=== PATIENT | female | born 1940 | race Caucasian/White ===

== ENCOUNTER 2017-02-25 10:02 | Inpatient (IN) | payer MEDICARE, OTHER ==
--- NOTE | 2017-02-25 10:08 | PDOC ---
History of Present Illness - General History Source: Patient Exam Limitations: No Limitations - History of Present Illness Initial Comments: 02/25/17 11:06 The patient is a 76 year old female, with a significant past medical history of CAD, AFib(new onset), hypertension(uncontrolled), hypothyroidism, dyspepsia, depression, arthritis, who presents to the emergency department s/p mechanical fall at approximately 05:00. The patient reports she went to get up from bed to go to the bathroom, when she slipped and fell. Patient denies any head trauma, changes in vision, LOC, headache, dizziness, lightheadedness, neck pain, back pain, leg pain, or hip pain. As per home health aide, who arrived at the patient home around 08:00, she reports ringing the patients doorbell but no one answered. When the home health aide arrived in the patients home, she reports speaking to the patient through the door, who stated she was unable to get up on her own. Home health aide reports calling super to open the door, and patient was found on the floor. Patient reports she was unable to walk secondary to weakness . Patient reports when EMS arrived on scene she was nervous and was found to be hypertensive. She denies any other trauma or pain. She reports while she was on the floor she urinated 10 times, but denies any dysuria or hematuria. She denies any abdominal pain, nausea, vomiting, diarrhea , or constipation. She reports a dry cough, but denies any recent fever or chills. She denies any chest pain, shortness of breath, diaphoresis, or palpitations. Patient reports she ambulates with a cane at baseline. Patient reports she usually goes to [facility]. [facility] reports patient s last echo was in 2013, which had normal EF and mild L atrium dilation. Allergies: NKDA Past Surgical History: Bilateral knee replacements, Left hip replacement Social History: Non smoker. No ETOH or recreational drug use. PCP: Dr Quezada ([phone]) <Cristian Naik - Last Filed: 02/25/17 11:09> <Asia Logan - Last Filed: 02/25/17 12:09> - General Chief Complaint: Injury Stated Complaint: FALL Time Seen by Provider: 02/25/17 10:08 Past History <Cristian Naik - Last Filed: 02/25/17 11:09> <Asia Logan - Last Filed: 02/25/17 12:09> - Past Medical History Allergies/Adverse Reactions: Allergies Allergy/AdvReac Type Severity Reaction Status Date / Time No Known Allergies Allergy Unverified 02/25/17 10:35 Home Medications: Ambulatory Orders Acetaminophen [Tylenol] 650 mg PO PRN PRN 02/25/17 Aspirin [ASA -] 81 mg PO DAILY 02/25/17 Cholecalciferol (Vitamin D3) [Vitamin D3] 2,000 unit PO DAILY 02/25/17 Cyclobenzaprine HCl [Flexeril 10 mg] 10 mg PO BID PRN 02/25/17 Esomeprazole Magnesium [Nexium 24Hr] 40 mg PO DAILY 02/25/17 Levothyroxine [Synthroid -] 175 mcg PO DAILY 02/25/17 Metoprolol Tartrate [Lopressor -] 25 mg PO BID 02/25/17 Mirtazapine 15 mg PO DAILY 02/25/17 Omeprazole 40 mg PO DAILY 02/25/17 Oxycodone HCl/Acetaminophen [Percocet 5-325 mg Tablet] 1 tab PO BID 02/25/17 Sertraline HCl 50 mg PO DAILY 02/25/17 Review of Systems - Review of Systems Able to Perform ROS?: Yes Comments:: 02/25/17 11:06 GENERAL/CONSTITUTIONAL: Yes weakness. No fever or chills. HEAD, EYES, EARS, NOSE AND THROAT: No change in vision. No ear pain or discharge. No sore throat. GASTROINTESTINAL: No nausea, vomiting, diarrhea or constipation. GENITOURINARY: Yes frequency. No dysuria, hematuria, or change in urination. CARDIOVASCULAR: No chest pain, shortness of breath, diaphoresis, or palpitations. RESPIRATORY: Yes cough. No wheezing, or hemoptysis. MUSCULOSKELETAL: Yes leg weakness. No joint or muscle swelling or pain. No neck or back pain. SKIN: No rash NEUROLOGIC: No headache, vertigo, loss of consciousness, or change in strength/ sensation. ENDOCRINE: No increased thirst. No abnormal weight change. HEMATOLOGIC/LYMPHATIC: No anemia, easy bleeding, or history of blood clots. ALLERGIC/IMMUNOLOGIC: No hives or skin allergy. <Cristian Naik - Last Filed: 02/25/17 11:09> *Physical Exam - Vital Signs Last Vital Signs Temp Pulse Resp BP Pulse Ox 98.2 F 131 H 22 159/117 95 02/25/17 10:35 02/25/17 11:00 02/25/17 10:50 02/25/17 11:00 02/25/17 10:50 - Physical Exam Comments: 02/25/17 11:06 Constitutional: Awake, alert, oriented. No acute distress. Head: Normocephalic. Atraumatic Eyes: PERRL. EOMI. Conjunctivae are not pale. ENT: Mucous membranes are moist and intact. Posterior pharynx without exudates or erythema. Uvula midline. Neck: Supple. Full ROM. No lymphadenopathy. Cardiovascular: Irregularly irregular. Slightly tachycaardic. S1, S2 regular. Distal pulses are 2+ and symmetric. Pulmonary/Chest: No evidence of respiratory distress. Clear to auscultation bilaterally No wheezing, rales or rhonchi. Abdominal: Soft and non-distended. There is no tenderness. No rebound, guarding or rigidity. No organomegaly. No palpable masses. Good bowel sounds. Back: No CVA tenderness. Musculoskeletal: No edema. No cyanosis. No clubbing. Full range of motion in all extremities. No calf tenderness. Radial/pedal pulses are intact and 2+ bilaterally Skin: Skin is warm and dry. No petechiae. No purpura. Neurological: Alert and oriented to person, place, and time. Cranial nerves II- XII are grossly intact. Normal speech. Strength is grossly symmetric. No sensory deficits. Gait deferred. Psychiatric: Good eye contact. Normal interaction, affect and behavior. <Cristian Naik - Last Filed: 02/25/17 11:09> Heart Score/ECG Review - ECG Intrepretation Comment:: 02/25/17 11:07 Vent Rate: 121 bpm IMPRESSION: Atrial fibrillation with rapid ventricular response with premature ventricular or aberrantly conducted complexes. ST & T wave abnormality, consider lateral ischemia. <Cristian Naik - Last Filed: 02/25/17 11:09> - ECG Intrepretation Comment:: 02/25/17 10:37 afib w RVR at 121, t wave inversions laterally, q waves anteriorly that are age indeterminate, abnl ekg <Asia Logan - Last Filed: 02/25/17 12:09> ED Treatment Course - LABORATORY CBC & Chemistry Diagram: 02/25/17 10:39 02/25/17 10:39 - ADDITIONAL ORDERS Additional order review: 02/25/17 10:39 RBC 4.75 MCV 83.8 MCHC 32.7 RDW 15.9 H MPV 7.8 Neutrophils % 71.3 Lymphocytes % 19.3 Monocytes % 6.8 Eosinophils % 2.1 Basophils % 0.5 - Medications Given in the ED: ED Medications Discontinued Medications Generic Name Dose Route Start Last Admin Trade Name Freq PRN Reason Stop Dose Admin Metoprolol Tartrate 5 mg 02/25/17 10:35 02/25/17 11:00 Lopressor Injection - IVPUSH 02/25/17 10:36 5 mg ONCE ONE Administration Metoprolol Tartrate 25 mg 02/25/17 10:35 02/25/17 11:00 Lopressor - PO 02/25/17 10:36 25 mg ONCE ONE Administration <Cristian Naik - Last Filed: 02/25/17 11:09> - LABORATORY CBC & Chemistry Diagram: 02/25/17 10:39 02/25/17 10:39 <Asia Logan - Last Filed: 02/25/17 12:09> Medical Decision Making - Critical Care Time Total Critical Care Time (minutes): 30 Critical Care Statement: The care of this patient involved high complexity decision making to prevent further life threatening deterioration of the patient 's condition and/or to evaluate & treat vital organ system(s) failure or risk of failure. - Medical Decision Making 02/25/17 10:38 a/p: 76yo female with a fall at home -now with afib rvr -call placed to Dr. Cristhian Quezada to obtain further hx -concern for polypharmacy given flexeril, percocet, tylenol Rx bottles -urinary freq, poss UTI -cough - will obtain xray -rate control, labs, trops, ekg, cxr, reassess -no head injury -will monitor and reassess 02/25/17 11:03 discussed with [facility] - pt with new onset AFIB. hx of CAD, HTN, hypothyroid, depression, dyspepsia. will consult cardiology and pt will need to be admitted to the hospital. 02/25/17 11:39 microblog sent to hospitalist. consult placed to cardiology 02/25/17 12:03 case discussed with IM resident who accepts pt to service under Dr. Ma 02/25/17 12:09 pt updated on labs and new onset afib and willing to stay for further eval. <Asia Logan - Last Filed: 02/25/17 12:09> *DC/Admit/Observation/Transfer - Attestations Scribe Attestion: 02/25/17 11:06 Documentation prepared by Cristian Naik, acting as medical record administrator for Asia Logan DO. <Cristian Naik - Last Filed: 02/25/17 11:09> - Discharge Dispostion Admit: Yes - Attestations Physician Attestion: 02/25/17 11:04 I, Dr. Asia Logan, DO, attest that this document has been prepared under my direction and personally reviewed by me in its entirety. I further attest, that it accurately reflects all work, treatment, procedures and medical decision -making performed by me. <Asia Logan - Last Filed: 02/25/17 12:09> Diagnosis at time of Disposition: Atrial fibrillation with RVR, Fall - Discharge Dispostion Condition at time of disposition: Guarded
[2017-02-25] MEDS ORDERED: METOPROLOL TARTRATE 5 MG/5 ML VIAL IVPUSH ONE (10:35)
[2017-02-25] MEDS ORDERED: METOPROLOL TARTRATE 25 MG TABLET (FP) PO ONE ×2 (10:35→11:02)
[2017-02-25 10:39] VITALS: BMI 34.0
[2017-02-25] MEDS ORDERED: METOPROLOL TARTRATE 5 MG/5 ML VIAL ONE (10:51)
[2017-02-25] MEDS ORDERED: METOPROLOL TARTRATE 25 MG TABLET (FP) ONE ×2 (10:52→11:06)
[2017-02-25 10:54] LABS: BASOPHIL 0.5 % (0-2.0); EOSINOPHIL 2.1 % (0-4.5); MCH 27.4 pg (25.7-33.7); MCHC 32.7 g/dl (32.0-36.0); MEAN CELL VOLUME 83.8 fl (80-96); MEAN PLT VOLUME 7.8 fl (7.5-11.1); NEUTROPHILS 71.3 % (42.8-82.8); PLATELET COUNT 290 K/MM3 (134-434); RDW 15.9 % (11.6-15.6); WHITE BLOOD COUNT 11.2 K/mm3 (4.0-10.0)
[2017-02-25 11:20] LABS: ALBUMIN 3.6 g/dl (3.4-5.0); ANION GAP 6 (8-16); BILIRUBIN,TOTAL 0.6 mg/dL (0.2-1.0); CALCIUM 8.4 mg/dL (8.5-10.1); CO2 30 mmol/L (21-32); CREATININE 0.6 mg/dL (0.55-1.02); GLUCOSE,RANDOM 113 mg/dL (74-106); MAGNESIUM 2.1 mg/dL (1.8-2.4); SGOT/AST 14 U/L (15-37); SGPT/ALT 16 U/L (12-78); TOT PROT 7.3 g/dl (6.4-8.2)
[2017-02-25 11:23] LABS: ALK PHOS 153 U/L (45-117); CPK 83 IU/L (26-192); INR 1.01 (0.82-1.09); PROTHROMBIN TIME (PATIENT) 11.4 SEC (9.98-11.88); TROPONIN I < 0.02 ng/ml (0.00-0.05)
[2017-02-25 11:26] LABS: ACTIVATED PTT 37.6 SECONDS (26.9-34.4)
[2017-02-25] MEDS ORDERED: ENOXAPARIN NA (PORCINE) 80 MG/0.8 ML DISP.SYRIN SQ SCH (11:45)
[2017-02-25 11:47] LABS: THYROID STIMULATING HORMONE 0.15 uIU/ml (0.358-3.74)
[2017-02-25] MEDS ORDERED: ACETAMINOPHEN 325 MG TABLET (FP) PO PRN ×2 (12:05→12:35)
--- NOTE | 2017-02-25 12:14 | HP ---
CHIEF COMPLAINT:mechanical fall PCP:Dr Quezada ([phone]) HISTORY OF PRESENT ILLNESS: 76 year old female, with a significant past medical history of CAD, hypertension(uncontrolled), hypothyroidism, dyspepsia, depression, arthritis, who presents to the emergency department s/p mechanical fall . The patient reports she went to get up from bed to go to the bathroom, when she slipped and fell. Patient denies changes in vision, LOC, headache, dizziness, lightheadedness, neck pain, back pain, leg pain, or hip pain. She was found by home health aide 4hrs later. Patient was unable to ambulate secondary to weakness. She reports a dry cough, but denies any recent fever or chills. She denies any chest pain, shortness of breath, diaphoresis, or palpitations. Ambulates with a cane at baseline. Patient see usually at [facility]. As per [facility] reports patients last echo was in 2013, which had normal EF and mild L atrium dilation. She denies any KAUR, SOB, abdominal pain, nausea, vomiting, diarrhea, or constipation. ER course was notable for: (1)EKG showed afib with RVR (2)Started on Lovenox SQ for AC (3)Cardiology consulted. Recent Travel: no PAST MEDICAL HISTORY: CAD, AFib(new onset), hypertension(uncontrolled), hypothyroidism, dyspepsia, depression, arthritis PAST SURGICAL HISTORY:Bilateral knee replacements, Left hip replacement Social History: Smoking:never Alcohol: denies Drugs: denies Family History: Allergies No Known Allergies Allergy (Unverified 02/25/17 10:35) HOME MEDICATIONS: Home Medications Medication Instructions Recorded Acetaminophen [Tylenol] 650 mg PO PRN PRN 02/25/17 Aspirin [ASA -] 81 mg PO DAILY 02/25/17 Cholecalciferol (Vitamin D3) 2,000 unit PO DAILY 02/25/17 [Vitamin D3] Cyclobenzaprine HCl [Flexeril 10 10 mg PO BID PRN 02/25/17 mg] Esomeprazole Magnesium [Nexium 40 mg PO DAILY 02/25/17 24Hr] Levothyroxine [Synthroid -] 175 mcg PO DAILY 02/25/17 Metoprolol Tartrate [Lopressor -] 25 mg PO BID 02/25/17 Mirtazapine 15 mg PO DAILY 02/25/17 Omeprazole 40 mg PO DAILY 02/25/17 Oxycodone HCl/Acetaminophen 1 tab PO BID 02/25/17 [Percocet 5-325 mg Tablet] Sertraline HCl 50 mg PO DAILY 02/25/17 REVIEW OF SYSTEMS CONSTITUTIONAL: Absent: fever, chills, diaphoresis, generalized weakness, malaise, loss of appetite, weight change HEENT: Absent: rhinorrhea, nasal congestion, throat pain, throat swelling, difficulty swallowing, mouth swelling, ear pain, eye pain, visual changes CARDIOVASCULAR: Absent: chest pain, syncope, palpitations, irregular heart rate, lightheadedness , peripheral edema RESPIRATORY: Absent: cough, shortness of breath, dyspnea with exertion, orthopnea, wheezing, stridor, hemoptysis GASTROINTESTINAL: Absent: abdominal pain, abdominal distension, nausea, vomiting, diarrhea, constipation, melena, hematochezia GENITOURINARY: Absent: dysuria, frequency, urgency, hesitancy, hematuria, flank pain, genital pain MUSCULOSKELETAL: Absent: myalgia, arthralgia, joint swelling, back pain, neck pain SKIN: Absent: rash, itching, pallor HEMATOLOGIC/IMMUNOLOGIC: Absent: easy bleeding, easy bruising, lymphadenopathy, frequent infections ENDOCRINE: Absent: unexplained weight gain, unexplained weight loss, heat intolerance, cold intolerance NEUROLOGIC: Absent: headache, focal weakness or paresthesias, dizziness, unsteady gait, seizure, mental status changes, bladder or bowel incontinence PSYCHIATRIC: Absent: anxiety, depression, suicidal or homicidal ideation, hallucinations. PHYSICAL EXAMINATION Vital Signs - 24 hr 02/25/17 02/25/17 02/25/17 10:35 10:50 11:00 Temperature 98.2 F Pulse Rate 132 H 131 H Pulse Rate [ 131 H Apical] Respiratory 22 22 Rate Blood Pressure 162/112 159/117 Blood Pressure 159/117 [Right Arm] O2 Sat by Pulse 95 95 Oximetry (%) 02/25/17 11:08 Temperature Pulse Rate Pulse Rate [ 105 H Apical] Respiratory Rate Blood Pressure Blood Pressure [Right Arm] O2 Sat by Pulse Oximetry (%) GENERAL: AAOx3 , NAD HEAD: NC/AT EYES:PERRLA, EOMI, sclera anicteric, conjunctiva clear. No lid lag. EARS, NOSE, THROAT:dry mucous membranes. NECK: Normal range of motion, supple without lymphadenopathy, JVD, or masses. LUNGS: CTAB, No wheezes, and no crackles. No accessory muscle use. HEART: Irregularly irregular, normal S1 and S2 without murmur, rub or gallop. ABDOMEN: Soft, nontender, not distended, normoactive bowel sounds, no guarding, no rebound, no masses. MUSCULOSKELETAL: Normal range of motion at all joints. No bony deformities or tenderness. No CVA tenderness. UPPER EXTREMITIES: 2+ pulses, warm, well-perfused. No cyanosis. No clubbing. No peripheral edema. LOWER EXTREMITIES: 2+ pulses, warm, well-perfused. No calf tenderness. No peripheral edema. NEUROLOGICAL: Cranial nerves II-XII intact. Normal speech. PSYCHIATRIC: Cooperative. Good eye contact. Appropriate mood and affect. Laboratory Results - last 24 hr 02/25/17 02/25/17 02/25/17 10:39 10:39 10:39 WBC RBC Hgb Hct MCV MCH MCHC RDW Plt Count MPV Neutrophils % Lymphocytes % Monocytes % Eosinophils % Basophils % PT with INR 11.40 INR 1.01 PTT (Actin FS) 37.6 H Sodium 141 Potassium 4.0 Chloride 105 Carbon Dioxide 30 Anion Gap 6 L BUN 15 Creatinine 0.6 Creat Clearance w eGFR > 60 Random Glucose 113 H Calcium 8.4 L Magnesium 2.1 Total Bilirubin 0.6 AST 14 L ALT 16 Alkaline Phosphatase 153 H Creatine Kinase 83 Troponin I < 0.02 B-Natriuretic Peptide Total Protein 7.3 Albumin 3.6 TSH 0.15 L Blood Type O POSITIVE Antibody Screen Negative 02/25/17 02/25/17 10:39 10:39 WBC 11.2 H RBC 4.75 Hgb 13.0 Hct 39.8 MCV 83.8 MCH 27.4 MCHC 32.7 RDW 15.9 H Plt Count 290 MPV 7.8 Neutrophils % 71.3 Lymphocytes % 19.3 Monocytes % 6.8 Eosinophils % 2.1 Basophils % 0.5 PT with INR INR PTT (Actin FS) Sodium Potassium Chloride Carbon Dioxide Anion Gap BUN Creatinine Creat Clearance w eGFR Random Glucose Calcium Magnesium Total Bilirubin AST ALT Alkaline Phosphatase Creatine Kinase Troponin I B-Natriuretic Peptide 1504.76 H Total Protein Albumin TSH Blood Type Antibody Screen ASSESSMENT/PLAN: 76 year old female, with a significant past medical history of CAD, AFib(new onset), hypertension(uncontrolled), hypothyroidism, dyspepsia, depression, arthritis, who presents to the emergency department s/p mechanical fall will be admitted for further management of New onset Afib with RVR. Problem List - Problem (1) Atrial fibrillation with RVR Assessment/Plan: * May be a result of infection, over medication or other metabolic causes. * Will admitt to telemetry for continuous monitoring. * Rate controlled with Metoprolol 50mg PO and will continue * Cardiology consult pending. * Echo ordered. * Trops (-) x1 will continue to trend. * (2) HTN (hypertension) (3) CAD (coronary artery disease) (4) Osteoarthritis Visit type - Emergency Visit Emergency Visit: Yes ED Registration Date: 02/26/17 Care time: The patient presented to the Emergency Department on the above date and was hospitalized for further evaluation of their emergent condition. - New Patient This patient is new to me today: Yes Date on this admission: 02/26/17 - Critical Care Critical Care patient: No
[2017-02-25] MEDS ORDERED: oxyCODONE HCL 5 MG TABLET PO PRN (12:35)
[2017-02-25] MEDS ORDERED: ENOXAPARIN NA (PORCINE) 80 MG/0.8 ML DISP.SYRIN SQ ONE (12:37)
--- NOTE | 2017-02-25 15:11 | PN ---
Teaching Attending Note Name of Resident: Renzo Caro ATTENDING PHYSICIAN STATEMENT I saw and evaluated the patient. I reviewed the resident's note and discussed the case with the resident. I agree with the resident's findings and plan as documented. SUBJECTIVE: OBJECTIVE: Vital Signs Period Temp Pulse Resp BP Sys/Curiel Pulse Ox Last 24 Hr 98.2 F 96-132 20-22 149-162/91-117 94-95 Home Medications Medication Instructions Recorded Acetaminophen [Tylenol] 650 mg PO PRN PRN 02/25/17 Aspirin [ASA -] 81 mg PO DAILY 02/25/17 Cholecalciferol (Vitamin D3) 2,000 unit PO DAILY 02/25/17 [Vitamin D3] Cyclobenzaprine HCl [Flexeril 10 10 mg PO BID PRN 02/25/17 mg] Esomeprazole Magnesium [Nexium 40 mg PO DAILY 02/25/17 24Hr] Levothyroxine [Synthroid -] 175 mcg PO DAILY 02/25/17 Metoprolol Tartrate [Lopressor -] 25 mg PO BID 02/25/17 Mirtazapine 15 mg PO DAILY 02/25/17 Omeprazole 40 mg PO DAILY 02/25/17 Oxycodone HCl/Acetaminophen 1 tab PO BID 02/25/17 [Percocet 5-325 mg Tablet] Sertraline HCl 50 mg PO DAILY 02/25/17 Laboratory Tests 02/25/17 02/25/17 02/25/17 10:39 10:39 10:39 WBC RBC Hgb Hct MCV MCH MCHC RDW Plt Count MPV Neutrophils % Lymphocytes % Monocytes % Eosinophils % Basophils % PT with INR 11.40 INR 1.01 PTT (Actin FS) 37.6 H Sodium 141 Potassium 4.0 Chloride 105 Carbon Dioxide 30 Anion Gap 6 L BUN 15 Creatinine 0.6 Creat Clearance w eGFR > 60 Random Glucose 113 H Calcium 8.4 L Magnesium 2.1 Total Bilirubin 0.6 AST 14 L ALT 16 Alkaline Phosphatase 153 H Creatine Kinase 83 Troponin I < 0.02 B-Natriuretic Peptide Total Protein 7.3 Albumin 3.6 TSH 0.15 L Blood Type O POSITIVE Antibody Screen Negative 02/25/17 02/25/17 10:39 10:39 WBC 11.2 H RBC 4.75 Hgb 13.0 Hct 39.8 MCV 83.8 MCH 27.4 MCHC 32.7 RDW 15.9 H Plt Count 290 MPV 7.8 Neutrophils % 71.3 Lymphocytes % 19.3 Monocytes % 6.8 Eosinophils % 2.1 Basophils % 0.5 PT with INR INR PTT (Actin FS) Sodium Potassium Chloride Carbon Dioxide Anion Gap BUN Creatinine Creat Clearance w eGFR Random Glucose Calcium Magnesium Total Bilirubin AST ALT Alkaline Phosphatase Creatine Kinase Troponin I B-Natriuretic Peptide 1504.76 H Total Protein Albumin TSH Blood Type Antibody Screen ASSESSMENT AND PLAN:
[2017-02-25] MEDS: MIRTAZAPINE 15 MG TABLET (FP) PO SCH (21:08)
[2017-02-25] MEDS: METOPROLOL TARTRATE 25 MG TABLET (FP) PO SCH (21:08)
[2017-02-26] MEDS ORDERED: LEVOTHYROXINE NA 75 MCG TABLET (FP) ONE (05:48)
[2017-02-26] MEDS ORDERED: LEVOTHYROXINE NA 100 MCG TABLET (FP) ONE (05:48)
[2017-02-26] MEDS ORDERED: LEVOTHYROXINE 100 MCG, LEVOTHYROXINE 75 MCG PO SCH (07:00)
[2017-02-26] MEDS ORDERED: LEVOTHYROXINE NA 175 MCG TABLET PO SCH (07:00)
[2017-02-26 07:33] LABS: BASOPHIL 0.5 % (0-2.0); EOSINOPHIL 3.5 % (0-4.5); MCH 27.6 pg (25.7-33.7); MEAN CELL VOLUME 83.7 fl (80-96); MEAN PLT VOLUME 8.4 fl (7.5-11.1); NEUTROPHILS 58.7 % (42.8-82.8); PLATELET COUNT 275 K/MM3 (134-434); RDW 16.4 % (11.6-15.6); WHITE BLOOD COUNT 8.9 K/mm3 (4.0-10.0)
[2017-02-26 08:16] LABS: ALBUMIN 3.1 g/dl (3.4-5.0); ALK PHOS 135 U/L (45-117); ANION GAP 7 (8-16); BILIRUBIN,TOTAL 0.9 mg/dL (0.2-1.0); CALCIUM 7.8 mg/dL (8.5-10.1); CHOLESTEROL 188 mg/dL (50-200); CO2 28 mmol/L (21-32); CPK 72 IU/L (26-192); CREATININE 0.5 mg/dL (0.55-1.02); GLUCOSE,RANDOM 102 mg/dL (74-106); MAGNESIUM 2.1 mg/dL (1.8-2.4); PHOSPHOROUS 3.6 mg/dL (2.5-4.9); SGOT/AST 11 U/L (15-37); SGPT/ALT 14 U/L (12-78); TOT PROT 6.3 g/dl (6.4-8.2); TROPONIN I < 0.02 ng/ml (0.00-0.05)
[2017-02-26] MEDS ORDERED: CYCLOBENZAPRINE HCL 10 MG TABLET (FP) PO PRN ×2 (09:05→11:00)
[2017-02-26] MEDS: ASPIRIN 81 MG CHEWABLE TABLETS PO SCH (09:13)
[2017-02-26] MEDS: METOPROLOL TARTRATE 25 MG TABLET (FP) PO SCH (09:13)
[2017-02-26] MEDS: PANTOPRAZOLE 40 MG TABLET (FP) PO SCH (09:13)
[2017-02-26] MEDS: SERTRALINE HCL 50 MG TABLET (FP) PO SCH (09:13)
[2017-02-26] MEDS: CHOLECALCIFEROL (VITAMIN D3) 1,000 UNIT TABLET (FP) PO SCH (09:13)
[2017-02-26] MEDS ORDERED: METOPROLOL TARTRATE 5 MG/5 ML VIAL IVPUSH ONE (09:37)
--- NOTE | 2017-02-26 09:39 | EKG ---
Test Reason : Blood Pressure : / mmHG Vent. Rate : 121 BPM Atrial Rate : 258 BPM P-R Int : 000 ms QRS Dur : 084 ms QT Int : 324 ms P-R-T Axes : 000 038 209 degrees QTc Int : 460 ms ATRIAL FIBRILLATION WITH RAPID VENTRICULAR RESPONSE WITH PREMATURE VENTRICULAR OR ABERRANTLY CONDUCTED COMPLEXES ABNORMAL ECG NO PREVIOUS ECGS AVAILABLE Confirmed by KAPIL GOMEZ, ELENA ([id number]) on 02/26/2017 9:39:12 AM Referred By: Confirmed By:ELENA DICK MD
[2017-02-26] MEDS ORDERED: PATIENT'S OWN MEDICATION (NON-FORMULARY) (Esomeprazole Magnesium [Nexium 24hr] 40 MG) PO SCH (10:00)
[2017-02-26] MEDS: LISINOPRIL 5 MG TABLET (FP) PO SCH (12:26)
[2017-02-26] MEDS: ENOXAPARIN NA (PORCINE) 80 MG/0.8 ML DISP.SYRIN SQ SCH ×2 (12:26→21:45)
--- NOTE | 2017-02-26 13:16 | PN ---
Physical Exam: SUBJECTIVE: Patient seen and examined OBJECTIVE: Vital Signs Temperature 98 F 02/26/17 10:00 Pulse Rate 128 H 02/26/17 10:00 Respiratory Rate 20 02/26/17 10:00 Blood Pressure 162/92 02/26/17 10:00 O2 Sat by Pulse Oximetry (%) 95 02/26/17 07:00 GENERAL: The patient is awake, alert, and fully oriented, in no acute distress. HEAD: Normal with no signs of trauma. EYES: PERRL, extraocular movements intact, sclera anicteric, conjunctiva clear. No ptosis. ENT: Ears normal, nares patent, oropharynx clear without exudates, moist mucous membranes. NECK: Trachea midline, full range of motion, supple. LUNGS: Breath sounds equal, clear to auscultation bilaterally, no wheezes, no crackles, no accessory muscle use. HEART: Regular rate and rhythm, S1, S2 without murmur, rub or gallop. ABDOMEN: Soft, nontender, nondistended, normoactive bowel sounds, no guarding, no rebound, no hepatosplenomegaly, no masses. EXTREMITIES: 2+ pulses, warm, well-perfused, no edema. NEUROLOGICAL: Cranial nerves II through XII grossly intact. Normal speech, gait not observed. PSYCH: Normal mood, normal affect. SKIN: Warm, dry, normal turgor, no rashes or lesions noted Active Medications CBCD WBC 8.9 K/mm3 (4.0-10.0) 02/26/17 05:20 RBC 4.46 M/mm3 (3.60-5.2) 02/26/17 05:20 Hgb 12.3 GM/dL (10.7-15.3) 02/26/17 05:20 Hct 37.4 % (32.4-45.2) 02/26/17 05:20 MCV 83.7 fl (80-96) 02/26/17 05:20 MCHC 33.0 g/dl (32.0-36.0) 02/26/17 05:20 RDW 16.4 % (11.6-15.6) H 02/26/17 05:20 Plt Count 275 K/MM3 (134-434) 02/26/17 05:20 MPV 8.4 fl (7.5-11.1) 02/26/17 05:20 CMP Sodium 142 mmol/L (136-145) 02/26/17 05:20 Potassium 4.0 mmol/L (3.5-5.1) 02/26/17 05:20 Chloride 107 mmol/L (98-107) 02/26/17 05:20 Carbon Dioxide 28 mmol/L (21-32) 02/26/17 05:20 Anion Gap 7 (8-16) L 02/26/17 05:20 BUN 11 mg/dL (7-18) D 02/26/17 05:20 Creatinine 0.5 mg/dL (0.55-1.02) L 02/26/17 05:20 Creat Clearance w eGFR > 60 (>60) 02/26/17 05:20 Random Glucose 102 mg/dL (74-106) 02/26/17 05:20 Calcium 7.8 mg/dL (8.5-10.1) L 02/26/17 05:20 Total Bilirubin 0.9 mg/dL (0.2-1.0) D 02/26/17 05:20 AST 11 U/L (15-37) L D 02/26/17 05:20 ALT 14 U/L (12-78) 02/26/17 05:20 Alkaline Phosphatase 135 U/L (45-117) H 02/26/17 05:20 Total Protein 6.3 g/dl (6.4-8.2) L 02/26/17 05:20 Albumin 3.1 g/dl (3.4-5.0) L 02/26/17 05:20 CARDIAC ENZYMES Creatine Kinase 72 IU/L (26-192) 02/26/17 05:20 Troponin I < 0.02 ng/ml (0.00-0.05) 02/26/17 05:20 Generic Name Dose Route Start Last Admin Trade Name Freq PRN Reason Stop Dose Admin Acetaminophen 650 mg 02/25/17 12:05 Tylenol - PO PRN PRN PAIN Acetaminophen 325 mg 02/25/17 12:35 Tylenol - PO Q12H PRN FEVER OR PAIN Aspirin 81 mg 02/26/17 10:00 02/26/17 09:13 Asa - PO 81 mg DAILY DIANELYS Administration Cholecalciferol 2,000 unit 02/26/17 10:00 02/26/17 09:13 Vitamin D3 - PO 2,000 unit DAILY DIANELYS Administration Cyclobenzaprine HCl 10 mg 02/26/17 11:00 Flexeril - PO DAILY PRN PAIN Enoxaparin Sodium 80 mg 02/26/17 12:00 02/26/17 12:26 Lovenox - SQ 80 mg BID DIANELYS Administration Levothyroxine Sodium 125 mcg 02/27/17 07:00 Synthroid - PO DAILY@0700 DIANELYS Lisinopril 5 mg 02/26/17 12:00 02/26/17 12:26 Prinivil PO 5 mg DAILY DIANELYS Administration Metoprolol Succinate 50 mg 02/26/17 20:00 Toprol Xl - PO BID DIANELYS Mirtazapine 15 mg 02/25/17 22:00 02/25/17 21:08 Remeron - PO 15 mg HS DIANELYS Administration Oxycodone HCl 5 mg 02/25/17 12:35 Roxicodone - PO Q12H PRN Pantoprazole Sodium 40 mg 02/26/17 10:00 02/26/17 09:13 Protonix - PO 40 mg DAILY DIANELYS Administration Sertraline HCl 50 mg 02/26/17 10:00 02/26/17 09:13 Zoloft - PO 50 mg DAILY DIANELYS Administration Home Medications Medication Instructions Recorded Acetaminophen [Tylenol] 650 mg PO PRN PRN 02/25/17 Aspirin [ASA -] 81 mg PO DAILY 02/25/17 Cholecalciferol (Vitamin D3) 2,000 unit PO DAILY 02/25/17 [Vitamin D3] Cyclobenzaprine HCl [Flexeril 10 10 mg PO BID PRN 02/25/17 mg] Esomeprazole Magnesium [Nexium 40 mg PO DAILY 02/25/17 24Hr] Levothyroxine [Synthroid -] 175 mcg PO DAILY 02/25/17 Metoprolol Tartrate [Lopressor -] 25 mg PO BID 02/25/17 Mirtazapine 15 mg PO DAILY 02/25/17 Omeprazole 40 mg PO DAILY 02/25/17 Oxycodone HCl/Acetaminophen 1 tab PO BID 02/25/17 [Percocet 5-325 mg Tablet] Sertraline HCl 50 mg PO DAILY 02/25/17 ASSESSMENT/PLAN: 76 year old female, with a significant past medical history of CAD, AFib(new onset), hypertension(uncontrolled), hypothyroidism, dyspepsia, depression, arthritis, who presents to the emergency department s/p mechanical fall will be admitted for further management of New onset Afib with RVR. # Atrial fibrillation with RVR : May be a result of infection, over medication or other metabolic causes. Will admit to telemetry for continuous monitoring. Rate controlled with Metoprolol 50mg PO and will continue, Cardiology consult pending, Echo ordered, Trops (-) x1 will continue to trend. # HTN (hypertension) # CAD (coronary artery disease) # Osteoarthritis DVT:
--- NOTE | 2017-02-26 14:51 | CON.CARD ---
Consult Consult Specialty:: Cardiology Referred by:: Dr. Ma Reason for Consultation:: Atrial fibrillation with rapid ventricular response. - History of Present Illness Chief Complaint: Palpitation with evidence of atrial fibrillation. History of Present Illness: 76 year old woman with a PMHx of CAD, new atrial fibrillation, hypertension, hypothyroidism, dyspepsia, depression, arthritis admitted 02/25/2017 after a mechanical fall with evidence of atrial fibrillation with rapid VR. The patient slipped and fell and unable to get up. There were no head trauma, headache, changes in vision, LOC, dizziness, lightheadedness, or pain. Patient reports she was unable to walk secondary to weakness. She was found to have atrial fibrillation with rapid VR with ECG evidence of lateral ischemia. Echocardiogram 02/25/2017 showed low-normal LV systolic function with LVEF 50%. Normal RV and moderate LA dilatation. She received metoprolol with improved VR control. - History Source History Provided By: Patient, Family Member, Medical Record Limitations to Obtaining History: No Limitations - Past Medical History Cardio/Vascular: Yes: AFIB, CAD, HTN - Alcohol/Substance Use Hx Alcohol Use: No History of Substance Use: reports: None - Smoking History Smoking history: Never smoked Have you smoked in the past 12 months: No Home Medications - Allergies Allergies/Adverse Reactions: Allergies Allergy/AdvReac Type Severity Reaction Status Date / Time No Known Allergies Allergy Unverified 02/25/17 10:35 - Home Medications Home Medications: Ambulatory Orders Acetaminophen [Tylenol] 650 mg PO PRN PRN 02/25/17 Aspirin [ASA -] 81 mg PO DAILY 02/25/17 Cholecalciferol (Vitamin D3) [Vitamin D3] 2,000 unit PO DAILY 02/25/17 Cyclobenzaprine HCl [Flexeril 10 mg] 10 mg PO BID PRN 02/25/17 Esomeprazole Magnesium [Nexium 24Hr] 40 mg PO DAILY 02/25/17 Levothyroxine [Synthroid -] 175 mcg PO DAILY 02/25/17 Metoprolol Tartrate [Lopressor -] 25 mg PO BID 02/25/17 Mirtazapine 15 mg PO DAILY 02/25/17 Omeprazole 40 mg PO DAILY 02/25/17 Oxycodone HCl/Acetaminophen [Percocet 5-325 mg Tablet] 1 tab PO BID 02/25/17 Sertraline HCl 50 mg PO DAILY 02/25/17 Review of Systems - Review of Systems Constitutional: reports: No Symptoms Eyes: reports: No Symptoms HENT: reports: No Symptoms Neck: reports: No Symptoms Cardiovascular: reports: Palpitations Respiratory: reports: No Symptoms Gastrointestinal: reports: No Symptoms Genitourinary: reports: No Symptoms Musculoskeletal: reports: Extremity Pain, Joint Pain Integumentary: reports: No Symptoms Endocrine: reports: No Symptoms Hematology/Lymphatic: reports: No Symptoms Psychiatric: reports: No Symptoms Vital Signs: Vital Signs Temperature 98 F 02/26/17 10:00 Pulse Rate 128 H 02/26/17 10:00 Respiratory Rate 20 02/26/17 10:00 Blood Pressure 162/92 02/26/17 10:00 O2 Sat by Pulse Oximetry (%) 95 02/26/17 07:00 Constitutional: Yes: Well Nourished, No Distress, Calm Eyes: Yes: Conjunctiva Clear, EOM Intact HENT: Yes: Atraumatic, Normocephalic Neck: Yes: Supple, Trachea Midline Respiratory: Yes: Regular, CTA Bilaterally Gastrointestinal: Yes: Normal Bowel Sounds, Soft Cardiovascular: Yes: Tachycardia, Pulse Irregular, Other (S1, S2 Irregularly irregular, mild tachycardic.) Heart Sounds: Yes: S1, S2 Musculoskeletal: Yes: WNL Extremities: Yes: WNL Edema: No Peripheral Pulses WNL: Yes - Other Data Labs, Other Data: INR, PTT INR 1.01 (0.82-1.09) 02/25/17 10:39 Imaging - Results EKG: Image Reviewed (Atrial fibrillation with rapid VR. Lateral ST-T abnormalities, suggestive of myocardia ischemia.) Problem List - Problems (1) Atrial fibrillation with RVR Code(s): I48.91 - UNSPECIFIED ATRIAL FIBRILLATION Assessment/Plan 76 year old woman with a PMHx of CAD, new atrial fibrillation, hypertension, hypothyroidism, dyspepsia, depression, arthritis admitted 02/25/2017 after a mechanical fall with evidence of atrial fibrillation with rapid VR. The patient has no symptoms of palpitation, angina or physical signs of ischemia. Echocardiogram 02/25/2017 showed low-normal LV systolic function with LVEF 50%. Normal RV and moderate LA dilatation. She received metoprolol with improved VR control. 1) Atrial fibrillation with rapid ventricular response: Ventricular rate control: Increase and change metoprolol to short acting, Metoprolol tartrate 100 mg BID. AC: Continue Lovenox. May change it to Xarelto 20 mg daily with meal for long- term AC. 2) CAD with evidence of lateral ischemia. Patient has no symptoms of angina. Continue Aspirin and Metoprolol. Start statin: Crestor 20 mg daily. 3) Hypertension. Increase and change metoprolol to short acting, Metoprolol tartrate 100 mg BID. May titrate Lisinopril up.
--- NOTE | 2017-02-26 16:19 | PN ---
Physical Exam: SUBJECTIVE: Patient seen and examined at bedside. Feels "a little" palpitations. OBJECTIVE: Vital Signs Period Temp Pulse Resp BP Sys/Curiel Pulse Ox Last 24 Hr 97.5 F 101 20 120/73 GENERAL: The patient is awake, alert, and fully oriented, in no acute distress. LUNGS: Breath sounds equal, clear to auscultation bilaterally, no wheezes, no crackles, no accessory muscle use. HEART: Irregular, S1, S2 without murmur, rub or gallop. ABDOMEN: Soft, nontender, nondistended, normoactive bowel sounds, no guarding, no rebound, no hepatosplenomegaly, no masses. EXTREMITIES: bilateral trace edema, 2+ pulses, warm, well-perfused NEUROLOGICAL: Cranial nerves II through XII grossly intact. Normal speech, gait not observed. Current Medications Generic Name Dose Route Start Last Admin Trade Name Freq PRN Reason Stop Dose Admin Acetaminophen 325 mg 02/25/17 12:35 Tylenol - PO Q12H PRN FEVER OR PAIN Aspirin 81 mg 02/26/17 10:00 02/26/17 09:13 Asa - PO 81 mg DAILY [facility] Administration Cholecalciferol 2,000 unit 02/26/17 10:00 02/26/17 09:13 Vitamin D3 - PO 2,000 unit DAILY [facility] Administration Cyclobenzaprine HCl 10 mg 02/26/17 11:00 Flexeril - PO DAILY PRN PAIN Enoxaparin Sodium 80 mg 02/26/17 12:00 02/26/17 12:26 Lovenox - SQ 80 mg BID [facility] Administration Levothyroxine Sodium 125 mcg 02/27/17 07:00 Synthroid - PO DAILY@0700 [facility] Lisinopril 5 mg 02/26/17 12:00 02/26/17 12:26 Prinivil PO 5 mg DAILY [facility] Administration Metoprolol Succinate 50 mg 02/26/17 20:00 Toprol Xl - PO BID [facility] Mirtazapine 15 mg 02/25/17 22:00 02/25/17 21:08 Remeron - PO 15 mg HS [facility] Administration Oxycodone HCl 5 mg 02/25/17 12:35 Roxicodone - PO Q12H PRN Pantoprazole Sodium 40 mg 02/26/17 10:00 02/26/17 09:13 Protonix - PO 40 mg DAILY [facility] Administration Sertraline HCl 50 mg 02/26/17 10:00 02/26/17 09:13 Zoloft - PO 50 mg DAILY [facility] Administration ASSESSMENT/PLAN 76 year-old female with PMH of HTN, CAD, hypothyroidism, arthritis, and depression. Admitted following a fall and found on the floor at home. Newly diagnosed afib with RVR. Atrial fibrillation with RVR --rate to 150s --switch to short-acting metoprolol 100mg BID --full dose lovenox BID; per cardiology, may change to Xarelto 20mg daily --cardiology following Systolic heart failure --02/25 Echo: LV function borderline reduced, borderline global hypokinesis; RV normal; LAE; mild MR; moderate TR; RVSP 40-50mmHg --congestive changes on CXR --trace bilateral edema --start Lasix 40mg IV daily, monitor renal function Hypertension --continue metoprolol, lisinopril CAD --continue ASA, metoprolol Hypothyroidism --TSH low --patient filled last script for levothyroxine 137mcg on 01/24; will lower dose to 125mcg --free T3, free T4 pending Arthritis --continue home flexeril PRN Depression --continue mirtazapine, zoloft F/E/N Fluids: PO intake adequate Electrolytes: replete as indicated Nutrition: low sodium DVT prophylaxis: on full-dose lovenox Physical therapy evaluation Dispo: continues to require inpatient care Visit type - Emergency Visit Emergency Visit: Yes ED Registration Date: 02/26/17 Care time: The patient presented to the Emergency Department on the above date and was hospitalized for further evaluation of their emergent condition. - New Patient This patient is new to me today: Yes Date on this admission: 02/26/17 - Critical Care Critical Care patient: No
[2017-02-26] MEDS ORDERED: METOPROLOL SUCCINATE 50 MG TAB.SR.24H (FP) PO SCH (20:00)
[2017-02-26] MEDS: METOPROLOL TARTRATE 50 MG TABLET (FP) PO SCH (21:45)
[2017-02-26] MEDS: MIRTAZAPINE 15 MG TABLET (FP) PO SCH (21:45)
[2017-02-27] MEDS: LEVOTHYROXINE NA 125 MCG TABLET (FP) PO SCH (06:11)
[2017-02-27] MEDS ORDERED: LEVOTHYROXINE NA 150 MCG TABLET PO SCH (07:00)
[2017-02-27 07:28] LABS: BASOPHIL 0.3 % (0-2.0); EOSINOPHIL 3.2 % (0-4.5); MCH 27.8 pg (25.7-33.7); MCHC 32.8 g/dl (32.0-36.0); MEAN CELL VOLUME 84.9 fl (80-96); MEAN PLT VOLUME 8.6 fl (7.5-11.1); NEUTROPHILS 59.8 % (42.8-82.8); PLATELET COUNT 271 K/MM3 (134-434); RDW 16.4 % (11.6-15.6); WHITE BLOOD COUNT 9.6 K/mm3 (4.0-10.0)
[2017-02-27 08:17] LABS: ALBUMIN 2.9 g/dl (3.4-5.0); ANION GAP 5 (8-16); CALCIUM 7.8 mg/dL (8.5-10.1); CO2 29 mmol/L (21-32); GLUCOSE,RANDOM 110 mg/dL (74-106); MAGNESIUM 2.2 mg/dL (1.8-2.4)
[2017-02-27 08:21] LABS: ALK PHOS 118 U/L (45-117); BILIRUBIN,TOTAL 0.6 mg/dL (0.2-1.0); CREATININE 0.7 mg/dL (0.55-1.02); PHOSPHOROUS 3.7 mg/dL (2.5-4.9); SGOT/AST 10 U/L (15-37); SGPT/ALT 13 U/L (12-78); TOT PROT 6.1 g/dl (6.4-8.2)
[2017-02-27] MEDS: ASPIRIN 81 MG CHEWABLE TABLETS PO SCH (09:11)
[2017-02-27] MEDS: FUROSEMIDE 40 MG/4 ML INJECTABLE VIAL IVPUSH SCH (09:11)
[2017-02-27] MEDS: METOPROLOL TARTRATE 50 MG TABLET (FP) PO SCH ×2 (09:11→21:14)
[2017-02-27] MEDS: SERTRALINE HCL 50 MG TABLET (FP) PO SCH (09:12)
[2017-02-27] MEDS: ENOXAPARIN NA (PORCINE) 80 MG/0.8 ML DISP.SYRIN SQ SCH ×2 (09:12→21:14)
[2017-02-27] MEDS: PANTOPRAZOLE 40 MG TABLET (FP) PO SCH (09:13)
[2017-02-27] MEDS: LISINOPRIL 5 MG TABLET (FP) PO SCH (09:13)
[2017-02-27] MEDS: CHOLECALCIFEROL (VITAMIN D3) 1,000 UNIT TABLET (FP) PO SCH (09:13)
--- NOTE | 2017-02-27 14:04 | PN ---
Teaching Attending Note Name of Resident: Chinmay Pinon ATTENDING PHYSICIAN STATEMENT SUBJECTIVE: Patient seen and examined. denies any chest pain, palplitations, dyspnea, or dizziness, no other complaints. Overall feels better. Expresses gratitude for the care. OBJECTIVE: Vital Signs Period Temp Pulse Resp BP Sys/Curiel Pulse Ox Last 24 Hr 98 F-98.5 F 94-110 18-20 127-160/61-94 95-98 Intake & Output 02/24/17 02/25/17 02/26/17 02/27/17 23:59 23:59 23:59 23:59 Intake Total 10 540 0 Balance 10 540 0 Weight 180 lb General: sitting in bed in no acute distress CVS S1S2 irregular, borderline rapid Chest CTAB, no rales or wheezing abdomen soft, NT, obese, positive bowel sounds extremities no edema Current Medications Acetaminophen (Tylenol -) 325 mg PO Q12H PRN PRN Reason: FEVER OR PAIN Aspirin (Asa -) 81 mg PO DAILY [facility] Last Admin: 02/27/17 09:11 Dose: 81 mg Cholecalciferol (Vitamin D3 -) 2,000 unit PO DAILY [facility] Last Admin: 02/27/17 09:13 Dose: 2,000 unit Cyclobenzaprine HCl (Flexeril -) 10 mg PO DAILY PRN PRN Reason: PAIN Last Admin: 02/27/17 09:12 Dose: 10 mg Enoxaparin Sodium (Lovenox -) 80 mg SQ BID [facility] Last Admin: 02/27/17 09:12 Dose: 80 mg Furosemide (Lasix Injection -) 40 mg IVPUSH DAILY [facility] Last Admin: 02/27/17 09:11 Dose: 40 mg Levothyroxine Sodium (Synthroid -) 125 mcg PO DAILY@0700 [facility] Last Admin: 02/27/17 06:11 Dose: 125 mcg Lisinopril (Prinivil) 5 mg PO DAILY [facility] Last Admin: 02/27/17 09:13 Dose: 5 mg Metoprolol Tartrate (Lopressor -) 100 mg PO BID [facility] Last Admin: 02/27/17 09:11 Dose: 100 mg Mirtazapine (Remeron -) 15 mg PO HS [facility] Last Admin: 02/26/17 21:45 Dose: 15 mg Pantoprazole Sodium (Protonix -) 40 mg PO DAILY [facility] Last Admin: 02/27/17 09:13 Dose: 40 mg Sertraline HCl (Zoloft -) 50 mg PO DAILY [facility] Last Admin: 02/27/17 09:12 Dose: 50 mg Laboratory Results - last 24 hr 02/27/17 02/27/17 05:20 05:20 WBC 9.6 RBC 4.29 Hgb 11.9 Hct 36.4 MCV 84.9 MCH 27.8 MCHC 32.8 RDW 16.4 H Plt Count 271 MPV 8.6 Neutrophils % 59.8 Lymphocytes % 30.5 Monocytes % 6.2 Eosinophils % 3.2 Basophils % 0.3 Sodium 141 Potassium 4.6 Chloride 107 Carbon Dioxide 29 Anion Gap 5 L BUN 18 D Creatinine 0.7 D Creat Clearance w eGFR > 60 Random Glucose 110 H Calcium 7.8 L Phosphorus 3.7 Magnesium 2.2 Total Bilirubin 0.6 D AST 10 L ALT 13 Alkaline Phosphatase 118 H Total Protein 6.1 L Albumin 2.9 L Free T4 1.30 Telemetry 80s-100s ASSESSMENT AND PLAN: 76 yof admitted with fall and new onset Afib with RVR/Acute systolic heart failure exacerbation. -New onset Afib with RVR -Acute systolic HR exacerbation, suspect from rapid Afib -CAD with lateral ischemia -Hypothyroidism -Mechanical fall -CAD -HLD Plan: rate improved. Continue metoprolol 100 mg BID. Lovenox full dose, transition to xarelto per cardiology. Levothyroxine dose decreased, repeat Thyroid panel in 4-6 weeks. Respiratory status improved, lasix 40 mg IV today, transition to PO in AM if continues to improve. Continue ASA/metoprolol. Lisinopril added. Add crestor 20 mg daily . PT eval and d/c planning as heart rate has improved. Anticipate d/c in 1-2 days if HR stable and safe disposition arranged.
--- NOTE | 2017-02-27 19:07 | PN ---
Progress Note, Physician Chief Complaint: Patient appears comfortable. She reports no palpitation, chest pain or SOB. Tele shows atrial fibrillation with controlled VR. History of Present Illness: 76 year old woman with a PMHx of CAD, new atrial fibrillation, hypertension, hypothyroidism, dyspepsia, depression, arthritis admitted 02/25/2017 after a mechanical fall with evidence of atrial fibrillation with rapid VR. She was found to have atrial fibrillation with rapid VR with ECG evidence of lateral ischemia. Echocardiogram 02/25/2017 showed low-normal LV systolic function with LVEF 50%. Normal RV and moderate LA dilatation. She received metoprolol with improved VR control. - Current Medication List Current Medications: Active Medications Acetaminophen (Tylenol -) 325 mg PO Q12H PRN PRN Reason: FEVER OR PAIN Aspirin (Asa -) 81 mg PO DAILY [facility] Last Admin: 02/27/17 09:11 Dose: 81 mg Cholecalciferol (Vitamin D3 -) 2,000 unit PO DAILY [facility] Last Admin: 02/27/17 09:13 Dose: 2,000 unit Cyclobenzaprine HCl (Flexeril -) 10 mg PO DAILY PRN PRN Reason: PAIN Last Admin: 02/27/17 09:12 Dose: 10 mg Enoxaparin Sodium (Lovenox -) 80 mg SQ BID [facility] Last Admin: 02/27/17 09:12 Dose: 80 mg Furosemide (Lasix Injection -) 40 mg IVPUSH DAILY [facility] Last Admin: 02/27/17 09:11 Dose: 40 mg Levothyroxine Sodium (Synthroid -) 125 mcg PO DAILY@0700 [facility] Last Admin: 02/27/17 06:11 Dose: 125 mcg Lisinopril (Prinivil) 5 mg PO DAILY [facility] Last Admin: 02/27/17 09:13 Dose: 5 mg Metoprolol Tartrate (Lopressor -) 100 mg PO BID [facility] Last Admin: 02/27/17 09:11 Dose: 100 mg Mirtazapine (Remeron -) 15 mg PO HS [facility] Last Admin: 02/26/17 21:45 Dose: 15 mg Pantoprazole Sodium (Protonix -) 40 mg PO DAILY [facility] Last Admin: 02/27/17 09:13 Dose: 40 mg Rosuvastatin Calcium (Crestor -) 20 mg PO HS [facility] Sertraline HCl (Zoloft -) 50 mg PO DAILY [facility] Last Admin: 02/27/17 09:12 Dose: 50 mg - Objective Vital Signs: Vital Signs Temperature 98.2 F 02/27/17 14:37 Pulse Rate 92 H 02/27/17 14:37 Respiratory Rate 18 02/27/17 14:37 Blood Pressure 137/86 02/27/17 14:37 O2 Sat by Pulse Oximetry (%) 98 02/27/17 10:00 Constitutional: Yes: Well Nourished, No Distress, Calm Eyes: Yes: Conjunctiva Clear, EOM Intact HENT: Yes: Atraumatic, Normocephalic Neck: Yes: Supple, Trachea Midline Cardiovascular: Yes: Pulse Irregular, S1, S2 Respiratory: Yes: Regular, CTA Bilaterally Gastrointestinal: Yes: Normal Bowel Sounds, Soft ...Rectal Exam: Yes: Deferred Edema: No Peripheral Pulses WNL: Yes Integumentary: Yes: WNL Labs: CBC, BMP 02/27/17 05:20 02/27/17 05:20 INR, PTT INR 1.01 (0.82-1.09) 02/25/17 10:39 Problem List - Problems (1) Atrial fibrillation with RVR Code(s): I48.91 - UNSPECIFIED ATRIAL FIBRILLATION Assessment/Plan 76 year old woman with a PMHx of CAD, new atrial fibrillation, hypertension, hypothyroidism, dyspepsia, depression, arthritis admitted 02/25/2017 after a mechanical fall with evidence of atrial fibrillation with rapid VR. The patient has no symptoms of palpitation, angina or physical signs of ischemia. Echocardiogram 02/25/2017 showed low-normal LV systolic function with LVEF 50%. Normal RV and moderate LA dilatation. She received metoprolol with improved VR control. 1) Atrial fibrillation with controlled ventricular response: Continue metoprolol tartrate 100 mg BID. AC: Continue Lovenox. May change it to Xarelto 20 mg daily with meal for long- term AC. 2) CAD with evidence of lateral ischemia. Patient has no symptoms of angina. Continue Aspirin and Metoprolol. Continue Crestor 20 mg daily. 3) Hypertension. Continue metoprolol tartrate 100 mg BID. Please call us for reconsult as neede.
[2017-02-27] MEDS: MIRTAZAPINE 15 MG TABLET (FP) PO SCH (21:14)
[2017-02-27] MEDS ORDERED: ROSUVASTATIN CA 20 MG TABLET (FP) PO SCH (22:00)
[2017-02-27] MEDS ORDERED: ATORVASTATIN CA 10 MG TABLET (FP) PO SCH (22:00)
[2017-02-28] MEDS: LEVOTHYROXINE NA 125 MCG TABLET (FP) PO SCH (06:10)
[2017-02-28 07:05] LABS: ALBUMIN 3.2 g/dl (3.4-5.0); ALK PHOS 117 U/L (45-117); ANION GAP 10 (8-16); BILIRUBIN,TOTAL 0.7 mg/dL (0.2-1.0); CALCIUM 8.1 mg/dL (8.5-10.1); CO2 26 mmol/L (21-32); CREATININE 0.6 mg/dL (0.55-1.02); GLUCOSE,RANDOM 103 mg/dL (74-106); SGOT/AST 8 U/L (15-37); SGPT/ALT 13 U/L (12-78); TOT PROT 6.3 g/dl (6.4-8.2)
--- NOTE | 2017-02-28 07:56 | PN ---
Physical Exam: SUBJECTIVE: Patient seen and examined OBJECTIVE: Vital Signs Period Temp Pulse Resp BP Sys/Curiel Pulse Ox Last 24 Hr 97.9 F-98.5 F 85-110 18-18 103-160/56-90 98-98 GENERAL: The patient is awake, alert, and fully oriented, in no acute distress. HEAD: Normal with no signs of trauma. EYES: PERRL, extraocular movements intact, sclera anicteric, conjunctiva clear. No ptosis. ENT: Ears normal, nares patent, oropharynx clear without exudates, moist mucous membranes. NECK: Trachea midline, full range of motion, supple. LUNGS: Breath sounds equal, clear to auscultation bilaterally, no wheezes, no crackles, no accessory muscle use. HEART: Regular rate and rhythm, S1, S2 without murmur, rub or gallop. ABDOMEN: Soft, nontender, nondistended, normoactive bowel sounds, no guarding, no rebound, no hepatosplenomegaly, no masses. EXTREMITIES: 2+ pulses, warm, well-perfused, no edema. NEUROLOGICAL: Cranial nerves II through XII grossly intact. Normal speech, gait not observed. PSYCH: Normal mood, normal affect. SKIN: Warm, dry, normal turgor, no rashes or lesions noted Laboratory Results - last 24 hr 02/27/17 02/28/17 05:20 06:10 Sodium 141 142 Potassium 4.6 3.9 Chloride 107 106 Carbon Dioxide 29 26 Anion Gap 5 L 10 BUN 18 D 19 H Creatinine 0.7 D 0.6 Creat Clearance w eGFR > 60 > 60 Random Glucose 110 H 103 Calcium 7.8 L 8.1 L Phosphorus 3.7 Magnesium 2.2 Total Bilirubin 0.6 D 0.7 AST 10 L 8 L ALT 13 13 Alkaline Phosphatase 118 H 117 Total Protein 6.1 L 6.3 L Albumin 2.9 L 3.2 L Free T4 1.30 Active Medications Acetaminophen (Tylenol -) 325 mg PO Q12H PRN PRN Reason: FEVER OR PAIN Aspirin (Asa -) 81 mg PO DAILY [facility] Last Admin: 02/27/17 09:11 Dose: 81 mg Cholecalciferol (Vitamin D3 -) 2,000 unit PO DAILY [facility] Last Admin: 02/27/17 09:13 Dose: 2,000 unit Cyclobenzaprine HCl (Flexeril -) 10 mg PO DAILY PRN PRN Reason: PAIN Last Admin: 02/27/17 09:12 Dose: 10 mg Furosemide (Lasix Injection -) 40 mg IVPUSH DAILY [facility] Last Admin: 02/27/17 09:11 Dose: 40 mg Levothyroxine Sodium (Synthroid -) 125 mcg PO DAILY@0700 [facility] Last Admin: 02/28/17 06:10 Dose: 125 mcg Lisinopril (Prinivil) 5 mg PO DAILY [facility] Last Admin: 02/27/17 09:13 Dose: 5 mg Metoprolol Tartrate (Lopressor -) 100 mg PO BID [facility] Last Admin: 02/27/17 21:14 Dose: 100 mg Mirtazapine (Remeron -) 15 mg PO HS [facility] Last Admin: 02/27/17 21:14 Dose: 15 mg Pantoprazole Sodium (Protonix -) 40 mg PO DAILY [facility] Last Admin: 02/27/17 09:13 Dose: 40 mg Rivaroxaban (Xarelto -) 20 mg PO DAILY [facility] Rosuvastatin Calcium (Crestor -) 20 mg PO HS [facility] Last Admin: 02/27/17 21:14 Dose: 20 mg Sertraline HCl (Zoloft -) 50 mg PO DAILY [facility] Last Admin: 02/27/17 09:12 Dose: 50 mg ASSESSMENT/PLAN:
[2017-02-28] MEDS: FUROSEMIDE 40 MG/4 ML INJECTABLE VIAL IVPUSH SCH (09:16)
[2017-02-28] MEDS: METOPROLOL TARTRATE 50 MG TABLET (FP) PO SCH (09:16)
[2017-02-28] MEDS: PANTOPRAZOLE 40 MG TABLET (FP) PO SCH (09:17)
[2017-02-28] MEDS: ASPIRIN 81 MG CHEWABLE TABLETS PO SCH (09:17)
[2017-02-28] MEDS: LISINOPRIL 5 MG TABLET (FP) PO SCH (09:17)
[2017-02-28] MEDS: CHOLECALCIFEROL (VITAMIN D3) 1,000 UNIT TABLET (FP) PO SCH (09:17)
[2017-02-28] MEDS: SERTRALINE HCL 50 MG TABLET (FP) PO SCH (09:18)
--- NOTE | 2017-02-28 13:03 | PN ---
Teaching Attending Note Name of Resident: Rhea Quevedo ATTENDING PHYSICIAN STATEMENT Time of evaluation: 11:00 AM I saw and evaluated the patient. I reviewed the resident's note and discussed the case with the resident. I agree with the resident's findings and plan as documented. SUBJECTIVE: patient seen and examined. No chest pain, palpitations, dyspnea or dizziness. No complaints currently. OBJECTIVE: Vital Signs Period Temp Pulse Resp BP Sys/Curiel Pulse Ox Last 24 Hr 97.9 F-98.5 F 66-100 18-20 103-162/56-100 98-98 Intake & Output 02/25/17 02/26/17 02/27/17 02/28/17 23:59 23:59 23:59 23:59 Intake Total 10 540 10 0 Balance 10 540 10 0 Weight 180 lb General: sitting in bed in no acute distress CVS: S1S2 regular Chest CTAB, no rales or wheezing abdomen Soft, obese, NT, positive bowel sounds extremities no edema Current Medications Acetaminophen (Tylenol -) 325 mg PO Q12H PRN PRN Reason: FEVER OR PAIN Aspirin (Asa -) 81 mg PO DAILY [facility]S [facility] Last Admin: 02/28/17 09:17 Dose: 81 mg Cholecalciferol (Vitamin D3 -) 2,000 unit PO DAILY [facility] 234 [facility]S AT [facility] Last Admin: 02/28/17 09:17 Dose: 2,000 unit Cyclobenzaprine HCl (Flexeril -) 10 mg PO DAILY PRN PRN Reason: PAIN Last Admin: 02/27/17 09:12 Dose: 10 mg Furosemide (Lasix Injection -) 40 mg IVPUSH DAILY [facility] 234 [facility]S [facility] Last Admin: 02/28/17 09:16 Dose: 40 mg Levothyroxine Sodium (Synthroid -) 125 mcg PO DAILY@0700 [facility] 234 [facility]S [facility] Last Admin: 02/28/17 06:10 Dose: 125 mcg Lisinopril (Prinivil) 5 mg PO DAILY [facility] 234 [facility]S AT [facility] Last Admin: 02/28/17 09:17 Dose: 5 mg Metoprolol Tartrate (Lopressor -) 100 mg PO BID [facility] 234 [facility]S [facility] Last Admin: 02/28/17 09:16 Dose: 100 mg Mirtazapine (Remeron -) 15 mg PO HS [facility] 234 [facility]S [facility] Last Admin: 02/27/17 21:14 Dose: 15 mg Pantoprazole Sodium (Protonix -) 40 mg PO DAILY [facility] 234 [facility]S [facility] Last Admin: 02/28/17 09:17 Dose: 40 mg Rivaroxaban (Xarelto -) 20 mg PO DAILY@1900 [facility] Rosuvastatin Calcium (Crestor -) 20 mg PO HS [facility] 234 B[facility]S [facility] Last Admin: 02/27/17 21:14 Dose: 20 mg Sertraline HCl (Zoloft -) 50 mg PO DAILY [facility] 234 [facility]S [facility] Last Admin: 02/28/17 09:18 Dose: 50 mg Laboratory Results - last 24 hr 02/28/17 06:10 Sodium 142 Potassium 3.9 Chloride 106 Carbon Dioxide 26 Anion Gap 10 BUN 19 H Creatinine 0.6 Creat Clearance w eGFR > 60 Random Glucose 103 Calcium 8.1 L Total Bilirubin 0.7 AST 8 L ALT 13 Alkaline Phosphatase 117 Total Protein 6.3 L Albumin 3.2 L ASSESSMENT AND PLAN: 76 yof admitted with fall and new onset Afib with RVR/Acute systolic heart failure exacerbation. -New onset Afib with RVR -Acute systolic HR exacerbation, suspect from rapid Afib -CAD with lateral ischemia -Hypothyroidism -Mechanical fall -CAD -HLD Plan: rate improved. Continue metoprolol 100 mg BID. Transition to xarelto per cardiology. Levothyroxine dose decreased, repeat Thyroid panel in 4-6 weeks. Respiratory status improved, d/c additional lasix, euvolumic, do not anticipate need for PO, will discuss with cardiology. Continue ASA/metoprolol. Lisinopril and crestor 20 mg daily added . PT eval noted. Plan for home discharge on xarelto after discussion with cardiology with outpatient follow up.
--- NOTE | 2017-02-28 13:51 | DS ---
Physical Exam: SUBJECTIVE: Patient seen and examined. No complaints this morning. Denies CP, palpitations, or dizziness. No SOB or abdominal pain. OBJECTIVE: Vital Signs Period Temp Pulse Resp BP Sys/Curiel Pulse Ox Last 24 Hr 97.9 F-98.5 F 66-100 18-20 103-162/56-100 98-98 PHYSICAL EXAM GENERAL: The patient is awake, alert, and fully oriented, in no acute distress. EYES: sclera anicteric, conjunctiva clear LUNGS: CTAB, no wheezes, rhonchi or rales appreciated. HEART: irreg, normal S1/S2, no murmur, rub or gallop. ABDOMEN: obese, soft, ntnd LOWER EXTREMITIES: 2+ pulses, wwp, no edema LABS Laboratory Results - last 24 hr 02/28/17 06:10 Sodium 142 Potassium 3.9 Chloride 106 Carbon Dioxide 26 Anion Gap 10 BUN 19 H Creatinine 0.6 Creat Clearance w eGFR > 60 Random Glucose 103 Calcium 8.1 L Total Bilirubin 0.7 AST 8 L ALT 13 Alkaline Phosphatase 117 Total Protein 6.3 L Albumin 3.2 L IMAGING: ECHO (02/25/17): Noted below CXR (01/2717): AP portable chest: Shortness of breath Imaging reveals a large heart, unfolded aorta and some congestive changes. There are no prior studies for comparison. The bones and soft tissues are intact. The angles are sharp. Impression: Large heart. Congestive changes. Reported By: Willian Rapp MD 02/25/[address] (02/25/17): Cranial CT (without contrast) Clinical information - headache multiplanar imaging was performed. Intravenous contrast was not administered. There is no CT evidence of intracranial hemorrhage. No extra-axial fluid collection is seen. There is no gross mass lesion. No discrete infarct is identified. Mild periventricular chronic microvascular ischemic changes are noted. Involutional changes are seen with minimal to mild ventricular dilatation. No calvarial defect is noted. The partially imaged paranasal sinuses demonstrate no opacification. Apparent scleral banding of the left ocular globe is seen. IMPRESSION: No CT evidence of acute intracranial pathology. Chronic findings as noted above. Active Medications Acetaminophen (Tylenol -) 325 mg PO Q12H PRN PRN Reason: FEVER OR PAIN Aspirin (Asa -) 81 mg PO DAILY [facility] Last Admin: 02/28/17 09:17 Dose: 81 mg Cholecalciferol (Vitamin D3 -) 2,000 unit PO DAILY [facility] Last Admin: 02/28/17 09:17 Dose: 2,000 unit Cyclobenzaprine HCl (Flexeril -) 10 mg PO DAILY PRN PRN Reason: PAIN Last Admin: 02/27/17 09:12 Dose: 10 mg Furosemide (Lasix Injection -) 40 mg IVPUSH DAILY [facility] Last Admin: 02/28/17 09:16 Dose: 40 mg Levothyroxine Sodium (Synthroid -) 125 mcg PO DAILY@0700 [facility] Last Admin: 02/28/17 06:10 Dose: 125 mcg Lisinopril (Prinivil) 5 mg PO DAILY [facility] Last Admin: 02/28/17 09:17 Dose: 5 mg Metoprolol Tartrate (Lopressor -) 100 mg PO BID [facility] Last Admin: 02/28/17 09:16 Dose: 100 mg Mirtazapine (Remeron -) 15 mg PO HS [facility] Last Admin: 02/27/17 21:14 Dose: 15 mg Pantoprazole Sodium (Protonix -) 40 mg PO DAILY [facility] Last Admin: 02/28/17 09:17 Dose: 40 mg Rivaroxaban (Xarelto -) 20 mg PO DAILY@1900 [facility] Rosuvastatin Calcium (Crestor -) 20 mg PO HS [facility] Last Admin: 02/27/17 21:14 Dose: 20 mg Sertraline HCl (Zoloft -) 50 mg PO DAILY [facility] Last Admin: 02/28/17 09:18 Dose: 50 mg HPI: Date of Admission:02/26/17 76 year old female, with a significant past medical history of CAD, hypertension(uncontrolled), hypothyroidism, dyspepsia, depression, arthritis, who presents to the emergency department s/p mechanical fall . The patient reports she went to get up from bed to go to the bathroom, when she slipped and fell. Patient denies changes in vision, LOC, headache, dizziness, lightheadedness, neck pain, back pain, leg pain, or hip pain. She was found by home health aide 4hrs later. Patient was unable to ambulate secondary to weakness. She reports a dry cough, but denies any recent fever or chills. She denies any chest pain, shortness of breath, diaphoresis, or palpitations. Ambulates with a cane at baseline. Patient see usually at [facility]. As per [facility] reports patients last echo was in 2013, which had normal EF and mild L atrium dilation. She denies any KAUR, SOB, abdominal pain, nausea, vomiting, diarrhea, or constipation. ER course was notable for: (1)Afib with RVR (2)Started on full dose Lovenox SQ for AC (3)Cardiology consulted. HOSPITAL COURSE: Patient's EKG showed e/o lateral ischemia. Patient denied chest pain, palpitations or chest pressure throughout her admission. 3x TroponinI were negative, and no further changes on continuous telemetry monitoring were noted. Echocardiogram 02/25/2017 showed low-normal LV function with LVEF 50%, borderline global hypokinesis; RV normal; LAE; mild MR; mod TR; RVSP 40-50mmHg. She was started on Crestor and lisinopril. Metoprolol tartrate was increased to 100mg BID with improved VR control (rate in the 90's). She was initially anticoagulated with full dose Lovenox and switched to Xarelto 20mg PO per cardiology on discharge. Her respiratory status improved after lasix IV with pSaO2 of 98% on RA and PE notable for lungs CTAB and no LE edema on discharge. Thyroid studies found her TSH level to be low (TSH 0.15, free T4 1.30, free T3 2.8) and her home synthroid dose was decreased to 125mcg. Physical therapy evaluation recommends continued home PT and VNS. Date of Discharge: 02/28/17 Minutes to complete discharge: 50 <Rhea Quevedo - Last Filed: 02/28/17 16:21> Physical Exam: SUBJECTIVE: Patient seen and examined OBJECTIVE: Vital Signs Period Temp Pulse Resp BP Sys/Curiel Pulse Ox Last 24 Hr 97.9 F-98.5 F 66-100 18-20 103-162/56-100 98-98 PHYSICAL EXAM GENERAL: The patient is awake, alert, and fully oriented, in no acute distress. HEAD: Normal with no signs of trauma. EYES: PERRL, extraocular movements intact, sclera anicteric, conjunctiva clear. ENT: Ears normal, nares patent, oropharynx clear without exudates, moist mucous membranes. NECK: Trachea midline, full range of motion, supple. LUNGS: Breath sounds equal, clear to auscultation bilaterally, no wheezes, no crackles, no accessory muscle use. HEART: Regular rate and rhythm, S1, S2 without murmur, rub or gallop. ABDOMEN: Soft, nontender, nondistended, normoactive bowel sounds, no guarding, no rebound, no hepatosplenomegaly, no masses. EXTREMITIES: 2+ pulses, warm, well-perfused, no edema. NEUROLOGICAL: Cranial nerves II through XII grossly intact. Normal speech, gait not observed. PSYCH: Normal mood, normal affect. SKIN: Warm, dry, normal turgor, no rashes or lesions noted. LABS Laboratory Results - last 24 hr 02/27/17 02/28/17 05:20 06:10 Sodium 142 Potassium 3.9 Chloride 106 Carbon Dioxide 26 Anion Gap 10 BUN 19 H Creatinine 0.6 Creat Clearance w eGFR > 60 Random Glucose 103 Calcium 8.1 L Total Bilirubin 0.7 AST 8 L ALT 13 Alkaline Phosphatase 117 Total Protein 6.3 L Albumin 3.2 L Free T3 2.8 HOSPITAL COURSE: Date of Admission:02/26/17 Date of Discharge: 02/28/17 <Chinmay Pinon - Last Filed: 02/28/17 17:30> Discharge Summary Reason For Visit: ATRIAL FIB,W RAPID VENTRICULAR Current Active Problems Atrial fibrillation with RVR (Acute) CAD (coronary artery disease) (Acute) Fall (Acute) HTN (hypertension) (Acute) Osteoarthritis (Acute) - Home Medications Comprehensive Discharge Medication List: Ambulatory Orders Acetaminophen [Tylenol] 650 mg PO PRN PRN 02/25/17 Aspirin [ASA -] 81 mg PO DAILY 02/25/17 Cholecalciferol (Vitamin D3) [Vitamin D3] 2,000 unit PO DAILY 02/25/17 Cyclobenzaprine HCl [Flexeril 10 mg] 10 mg PO BID PRN 02/25/17 Esomeprazole Magnesium [Nexium 24Hr] 40 mg PO DAILY 02/25/17 Levothyroxine [Synthroid -] 175 mcg PO DAILY 02/25/17 Metoprolol Tartrate [Lopressor -] 25 mg PO BID 02/25/17 Mirtazapine 15 mg PO DAILY 02/25/17 Omeprazole 40 mg PO DAILY 02/25/17 Oxycodone HCl/Acetaminophen [Percocet 5-325 mg Tablet] 1 tab PO BID 02/25/17 Sertraline HCl 50 mg PO DAILY 02/25/17 <Rhea Quevedo - Last Filed: 02/28/17 16:21> Current Active Problems Atrial fibrillation with RVR (Acute) CAD (coronary artery disease) (Acute) Fall (Acute) HTN (hypertension) (Acute) Osteoarthritis (Acute) - Home Medications Comprehensive Discharge Medication List: Ambulatory Orders Acetaminophen [Tylenol] 650 mg PO PRN PRN 02/25/17 Aspirin [ASA -] 81 mg PO DAILY 02/25/17 Cholecalciferol (Vitamin D3) [Vitamin D3] 2,000 unit PO DAILY 02/25/17 Cyclobenzaprine HCl [Flexeril 10 mg] 10 mg PO BID PRN 02/25/17 Esomeprazole Magnesium [Nexium 24Hr] 40 mg PO DAILY 02/25/17 Mirtazapine 15 mg PO DAILY 02/25/17 Omeprazole 40 mg PO DAILY 02/25/17 Sertraline HCl 50 mg PO DAILY 02/25/17 Levothyroxine [Synthroid -] 125 mcg PO DAILY@0700 30 Days 02/28/17 Lisinopril [Prinivil] 5 mg PO DAILY 30 Days 02/28/17 Metoprolol Tartrate [Lopressor -] 100 mg PO BID #120 tablet 02/28/17 Rivaroxaban [Xarelto -] 20 mg PO DAILY@1900 #30 tablet 02/28/17 Rosuvastatin [Crestor -] 20 mg PO HS #30 tablet 02/28/17 <Chinmay Pinon - Last Filed: 02/28/17 17:30> Condition: Stable - Instructions Diet, Activity, Other Instructions: Recommendations: -You were admitted to the hospital after falling and found to rapid heart rate and atrial fibrillation and changes in your EKG showing coronary artery disease. -You are advised rest and light activity till your next doctor visit. No driving , operating heavy machinery while on narcotics or sedating medications. -You will be going home services. -Home daily weights until your doctor's visit. If you gain greater than 3 lbs in 2 days, call your Dr. Quezada. -You are started on new medication xarelto which can increase your risk of bleeding. Notify your doctor or come to ED if you notice any bleeding that doesn 't stop. Always notify your future doctors that you are on xarelto. If you need a spinal tap or spinal procedure, your xarelto will need to be held. -Also You are currently on new medication lisinopril. Notify your doctor if any new cough, rash or decreased urination is noted. -Advise home BP monitoring daily till next doctor visit. Notify your doctor if SBP (upper BP) < 100 or persistently > 140 or any dizziness noted. -Your thyroid medication was changed to 125 mcg daily New Medications: -You were started on a blood thinner called Xarelto. Please take one 20mg tablet by mouth with dinner each day. -You were started on Crestor for high cholesterol. -You were started on lisinopril. -Your metoprolol was increased to 100mg twice per day. -Your synthroid was decreased from 25 mcg per day. Follow-ups: Please follow up with Cardiology within 1 week. Please follow up with your primary care physician (Dr. Quezada) within 1-2 weeks. He will also need to check your thyroid function in 4-6 weeks. Please return to the ED if you experience severe chest pain, chest pressure, heart palpitations, dizziness, difficulty breathing or weakness in extremities. Referrals: Matt Corado MD [Staff Physician] - Cristhian Quezada MD [Non Staff, Medical] - Disposition: VNS/HOME HEALTH CARE This patient is new to me today: Yes Date on this admission: 02/28/17 Emergency Visit: No Critical Care patient: No - Discharge Referral Referred to [facility] No <Rhea Quevedo - Last Filed: 02/28/17 16:21>
[2017-02-28 14:37] VITALS: BP 145/86; PULSE 82; TEMP 98.2
[2017-02-28] MEDS ORDERED: RIVAROXABAN 20 MG TABLET PO SCH (19:00)
== END 2017-02-28 18:09 | disposition home health service (06) | DRG 308 ==
LOC: JER 10:02 → UNDOADMOB 12:03 → JERBED 12:03 → INTOOBSV 12:03 → JERBED 14:45 → J4W 14:45 → OBSVTOIN 02-26 11:32
PROVIDERS: ADMIT Internal Medicine; ATTEND Hospitalist
DX: I48.91 Unspecified atrial fibrillation (principal); I50.21 Acute systolic (congestive) heart failure; I11.0 Hypertensive heart disease with heart failure; I25.10 Atherosclerotic heart disease of native coronary artery without angina pectoris; E03.9 Hypothyroidism, unspecified; F32.9 Major depressive disorder, single episode, unspecified; M19.90 Unspecified osteoarthritis, unspecified site; I34.0 Nonrheumatic mitral (valve) insufficiency; I36.1 Nonrheumatic tricuspid (valve) insufficiency
CPT/HCPCS: 36415; 70450-TC; 71010-TC; 80053; 80061; 82550; 83721; 83735; 83880; 84100; 84439; 84443; 84481; 84484; 85025; 85610; 85730; 86850; 86900; 86901; 93005; 93010; 93306-TC; 97116-GP; 97161-GP; 99285-25; G0378

== ENCOUNTER 2017-05-10 10:19 | Observation (INO) | payer MEDICARE, OTHER ==
--- NOTE | 2017-05-10 10:34 | PDOC ---
History of Present Illness - General Chief Complaint: Injury Stated Complaint: FALL Time Seen by Provider: 05/10/17 10:31 History Source: Patient Exam Limitations: Language Barrier - History of Present Illness Initial Comments: 05/10/17 10:33 76 year old female, with a significant past medical history of CAD, afib, hypertension(uncontrolled), hypothyroidism, dyspepsia, depression, arthritis, who presents to the emergency department s/p fall from bed yesterday at midnight until she was found by her aide at 9:30am. She fell on her left hip, head uninjured, no LOC, unwitnessed. 05/10/17 13:44 Past History - Past Medical History Allergies/Adverse Reactions: Allergies Allergy/AdvReac Type Severity Reaction Status Date / Time No Known Allergies Allergy Unverified 02/25/17 10:35 Home Medications: Ambulatory Orders Aspirin [ASA -] 81 mg PO DAILY 02/25/17 Cholecalciferol (Vitamin D3) [Vitamin D3] 2,000 unit PO DAILY 02/25/17 Cyclobenzaprine HCl [Flexeril 10 mg] 10 mg PO BID PRN 02/25/17 Mirtazapine 15 mg PO DAILY 02/25/17 Omeprazole 40 mg PO DAILY 02/25/17 Sertraline HCl 100 mg PO DAILY 02/25/17 Levothyroxine [Synthroid -] 125 mcg PO DAILY@0700 #30 tablet 02/28/17 Metoprolol Tartrate [Lopressor -] 100 mg PO BID #120 tablet 02/28/17 Rivaroxaban [Xarelto -] 20 mg PO DAILY@1900 #30 tablet 02/28/17 Atorvastatin Ca [Lipitor] 40 mg PO HS 05/10/17 Diclofenac Sodium [Voltaren] 100 gm TP BID 05/10/17 Gabapentin [Neurontin] 300 mg PO DAILY 05/10/17 Cardiac Disorders: Yes (CAD) HTN: Yes Psychiatric Problems: Yes (DEPRESSION) Thyroid Disease: Yes - Suicide/Smoking/Psychosocial Hx Smoking History: Never smoked Have you smoked in the past 12 months: No Hx Alcohol Use: No Review of Systems - Review of Systems Able to Perform ROS?: Yes Constitutional: No: Symptoms Reported HEENTM: No: Symptoms Reported Respiratory: No: Symptoms reported Cardiac (ROS): No: Symptoms Reported *Physical Exam - Physical Exam General Appearance: Yes: Nourished, Obese HEENT: positive: EOMI, RANDALL Respiratory/Chest: positive: Lungs Clear, Normal Breath Sounds. negative: Chest Tender Cardiovascular: positive: Regular Rhythm, Regular Rate, S1, S2 Musculoskeletal: positive: Other (pain at left hip joint, left lower back and lower abdomen) ED Treatment Course - LABORATORY CBC & Chemistry Diagram: 05/10/17 12:44 05/10/17 12:47 Medical Decision Making - Medical Decision Making 05/10/17 11:33 HIP and pelvis xray: Imaging of the pelvis and hips reveal no sign of acute fracture or subluxation. The right hip is intact and the left hip replacement appears intact. There is heterotopic bone by the greater trochanter and acetabulum. There are pelvic calcifications. There is no sign of blastic or lytic changes. The SI joints are patent. No acute fracture is visualized. The SI joints are patent. There is a nonspecific bowel pattern. If symptoms persist or there is decreased range of motion on either side then further imaging and orthopedic consultation may be of help. Basic labs pending for evaluation of rhabdomyelysis 05/10/17 17:03 All labs negative. UA 2+ for Leukocyte esterase. Started on Keflex 05/10/17 18:49 *DC/Admit/Observation/Transfer Diagnosis at time of Disposition: Fall - Discharge Dispostion Admit: Yes - Referrals - Patient Instructions - Post Discharge Activity
[2017-05-10] MEDS ORDERED: SODIUM CHLORIDE 1,000 ML IV STA (11:05)
--- NOTE | 2017-05-10 11:31 | PDOC ---
Attending Attestation - Resident Resident Name: Jose De Jesus Quesada - ED Attending Attestation I have performed the following: I have examined & evaluated the patient, The case was reviewed & discussed with the resident, I agree w/resident's findings & plan, Exceptions are as noted - HPI HPI: 05/10/17 11:30 Patient is a 76 year old female with a significant past medical history of CAD, AFib on pradaxa, hypertension, hypothyroidism, dyspepsia, depression, and arthritis, who presents to the ED with complaints of left sided hip pain, s/p fall that occured this morning at 12 am. Patient reports reaching for an object far from her bed this morning when she lost her balance causing her to slip and fall. She was unable to get up from the floor by herself and was found 9hrs later by the aid. Patient denies hitting her head, but states she did land on her left hip causing immediate pain in her L back. She reports using a cane to walk at baseline but states she has been unable to weight bear since the fall. Pt was in her USOH prior to the fall. Denies loss of consciousness, change in vision, focal weakness or numbness. Denies chest pain, SOB. Denies nausea, vomiting. Denies fevers, chills. Denies any other symptoms. Per the aide, the pt at times gets confused but has no formal diagnosis of dementia. Allergies: None Social history: No smoking. No alcohol. No illicit drugs. Surgical history: Bilateral knee replacements, Left hip replacement PMD: Dr Quezada ([phone]) - Physicial Exam PE: 05/10/17 13:49 GENERAL: Awake, alert, and fully oriented, in no acute distress HEAD: No signs of trauma EYES: PERRLA, EOMI, sclera anicteric, conjunctiva clear ENT: Auricles normal inspection, hearing grossly normal, nares patent, oropharynx clear without exudates. Moist mucosa NECK: Normal ROM, supple, no lymphadenopathy, JVD, or masses LUNGS: Breath sounds equal, clear to auscultation bilaterally. No wheezes, and no crackles HEART: Regular rate and rhythm, normal S1 and S2, no murmurs, rubs or gallops ABDOMEN: Soft, nontender, normoactive bowel sounds. No guarding, no rebound. No masses EXTREMITIES: Normal range of motion, no edema. No clubbing or cyanosis. No cords, erythema, or tenderness BACK: No midline cervical or thoracic ttp. +lumbar and L iliac crest ttp. No bruising NEUROLOGICAL: Normal speech, cranial nerves intact, negative pronator drift, 5/ 5 strength in all 4 extremities, normal sensation to light touch in all 4 extremities, normal cerebellar exam, normal reflexes and tone. Steady but antalgic gait, able to bear weight. SKIN: Warm, Dry, normal turgor, no rashes or lesions noted. - Medical Decision Making 05/10/17 13:51 76-year-old female with multiple medical problems including A. fib on per presents with an unwitnessed fall last night off of her bed. Patient was unable to get up for 9 hours. Vitals are unremarkable. Exam with midline lower lumbar tenderness palpation and left iliac crest tenderness to palpation. Patient is able to bear weight on her lower extremities in the ED. Will do a full trauma workup and obtain labs and reassess.
[2017-05-10 13:11] LABS: BASO % 0.7 % (0-2.0); EOS % 2.8 % (0-4.5); HEMATOCRIT 38.7 % (32.4-45.2); HEMOGLOBIN 12.1 GM/dL (10.7-15.3); LYMPH % 25.6 % (8-40); MCHC 31.4 g/dl (32.0-36.0); MEAN CELL VOLUME 85.9 fl (80-96); MEAN PLT VOLUME 8.7 fl (7.5-11.1); MONO % 6.1 % (3.8-10.2); NEUT % 64.8 % (42.8-82.8); PLATELET COUNT 268 K/MM3 (134-434); RDW 16.5 % (11.6-15.6); WHITE BLOOD COUNT 10.9 K/mm3 (4.0-10.0)
[2017-05-10 13:26] LABS: ALBUMIN 3.2 g/dl (3.4-5.0); ANION GAP 6 (8-16); BILIRUBIN,TOTAL 0.4 mg/dL (0.2-1.0); BLOOD UREA NITROGEN 14 mg/dL (7-18); CALCIUM 8.4 mg/dL (8.5-10.1); CHLORIDE 106 mmol/L (98-107); CO2 31 mmol/L (21-32); CREATININE 0.6 mg/dL (0.55-1.02); GLUCOSE,RANDOM 94 mg/dL (74-106); POTASSIUM 4.4 mmol/L (3.5-5.1); SGOT/AST 13 U/L (15-37); SGPT/ALT 15 U/L (12-78); SODIUM 143 mmol/L (136-145); TOT PROT 6.8 g/dl (6.4-8.2)
[2017-05-10 13:28] LABS: ALK PHOS 141 U/L (45-117)
--- NOTE | 2017-05-10 14:39 | EKG ---
Test Reason : Blood Pressure : / mmHG Vent. Rate : 087 BPM Atrial Rate : 107 BPM P-R Int : 000 ms QRS Dur : 086 ms QT Int : 388 ms P-R-T Axes : 000 038 229 degrees QTc Int : 466 ms ATRIAL FIBRILLATION ABNORMAL ECG WHEN COMPARED WITH ECG OF 25-FEB-2017 10:30, INVERTED T WAVES HAVE REPLACED NONSPECIFIC T WAVE ABNORMALITY IN INFERIOR LEADS Confirmed by Matt Corado MD ([id number]) on 05/10/2017 2:38:56 PM Referred By: Confirmed By:Matt Corado MD
[2017-05-10 16:54] LABS: URINE APPEARANCE CLEAR; URINE BILIRUBIN NEGATIVE (NEGATIVE); URINE BLOOD NEGATIVE (NEGATIVE); URINE COLOR STRAW; URINE GLUCOSE (UA) NEGATIVE (NEGATIVE); URINE KETONE NEGATIVE (NEGATIVE); URINE NITRITE NEGATIVE (NEGATIVE); URINE PROTEIN NEGATIVE (NEGATIVE); URINE UROBILINOGEN NEGATIVE mg/dL (0.2-1.0)
[2017-05-10 17:14] LABS: URINE LEUK ESTERASE 2+ (NEGATIVE)
[2017-05-10] MEDS ORDERED: CEPHALEXIN MONOHYDRATE 500 MG CAPSULE (UD) PO ONE (18:20)
--- NOTE | 2017-05-10 19:01 | HP ---
CHIEF COMPLAINT: Fall PCP: Dr. Biswas HISTORY OF PRESENT ILLNESS: Patient is a 76 year old female with a PMHx HTN, A.fib on AC, hypothyroidism, CAD, depression, arthritis who presented to the ED s/p fall last night at 00: 00. Patient states she was home alone in bed and rolled over to the other side of the bed when all of a sudden she fell off the bed landing on her left hip. She denies hitting her head. Patient states she was on the floor until 09:30 when her nurse aid came in and found her on the floor. Patient now complains of back/hip pain and refuses to ambulate due to the pain. However, upon my arrival patient agreed to ambulate and was able to walk with complains of lower back pain. Otherwise, patient denies any fever, chills, nausea, vomiting, dysuria, hematuria, frequency, abdominal pain, chest pain, palpitations, shortness of breath, loss of consciousness before, during, or after the fall. 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 Social History: Smoking:Denies Alcohol: Denies Drugs: Denies Family History: Allergies No Known Allergies Allergy (Unverified 02/25/17 10:35) HOME MEDICATIONS: Home Medications Medication Instructions Recorded Aspirin [ASA -] 81 mg PO DAILY 02/25/17 Cholecalciferol (Vitamin D3) 2,000 unit PO DAILY 02/25/17 [Vitamin D3] Cyclobenzaprine HCl [Flexeril 10 10 mg PO BID PRN 02/25/17 mg] Mirtazapine 15 mg PO DAILY 02/25/17 Omeprazole 40 mg PO DAILY 02/25/17 Sertraline HCl 100 mg PO DAILY 02/25/17 Levothyroxine [Synthroid -] 125 mcg PO DAILY@0700 #30 tablet 02/28/17 Metoprolol Tartrate [Lopressor -] 100 mg PO BID #120 tablet 02/28/17 Rivaroxaban [Xarelto -] 20 mg PO DAILY@1900 #30 tablet 02/28/17 Atorvastatin Ca [Lipitor] 40 mg PO HS 05/10/17 Diclofenac Sodium [Voltaren] 100 gm TP BID 05/10/17 Gabapentin [Neurontin] 300 mg PO DAILY 05/10/17 REVIEW OF SYSTEMS CONSTITUTIONAL: Absent: fever, chills, diaphoresis, generalized weakness, malaise, loss of appetite, weight change HEENT: Absent: rhinorrhea, nasal congestion, throat pain, throat swelling, difficulty swallowing, mouth swelling, ear pain, eye pain, visual changes CARDIOVASCULAR: Absent: chest pain, syncope, palpitations, irregular heart rate, lightheadedness , peripheral edema RESPIRATORY: Absent: cough, shortness of breath, dyspnea with exertion, orthopnea, wheezing, stridor, hemoptysis GASTROINTESTINAL: Absent: abdominal pain, abdominal distension, nausea, vomiting, diarrhea, constipation, melena, hematochezia GENITOURINARY: Absent: dysuria, frequency, urgency, hesitancy, hematuria, flank pain, genital pain MUSCULOSKELETAL: back pain Absent: myalgia, arthralgia, joint swelling, neck pain SKIN: Absent: rash, itching, pallor HEMATOLOGIC/IMMUNOLOGIC: Absent: easy bleeding, easy bruising, lymphadenopathy, frequent infections ENDOCRINE: Absent: unexplained weight gain, unexplained weight loss, heat intolerance, cold intolerance NEUROLOGIC: Absent: headache, focal weakness or paresthesias, dizziness, unsteady gait, seizure, mental status changes, bladder or bowel incontinence PSYCHIATRIC: Absent: anxiety, depression, suicidal or homicidal ideation, hallucinations. PHYSICAL EXAMINATION Vital Signs - 24 hr 05/10/17 05/10/17 05/10/17 10:20 16:29 18:40 Temperature 97.8 F 97.7 F Pulse Rate 95 H Pulse Rate [ 95 H Right] Respiratory 18 16 Rate Blood Pressure 124/67 Blood Pressure 144/105 133/62 [Right Arm] O2 Sat by Pulse 100 100 Oximetry (%) GENERAL: Awake, Alert, oriented x3m and in no acute distress. HEAD: NC/AT EYES:PERRLA, EOMI, sclera anicteric, conjunctiva clear. No lid lag. (-) [place] eyes EARS, NOSE, THROAT: Moist mucous membranes. (-) love's sign NECK: Normal range of motion, supple without lymphadenopathy, JVD, or masses. LUNGS: CTAB, No wheezes, and no crackles. No accessory muscle use. HEART: Irregularly irregular rhythm with normal rate, normal S1 and S2 without murmur, rub or gallop. ABDOMEN: Soft, Obese, nontender, not distended, normoactive bowel sounds, no guarding, no rebound, no masses. MUSCULOSKELETAL: No CVA tenderness. UPPER EXTREMITIES: 2+ pulses, warm, well-perfused. No cyanosis. No clubbing. No peripheral edema. LOWER EXTREMITIES: 2+ pulses, warm, well-perfused. No calf tenderness. No peripheral edema. NEUROLOGICAL: Cranial nerves II-XII intact. Normal speech. Motor strength 5/5 bilaterally with sensory intact. knee and Bicep Reflex 2+ bilaterally. DP pulses intact bilaterally. PSYCHIATRIC: Cooperative. Good eye contact. Appropriate mood and affect. Laboratory Results - last 24 hr 05/10/17 05/10/17 05/10/17 12:44 12:47 16:41 WBC 10.9 H RBC 4.50 Hgb 12.1 Hct 38.7 MCV 85.9 MCH 27.0 MCHC 31.4 L RDW 16.5 H Plt Count 268 MPV 8.7 Neutrophils % 64.8 Lymphocytes % 25.6 Monocytes % 6.1 Eosinophils % 2.8 Basophils % 0.7 Sodium 143 Potassium 4.4 Chloride 106 Carbon Dioxide 31 Anion Gap 6 L BUN 14 D Creatinine 0.6 Creat Clearance w eGFR > 60 Random Glucose 94 Calcium 8.4 L Total Bilirubin 0.4 D AST 13 L D ALT 15 Alkaline Phosphatase 141 H D Creatine Kinase 63 Troponin I < 0.02 Total Protein 6.8 Albumin 3.2 L Urine Color Straw Urine Appearance Clear Urine pH 7.0 Ur Specific [place] 1.008 Urine Protein Negative Urine Glucose (UA) Negative Urine Ketones Negative Urine Blood Negative Urine Nitrite Negative Urine Bilirubin Negative Urine Urobilinogen Negative Ur Leukocyte Esterase 2+ H IMAGES: Right and Left HIP/Pelvic X-Ray (05/10/17): Imaging of the pelvis and hips reveal no sign of acute fracture or subluxation. The right hip is intact and the left hip replacement appears intact. There is heterotopic bone by the greater trochanter and acetabulum. There are pelvic calcifications. There is no sign of blastic or lytic changes. The SI joints are patent. No acute fracture is visualized. The SI joints are patent Chest X-Ray (05/10/17): Limited study due to underpenetration. Cardiomegaly. Hilar congestive changes. No focal airspace disease or pleural effusion seen. Cervical Spine CT (05/10/17): The alignment is satisfactory. No gross fracture or subluxation is seen. Multilevel degenerative disc disease with mild posterior spur formation and uncovertebral hypertrophy, as described above impinging right C5 nerve root at C4-C5 level and slightly narrowing the right foramen at C5-C6 level. There is questionable mild asymmetric prominence of the right tonsil relative to the left Head CT (05/10/17): Since 02/25/2017, there remains mild volume loss, mild to moderate ventricular dilatation and moderate periventricular chronic microvascular ischemic changes. No mass lesion, gross acute infarct or intracranial hemorrhage are identified. There is no shift of the midline structures. Postop changes of the left orbit again noted. Visualized paranasal sinuses and mastoid air cells are well aerated. The calvarium is intact Lumbar Spine CT (05/10/17): IMPRESSION: 1. No evidence of acute fracture or traumatic subluxation in the lumbar spine. 2. Lumbar spondylosis as detailed above. 3. Nonobstructing left nephrolithiasis measuring up to [address] (05/10/17): No CT evidence of fracture involving the pelvis or hips. ASSESSMENT/PLAN: Patient is a 76 year old female who was BIBEMS s/p mechanical fall. Patient continues to complain of back pain with difficulty ambulating. Patient admitted for further monitoring and management. S/P Mechanical Fall on Anticoagulation -Head CT negative -Lumbar/Pelvis/cervical/pelvis CT's negative for acute fractures -Hip/Pelvis X-rays negative -Patient at baseline walks with a cane. However, patient continues to complain of back pain when ambulating, but was not given any pain medication. -Lumbar MRI ordered to rule out any fractures that might have been missed on CT -Tylenol 650mg mg PO Q6H PRN for pain -Physical Therapy ordered for the morning Positive Leukocyte Esterase -2+ with no blood or nitrite -Keflex 500mg PO given in ED. Will continue Keflex 500mg BID daily Nephrolithiasis -Incidental finding of Nonobstructing left nephrolithiasis measuring up to 4 mm. Might contribute to back pain and left hip pain -Flomax 0.4mg daily Atrial Fibrillation -Rate controlled -Continue home medication Xarelto 20mg daily HTN-Controlled -Continue Metoprolol 100mg BID daily -Continue to monitor BP HLD -Continue Lipitor 40mg daily Hypothyroidism -Continue Levothyroxine 0.125mg in the AM Anxiety/Depression -Continue Mirtazapine 15mg daily CAD -Continu ASA 81mg daily F/E/N -On no fluids. Tolerates PO -Electrolytes wnl -Sodium controlled diet Prophylaxis -Moderate risk. SCD's for DVT -No GI required Disposition -Full code -Lumbar MRI pending. Will need PT before discharge Visit type - Emergency Visit Emergency Visit: Yes ED Registration Date: 05/10/17 Care time: The patient presented to the Emergency Department on the above date and was hospitalized for further evaluation of their emergent condition. - New Patient This patient is new to me today: Yes Date on this admission: 05/10/17 - Critical Care Critical Care patient: No
[2017-05-10] MEDS ORDERED: CEPHALEXIN MONOHYDRATE 250 MG CAPSULE (FP) ONE (19:31)
--- NOTE | 2017-05-10 19:48 | PN ---
Teaching Attending Note Name of Resident: Serenity Bailey ATTENDING PHYSICIAN STATEMENT I saw and evaluated the patient. I reviewed the resident's note and discussed the case with the resident. I agree with the resident's findings and plan as documented. SUBJECTIVE: 76 M with pmhx. of CAD, A-Fib on Pradexa, htn, hypothyriodism, dyspepsia, depression and arthritis who presents with left sided hip pain. Pt. fell at Midnight last night. States she was on the floow from 12 am-9am. Denies hitting her head. Had pain with ambulation. No chest pain, pressure or shortness of breaht, OBJECTIVE: Physical: VS: Vital Signs Period Temp Pulse Resp BP Sys/Curiel Pulse Ox Last 24 Hr 97.7 F-97.8 F 95-95 16-18 124-144/62-105 100-100 GEN: NAD, resting in bed, AA0X3 HEENT: NCAT, PERRL, throat without erythema or exudates CARD: RRR S1, S2 RESP:CTAB ABD: BSx4, NTD to palpation EXT: - C/C/E CT L- Spine: No evidence of acute fracture subluxation in lumbar spine Lumbar spondylosis CBCD WBC 10.9 K/mm3 (4.0-10.0) H 05/10/17 12:44 RBC 4.50 M/mm3 (3.60-5.2) 05/10/17 12:44 Hgb 12.1 GM/dL (10.7-15.3) 05/10/17 12:44 Hct 38.7 % (32.4-45.2) 05/10/17 12:44 MCV 85.9 fl (80-96) 05/10/17 12:44 MCHC 31.4 g/dl (32.0-36.0) L 05/10/17 12:44 RDW 16.5 % (11.6-15.6) H 05/10/17 12:44 Plt Count 268 K/MM3 (134-434) 05/10/17 12:44 MPV 8.7 fl (7.5-11.1) 05/10/17 12:44 CMP Sodium 143 mmol/L (136-145) 05/10/17 12:47 Potassium 4.4 mmol/L (3.5-5.1) 05/10/17 12:47 Chloride 106 mmol/L (98-107) 05/10/17 12:47 Carbon Dioxide 31 mmol/L (21-32) 05/10/17 12:47 Anion Gap 6 (8-16) L 05/10/17 12:47 BUN 14 mg/dL (7-18) D 05/10/17 12:47 Creatinine 0.6 mg/dL (0.55-1.02) 05/10/17 12:47 Creat Clearance w eGFR > 60 (>60) 05/10/17 12:47 Random Glucose 94 mg/dL (74-106) 05/10/17 12:47 Calcium 8.4 mg/dL (8.5-10.1) L 05/10/17 12:47 Total Bilirubin 0.4 mg/dL (0.2-1.0) D 05/10/17 12:47 AST 13 U/L (15-37) L D 05/10/17 12:47 ALT 15 U/L (12-78) 05/10/17 12:47 Alkaline Phosphatase 141 U/L (45-117) H D 05/10/17 12:47 Total Protein 6.8 g/dl (6.4-8.2) 05/10/17 12:47 Albumin 3.2 g/dl (3.4-5.0) L 05/10/17 12:47 CARDIAC ENZYMES Creatine Kinase 63 IU/L (26-192) 05/10/17 12:47 Troponin I < 0.02 ng/ml (0.00-0.05) 05/10/17 12:47 CT HEAD- Negative CT L-Spine: No acute fracture or traumatic subluxation in L-Spine - Non-Obstructive L. 4mm Calcalculus LUMBAR MRI- No evidence of acute pathology ASSESSMENT AND PLAN: 76 M with pmhx. of CAD, A-Fib on Xarelto, htn, hypothyriodism, dyspepsia, depression and arthritis with mechical fall with low back pain in Lumbar area 1.) Low Back Pain - MRI Lumbar as above - Pain control - PT consult 2.) Afib - On Xarelto - Trend CBC - C/W home meds 3.) Hypothyriodism - C/W Levothyroxine 4.) Nephrolithiasis - Hydrate - Urine strain - Flomax 4.) Dvt Ppx - Scds Place in Obs
[2017-05-10] MEDS ORDERED: ACETAMINOPHEN 325 MG TABLET (FP) PO PRN (20:32)
[2017-05-10] MEDS ORDERED: CYCLOBENZAPRINE HCL 10 MG TABLET (FP) PO PRN (20:52)
[2017-05-10] MEDS ORDERED: MIRTAZAPINE 15 MG TABLET (FP) PO SCH (22:00)
[2017-05-10] MEDS ORDERED: GABAPENTIN 300 MG CAPSULE (FP) PO SCH (22:00)
[2017-05-10] MEDS ORDERED: ATORVASTATIN CA 40 MG TABLET (FP) PO SCH (22:00)
[2017-05-10] MEDS: METOPROLOL TARTRATE 50 MG TABLET (FP) PO SCH (22:20)
[2017-05-11] MEDS ORDERED: LEVOTHYROXINE NA 125 MCG TABLET (FP) PO SCH (07:00)
[2017-05-11 07:52] VITALS: BMI 39.6
[2017-05-11] MEDS ORDERED: TAMSULOSIN HCL 0.4 MG CAP.ER.24H (FP) PO SCH (08:30)
[2017-05-11 08:57] LABS: HEMATOCRIT 40.7 % (32.4-45.2); HEMOGLOBIN 12.4 GM/dL (10.7-15.3); MCH 26.4 pg (25.7-33.7); MCHC 30.5 g/dl (32.0-36.0); MEAN CELL VOLUME 86.7 fl (80-96); MEAN PLT VOLUME 8.6 fl (7.5-11.1); PLATELET COUNT 272 K/MM3 (134-434); RBC 4.69 M/mm3 (3.60-5.2); RDW 16.8 % (11.6-15.6); WHITE BLOOD COUNT 9.3 K/mm3 (4.0-10.0)
[2017-05-11] MEDS: METOPROLOL TARTRATE 50 MG TABLET (FP) PO SCH (09:53)
[2017-05-11] MEDS ORDERED: ASPIRIN 81 MG CHEWABLE TABLETS PO SCH (10:00)
[2017-05-11] MEDS ORDERED: CEPHALEXIN MONOHYDRATE 500 MG CAPSULE (UD) PO SCH (10:00)
[2017-05-11 14:45] VITALS: BP 132/64; PULSE 87; TEMP 98.3
--- NOTE | 2017-05-11 17:34 | DS ---
Physical Exam: SUBJECTIVE: Patient seen and examined OBJECTIVE: Vital Signs Period Temp Pulse Resp BP Sys/Curiel Pulse Ox Last 24 Hr 97.8 F-98.5 F 79-100 19-20 124-154/61-89 99-99 PHYSICAL EXAM GENERAL: The patient is awake, alert, and fully oriented, in no acute distress. HEAD: Normal with no signs of trauma. EYES: PERRL, extraocular movements intact, sclera anicteric, conjunctiva clear. ENT: Ears normal, nares patent, oropharynx clear without exudates, moist mucous membranes. NECK: Trachea midline, full range of motion, supple. LUNGS: Breath sounds equal, clear to auscultation bilaterally, no wheezes, no crackles, no accessory muscle use. HEART: Regular rate and rhythm, S1, S2 without murmur, rub or gallop. ABDOMEN: Soft, nontender, nondistended, normoactive bowel sounds, no guarding, no rebound, no hepatosplenomegaly, no masses. EXTREMITIES: 2+ pulses, warm, well-perfused, no edema. NEUROLOGICAL: Cranial nerves II through XII grossly intact. Normal speech, gait not observed. PSYCH: Normal mood, normal affect. SKIN: Warm, dry, normal turgor, no rashes or lesions noted. LABS Laboratory Results - last 24 hr 05/11/17 07:00 WBC 9.3 RBC 4.69 Hgb 12.4 Hct 40.7 MCV 86.7 MCH 26.4 MCHC 30.5 L RDW 16.8 H Plt Count 272 MPV 8.6 HOSPITAL COURSE: Date of Admission:05/10/17 Date of Discharge: 05/11/17 Discharge Summary Reason For Visit: FALL Current Active Problems Fall (Acute) - Instructions - Home Medications Comprehensive Discharge Medication List: Ambulatory Orders Aspirin [ASA -] 81 mg PO DAILY 02/25/17 Cholecalciferol (Vitamin D3) [Vitamin D3] 2,000 unit PO DAILY 02/25/17 Cyclobenzaprine HCl [Flexeril 10 mg] 10 mg PO BID PRN 02/25/17 Mirtazapine 15 mg PO DAILY 02/25/17 Levothyroxine [Synthroid -] 125 mcg PO DAILY@0700 #30 tablet 02/28/17 Metoprolol Tartrate [Lopressor -] 100 mg PO BID #120 tablet 10/30/17 Rivaroxaban [Xarelto -] 20 mg PO DAILY@1900 #30 tablet 02/28/17 Atorvastatin Ca [Lipitor] 40 mg PO HS 05/10/17 Diclofenac Sodium [Voltaren] 100 gm TP BID 05/10/17 Gabapentin [Neurontin] 300 mg PO DAILY 05/10/17
--- NOTE | 2017-05-11 18:49 | PN ---
Teaching Attending Note Name of Resident: Rhea Quevedo ATTENDING PHYSICIAN STATEMENT I saw and evaluated the patient. I reviewed the resident's note and discussed the case with the resident. I agree with the resident's findings and plan as documented. SUBJECTIVE: no pain in any of her joints or her back , no fever or chills , OBJECTIVE: NAD CV : RRR Lungs : CTAB Abd: soft, NT, ND , NL BS Ext : no edema , no erythema , no tenderness ASSESSMENT AND PLAN: 76 y/o man with h/o HTN, A.fib on AC, hypothyroidism, CAD, depression, arthritis and other medical problems who presented after a fall from bed. imaging was neg for any fractures. 1- Fall , mechanical: no Fx did well with PT 2- + leukocyte esterase in urine , no pyuris and no sx . DC Abx 3- H/o HTN, A fib, cont home meds 4- renal stone accidentally seen on CT . flomax and f/u as out pt 5- R tonsil enlargement : f/u with ENT dc home with VNS
[2017-05-11] MEDS ORDERED: RIVAROXABAN 20 MG TABLET PO SCH (19:00)
== END 2017-05-11 19:33 | disposition home or self-care (01) ==
LOC: JER 10:19 → JERBED 13:46 → J7W 05-11 06:13
PROVIDERS: ADMIT Internal Medicine; ATTEND Internal Medicine
PROC: 3E0337Z Introduction of Electrolytic and Water Balance Substance into Peripheral Vein, Percutaneous Approach (ICD-10-PCS; principal; 2017-05-10)
DX: Z91.81 History of falling (principal); I10 Essential (primary) hypertension; I25.10 Atherosclerotic heart disease of native coronary artery without angina pectoris; I48.91 Unspecified atrial fibrillation; F32.9 Major depressive disorder, single episode, unspecified; R10.13 Epigastric pain; M19.90 Unspecified osteoarthritis, unspecified site; E03.9 Hypothyroidism, unspecified; Z79.82 Long term (current) use of aspirin; Z79.01 Long term (current) use of anticoagulants; Z96.642 Presence of left artificial hip joint; Z96.653 Presence of artificial knee joint, bilateral; R82.90 Unspecified abnormal findings in urine; N20.0 Calculus of kidney; E78.5 Hyperlipidemia, unspecified; M54.5 Low back pain; W06.XXXA Fall from bed, initial encounter; Y93.89 Activity, other specified; Y92.003 Bedroom of unspecified non-institutional (private) residence as the place of occurrence of the external cause
CPT/HCPCS: 36415; 70450-TC; 71046-TC; 72125-TC; 72131-TC; 72148-TC; 72192-TC; 73523-TC; 80053; 81003; 81015; 82550; 84484; 85025; 85027; 87086; 93005; 93010; 96360; 97116-GP; 97161-GP; 99284-25; G0378

== ENCOUNTER 2017-10-02 17:22 | Inpatient (IN) | payer OTHER ==
[2017-10-02] MEDS ORDERED: SODIUM CHLORIDE 1,000 ML IV SCH (17:30)
--- NOTE | 2017-10-02 17:43 | PDOC ---
Attending Attestation - HPI HPI: 10/02/17 18:16 Patient is a 77 year old female with a significant past medical history of HTN , Afib on AC, hypothyroidism, CAD, depression, arthritis, who was brought by the EMS to the ED with complaints of altered mental status. As per EMS patient was found in her home this evening by her home health aide, who stated she was showing symptoms of AMS, prompting her to call EMS so she can be brought to the ED for further evaluation. EMS reports patient was found to have slight right sided facial droop on scene, as well as speaking in gibberish when using a lens inspector on scene. They reported patient was found to be covered in urine and feces as well as tachycardic to 130 and 150 systolic. Allergies: None Social history: Lives alone. No smoking. No alcohol. No illicit drugs. Surgical history: Bilateral knee replacements and Left hip replacement PMD: Dr. Biswas <Esteban Cintron - Last Filed: 10/02/17 18:16> - Resident Resident Name: Ady Keane - ED Attending Attestation I have performed the following: I have examined & evaluated the patient, The case was reviewed & discussed with the resident, I agree w/resident's findings & plan, Exceptions are as noted - Physicial Exam PE: GENERAL: Awake, alert, in no acute distress HEAD: No signs of trauma EYES: PERRLA, EOMI, sclera anicteric, conjunctiva clear ENT: Auricles normal inspection, hearing grossly normal, nares patent, oropharynx clear without exudates. Moist mucosa NECK: Normal ROM, supple, no lymphadenopathy, JVD, or masses LUNGS: Breath sounds equal, clear to auscultation bilaterally. No wheezes, and no crackles HEART: Tachycardic and irregular, normal S1 and S2, no murmurs, rubs or gallops ABDOMEN: Soft, nontender, normoactive bowel sounds. No guarding, no rebound. No masses EXTREMITIES: Normal range of motion, no edema. No clubbing or cyanosis. No cords, erythema, or tenderness NEUROLOGICAL: Cranial nerves II through XII grossly intact. Speech is clear at times (answers questions with "no"), slurred at other times. Moving all extremities. Sensation intact. SKIN: Warm, Dry, normal turgor, no rashes or lesions noted. - Medical Decision Making 10/02/17 18:08 Pt is not a tPA candidate. Unclear time of onset. Patient will have complete AMS workup in ED, as an infectious cause is most likely. CTH reviewed, no ICH. <Chio Alejandra - Last Filed: 10/02/17 18:57> NIH Stroke Scale - Last Known Well Date/Time & Onset Date Last Known Well: 10/01/17 - Initial Evaluation Level of consciousness: Alert Ask patient the month and their age: Both incorrect Ask patient to open & close eyes; make fist and let go: Obeys one correctly Best gaze (horizontal eye movement): Normal Visual field testing: No visual field loss Facial paresis (Show teeth/raise eyebrows/close eyes tight): Minor paralysis ( flattened nasolabial fold, asymmetry on smiling) Motor Function: Left Arm: Normal Motor Function: Right Arm: Normal (extends arm 90 (or 45) degrees for 10 seconds without drift Motor Function: Left Leg: Normal (extends leg 30 degrees for 5 seconds without drift) Motor Function: Right Leg: Normal (extends leg 30 degrees for 5 seconds without drift) Limb Ataxia: No ataxia Sensory(Use pinprick test arms,legs,trunk,face/side to side): Normal Best language (Describe picture, name items, read sentences): Severe aphasia Dysarthria (read several words): Mild to moderate slurring of words Extinction and Inattention: No abnormality - Total Score NIH Stroke Scale Score: 7 <Chio Alejandra - Last Filed: 10/02/17 18:57>
[2017-10-02 17:56] LABS: BASO % 0.7 % (0-2.0); EOS % 0.1 % (0-4.5); HEMATOCRIT 40.1 % (32.4-45.2); HEMOGLOBIN 12.6 GM/dL (10.7-15.3); LYMPH % 14.2 % (8-40); MCH 26.3 pg (25.7-33.7); MCHC 31.4 g/dl (32.0-36.0); MEAN CELL VOLUME 83.7 fl (80-96); MEAN PLT VOLUME 8.8 fl (7.5-11.1); MONO % 6.1 % (3.8-10.2); NEUT % 78.9 % (42.8-82.8); PLATELET COUNT 241 K/MM3 (134-434); RBC 4.79 M/mm3 (3.60-5.2); RDW 17.5 % (11.6-15.6); WHITE BLOOD COUNT 13.6 K/mm3 (4.0-10.0)
--- NOTE | 2017-10-02 18:10 | PDOC ---
History of Present Illness - General Chief Complaint: CVA/TIA Stated Complaint: POSSIBLE STROKE Time Seen by Provider: 10/02/17 17:25 History Source: EMS Exam Limitations: Clinical Condition - History of Present Illness Initial Comments: 10/02/17 18:18 Patient is an 77F with history of HLD, HTN, afib on xarelto, CAD, hypothyroidism , arthritis who is here today with altered mental status. EMS reports that patient was found down by a person who was possibly her aide. EMS reports that was she was altered in the field and was speaking incoherently. EMS reports right sided facial droop. Patient is unable to give history, speaking only in yes and no. No last known well. Past History - Past Medical History Allergies/Adverse Reactions: Allergies Allergy/AdvReac Type Severity Reaction Status Date / Time No Known Allergies Allergy Unverified 02/25/17 10:35 Home Medications: Ambulatory Orders Mirtazapine 15 mg PO HS 02/25/17 Levothyroxine [Synthroid -] 125 mcg PO DAILY@0700 #30 tablet 02/28/17 Rivaroxaban [Xarelto -] 20 mg PO DAILY@1900 #30 tablet 02/28/17 Metoprolol Tartrate [Lopressor -] 100 mg PO BID #120 tablet 05/11/17 Sertraline HCl [Zoloft] 100 mg PO DAILY 05/11/17 Atorvastatin Ca [Lipitor] 20 mg PO HS 10/02/17 Furosemide [Lasix -] 20 mg PO DAILY 10/02/17 Lisinopril [Prinivil] 5 mg PO DAILY 10/02/17 Omeprazole 40 mg PO ASDIR 10/02/17 Anemia: No Asthma: No Cancer: No Cardiac Disorders: Yes (CAD) CVA: No COPD: No CHF: No Dementia: No Diabetes: No GI Disorders: No Disorders: No HTN: Yes Hypercholesterolemia: No Liver Disease: No Psychiatric Problems: Yes (DEPRESSION) Seizures: No Thyroid Disease: Yes - Surgical History Abdominal Surgery: No Appendectomy: No Cardiac Surgery: No Cholecystectomy: No Lung Surgery: No Neurologic Surgery: No Orthopedic Surgery: Yes - Suicide/Smoking/Psychosocial Hx Smoking History: Unknown if ever smoked Have you smoked in the past 12 months: No Information on smoking cessation initiated: No Hx Alcohol Use: No Drug/Substance Use Hx: No Substance Use Type: None Hx Substance Use Treatment: No Review of Systems - Review of Systems Able to Perform ROS?: No (2/2 clinic condition) *Physical Exam - Vital Signs Last Vital Signs Temp Pulse Resp BP Pulse Ox 134 H 18 141/89 94 L 10/02/17 17:26 10/02/17 17:26 10/02/17 17:26 10/02/17 17:26 - Physical Exam Comments: 10/02/17 18:24 GENERAL: Awake, alert, fully disoriented HEAD: No signs of trauma, normocephalic, atraumatic EYES: PERRLA, EOMI, sclera anicteric, conjunctiva clear, eyelids crusted shut ENT: Auricles normal inspection, hearing grossly normal, nares patent, oropharynx clear without exudates. Dry mucosa NECK: Normal ROM, supple, no lymphadenopathy, JVD, or masses LUNGS: No distress, clear to auscultation bilaterally HEART: Regular rate and rhythm, normal S1 and S2, no murmurs, rubs or gallops, peripheral pulses normal and equal bilaterally. ABDOMEN: Soft, nontender, normoactive bowel sounds. No guarding, no rebound. No masses EXTREMITIES: Normal inspection, Normal range of motion, no edema. No clubbing or cyanosis. NEUROLOGICAL: Right sided facial droop, moves all extremities, good clearing tub worker strength SKIN: Warm, Dry, normal turgor, no rashes or lesions noted. NIH Stroke Scale - Initial Evaluation Level of consciousness: Alert Ask patient the month and their age: Both incorrect Ask patient to open & close eyes; make fist and let go: Obeys both correctly Best gaze (horizontal eye movement): Normal Visual field testing: No visual field loss Facial paresis (Show teeth/raise eyebrows/close eyes tight): Partial paralysis ( total or near paralysis of lower face) Motor Function: Left Arm: Normal Motor Function: Right Arm: Normal (extends arm 90 (or 45) degrees for 10 seconds without drift Motor Function: Left Leg: Normal (extends leg 30 degrees for 5 seconds without drift) Motor Function: Right Leg: Normal (extends leg 30 degrees for 5 seconds without drift) Limb Ataxia: No ataxia Sensory(Use pinprick test arms,legs,trunk,face/side to side): Normal Best language (Describe picture, name items, read sentences): Severe aphasia Dysarthria (read several words): Mild to moderate slurring of words Extinction and Inattention: No abnormality - Total Score NIH Stroke Scale Score: 7 Critical Care Time/MDM Note - Medical Decision Making Note: 10/02/17 18:27 Patient is 77F with history of HLD, HTN, afib on xarelto, hypothyroidism, CAD, depression, arthritis here today with altered mental status. Code cramer activated due to right sided facial droop. DDx includes, but is not limited to: CVA, UTI, rhabdo, sepsis, PNA. ECHO shows normal EF, will resuscitate with two liters. Stroke order set initiated, also culturing. Head CT negative for acute pathology. EKG shows afib with rvr with rate of 124. No st elevations/depressions. T waves inverted in laterally leads and V3. 10/02/17 18:55 Laboratory Tests 10/02/17 10/02/17 10/02/17 17:43 17:48 17:50 WBC 13.6 H D Hgb 12.6 Plt Count 241 POC Glucometer [id number] Lactic Acid 2.7 H* CBC shows leukocytosis. Lactic acid elevated to 2.7. Rest of labs pending. Signed out to Dr Schroeder. Discharge Disposition - Diagnosis Altered mental status - Discharge Dispostion Condition at time of disposition: Stable Last Admission D/C Date: 02/28/17 - Referrals - Patient Instructions - Post Discharge Activity
[2017-10-02] MEDS ORDERED: SODIUM CHLORIDE 1,000 ML IV STA (18:31)
[2017-10-02 18:58] LABS: URINE APPEARANCE CLEAR; URINE BILIRUBIN NEGATIVE (<2.0 mg/dL); URINE BLOOD 2+ (NEGATIVE); URINE COLOR YELLOW; URINE GLUCOSE (UA) NEGATIVE (NEGATIVE); URINE KETONE 2+ (NEGATIVE); URINE LEUK ESTERASE NEGATIVE (NEGATIVE); URINE NITRITE NEGATIVE (NEGATIVE)
[2017-10-02 19:00] LABS: ALBUMIN 3.7 g/dl (3.4-5.0); ALK PHOS 134 U/L (45-117); ANION GAP 13 (8-16); BILIRUBIN,TOTAL 2.6 mg/dL (0.2-1.0); BLOOD UREA NITROGEN 12 mg/dL (7-18); CHLORIDE 106 mmol/L (98-107); CHOLESTEROL 118 mg/dL (50-200); CO2 23 mmol/L (21-32); CREATININE 0.7 mg/dL (0.55-1.02); GLUCOSE,RANDOM 115 mg/dL (74-106); HDL CHOLESTEROL 35 mg/dL (40-60); POTASSIUM 3.6 mmol/L (3.5-5.1); SGOT/AST 41 U/L (15-37); SGPT/ALT 34 U/L (12-78); SODIUM 142 mmol/L (136-145); TOT PROT 7.1 g/dl (6.4-8.2); TRIGLYCERIDES 151 mg/dL (35-160)
[2017-10-02 19:04] LABS: INR 1.12 (0.82-1.09); PROTHROMBIN TIME (PATIENT) 12.7 SEC (9.7-13.0)
[2017-10-02 19:05] LABS: URINE PROTEIN 1+ (NEGATIVE)
[2017-10-02 19:06] LABS: EPI CELLS RARE /HPF (FEW); URINE MUCUS RARE
[2017-10-02 19:11] LABS: VENOUS PC02 35.6 mmHg (38-52); VENOUS PH 7.41 (7.32-7.42); VENOUS PO2 22.5 mmHg (28-48)
[2017-10-02] MEDS ORDERED: CLOPIDOGREL BISULFATE 300 MG TABLET PO ONE (19:16)
[2017-10-02] MEDS ORDERED: ASPIRIN 81 MG CHEWABLE TABLETS PO ONE (19:30)
--- NOTE | 2017-10-02 19:43 | PDOC ---
*Physical Exam - Vital Signs Last Vital Signs Temp Pulse Resp BP Pulse Ox 99.0 F 98 H 16 147/82 100 10/02/17 18:10 10/02/17 18:30 10/02/17 18:30 10/02/17 18:30 10/02/17 18:30 - Physical Exam HEENT: positive: EOMI ED Treatment Course - LABORATORY CBC & Chemistry Diagram: 10/02/17 17:48 10/02/17 17:48 - ADDITIONAL ORDERS Additional order review: Laboratory Results 10/02/17 10/02/17 10/02/17 18:45 17:58 17:50 PT with INR INR VBG pH 7.41 POC VBG pCO2 35.6 L POC VBG pO2 22.5 L Mixed VBG HCO3 22.1 Sodium Potassium Chloride Carbon Dioxide Anion Gap BUN Creatinine Creat Clearance w eGFR POC Glucometer Random Glucose Lactic Acid 2.7 H* Calcium Total Bilirubin AST ALT Alkaline Phosphatase Creatine Kinase Creatine Kinase Index CK-MB (CK-2) Troponin I Total Protein Albumin Triglycerides Cholesterol Total LDL Cholesterol HDL Cholesterol Urine Color Yellow Urine Appearance Clear Urine pH 5.0 D Ur Specific [place] 1.021 Urine Protein 1+ H Urine Glucose (UA) Negative Urine Ketones 2+ H Urine Blood 2+ H Urine Nitrite Negative Urine Bilirubin Negative Urine Urobilinogen 2.0 H Ur Leukocyte Esterase Negative Urine WBC (Auto) 6 Urine RBC (Auto) 4 Ur Epithelial Cells Rare Urine Mucus Rare Blood Type Antibody Screen 10/02/17 10/02/17 10/02/17 17:48 17:48 17:48 PT with INR 12.70 INR 1.12 VBG pH POC VBG pCO2 POC VBG pO2 Mixed VBG HCO3 Sodium 142 Potassium 3.6 Chloride 106 Carbon Dioxide 23 Anion Gap 13 BUN 12 Creatinine 0.7 Creat Clearance w eGFR > 60 POC Glucometer Random Glucose 115 H Lactic Acid Calcium 8.0 L Total Bilirubin 2.6 H D AST 41 H ALT 34 Alkaline Phosphatase 134 H Creatine Kinase 431 H Creatine Kinase Index 1.6 CK-MB (CK-2) 7.149 H Troponin I 0.37 H Total Protein 7.1 Albumin 3.7 Triglycerides 151 Cholesterol 118 Total LDL Cholesterol 77 HDL Cholesterol 35 L Urine Color Urine Appearance Urine pH Ur Specific [place] Urine Protein Urine Glucose (UA) Urine Ketones Urine Blood Urine Nitrite Urine Bilirubin Urine Urobilinogen Ur Leukocyte Esterase Urine WBC (Auto) Urine RBC (Auto) Ur Epithelial Cells Urine Mucus Blood Type O POSITIVE Antibody Screen Negative 10/02/17 17:43 PT with INR INR VBG pH POC VBG pCO2 POC VBG pO2 Mixed VBG HCO3 Sodium Potassium Chloride Carbon Dioxide Anion Gap BUN Creatinine Creat Clearance w eGFR POC Glucometer [phone] Random Glucose Lactic Acid Calcium Total Bilirubin AST ALT Alkaline Phosphatase Creatine Kinase Creatine Kinase Index CK-MB (CK-2) Troponin I Total Protein Albumin Triglycerides Cholesterol Total LDL Cholesterol HDL Cholesterol Urine Color Urine Appearance Urine pH Ur Specific [place] Urine Protein Urine Glucose (UA) Urine Ketones Urine Blood Urine Nitrite Urine Bilirubin Urine Urobilinogen Ur Leukocyte Esterase Urine WBC (Auto) Urine RBC (Auto) Ur Epithelial Cells Urine Mucus Blood Type Antibody Screen 10/02/17 10/02/17 17:48 17:43 RBC 4.79 MCV 83.7 MCHC 31.4 L RDW 17.5 H MPV 8.8 Neutrophils % 78.9 D Lymphocytes % 14.2 D Monocytes % 6.1 Eosinophils % 0.1 D Basophils % 0.7 POC Glucometer [phone] - Medications Given in the ED: ED Medications Discontinued Medications Generic Name Dose Route Start Last Admin Trade Name Freq PRN Reason Stop Dose Admin Clopidogrel Bisulfate 300 mg 10/02/17 19:16 10/02/17 19:41 Plavix - PO 10/02/17 19:17 Not Given ONCE ONE Sodium Chloride 1,000 mls @ 1,000 mls/hr 10/02/17 18:31 10/02/17 18:40 Normal Saline - IV 10/02/17 19:30 1,000 mls/hr ASDIR STA Administration Medical Decision Making - Medical Decision Making 77 year old female presenting with AMS and reported right sided facial droop with negative head CT, positive Troponin @ 0.37 with mild lateral EKG changes ( Previous T wave inversions in V3-V6 that are now flattened/ biphasic but patient was in RVR). RVR resolved with metop 5 IV. Patient signed out to IM resident and will be admitted under Dr. Fernandez for tele admit. 10/02/17 19:53 *DC/Admit/Observation/Transfer Diagnosis at time of Disposition: Atrial fibrillation with RVR Altered mental status Qualifiers: Altered mental status type: disorientation Qualified Code(s): R41.0 - Disorientation, unspecified - Discharge Dispostion Condition at time of disposition: Stable Decision to Admit order: Yes - Referrals - Patient Instructions - Post Discharge Activity
[2017-10-02] MEDS ORDERED: ASPIRIN 81 MG CHEWABLE TABLETS ONE (19:50)
[2017-10-02] MEDS ORDERED: METOPROLOL TARTRATE 5 MG/5 ML VIAL IVPUSH ONE (20:35)
[2017-10-02] MEDS ORDERED: METOPROLOL TARTRATE 5 MG/5 ML VIAL ONE (20:36)
--- NOTE | 2017-10-02 20:52 | PN ---
Teaching Attending Note Name of Resident: Rhea Quevedo ATTENDING PHYSICIAN STATEMENT I saw and evaluated the patient. I reviewed the resident's note and discussed the case with the resident. I agree with the resident's findings and plan as documented. SUBJECTIVE: found by familty member on floor with incoherent speech. Last noted with normal function on . Right facial droop noted in ED. Afib rvr given metoprolol. Patient c/o chest pain. Patient is a poor historian due to her aphasia. OBJECTIVE: Alert oriented to self follows commands HEENT: NC, AT, PERRLA, with purulent discharge from eyes, Nasal mucosa clear and oral mucosa dry with tongue deviating to right. CVS: Irregular rhythm Lungs: CTA, no wheezing Abd: Soft , NT, BS+, no mass Ext: b/l edema, strength 4/5 Neuro: facial droop to right, Aphasia and agraphia. NIHSS 7. Sensation intact CBCD WBC 13.6 K/mm3 (4.0-10.0) H D 10/02/17 17:48 RBC 4.79 M/mm3 (3.60-5.2) 10/02/17 17:48 Hgb 12.6 GM/dL (10.7-15.3) 10/02/17 17:48 Hct 40.1 % (32.4-45.2) 10/02/17 17:48 MCV 83.7 fl (80-96) 10/02/17 17:48 MCHC 31.4 g/dl (32.0-36.0) L 10/02/17 17:48 RDW 17.5 % (11.6-15.6) H 10/02/17 17:48 Plt Count 241 K/MM3 (134-434) 10/02/17 17:48 MPV 8.8 fl (7.5-11.1) 10/02/17 17:48 CMP Sodium 142 mmol/L (136-145) 10/02/17 17:48 Potassium 3.6 mmol/L (3.5-5.1) 10/02/17 17:48 Chloride 106 mmol/L (98-107) 10/02/17 17:48 Carbon Dioxide 23 mmol/L (21-32) 10/02/17 17:48 Anion Gap 13 (8-16) 10/02/17 17:48 BUN 12 mg/dL (7-18) 10/02/17 17:48 Creatinine 0.7 mg/dL (0.55-1.02) 10/02/17 17:48 Creat Clearance w eGFR > 60 (>60) 10/02/17 17:48 Random Glucose 115 mg/dL (74-106) H 10/02/17 17:48 Calcium 8.0 mg/dL (8.5-10.1) L 10/02/17 17:48 Total Bilirubin 2.6 mg/dL (0.2-1.0) H D 10/02/17 17:48 AST 41 U/L (15-37) H 10/02/17 17:48 ALT 34 U/L (12-78) 10/02/17 17:48 Alkaline Phosphatase 134 U/L (45-117) H 10/02/17 17:48 Total Protein 7.1 g/dl (6.4-8.2) 10/02/17 17:48 Albumin 3.7 g/dl (3.4-5.0) 10/02/17 17:48 CARDIAC ENZYMES Creatine Kinase 431 IU/L (26-192) H 10/02/17 17:48 Troponin I 0.37 ng/ml (0.00-0.05) H 10/02/17 17:48 INR, PTT INR 1.12 (0.82-1.09) 10/02/17 17:48 ASSESSMENT AND PLAN: CVA/ TIA r/o ACS MRI , Carotid doppler, ECHO and ASA, and statin Permissive HTN AFib- rate control with metoprolol but hold if BP </= 140 Trend troponins Lactic acidosis and leukocytosis- Sepsis criteria met but unlikely secondary to infectious etiology, will follow UA and trend lactic acid. Leucocytosis possibly stress induced. Admit to telemetry Rehab consult Dysphagia screen. DVT prophylaxis
--- NOTE | 2017-10-02 21:31 | HP ---
CHIEF COMPLAINT: AMS PCP: [facility], Dr. Renzo Caro Cardiology: Dr. Presley HISTORY OF PRESENT ILLNESS: 77yo woman with PMH of HTN, Afib (on Xarelto), hypothyroidism, CAD, depression, arthritis, and multiple falls (last 2 prior admission in Jan 2017, May 2017) who was BIBA after being found on the floor and incoherent by a family member this evening ~5pm. She was last seen well by neighbor on and appeared to be at her baseline. [facility] is suppose to visit on Tue-Tue, but this cannot be confirmed; family does not have [facility] name or number. Last 2D ECHO on 05/18/2017 done as OP, which showed normal LV size, thickness, and function; mild LA/RA dilation, mod TR, mild MR, L ventricular wall motion normal, LVEF normal (estimated EF 50% in Jan 2017), and elevated RVSP 30- 40mmHg. On arrival to ED, patient was found to have R facial droop, which family says is new for patient, and code bullard was activated. NIHSS 7. Patient not a tPA candidate given unknown last well time. Head CT found no acute changes. Vitals signs were notable for Afib with RVR (rate 130-150's) and was given Metoprolol 5mg IVP with improved rate control. Labs notable for elevated Troponin I (0.37) and BNP 16K without any acute ST elevations, but with T wave changes. Cardiology was consulted and recommended ASA 324mg only. 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 Social History: lives alone, [facility] Tue-Tue 4 hours/day Smoking: never Alcohol: denies Drugs: denies Family History: non-contributory Allergies: No Known Allergies Allergy (Unverified 02/25/17 10:35) HOME MEDICATIONS: Home Medications Medication Instructions Recorded Mirtazapine 15 mg PO HS 02/25/17 Levothyroxine [Synthroid -] 125 mcg PO DAILY@0700 #30 tablet 02/28/17 Rivaroxaban [Xarelto -] 20 mg PO DAILY@1900 #30 tablet 02/28/17 Metoprolol Tartrate [Lopressor -] 100 mg PO BID #120 tablet 05/11/17 Sertraline HCl [Zoloft] 100 mg PO DAILY 05/11/17 Atorvastatin Ca [Lipitor] 20 mg PO HS 10/02/17 Furosemide [Lasix -] 20 mg PO DAILY 10/02/17 Lisinopril [Prinivil] 5 mg PO DAILY 10/02/17 Omeprazole 40 mg PO ASDIR 10/02/17 REVIEW OF SYSTEMS: unable to obtain due to mental status PHYSICAL EXAMINATION Vital Signs - 24 hr 10/02/17 10/02/17 10/02/17 17:26 18:05 18:10 Temperature 99.0 F 99.0 F Pulse Rate 134 H 96 H Pulse Rate [ 106 H 128 H Left Apical] Respiratory 18 16 16 Rate Blood Pressure 141/89 Blood Pressure 173/86 159/105 [Left Arm] O2 Sat by Pulse 94 L 98 98 Oximetry (%) 10/02/17 10/02/17 10/02/17 18:30 20:12 20:51 Temperature 98.1 F Pulse Rate Pulse Rate [ 98 H 130 H Left Apical] Respiratory 16 22 Rate Blood Pressure 157/110 Blood Pressure 147/82 157/110 [Left Arm] O2 Sat by Pulse 100 98 Oximetry (%) GENERAL: awake, alert, oriented to self, nad HEENT: PERRL, EOMI, sclera anicteric, conjunctiva clear, no lid lag, oropharynx clear without exudates, mmm NECK: supple, no cervical LAD LUNGS: bilateral crackles HEART: irreg, normal s1/s2 ABDOMEN: soft, protuberant, NTND, +positive bowel sounds MUSCULOSKELETAL: Normal range of motion at all joints UPPER EXTREMITIES: 2+ radial pulses, wwp, no peripheral edema LOWER EXTREMITIES: 2+ DP pulses, wwp, no calf tenderness, no edema NEUROLOGICAL: Flattening R nasolabial fold, remainder CN intact, normal speech , content intermittently incoherent, difficulty word/name finding (patient can recognize family members, states she knows them, but can not produce person's name), motor strength RLE 4/5, LLE 5/5, distal sensation intact SKIN: Warm, dry, normal turgor, no rashes or lesions noted CBC, BMP 10/02/17 17:48 10/02/17 17:48 Hepatic Panel Total Bilirubin 2.6 mg/dL (0.2-1.0) H D 10/02/17 17:48 Direct Bilirubin 0.6 mg/dL (0.0-0.2) H 10/02/17 20:00 AST 41 U/L (15-37) H 10/02/17 17:48 ALT 34 U/L (12-78) 10/02/17 17:48 Alkaline Phosphatase 134 U/L (45-117) H 10/02/17 17:48 Albumin 3.7 g/dl (3.4-5.0) 10/02/17 17:48 Troponin, BNP 10/02/17 10/02/17 17:48 20:09 Troponin I 0.37 H B-Natriuretic Peptide 49303.80 H INR, PTT INR 1.12 (0.82-1.09) 10/02/17 17:48 Urine Test Results Urine Color Yellow 10/02/17 18:45 Urine Appearance Clear 10/02/17 18:45 Urine pH 5.0 (5.0-8.0) D 10/02/17 18:45 Ur Specific [place] 1.021 (1.001-1.035) 10/02/17 18:45 Urine Protein 1+ (NEGATIVE) H 10/02/17 18:45 Urine Glucose (UA) Negative (NEGATIVE) 10/02/17 18:45 Urine Ketones 2+ (NEGATIVE) H 10/02/17 18:45 Urine Blood 2+ (NEGATIVE) H 10/02/17 18:45 Urine Nitrite Negative (NEGATIVE) 10/02/17 18:45 Urine Bilirubin Negative (<2.0 mg/dL) 10/02/17 18:45 Ur Leukocyte Esterase Negative (NEGATIVE) 10/02/17 18:45 Ur Epithelial Cells Rare /HPF (FEW) 10/02/17 18:45 Urine Mucus Rare 10/02/17 18:45 10/02/17 10/02/17 10/02/17 17:45 17:50 19:52 Lactic Acid 2.7 H* Free T4 [place] Pending TSH 7.35 H CXR, preliminary read by me: enlarged cardiomediastinum, pulmonary congestion ( minimal changes from CXR in May 2017), no new focal consolidations EKG: Afib with RVR, rate 124, no ST elevation, flattening of TWI in I, II, V3- V6 compared to 05/10/17 ASSESSMENT/PLAN: #AMS, broad differential including CVA vs thyroid dysfunction vs infectious vs polypharmacy. CVA highest on the differential given R nasolabial flattening and word finding difficulty. NIHSS 7. Lower suspicion for infection given negative UA, lack of fever, and CXR w/o consolidations. -Neurology consulted -Brain MRI to assess for CVA -Maintain SBP 140-160 -Carotid dopplers -Repeat 2D ECHO -[facility] and PT evaluation -F/u blood and urine cultures -Check lactic acid in AM #Tropinemia, r/o ACS -Cardiology consulted -continuous telemetry monitoring -Serial Troponins/EKG #Afib, on Xarelto, now rate controlled -c/w Xarelto 20mg daily -c/w home Lopressor 100mg BID, hold if SBP less than 140 (want permissive HTN due to concern for CVA) #hypothyroidism, TSH 7.35 -Check FT4 and T3 -c/w home synthroid 125mcg #CAD -c/w Atorvastatin 20mg #Depression - c/w home Mirtezapine, Sertraline #HTN/CHF -give lasix 40mg IVP -c/w home lisinopril 5mg, lasix 20mg qd, Lopressor 100mg BID #GERD - c/w home omeprazole 40mg qd #FEN PO intake (s/p 2L NS in ED) lytes wnl Na controlled diet #PPX DVT - on Xarelto #DISPO: telemetry FULL code d/w Dr. Aleman Visit type - Emergency Visit Emergency Visit: Yes ED Registration Date: 10/02/17 Care time: The patient presented to the Emergency Department on the above date and was hospitalized for further evaluation of their emergent condition. - New Patient This patient is new to me today: Yes Date on this admission: 10/03/17 - Critical Care Critical Care patient: No Hospitalist Screening - Colonoscopy Questionnaire Colonoscopy Questionnaire: Colonoscopy Questionnaire - Patient: 50 - 75 years old and never had a screening colonoscopy: Unknown History of colon or rectal polyps, or CA: Unknown History of IBD, Crohn's disease or UC: Unknown History of abdominal radiation therapy as a child: Unknown - Relative: 1 with colon or rectal CA, or polyps at age 60 or younger: Unknown Colon or rectal CA diagnosed at age 45 or younger: Unknown Multiple relatives with colon or rectal CA: Unknown - Outcome: Screening Result: Negative Screen
[2017-10-03] MEDS ORDERED: SODIUM CHLORIDE 500 ML IV STA (00:26)
[2017-10-03] MEDS ORDERED: FUROSEMIDE 40 MG/4 ML INJECTABLE VIAL IVPUSH ONE (00:58)
[2017-10-03 06:15] LABS: EOS % 1.3 % (0-4.5); HEMATOCRIT 34.3 % (32.4-45.2); LYMPH % 19.3 % (8-40); MCH 27.1 pg (25.7-33.7); MCHC 32.2 g/dl (32.0-36.0); MEAN CELL VOLUME 84.4 fl (80-96); MEAN PLT VOLUME 8.9 fl (7.5-11.1); MONO % 6.5 % (3.8-10.2); NEUT % 71.9 % (42.8-82.8); PLATELET COUNT 190 K/MM3 (134-434); RBC 4.07 M/mm3 (3.60-5.2); RDW 17.7 % (11.6-15.6); WHITE BLOOD COUNT 11.2 K/mm3 (4.0-10.0)
[2017-10-03 06:50] LABS: ANION GAP 10 (8-16); BLOOD UREA NITROGEN 11 mg/dL (7-18); CALCIUM 7.4 mg/dL (8.5-10.1); CHLORIDE 107 mmol/L (98-107); CO2 26 mmol/L (21-32); GLUCOSE,RANDOM 95 mg/dL (74-106); MAGNESIUM 1.9 mg/dL (1.8-2.4); POTASSIUM 3.6 mmol/L (3.5-5.1); SODIUM 143 mmol/L (136-145)
[2017-10-03 06:56] LABS: ALK PHOS 108 U/L (45-117); BILIRUBIN,TOTAL 2.1 mg/dL (0.2-1.0); CREATININE 0.6 mg/dL (0.55-1.02); SGOT/AST 35 U/L (15-37); SGPT/ALT 31 U/L (12-78); TOT PROT 5.8 g/dl (6.4-8.2)
[2017-10-03] MEDS: LEVOTHYROXINE NA 125 MCG TABLET (FP) PO SCH (07:45)
[2017-10-03] MEDS: FUROSEMIDE 20 MG TABLET (FP) PO SCH (09:45)
[2017-10-03] MEDS: PANTOPRAZOLE 40 MG TABLET (FP) PO SCH (09:46)
[2017-10-03] MEDS: METOPROLOL TARTRATE 50 MG TABLET (FP) PO SCH ×2 (09:46→22:30)
[2017-10-03] MEDS: SERTRALINE HCL 50 MG TABLET (FP) PO SCH (09:47)
[2017-10-03] MEDS ORDERED: LISINOPRIL 5 MG TABLET (FP) PO SCH (10:00)
[2017-10-03] MEDS ORDERED: METOPROLOL TARTRATE 50 MG TABLET (FP) PO SCH (10:00)
--- NOTE | 2017-10-03 10:06 | CON.CARD ---
Consult Consult Specialty:: Cardiology Referred by:: Hospitalist Medicine Reason for Consultation:: Afib - History of Present Illness Chief Complaint: Facial droop, altered mental status History of Present Illness: 76 year old woman with a PMHx of CAD, atrial fibrillation, hypertension, hypothyroidism, hyperlipidemia, dyspepsia, depression, arthritis admitted for dysarthria, altered mental status, right facial droop. Last noted with normal function on . Afib rvr given metoprolol. Patient is a poor historian due to her aphasia, unclear compliance with Xarelto. - History Source History Provided By: Medical Record Limitations to Obtaining History: Clinical Condition - Past Medical History Cardio/Vascular: Yes: AFIB, CAD, HTN - Alcohol/Substance Use Hx Alcohol Use: No History of Substance Use: reports: None - Smoking History Smoking history: Unknown if ever smoked Have you smoked in the past 12 months: No Home Medications - Allergies Allergies/Adverse Reactions: Allergies Allergy/AdvReac Type Severity Reaction Status Date / Time No Known Allergies Allergy Unverified 02/25/17 10:35 - Home Medications Home Medications: Ambulatory Orders Mirtazapine 15 mg PO HS 02/25/17 Levothyroxine [Synthroid -] 125 mcg PO DAILY@0700 #30 tablet 02/28/17 Rivaroxaban [Xarelto -] 20 mg PO DAILY@1900 #30 tablet 02/28/17 Metoprolol Tartrate [Lopressor -] 100 mg PO BID #120 tablet 05/11/17 Sertraline HCl [Zoloft] 100 mg PO DAILY 05/11/17 Atorvastatin Ca [Lipitor] 20 mg PO HS 10/02/17 Furosemide [Lasix -] 20 mg PO DAILY 10/02/17 Lisinopril [Prinivil] 5 mg PO DAILY 10/02/17 Omeprazole 40 mg PO DAILY 10/02/17 Review of Systems Unable to obtain ROS, reason: Aphasic - Review of Systems Neurological: reports: Change in Speech Vital Signs: Vital Signs Temperature 98.5 F 10/03/17 02:15 Pulse Rate 103 H 10/03/17 07:01 Respiratory Rate 17 10/03/17 07:01 Blood Pressure 105/92 10/03/17 07:01 O2 Sat by Pulse Oximetry (%) 97 10/03/17 07:01 Constitutional: Yes: No Distress, Calm Neck: Yes: Supple Respiratory: Yes: Regular, Diminished Gastrointestinal: Yes: Soft, Hypoactive Bowel Sounds Cardiovascular: Yes: Pulse Irregular JVD: No Carotid Bruit: No Heart Sounds: Yes: S1, S2 Murmur: Yes: Systolic Murmur, Grade 1 Edema: Yes Edema: LLE: Trace, RLE: Trace - Other Data Labs, Other Data: CBC, BMP 10/03/17 05:54 10/03/17 05:54 INR, PTT INR 1.12 (0.82-1.09) 10/02/17 17:48 Troponin, BNP 10/02/17 10/02/17 10/03/17 17:48 20:09 01:40 Troponin I 0.37 H 0.25 H B-Natriuretic Peptide 06815.80 H 10/03/17 05:54 Troponin I 0.14 H B-Natriuretic Peptide Troponin, BNP 10/02/17 10/02/17 10/03/17 17:48 20:09 01:40 Troponin I 0.37 H 0.25 H B-Natriuretic Peptide 15475.80 H 10/03/17 05:54 Troponin I 0.14 H B-Natriuretic Peptide Imaging - Results Chest X-ray: Report Reviewed (Mild congestion) Problem List - Problems (1) Demand ischemia Code(s): I24.8 - OTHER FORMS OF ACUTE ISCHEMIC HEART DISEASE (2) Hyperlipidemia Code(s): E78.5 - HYPERLIPIDEMIA, UNSPECIFIED Qualifiers: Hyperlipidemia type: pure hypercholesterolemia Qualified Code(s): E78.00 - Pure hypercholesterolemia, unspecified; E78.0 - Pure hypercholesterolemia (3) Hypothyroidism Code(s): E03.9 - HYPOTHYROIDISM, UNSPECIFIED Qualifiers: Hypothyroidism type: unspecified Qualified Code(s): E03.9 - Hypothyroidism , unspecified (4) Altered mental status Code(s): R41.82 - ALTERED MENTAL STATUS, UNSPECIFIED Qualifiers: Altered mental status type: disorientation Qualified Code(s): R41.0 - Disorientation, unspecified (5) Atrial fibrillation with RVR Code(s): I48.91 - UNSPECIFIED ATRIAL FIBRILLATION (6) CAD (coronary artery disease) Code(s): I25.10 - ATHSCL HEART DISEASE OF [place] CORONARY ARTERY W/O ANG PCTRS Qualifiers: Coronary Disease-Associated Artery/Lesion type: [place] artery [place] vs. transplanted heart: [place] heart Associated angina: without angina Qualified Code(s): I25.10 - Atherosclerotic heart disease of [place] coronary artery without angina pectoris (7) HTN (hypertension) Code(s): I10 - ESSENTIAL (PRIMARY) HYPERTENSION Qualifiers: Hypertension type: essential hypertension Qualified Code(s): I10 - Essential (primary) hypertension (8) Diastolic dysfunction Code(s): I51.9 - HEART DISEASE, UNSPECIFIED Assessment/Plan Echocardiogram 02/25/2017 showed low-normal LV systolic function with LVEF 50%. Normal RV and moderate LA dilatation. 1. Acute stroke 2. CAD demand ischemia 3. Persistent afib and unclear compliance with Xarelto 4. Hypothyroidism 5. Hyperlipidemia 6. Diastolic dysfunction P:1. F/u brain MRI, repeat echo, carotid U/S, S&S and PT eval 2. Trops have peaked, f/u free T3 3. Continue Lopressor 100 bid, Lipitor 20 qhs, lisinopril 5 qd, Lasix 20 qd, clarify compliance with Xarelto 20 qd and GI protection 4. Thank you for consultative opportunity
--- NOTE | 2017-10-03 11:24 | EKG ---
Test Reason : Blood Pressure : / mmHG Vent. Rate : 124 BPM Atrial Rate : 125 BPM P-R Int : 000 ms QRS Dur : 088 ms QT Int : 364 ms P-R-T Axes : 000 009 168 degrees QTc Int : 522 ms ATRIAL FIBRILLATION WITH RAPID VENTRICULAR RESPONSE WITH PREMATURE VENTRICULAR OR ABERRANTLY CONDUCTED COMPLEXES SEPTAL INFARCT , AGE UNDETERMINED ABNORMAL ECG WHEN COMPARED WITH ECG OF 10-MAY-2017 12:01, VENT. RATE HAS INCREASED T WAVE VARIATION Confirmed by BERNY GOMEZ, RYAN ([id number]) on 10/03/2017 11:24:06 AM Referred By: Confirmed By:RYAN ARRIETA MD
--- NOTE | 2017-10-03 13:50 | PN ---
Physical Exam: SUBJECTIVE: Patient seen and examined at bedside. Dysarthric. Limited exam. Spoke with daughter today. States pt has never had a stroke in the past, and at home she was moving all 4 limbs spontaneously, as well as talking and eating normally. Also stated that pt has had a bad cough productive of copious yellow sputum for the last 3 months. Denies sick contacts or recent travel. States family called an ambulance for the patient last week because of the cough, however, the patient refused to go with the ambulance. Daughter notes that pt's meds are all administered by home health aid OBJECTIVE: Vital Signs Period Temp Pulse Resp BP Sys/Curiel Pulse Ox Last 24 Hr 97.6 F-99.0 F 96-134 16-22 105-173/75-110 94-100 Limited exam. Gen: pt seems uncomfortable, but not in distress HEENT: NCAT, Left eye closes intermittently ? ptosis. Pt is able to open both eyes on command. PERRLA, EOMI, moist membranes Neck: supple, no LAD, no thyromegally, no jvd, no bruits appreciated Lungs: CTA b/l, no rales Cor: Normal S1S2, irregular, no murmurs/rubs/gallops heard Abd: soft nontender Extremities: 2+ pulses Neuro: ? L facial droop (was difficult to assess), RUE/RLE flacid paralysis, strength preserved in LUE, LLE. No tongue deviation, no gaze preference, symmetric eyebrow elevation. Sensory exam not done as pt not able to communicate. Follows commands. Laboratory Results - last 24 hr 10/02/17 10/02/17 10/02/17 17:43 17:45 17:48 WBC 13.6 H D RBC 4.79 Hgb 12.6 Hct 40.1 MCV 83.7 MCH 26.3 MCHC 31.4 L RDW 17.5 H Plt Count 241 MPV 8.8 Neutrophils % 78.9 D Lymphocytes % 14.2 D Monocytes % 6.1 Eosinophils % 0.1 D Basophils % 0.7 Nucleated RBC % 0 PT with INR INR VBG pH POC VBG pCO2 POC VBG pO2 Mixed VBG HCO3 Sodium Potassium Chloride Carbon Dioxide Anion Gap BUN Creatinine Creat Clearance w eGFR POC Glucometer [id number] Random Glucose Lactic Acid Calcium Phosphorus Magnesium Total Bilirubin Direct Bilirubin AST ALT Alkaline Phosphatase Ammonia Creatine Kinase Creatine Kinase Index CK-MB (CK-2) Troponin I B-Natriuretic Peptide Total Protein Albumin Triglycerides Cholesterol Total LDL Cholesterol HDL Cholesterol TSH 7.35 H Urine Color Urine Appearance Urine pH Ur Specific [place] Urine Protein Urine Glucose (UA) Urine Ketones Urine Blood Urine Nitrite Urine Bilirubin Urine Urobilinogen Ur Leukocyte Esterase Urine WBC (Auto) Urine RBC (Auto) Ur Epithelial Cells Urine Mucus Blood Type Antibody Screen 10/02/17 10/02/17 10/02/17 17:48 17:48 17:48 WBC RBC Hgb Hct MCV MCH MCHC RDW Plt Count MPV Neutrophils % Lymphocytes % Monocytes % Eosinophils % Basophils % Nucleated RBC % PT with INR 12.70 INR 1.12 VBG pH POC VBG pCO2 POC VBG pO2 Mixed VBG HCO3 Sodium 142 Potassium 3.6 Chloride 106 Carbon Dioxide 23 Anion Gap 13 BUN 12 Creatinine 0.7 Creat Clearance w eGFR > 60 POC Glucometer Random Glucose 115 H Lactic Acid Calcium 8.0 L Phosphorus Magnesium Total Bilirubin 2.6 H D Direct Bilirubin AST 41 H ALT 34 Alkaline Phosphatase 134 H Ammonia Creatine Kinase 431 H Creatine Kinase Index 1.6 CK-MB (CK-2) 7.149 H Troponin I 0.37 H B-Natriuretic Peptide Total Protein 7.1 Albumin 3.7 Triglycerides 151 Cholesterol 118 Total LDL Cholesterol 77 HDL Cholesterol 35 L TSH Urine Color Urine Appearance Urine pH Ur Specific [place] Urine Protein Urine Glucose (UA) Urine Ketones Urine Blood Urine Nitrite Urine Bilirubin Urine Urobilinogen Ur Leukocyte Esterase Urine WBC (Auto) Urine RBC (Auto) Ur Epithelial Cells Urine Mucus Blood Type O POSITIVE Antibody Screen Negative 10/02/17 10/02/17 10/02/17 17:50 17:58 18:45 WBC RBC Hgb Hct MCV MCH MCHC RDW Plt Count MPV Neutrophils % Lymphocytes % Monocytes % Eosinophils % Basophils % Nucleated RBC % PT with INR INR VBG pH 7.41 POC VBG pCO2 35.6 L POC VBG pO2 22.5 L Mixed VBG HCO3 22.1 Sodium Potassium Chloride Carbon Dioxide Anion Gap BUN Creatinine Creat Clearance w eGFR POC Glucometer Random Glucose Lactic Acid 2.7 H* Calcium Phosphorus Magnesium Total Bilirubin Direct Bilirubin AST ALT Alkaline Phosphatase Ammonia Creatine Kinase Creatine Kinase Index CK-MB (CK-2) Troponin I B-Natriuretic Peptide Total Protein Albumin Triglycerides Cholesterol Total LDL Cholesterol HDL Cholesterol TSH Urine Color Yellow Urine Appearance Clear Urine pH 5.0 D Ur Specific [place] 1.021 Urine Protein 1+ H Urine Glucose (UA) Negative Urine Ketones 2+ H Urine Blood 2+ H Urine Nitrite Negative Urine Bilirubin Negative Urine Urobilinogen 2.0 H Ur Leukocyte Esterase Negative Urine WBC (Auto) 6 Urine RBC (Auto) 4 Ur Epithelial Cells Rare Urine Mucus Rare Blood Type Antibody Screen 10/02/17 10/02/17 10/02/17 19:52 20:00 20:09 WBC RBC Hgb Hct MCV MCH MCHC RDW Plt Count MPV Neutrophils % Lymphocytes % Monocytes % Eosinophils % Basophils % Nucleated RBC % PT with INR INR VBG pH POC VBG pCO2 POC VBG pO2 Mixed VBG HCO3 Sodium Potassium Chloride Carbon Dioxide Anion Gap BUN Creatinine Creat Clearance w eGFR POC Glucometer Random Glucose Lactic Acid Calcium Phosphorus Magnesium Total Bilirubin Direct Bilirubin 0.6 H AST ALT Alkaline Phosphatase Ammonia 32.39 H Creatine Kinase Creatine Kinase Index CK-MB (CK-2) Troponin I B-Natriuretic Peptide 76419.80 H Total Protein Albumin Triglycerides Cholesterol Total LDL Cholesterol HDL Cholesterol TSH Urine Color Urine Appearance Urine pH Ur Specific [place] Urine Protein Urine Glucose (UA) Urine Ketones Urine Blood Urine Nitrite Urine Bilirubin Urine Urobilinogen Ur Leukocyte Esterase Urine WBC (Auto) Urine RBC (Auto) Ur Epithelial Cells Urine Mucus Blood Type Antibody Screen 10/03/17 10/03/17 10/03/17 01:40 01:40 05:54 WBC 11.2 H RBC 4.07 Hgb 11.0 D Hct 34.3 MCV 84.4 MCH 27.1 MCHC 32.2 RDW 17.7 H Plt Count 190 D MPV 8.9 Neutrophils % 71.9 Lymphocytes % 19.3 D Monocytes % 6.5 Eosinophils % 1.3 D Basophils % 1.0 Nucleated RBC % 0 PT with INR INR VBG pH POC VBG pCO2 POC VBG pO2 Mixed VBG HCO3 Sodium Potassium Chloride Carbon Dioxide Anion Gap BUN Creatinine Creat Clearance w eGFR POC Glucometer Random Glucose Lactic Acid 1.5 Calcium Phosphorus Magnesium Total Bilirubin Direct Bilirubin AST ALT Alkaline Phosphatase Ammonia Creatine Kinase Creatine Kinase Index CK-MB (CK-2) Troponin I 0.25 H B-Natriuretic Peptide Total Protein Albumin Triglycerides Cholesterol Total LDL Cholesterol HDL Cholesterol TSH Urine Color Urine Appearance Urine pH Ur Specific [place] Urine Protein Urine Glucose (UA) Urine Ketones Urine Blood Urine Nitrite Urine Bilirubin Urine Urobilinogen Ur Leukocyte Esterase Urine WBC (Auto) Urine RBC (Auto) Ur Epithelial Cells Urine Mucus Blood Type Antibody Screen 10/03/17 10/03/17 10/03/17 05:54 05:54 05:54 WBC RBC Hgb Hct MCV MCH MCHC RDW Plt Count MPV Neutrophils % Lymphocytes % Monocytes % Eosinophils % Basophils % Nucleated RBC % PT with INR INR VBG pH POC VBG pCO2 POC VBG pO2 Mixed VBG HCO3 Sodium 143 Potassium 3.6 Chloride 107 Carbon Dioxide 26 Anion Gap 10 BUN 11 Creatinine 0.6 Creat Clearance w eGFR > 60 POC Glucometer Random Glucose 95 Lactic Acid 1.3 Calcium 7.4 L Phosphorus 3.0 Magnesium 1.9 Total Bilirubin 2.1 H Direct Bilirubin AST 35 ALT 31 Alkaline Phosphatase 108 Ammonia Creatine Kinase 405 H Creatine Kinase Index 1.2 CK-MB (CK-2) 4.96 H Troponin I 0.14 H B-Natriuretic Peptide Total Protein 5.8 L Albumin 3.0 L Triglycerides Cholesterol Total LDL Cholesterol HDL Cholesterol TSH Urine Color Urine Appearance Urine pH Ur Specific [place] Urine Protein Urine Glucose (UA) Urine Ketones Urine Blood Urine Nitrite Urine Bilirubin Urine Urobilinogen Ur Leukocyte Esterase Urine WBC (Auto) Urine RBC (Auto) Ur Epithelial Cells Urine Mucus Blood Type Antibody Screen Active Medications Generic Name Dose Route Start Last Admin Trade Name Freq PRN Reason Stop Dose Admin Atorvastatin Calcium 20 mg 10/03/17 22:00 Lipitor - PO HS DIANELYS Furosemide 20 mg 10/03/17 10:00 10/03/17 09:45 Lasix - PO 20 mg DAILY DIANELYS Administration Sodium Chloride 1,000 mls @ 42 mls/hr 10/02/17 17:30 10/02/17 18:16 Normal Saline - IV 42 mls/hr ASDIR DIANELYS Administration Levothyroxine Sodium 125 mcg 10/03/17 07:00 10/03/17 07:45 Synthroid - PO 125 mcg DAILY@0700 DIANELYS Administration Lisinopril 5 mg 10/03/17 10:00 10/03/17 09:46 Prinivil PO 5 mg DAILY DIANELYS Administration Metoprolol Tartrate 100 mg 10/03/17 10:00 10/03/17 09:46 Lopressor - PO 100 mg BID DIANELYS Administration Mirtazapine 15 mg 10/03/17 22:00 Remeron - PO HS DIANELYS Pantoprazole Sodium 40 mg 10/03/17 10:00 06/04/18 09:46 Protonix - PO 40 mg DAILY DIANELYS Administration Rivaroxaban 20 mg 10/03/17 19:00 Xarelto - PO DAILY@1900 DIANELYS Sertraline HCl 100 mg 10/03/17 10:00 10/03/17 09:47 Zoloft - PO 100 mg DAILY DIANELYS Administration ASSESSMENT/PLAN: Pt is a 77 y/o F with PMH HTN, Afib (on Xarelto), hypothyroidism, CAD, depression, arthritis, and multiple falls (last 2 prior admission in Jan 2017, May 2017) who was BIBA after being found incoherent on the floor by family at 5pm yest. Last known well was last (09/29/2017). Pt has home health aid Mon -Sat 4 hrs/day. Agency has been unreachable as of yet. #AMS -DDx includes CVA (most likely) vs thyroid dysfunction vs infectious vs polypharmacy. -nasolabial flattening and dysarthria. NIHSS 7 on admission. -negative UA, no fever, and CXR w/o consolidations. -lactic acid resolved -Head CT neg (10/02/17) -Carotid dopplers (10/02/2017) unremarkable -ECHO (10/03/2017) sig for mod-severe LV hypokinesis, basal/mid/ant anteroseptal hypokinesis, PAP 31, RAP 3, normal IVC -f/u Speech Pathology -PT evaluation -F/u blood and urine cultures -Maintain SBP 140-160 -Brain MRI to assess for CVA -Head and neck MRA -f/u Neurology recs #Tropinemia, r/o ACS -Cardiology input appreciated. -continuous telemetry monitoring -Troponins have peaked #Hepatitis -transaminitis, hyperammonemia (mild), hyperbilirubinemia on admission -hepatic U/S sig for fatty liver, cannot r/o HCC -Radiology recs MRI for clarification if indicated clinically -No RUQ tenderness on exam -transaminitis resolved -bili improving #Afib, on Xarelto, now rate controlled -c/w Xarelto 20mg daily -c/w home Lopressor 100mg BID, hold if SBP less than 140 (want permissive HTN due to concern for CVA) #hypothyroidism, TSH 7.35 -Check FT4 and T3 -c/w home synthroid 125mcg #CAD -c/w Atorvastatin 20mg #Depression - c/w home Mirtezapine, Sertraline #HTN/CHF -give lasix 40mg IVP -c/w home lisinopril 5mg, lasix 20mg qd, Lopressor 100mg BID #GERD - c/w home omeprazole 40mg qd #FEN -NS @ 42 -lytes wnl -NPO pending speech and swallow #PPX DVT - on Xarelto #DISPO: telemetry FULL code Bill Muñoz MD PGY-1 IM Visit type - Emergency Visit Emergency Visit: Yes ED Registration Date: 10/02/17 Care time: The patient presented to the Emergency Department on the above date and was hospitalized for further evaluation of their emergent condition. - New Patient This patient is new to me today: Yes Date on this admission: 10/03/17 - Critical Care Critical Care patient: No - Discharge Referral Referred to [facility] Med P.C.: No
--- NOTE | 2017-10-03 14:24 | CONSULT ---
Admitting History and Physical - Primary Care Physician PCP: Berna Christine - Admission History of Present Illness: Patient is a 77 year old female with a significant past medical history of HTN , Afib on AC, hypothyroidism, CAD, depression, arthritis, who was brought by the EMS to the ED with complaints of altered mental status. Right sided facial droop on scene, as well as speaking in gibberish when using a structural steel engineer on scene. Pt with right hemiparesis, using left side well to pull herself up, as she leans to the right on the stretcher in the ER. History Source: Medical Record Limitations to Obtaining History: Clinical Condition, Language Barrier, Other ( APHASIA) - Past Medical History Cardiovascular: Yes: AFIB, CAD, HTN - Smoking History Smoking history: Unknown if ever smoked Have you smoked in the past 12 months: No - Alcohol/Substance Use Hx Alcohol Use: No History of Substance Use: reports: None History - Admission Reason For Visit: ALTERED MENTAL STATUS/CEREBROVASCULAR ACCIDENT - Diagnostics X-ray: Report Reviewed CT Scan: Report Reviewed - General Mental Status: Awake and Alert Attention: Intact Ability to Follow Directions: Poor Head/Neck Control: Good - Hearing Hearing: Functional Speech Evaluation - Communication Primary Language: TELUGU Communication: Yes: Aphasia, Language Barrier Oral Expression Ability: Yes: Severe Impairment - Speech Production Able to Make Needs Known: Yes: Severely Impaired Intelligibility: Yes: Severely Impaired - Speech Characteristics Voice Loudness: Normal Voice Pitch: Yes: Normal Voice Phonatory-based Quality: Yes: Normal Speech Pattern: Normal Nasal Resonance: Normal Articulation: Yes: Imprecise - Language/Auditory Comprehension Observation: Able to respond to yes/no queries: No, Yes/No Confusion: Yes, Comprehends Conversational Speech: No (Follows occasional verbal commands, better when paired with gesture) - Language/Verbal Expression Aphasia: Yes: Nonfluent, Anomia, Impaired Repetition, Paraphrasic Errors, Neologisms, Sound Errors Able to Respond to Simple Queries: Yes: Severely Impaired Able to Communicate Wants and Needs: Yes: Severely Impaired Functional Communication Status: Yes: Severely Impaired Attention: Yes: Mild Impairment - Swallow Evaluation/Bedside Assessment Oral Secretions: Yes: WFL Dentition: Yes: Missing Teeth Facial Symmetry at Rest: Facial Droop Right Facial Symmetry on Retraction: Facial Droop Right Smile: Droops Right Lingual Movement: Unable to Perform Lingual Movement Strgth Against Opposition: Reduced Laryngeal Movement: Reduced Excursion, Labored,delay initiation Oral Prep Time: Increased Pocketing: Present Right Timing of Swallow: Delayed Coughing/Throat Clear: Yes (thin liquid) Recommendations - Speech Evaluation, Impression/Plan Impression: Pt presents with Right hemiparisis with expressive/receptive Aphasia , assessed with translatror. Yes /No responses inconsistent and unreliable. Unable to repeat, count, say her name. Begins to respond to questions, however, neologisms, with poor functional communication. Mild Dysarthria? Dysphagia. - Disposition Discharge to: [facility] Center - Dysphagia Impressions/Plan Swallowing Skills: Impaired Dysphagia Impressions: Mild Impairment, Moderate Impairment, Suspect Aspiration *Silent aspiration: cannot be R/O at bedside Dysphagia Treatment Plan: Small Bites, Chin Tuck/Down, Facilitative Feeding, Safe Rate, Elevate HOB during feed Recommendations: Modified Barium Swallow, Other (Monitor tolerance) - Recommendations Diet Consistency: Dysphagia Pureed Medication Administration: Crushed with applesauce Liquids: [place] Thick
--- NOTE | 2017-10-03 17:45 | PN ---
Teaching Attending Note Name of Resident: Bill uMñoz ATTENDING PHYSICIAN STATEMENT I saw and evaluated the patient. I reviewed the resident's note and discussed the case with the resident. I agree with the resident's findings and plan as documented. SUBJECTIVE:resting comfortable OBJECTIVE: Last Vital Signs Temp Pulse Resp BP Pulse Ox 97.2 F L 94 H 17 135/85 97 10/03/17 14:39 10/03/17 15:30 10/03/17 14:39 10/03/17 15:30 10/03/17 07:01 General resting comfortable CV S1 S2 irregular, tachycardic Lungs CTA anteriorly ABdomen soft NT/ND obese Extremities no pedal edema Neuro aphasic. R facial droop follows some commands. PERRL, RUE flaccid paralysis. LUE 4/5. RLE 1/5 LLE 2/5. decreased sensation of RLE ASSESSMENT AND PLAN: 77yo F wtih PMH afib on xarelto, hypothyroid, CAD, with multiple falls presents to the ER after being found on the floor for undetermined time. Was found to be aphasic with R facial droop. Code Baum activated in the ER 1. Suspected CVA- TPA not given due to out of window. symptoms consistent with CVA. initial CT negative. awaiting echo, carotid doppler, MRI/MRA head and neck. continuous cardiac monitoring. Neuro, and PT assessment. seen by Speech adn swallow and cleared for puree diet. start asa and crestor. 2. Tropinemia- flat trend of troponins. will check echo to r/o WMA. cardio on board 3. Acute transaminitis- possible hypotension. u/s done. now trending down. monitor 4. Elevated TSH- will need to confirm if compliant with medications. awaiting T3. if compliant and T3 low will need to adjust medication 5. Afib with RVR- liekly from missed doses. now improved. cont lopressor. CT negative for acute bleed. on xarelto. 6. Lactic acidosis- resolved 7. Congestion- liekly flash pulmonary edema from AFib with RVR. s/p lasix give in the ER. will resume home dose 8. DVT ppx- xarelto
[2017-10-03] MEDS ORDERED: METOPROLOL TARTRATE 5 MG/5 ML VIAL IVPUSH PRN (18:36)
[2017-10-03] MEDS: RIVAROXABAN 20 MG TABLET PO SCH (20:43)
[2017-10-03] MEDS ORDERED: ROSUVASTATIN CA 40 MG TABLET PO SCH (22:00)
[2017-10-03] MEDS ORDERED: ATORVASTATIN CA 40 MG TABLET (FP) PO SCH (22:00)
[2017-10-04] MEDS: MIRTAZAPINE 15 MG TABLET (FP) PO SCH ×2 (00:27→21:01)
[2017-10-04] MEDS: LEVOTHYROXINE NA 125 MCG TABLET (FP) PO SCH (06:02)
[2017-10-04 06:20] VITALS: BMI 39.3
[2017-10-04 06:55] LABS: BASO % 0.3 % (0-2.0); HEMATOCRIT 34.1 % (32.4-45.2); HEMOGLOBIN 10.9 GM/dL (10.7-15.3); LYMPH % 17.1 % (8-40); MCH 26.9 pg (25.7-33.7); MEAN CELL VOLUME 84.2 fl (80-96); MEAN PLT VOLUME 9.2 fl (7.5-11.1); MONO % 6.8 % (3.8-10.2); NEUT % 74.8 % (42.8-82.8); PLATELET COUNT 207 K/MM3 (134-434); RBC 4.06 M/mm3 (3.60-5.2); RDW 17.6 % (11.6-15.6); WHITE BLOOD COUNT 11.2 K/mm3 (4.0-10.0)
[2017-10-04 07:18] LABS: CHLORIDE 109 mmol/L (98-107); POTASSIUM 3.3 mmol/L (3.5-5.1); SODIUM 144 mmol/L (136-145)
[2017-10-04 07:31] LABS: ALK PHOS 108 U/L (45-117); ANION GAP 12 (8-16); BILIRUBIN,TOTAL 1.6 mg/dL (0.2-1.0); BLOOD UREA NITROGEN 18 mg/dL (7-18); CALCIUM 7.7 mg/dL (8.5-10.1); CO2 23 mmol/L (21-32); CREATININE 0.6 mg/dL (0.55-1.02); GLUCOSE,RANDOM 81 mg/dL (74-106); SGOT/AST 45 U/L (15-37); SGPT/ALT 37 U/L (12-78)
--- NOTE | 2017-10-04 07:50 | PN ---
Teaching Attending Note Name of Resident: Bill Muñoz ATTENDING PHYSICIAN STATEMENT I saw and evaluated the patient. I reviewed the resident's note and discussed the case with the resident. I agree with the resident's findings and plan as documented with exceptions below. SUBJECTIVE: Patient seen and examined. occasional verbal responses, perseverence, unable to do a full ROS. OBJECTIVE: Vital Signs Period Temp Pulse Resp BP Sys/Curiel Pulse Ox Last 24 Hr 97.2 F-98.2 F 86-118 16-20 109-162/73-95 95-96 Intake & Output 10/01/17 10/02/17 10/03/17 10/04/17 23:59 23:59 23:59 23:59 Output Total 350 600 Balance -350 -600 Weight 180 lb 215 lb 3.2 oz General; sitting in bed no acute distress CVS: S1S2 regular Chest: decreased effort, no rales or wheezing appreciated Neuro: AA, right facial droop, RUE 0/5, RLE 1/5, sensation positive to gross touch, pos babinski right side, further exam limited, perseverence Abdomen: soft, obese, NT Extremities: no edema Home Medication List Medication Instructions Recorded Confirmed Type Mirtazapine 15 mg PO HS 02/25/17 10/03/17 History Sertraline HCl [Zoloft] 100 mg PO DAILY 05/11/17 10/03/17 History Atorvastatin Ca [Lipitor] 20 mg PO HS 10/02/17 10/03/17 History Furosemide [Lasix -] 20 mg PO DAILY 10/02/17 10/03/17 History Lisinopril [Prinivil] 5 mg PO DAILY 10/02/17 10/03/17 History Omeprazole 40 mg PO DAILY 10/02/17 10/03/17 History Famotidine [Pepcid -] 40 mg PO DAILY 10/03/17 10/03/17 History Gabapentin 300 mg PO DAILY 10/03/17 10/03/17 History Tamsulosin HCl [Flomax] 0.4 mg PO DAILY 10/03/17 10/03/17 History Active Medications Generic Name Dose Route Start Last Admin Trade Name Freq PRN Reason Stop Dose Admin Furosemide 20 mg 10/03/17 10:00 10/03/17 09:45 Lasix - PO 20 mg DAILY DIANELYS Administration Levothyroxine Sodium 125 mcg 10/03/17 07:00 10/04/17 06:02 Synthroid - PO 125 mcg DAILY@0700 DIANELYS Administration Lisinopril 5 mg 10/03/17 10:00 10/03/17 09:46 Prinivil PO 5 mg DAILY DIANELYS Administration Metoprolol Tartrate 100 mg 10/03/17 10:00 10/03/17 22:30 Lopressor - PO 100 mg BID DIANELYS Administration Metoprolol Tartrate 5 mg 10/03/17 18:36 Lopressor Injection - IVPUSH Q4H PRN TACHYCARDIA Mirtazapine 15 mg 10/03/17 22:00 10/04/17 00:27 Remeron - PO 15 mg HS [facility] Administration Pantoprazole Sodium 40 mg 10/03/17 10:00 10/03/17 09:46 Protonix - PO 40 mg DAILY DIANELYS Administration Rivaroxaban 20 mg 10/03/17 19:00 10/03/17 20:43 Xarelto - PO 20 mg DAILY@1900 DIANELYS Administration Rosuvastatin Calcium 40 mg 10/04/17 22:00 Crestor - PO HS [facility] Sertraline HCl 100 mg 10/03/17 10:00 10/03/17 09:47 Zoloft - PO 100 mg DAILY DIANELYS Administration Laboratory Results - last 24 hr 10/03/17 10/03/17 10/04/17 05:54 05:54 05:40 WBC 11.2 H RBC 4.06 Hgb 10.9 Hct 34.1 MCV 84.2 MCH 26.9 MCHC 32.0 RDW 17.6 H Plt Count 207 MPV 9.2 Absolute Neuts (auto) 8.4 Neutrophils % 74.8 Lymphocytes % 17.1 Monocytes % 6.8 Eosinophils % 1.0 Basophils % 0.3 Nucleated RBC % 0 Sodium Potassium Chloride Carbon Dioxide Anion Gap BUN Creatinine Creat Clearance w eGFR Random Glucose Calcium Ferritin Total Bilirubin AST ALT Alkaline Phosphatase Creatine Kinase Index 1.2 CK-MB (CK-2) 4.96 H Total Protein Albumin Free T3 1.8 L 10/04/17 05:40 WBC RBC Hgb Hct MCV MCH MCHC RDW Plt Count MPV Absolute Neuts (auto) Neutrophils % Lymphocytes % Monocytes % Eosinophils % Basophils % Nucleated RBC % Sodium 144 Potassium 3.3 L Chloride 109 H Carbon Dioxide 23 Anion Gap 12 BUN 18 Creatinine 0.6 Creat Clearance w eGFR > 60 Random Glucose 81 Calcium 7.7 L Ferritin 103.9 Total Bilirubin 1.6 H D AST 45 H ALT 37 Alkaline Phosphatase 108 Creatine Kinase Index CK-MB (CK-2) Total Protein 6.0 L Albumin 3.[address] brain, 2D echo results reviewed MRI/MRA head/neck results noted. ASSESSMENT AND PLAN: 77yo F wtih PMH afib on xarelto, hypothyroid, CAD, with multiple falls presents to the ER after being found on the floor for undetermined time. Was found to be aphasic with R facial droop. 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 NEurology input noted. Continue ASA/crestor. 2D echo noted, new WMA from 01/2017 and 05/2017, will need eventual ischemia w/ u. DIscuss with cardiology. COntinue metoprolol. Discussed with daughter about prior cardiac w/u, ?stress test 15 days ago, retrieve records. Continue home lasix Trend LFTs, Liver US noted Follow up Free T4, confirm if compliant, change dose accordingly. Speech/swallow input noted, dysphagia pureed with MBS, aspiration precautions. replete K. DVTPPx, xarelto PT eval. Medication compliance in question.Unclear if taking xarelto/levothyroxine. Unable to contact health aide that gives patient's medications. Contnue current dose of LT4 and xarelto. Dispo planning per clinical course and PT recs. Anticipate SNF.
[2017-10-04] MEDS ORDERED: POTASSIUM CHLORIDE TABS 20 MEQ TABLET.ER (FP) PO ONE ×2 (08:11→11:45)
--- NOTE | 2017-10-04 09:21 | PN ---
Progress Note (short form) - Note Progress Note: Chief Complaint: Events noted, notes reviewed, facial droop and right sided weakness persists, expressive aphasia noted History of Present Illness: Seen and examined on telemetry. Events noted, notes reviewed, facial droop and right sided weakness persists, expressive aphasia noted, Patient's compliance with Xarelto therapy is in question before considering her DOAC failure Echocardiography results noted with wall motion abnormality and mild to moderate reduction in LV EF (45-50%), bi-atrial dilatation, mild to moderate MR , moderate TR with RVSP of 31 mmHg MRI/MRA brain noted Medications: Current Medications Furosemide (Lasix -) 20 mg PO DAILY [facility] Last Admin: 10/03/17 09:45 Dose: 20 mg Levothyroxine Sodium (Synthroid -) 125 mcg PO DAILY@0700 [facility] Last Admin: 10/04/17 06:02 Dose: 125 mcg Lisinopril (Prinivil) 5 mg PO DAILY [facility] Last Admin: 10/03/17 09:46 Dose: 5 mg Metoprolol Tartrate (Lopressor -) 100 mg PO BID [facility] Last Admin: 10/03/17 22:30 Dose: 100 mg Metoprolol Tartrate (Lopressor Injection -) 5 mg IVPUSH Q4H PRN PRN Reason: TACHYCARDIA Mirtazapine (Remeron -) 15 mg PO HS [facility] Last Admin: 10/04/17 00:27 Dose: 15 mg Pantoprazole Sodium (Protonix -) 40 mg PO DAILY [facility] Last Admin: 10/03/17 09:46 Dose: 40 mg Potassium Chloride (K-Dur -) 40 meq PO ONCE ONE Stop: 10/04/17 08:12 Rivaroxaban (Xarelto -) 20 mg PO DAILY@1900 [facility] Last Admin: 10/03/17 20:43 Dose: 20 mg Rosuvastatin Calcium (Crestor -) 40 mg PO [facility] Sertraline HCl (Zoloft -) 100 mg PO DAILY [facility] Last Admin: 10/03/17 09:47 Dose: 100 mg Review of Systems Unable to obtain ROS, reason: Aphasic Vital Signs: Last Vital Signs Temp Pulse Resp BP Pulse Ox 97.9 F 95 H 20 125/75 95 10/04/17 06:00 10/04/17 06:00 10/04/17 06:00 10/04/17 06:00 10/04/17 01:30 Intake & Output 10/01/17 10/02/17 10/03/17 10/04/17 23:59 23:59 23:59 23:59 Output Total 350 600 Balance -350 -600 Weight 180 lb 215 lb 3.2 oz Constitutional: No Distress, Calm Neck: Supple Negative JVD Cardiovascular: S1 S2 Irregularly Irregular Respiratory: Diminished at the Bases Gastrointestinal: Soft Benign Normal Bowel Sounds Ext: Edema Labs: CBC, BMP 10/04/17 05:40 10/04/17 05:40 Hepatic Panel Total Bilirubin 1.6 mg/dL (0.2-1.0) H D 10/04/17 05:40 Direct Bilirubin 0.6 mg/dL (0.0-0.2) H 10/02/17 20:00 AST 45 U/L (15-37) H 10/04/17 05:40 ALT 37 U/L (12-78) 10/04/17 05:40 Alkaline Phosphatase 108 U/L (45-117) 10/04/17 05:40 Albumin 3.0 g/dl (3.4-5.0) L 10/04/17 05:40 INR, PTT INR 1.12 (0.82-1.09) 10/02/17 17:48 Assessment/Plan ASSESSMENT: 1. Acute stroke/CVA probably embolic unclear if Xarelto failure or medical therapy administration non-compliance 2. CAD with evidence of wall motion abnormality (noted on prior echocardiography ) angina pectoris with demand ischemia 3. Systolic/daistolic LV dysfunction with class 0 NYHA classification LV failure 4. Persistent atrial fibrillation [id number] score of 5-6, unclear compliance with Xarelto therapy administration 5. Hypertension 6. Hyperlipidemia 7. Hypothyroidism 8. Hypokalemia PLAN: 1. Continue Lopressor 2. Continue Lisinopril and titrate as tolerated/hemodynamics permitting 3. Continue Lipitor 4. Continue Lasix 5. Continue Xarelto and may need to add ASA if not contraindicated 6. Consideration for TRACI to R/O REJI thrombus/smoke sign Jt Evans MD
[2017-10-04] MEDS: PANTOPRAZOLE 40 MG TABLET (FP) PO SCH (09:54)
[2017-10-04] MEDS: METOPROLOL TARTRATE 50 MG TABLET (FP) PO SCH ×2 (09:54→21:01)
[2017-10-04] MEDS: FUROSEMIDE 20 MG TABLET (FP) PO SCH (09:55)
[2017-10-04] MEDS: SERTRALINE HCL 50 MG TABLET (FP) PO SCH (09:55)
[2017-10-04] MEDS: LISINOPRIL 10 MG TABLET (FP) PO SCH (09:56)
--- NOTE | 2017-10-04 12:04 | PN ---
Progress Note, [employer] - Note Progress Note: Selected Entries 10/04/17 09:30 Breakfast 75% Diet Tolerated Well Pt better able to follow single 1 step whole body commands. Y/N inconsistent and unreliable. Perseverative verbalizations. Communication board (6 way discrim picture/single Slovak words) created. Pt unable to match spoken word to picture/written word to communicate at this time. Throat clearing with water. Defer mbs, continue dys puree/nectar at this time.
--- NOTE | 2017-10-04 12:50 | CONSULT ---
Consult - text type - Consultation Consultation Note: NEUROLOGY CONSULTATION is greatly appreciated: Events reviewed and discussed with RN. Pt examined earlier this morning. This 77 yo woman with PMH of HTN, Chol, ASHD, AFin, hypothyroidism, GERD and depression is maintained on: Lisinopril, synthroid, crestor, metoprolol, Xarelto, pantoprazoale, sertraline and mirtazepine. Brought to ED 10/01/17 at 10 PM after being found confused and in urine and feces. In ED right facial droop noted and confused speech with elevated WBC and CK. Initial CT (reviewed by me) shows no acute CVA but suggestion of opacification of the LEft MCA. MRI and MRA (reviewed) shows scattered areas of subacute ischemia in the left MCA territory and branch occlusion of left MCA II. EXAM: No bruits. No head trauma. Cor irreg/irreg. NEURO: Follows some commands in Dutch but perseverates. Non-fluent. Mild right facial. Right field cut (homonomous right hemianopsia) Gag depressed but tolerating pureed foods. Right hemiparesis. Increased reflexes on right except absent AJ's B/L. Right Babinski. Decreased sensation both feet. IMP: 1. 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 2. Diabetic peripheral neuropathy. SUGGEST: Continue Xarelto Begin PT at bedside. Feed cautiously while seated upright and observed. [facility] rehab evaluation. Correct Thyroid status. Follow CK (hypothyroid myopathy, muscle necrosis after CVA?) Check B12, homocysteine levels. Thank you very much, Mark Apple MD
--- NOTE | 2017-10-04 13:19 | EKG ---
Test Reason : Blood Pressure : / mmHG Vent. Rate : 097 BPM Atrial Rate : 082 BPM P-R Int : 000 ms QRS Dur : 090 ms QT Int : 400 ms P-R-T Axes : 000 022 227 degrees QTc Int : 508 ms ATRIAL FIBRILLATION SEPTAL INFARCT (CITED ON OR BEFORE 02-OCT-2017) ABNORMAL ECG WHEN COMPARED WITH ECG OF 02-OCT-2017 18:13, SERIAL CHANGES OF SEPTAL INFARCT PRESENT Confirmed by MD DELILAH, COREEN ([id number]) on 10/04/2017 1:19:19 PM Referred By: KISHAN COX DR Confirmed By:COREEN MAZARIEGOS MD
--- NOTE | 2017-10-04 13:31 | PN ---
Physical Exam: SUBJECTIVE: Patient seen and examined at bedside. Pt's daughter was present in the room and provided extra history. Daughter called home health attendant, and evidently, pt visited numerous cardiologists (all in [place], no names known) and took "whichever medications she felt like". Pt is dysarthric and dysphagic. OBJECTIVE: Vital Signs Period Temp Pulse Resp BP Sys/Curiel Pulse Ox Last 24 Hr 97.2 F-98.2 F 86-118 16-20 125-162/73-95 95-96 Physical Exam Limited exam Gen: NAD. Pt exhibits perseveration HEENT: R facial droop, L ptosis, moist membranes Neck: supple, no jvd Cardiac: Irregular, tachycardic, s1s2, no m/r/g Pulm: CTA b/l Abd: soft, no guarding, + bs Ext: 2+ pulses, no edema Neuro: R facial droop, Right hemiparesis, minimal 1/5 right shoulder abduction, LUE 4/5, LLE 4/5, sensation intact, though unclear if pt is truly able to feel as she repeats "si" on testing Laboratory Results - last 24 hr 10/03/17 10/04/17 10/04/17 05:54 05:40 05:40 WBC 11.2 H RBC 4.06 Hgb 10.9 Hct 34.1 MCV 84.2 MCH 26.9 MCHC 32.0 RDW 17.6 H Plt Count 207 MPV 9.2 Absolute Neuts (auto) 8.4 Neutrophils % 74.8 Lymphocytes % 17.1 Monocytes % 6.8 Eosinophils % 1.0 Basophils % 0.3 Nucleated RBC % 0 Sodium 144 Potassium 3.3 L Chloride 109 H Carbon Dioxide 23 Anion Gap 12 BUN 18 Creatinine 0.6 Creat Clearance w eGFR > 60 Random Glucose 81 Calcium 7.7 L Ferritin 103.9 Total Bilirubin 1.6 H D AST 45 H ALT 37 Alkaline Phosphatase 108 Total Protein 6.0 L Albumin 3.0 L Free T3 1.8 L Active Medications Generic Name Dose Route Start Last Admin Trade Name Freq PRN Reason Stop Dose Admin Furosemide 20 mg 10/03/17 10:00 10/04/17 09:55 Lasix - PO 20 mg DAILY [facility] Administration Levothyroxine Sodium 125 mcg 10/03/17 07:00 10/04/17 06:02 Synthroid - PO 125 mcg DAILY@0700 [facility] Administration Lisinopril 10 mg 10/04/17 09:46 10/04/17 09:56 Prinivil PO 10 mg DAILY [facility] Administration Metoprolol Tartrate 100 mg 10/03/17 10:00 10/04/17 09:54 Lopressor - PO 100 mg BID [facility]AN[facility] Administration Metoprolol Tartrate 5 mg 10/03/17 18:36 Lopressor Injection - IVPUSH Q4H PRN TACHYCARDIA Mirtazapine 15 mg 10/03/17 22:00 10/04/17 00:27 Remeron - PO 15 mg HS [facility] Administration Pantoprazole Sodium 40 mg 10/03/17 10:00 10/04/17 09:54 Protonix - PO 40 mg DAILY [facility] Administration Rivaroxaban 20 mg 10/03/17 19:00 10/03/17 20:43 Xarelto - PO 20 mg DAILY@1900 [facility] Administration Rosuvastatin Calcium 40 mg 10/04/17 22:00 Crestor - PO HS [facility] Sertraline HCl 100 mg 10/03/17 10:00 10/04/17 09:55 Zoloft - PO 100 mg DAILY [facility] Administration ASSESSMENT/PLAN: Pt is a 77 y/o F with PMH HTN, Afib (on Xarelto), hypothyroidism, CAD, depression, arthritis, and multiple falls (last 2 prior admission in Jan 2017, May 2017) who was BIBA after being found incoherent on the floor by family at 5pm yest. Last known well was last (09/29/2017). Pt has home health aid Mon -Sat 4 hrs/day. Agency has been unreachable as of yet. #CVA -nasolabial flattening and dysarthria. NIHSS 7 on admission. 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 -blood and urine cultures negative, lactic acid resolved -Speech Pathology: dysphagia puree w/ nectar thick liquids. Will need MBS at another time. -PT evaluation: fam requesting rehab in [place] -Neurology recs noted and appreciated #Hepatitis -transaminitis, hyperammonemia (mild), hyperbilirubinemia on admission -hepatic U/S sig for fatty liver, cannot r/o HCC -Radiology recs MRI for clarification if indicated clinically -No RUQ tenderness on exam -transaminitis resolved -bili continues to improve #Afib, on Xarelto, now rate controlled -c/w Xarelto 20mg daily -c/w home Lopressor 100mg BID #hypothyroidism, TSH 7.35 -Check FT4 and T3 -c/w home synthroid 125mcg #CAD -c/w Atorvastatin 20mg #Tropinemia, r/o ACS -Cardiology input appreciated. -continuous telemetry monitoring -Troponins have peaked #Depression - c/w home Mirtezapine, Sertraline #HTN/CHF -lasix -lisinopril -Lopressor #GERD - c/w home omeprazole 40mg qd #Noncompliance -per daughter, home health aid confirms pt's noncompliance with medications and inadequate follow up #FEN -NS -hypokalemia, repleting -NPO pending speech and swallow #PPX DVT - on Xarelto #DISPO: telemetry FULL code Bill Muñoz MD PGY-1 IM Visit type - Emergency Visit Emergency Visit: No - New Patient This patient is new to me today: No - Critical Care Critical Care patient: No - Discharge Referral Referred to [facility] Med P.C.: No
[2017-10-04] MEDS ORDERED: PT OWN MED DRAWER 7, Y5N ONE (20:58)
[2017-10-04] MEDS: ROSUVASTATIN CA 20 MG TABLET (FP) PO SCH (21:01)
[2017-10-04] MEDS: RIVAROXABAN 20 MG TABLET PO SCH (21:01)
[2017-10-05] MEDS: LEVOTHYROXINE NA 125 MCG TABLET (FP) PO SCH (06:00)
[2017-10-05 08:02] LABS: BASO % 0.5 % (0-2.0); EOS % 3.5 % (0-4.5); HEMATOCRIT 35.6 % (32.4-45.2); HEMOGLOBIN 11.5 GM/dL (10.7-15.3); LYMPH % 21.7 % (8-40); MCH 27.3 pg (25.7-33.7); MCHC 32.3 g/dl (32.0-36.0); MEAN CELL VOLUME 84.4 fl (80-96); NEUT % 66.3 % (42.8-82.8); PLATELET COUNT 215 K/MM3 (134-434); RBC 4.22 M/mm3 (3.60-5.2); RDW 17.7 % (11.6-15.6); WHITE BLOOD COUNT 8.4 K/mm3 (4.0-10.0)
[2017-10-05 08:07] LABS: SERUM IRON SATURATION 6 % (15-55); TOTAL IRON BINDING CAPACITY 326 ug/dL (250-450); TRANSFERRIN 249 mg/dL (200-370); UIBC 305 ug/dL (118-369)
[2017-10-05 08:24] LABS: CHLORIDE 111 mmol/L (98-107); POTASSIUM 3.7 mmol/L (3.5-5.1); SODIUM 145 mmol/L (136-145)
--- NOTE | 2017-10-05 08:26 | PN ---
Teaching Attending Note Name of Resident: Bill Muñoz ATTENDING PHYSICIAN STATEMENT I saw and evaluated the patient. I reviewed the resident's note and discussed the case with the resident. I agree with the resident's findings and plan as documented with exceptions below. SUBJECTIVE: Patient seen and examined. no pain, or dyspnea. limited ROS but no current complaints. OBJECTIVE: Vital Signs Period Temp Pulse Resp BP Sys/Curiel Pulse Ox Last 24 Hr 97 F-99.0 F 85-110 20-20 116-141/54-80 95-96 Intake & Output 10/02/17 10/03/17 10/04/17 10/05/17 23:59 23:59 23:59 23:59 Output Total 350 600 Balance -350 -600 Weight 180 lb 215 lb General: sitting in bed no acute distress Neuro: AA, responds to name, right facial droop,right hemiparesis unchanged Chest: fine bibasilar rales, extending upto right mid lung, positive air entry Neck: limited exam, unable to assess for JVD. Home Medications Medication Instructions Recorded Mirtazapine 15 mg PO HS 02/25/17 Levothyroxine [Synthroid -] 125 mcg PO DAILY@0700 #30 tablet 02/28/17 Rivaroxaban [Xarelto -] 20 mg PO DAILY@1900 #30 tablet 02/28/17 Metoprolol Tartrate [Lopressor -] 100 mg PO BID #120 tablet 05/11/17 Sertraline HCl [Zoloft] 100 mg PO DAILY 05/11/17 Atorvastatin Ca [Lipitor] 20 mg PO HS 10/02/17 Furosemide [Lasix -] 20 mg PO DAILY 10/02/17 Lisinopril [Prinivil] 5 mg PO DAILY 10/02/17 Omeprazole 40 mg PO DAILY 10/02/17 Famotidine [Pepcid -] 40 mg PO DAILY 10/03/17 Gabapentin 300 mg PO DAILY 10/03/17 Tamsulosin HCl [Flomax] 0.4 mg PO DAILY 10/03/17 Active Medications Furosemide (Lasix -) 20 mg PO DAILY [facility] Last Admin: 10/04/17 09:55 Dose: 20 mg Levothyroxine Sodium (Synthroid -) 125 mcg PO DAILY@0700 [facility] Last Admin: 10/05/17 06:00 Dose: 125 mcg Lisinopril (Prinivil) 10 mg PO DAILY [facility] Last Admin: 10/04/17 09:56 Dose: 10 mg Metoprolol Tartrate (Lopressor -) 100 mg PO BID [facility] Last Admin: 10/04/17 21:01 Dose: 100 mg Metoprolol Tartrate (Lopressor Injection -) 5 mg IVPUSH Q4H PRN PRN Reason: TACHYCARDIA Mirtazapine (Remeron -) 15 mg PO HS [facility] Last Admin: 10/04/17 21:01 Dose: 15 mg Pantoprazole Sodium (Protonix -) 40 mg PO DAILY [facility] Last Admin: 10/04/17 09:54 Dose: 40 mg Rivaroxaban (Xarelto -) 20 mg PO DAILY@1900 [facility] Last Admin: 10/04/17 21:01 Dose: 20 mg Rosuvastatin Calcium (Crestor -) 40 mg PO HS [facility] Last Admin: 10/04/17 21:01 Dose: 40 mg Sertraline HCl (Zoloft -) 100 mg PO DAILY [facility] Last Admin: 10/04/17 09:55 Dose: 100 mg Abnormal Lab Results 10/04/17 10/04/17 10/05/17 05:40 05:40 06:20 RDW 17.7 H Potassium 3.3 L Chloride 109 H Random Glucose Calcium 7.7 L Iron 21 L Iron Saturation 6 L Total Bilirubin 1.6 H D AST 45 H Creatine Kinase Total Protein 6.0 L Albumin 3.0 L 10/05/17 10/05/17 06:20 06:20 RDW Potassium Chloride 111 H Random Glucose 110 H Calcium 8.1 L Iron Iron Saturation Total Bilirubin 1.2 H D AST Creatine Kinase 435 H Total Protein 6.0 L Albumin 2.8 L Microbiology 10/02/17 17:45 Blood - Peripheral Venous Blood Culture - Preliminary NO GROWTH OBTAINED AFTER 48 HOURS, INCUBATION TO CONTINUE FOR 3 DAYS. 10/02/17 17:45 Blood - Peripheral Venous Blood Culture - Preliminary NO GROWTH OBTAINED AFTER 48 HOURS, INCUBATION TO CONTINUE FOR 3 DAYS. 10/02/17 18:15 Urine - Urine - Catheterized Urine Culture - Final NO GROWTH OBTAINED CXR - bilateral congestive changes with pleural effusions ASSESSMENT AND PLAN: 77yo F wtih PMH afib on xarelto, hypothyroid, CAD, with multiple falls presents to the ER after being found on the floor for undetermined time. Was found to be aphasic with R facial droop. Code Baum activated in the ER -Acute systolic heart failure exacerbation -Acute hypoxic respiratory insufficency (85-88% on RA today), likely from above -Acute/subacute CVA with multi foci involving left frontal/frontoparietal/ insular cortex/posterior temporal region -Afib with RVR -Elevated Troponin, ?Demand ischemia from CVA vs TIA/Rapid Afib, unable to r/o NSTEMI (given WMA on 2D echo) -Acute systolic HF exacerbation vs flash pulmonary edema -Acute transaminitis -Elevated TSH -Acute transaminitis -Lactic acidosis -Hypokalemia Plan: Hypoxic with congestive findings today. Start lasix 40 mg IV daily for now, strict I/Os, repeat EKG and troponin MRI/MRA results noted. Neurology input noted. Continue ASA/crestor. 2D echo noted, new WMA from 01/2017 and 05/2017, will need eventual ischemia w/ u. Discussed with Dr. Presley, ?stress induced myocardial dysfunction from CVA. Plan for repeat 2D echo and ischemic w/u outpatient unless new concerns inhouse. COntinue metoprolol. Trend LFTs, Liver US noted concerns of non compliance a discussed with home health aide caregiver, will continue current levothyroxine dose and repeat thyroid panel in 4-6 weeks. Speech/swallow input noted, dysphagia pureed diet, aspiration precautions. replete K prn. DVTPPx, xarelto PT eval. Dispo will need SNF. hold off on d/c given CHF and hypoxia.
[2017-10-05 08:47] LABS: ALBUMIN 2.8 g/dl (3.4-5.0); ALK PHOS 105 U/L (45-117); ANION GAP 9 (8-16); BILIRUBIN,TOTAL 1.2 mg/dL (0.2-1.0); BLOOD UREA NITROGEN 17 mg/dL (7-18); CALCIUM 8.1 mg/dL (8.5-10.1); CO2 25 mmol/L (21-32); CREATININE 0.6 mg/dL (0.55-1.02); GLUCOSE,RANDOM 110 mg/dL (74-106); SGOT/AST 35 U/L (15-37); SGPT/ALT 35 U/L (12-78)
--- NOTE | 2017-10-05 09:59 | PN ---
Progress Note, Physician History of Present Illness: Continued right facial droop, aphasia and right hemiparesis. Tele shows episodes of rapid afib. - Current Medication List Current Medications: Active Medications Furosemide (Lasix -) 20 mg PO DAILY [facility] Last Admin: 10/04/17 09:55 Dose: 20 mg Levothyroxine Sodium (Synthroid -) 125 mcg PO DAILY@0700 [facility] Last Admin: 10/05/17 06:00 Dose: 125 mcg Lisinopril (Prinivil) 10 mg PO DAILY [facility] Last Admin: 10/04/17 09:56 Dose: 10 mg Metoprolol Tartrate (Lopressor -) 100 mg PO BID [facility] Last Admin: 10/04/17 21:01 Dose: 100 mg Metoprolol Tartrate (Lopressor Injection -) 5 mg IVPUSH Q4H PRN PRN Reason: TACHYCARDIA Mirtazapine (Remeron -) 15 mg PO HS [facility] Last Admin: 10/04/17 21:01 Dose: 15 mg Pantoprazole Sodium (Protonix -) 40 mg PO DAILY [facility] Last Admin: 10/04/17 09:54 Dose: 40 mg Rivaroxaban (Xarelto -) 20 mg PO DAILY@1900 [facility] Last Admin: 10/04/17 21:01 Dose: 20 mg Rosuvastatin Calcium (Crestor -) 40 mg PO [facility] Last Admin: 10/04/17 21:01 Dose: 40 mg Sertraline HCl (Zoloft -) 100 mg PO DAILY [facility] Last Admin: 10/04/17 09:55 Dose: 100 mg - Objective Vital Signs: Vital Signs Temperature 97 F L 10/05/17 06:00 Pulse Rate 85 10/05/17 06:00 Respiratory Rate 20 10/05/17 06:00 Blood Pressure 123/73 10/05/17 06:00 O2 Sat by Pulse Oximetry (%) 95 10/04/17 21:00 Constitutional: Yes: No Distress, Calm Neck: Yes: Supple Cardiovascular: Yes: Pulse Irregular Respiratory: Yes: Regular, Diminished Gastrointestinal: Yes: Normal Bowel Sounds, Soft, Abdomen, Obese Edema: No Neurological: Yes: Aphasia, Facial Droop (Right), Weakness (Right) Labs: CBC, BMP 10/05/17 06:20 10/05/17 06:20 INR, PTT INR 1.12 (0.82-1.09) 10/02/17 17:48 - ....Imaging EKG: Report Reviewed (Tele: Rapid afib) Problem List - Problems (1) Demand ischemia Code(s): I24.8 - OTHER FORMS OF ACUTE ISCHEMIC HEART DISEASE (2) Hyperlipidemia Code(s): E78.5 - HYPERLIPIDEMIA, UNSPECIFIED Qualifiers: Hyperlipidemia type: pure hypercholesterolemia Qualified Code(s): E78.00 - Pure hypercholesterolemia, unspecified; E78.0 - Pure hypercholesterolemia (3) Hypothyroidism Code(s): E03.9 - HYPOTHYROIDISM, UNSPECIFIED Qualifiers: Hypothyroidism type: unspecified Qualified Code(s): E03.9 - Hypothyroidism , unspecified (4) Altered mental status Code(s): R41.82 - ALTERED MENTAL STATUS, UNSPECIFIED Qualifiers: Altered mental status type: disorientation Qualified Code(s): R41.0 - Disorientation, unspecified (5) Atrial fibrillation with RVR Code(s): I48.91 - UNSPECIFIED ATRIAL FIBRILLATION (6) CAD (coronary artery disease) Code(s): I25.10 - ATHSCL HEART DISEASE OF [place] CORONARY ARTERY W/O ANG PCTRS Qualifiers: Coronary Disease-Associated Artery/Lesion type: [place] artery [place] vs. transplanted heart: [place] heart Associated angina: without angina Qualified Code(s): I25.10 - Atherosclerotic heart disease of [place] coronary artery without angina pectoris (7) HTN (hypertension) Code(s): I10 - ESSENTIAL (PRIMARY) HYPERTENSION Qualifiers: Hypertension type: essential hypertension Qualified Code(s): I10 - Essential (primary) hypertension (8) Diastolic dysfunction Code(s): I51.9 - HEART DISEASE, UNSPECIFIED Assessment/Plan Echocardiogram 02/25/2017 showed low-normal LV systolic function with LVEF 50%. Normal RV and moderate LA dilatation. Echocardiography 10/03/2017 with wall motion abnormality and mild to moderate reduction in LV EF (45-50%), bi-atrial dilatation, mild to moderate MR, moderate TR with RVSP of 31 mmHg 1. Acute left MCA CVA probably embolic suspect medication non-compliance 2. CAD with evidence of wall motion abnormality (noted on prior echocardiography ) angina pectoris with demand ischemia 3. Systolic/daistolic LV dysfunction with class 0 NYHA classification LV failure 4. Persistent atrial fibrillation [id number] score of 5-6, unclear compliance with Xarelto therapy administration 5. Hypertension 6. Hyperlipidemia 7. Hypothyroidism 8. Hypokalemia resolved PLAN: 1. Continue Lopressor 100 bid 2. Continue Lisinopril 10 qd with uptitration as tolerated/hemodynamics permitting 3. Continue Crestor 40 qhs 4. Continue Lasix 20 qd 5. Continue Xarelto 20 qd 6. PT, speech and swallow, acute rehab referral 7. Ischemic work-up may be pursued once recovered from stroke
[2017-10-05] MEDS: PANTOPRAZOLE 40 MG TABLET (FP) PO SCH (10:16)
[2017-10-05] MEDS: FUROSEMIDE 20 MG TABLET (FP) PO SCH (10:16)
[2017-10-05] MEDS: SERTRALINE HCL 50 MG TABLET (FP) PO SCH (10:16)
[2017-10-05] MEDS: LISINOPRIL 10 MG TABLET (FP) PO SCH (10:16)
[2017-10-05] MEDS: METOPROLOL TARTRATE 50 MG TABLET (FP) PO SCH ×3 (10:16→23:04)
--- NOTE | 2017-10-05 14:22 | PN ---
Physical Exam: SUBJECTIVE: Patient seen and examined at bedside. No acute events. AF with PVCs on the monitor. On entering the room, pt's nasal canula was on her forehead. O2 sat was 86%. Cannula was replaced in the nose and O2 sat returned to 95%. Pt nonverbal, only perseverates. OBJECTIVE: Vital Signs Period Temp Pulse Resp BP Sys/Curiel Pulse Ox Last 24 Hr 97 F-99.0 F 85-110 20-20 116-141/63-80 95-95 Physical Exam Limited exam. Appears more alert today Gen: NAD. Pt exhibits perseveration HEENT: R facial droop, L ptosis, moist membranes Neck: supple, no jvd Cardiac: Irregular, tachycardic, s1s2, no m/r/g Pulm: CTA b/l Abd: soft, no guarding, + bs Ext: 2+ pulses, no edema Neuro: R facial droop, Right hemiparesis, LUE 4/5, LLE 4/5, no sensation on RUE , RLE Laboratory Results - last 24 hr 10/02/17 10/04/17 10/04/17 19:52 05:40 05:40 WBC RBC Hgb Hct MCV MCH MCHC RDW Plt Count MPV Absolute Neuts (auto) Neutrophils % Lymphocytes % Monocytes % Eosinophils % Basophils % Nucleated RBC % Sodium 144 Potassium 3.3 L Chloride 109 H Carbon Dioxide 23 Anion Gap 12 BUN 18 Creatinine 0.6 Creat Clearance w eGFR > 60 Random Glucose 81 Calcium 7.7 L Iron 21 L TIBC 326 Iron Saturation 6 L Transferrin 249 Ferritin 103.9 Total Bilirubin 1.6 H D AST 45 H ALT 37 Alkaline Phosphatase 108 Creatine Kinase Creatine Kinase Index CK-MB (CK-2) Total Protein 6.0 L Albumin 3.0 L Vitamin B12 Free T4 Cecil 1.31 Free T4 1.31 10/04/17 10/05/17 10/05/17 05:40 06:20 06:20 WBC 8.4 RBC 4.22 Hgb 11.5 Hct 35.6 MCV 84.4 MCH 27.3 MCHC 32.3 RDW 17.7 H Plt Count 215 MPV 9.0 Absolute Neuts (auto) 5.6 Neutrophils % 66.3 Lymphocytes % 21.7 D Monocytes % 8.0 Eosinophils % 3.5 D Basophils % 0.5 Nucleated RBC % 0 Sodium 145 Potassium 3.7 Chloride 111 H Carbon Dioxide 25 Anion Gap 9 BUN 17 Creatinine 0.6 Creat Clearance w eGFR > 60 Random Glucose 110 H Calcium 8.1 L Iron TIBC Iron Saturation Transferrin Ferritin Total Bilirubin 1.2 H D AST 35 ALT 35 Alkaline Phosphatase 105 Creatine Kinase Creatine Kinase Index CK-MB (CK-2) Total Protein 6.0 L Albumin 2.8 L Vitamin B12 Free T4 Cecil Free T4 Cancelled 10/05/17 10/05/17 06:20 06:20 WBC RBC Hgb Hct MCV MCH MCHC RDW Plt Count MPV Absolute Neuts (auto) Neutrophils % Lymphocytes % Monocytes % Eosinophils % Basophils % Nucleated RBC % Sodium Potassium Chloride Carbon Dioxide Anion Gap BUN Creatinine Creat Clearance w eGFR Random Glucose Calcium Iron TIBC Iron Saturation Transferrin Ferritin Total Bilirubin AST ALT Alkaline Phosphatase Creatine Kinase 435 H Creatine Kinase Index 0.4 CK-MB (CK-2) 1.93 Total Protein Albumin Vitamin B12 431 Free T4 Cecil Free T4 Active Medications Generic Name Dose Route Start Last Admin Trade Name Freq PRN Reason Stop Dose Admin Furosemide 20 mg 10/03/17 10:00 10/05/17 10:16 Lasix - PO 20 mg DAILY DIANELYS Administration Levothyroxine Sodium 125 mcg 10/03/17 07:00 10/05/17 06:00 Synthroid - PO 125 mcg DAILY@0700 DIANELYS Administration Lisinopril 10 mg 10/04/17 09:46 10/05/17 10:16 Prinivil PO 10 mg DAILY DIANELYS Administration Metoprolol Tartrate 100 mg 10/03/17 10:00 10/05/17 10:17 Lopressor - PO Not Given BID DIANELYS Metoprolol Tartrate 5 mg 10/03/17 18:36 Lopressor Injection - IVPUSH Q4H PRN TACHYCARDIA Mirtazapine 15 mg 10/03/17 22:00 10/04/17 21:01 Remeron - PO 15 mg HS DIANELYS Administration Pantoprazole Sodium 40 mg 10/03/17 10:00 10/05/17 10:16 Protonix - PO 40 mg DAILY DIANELYS Administration Rivaroxaban 20 mg 10/03/17 19:00 10/04/17 21:01 Xarelto - PO 20 mg DAILY@1900 DIANELYS Administration Rosuvastatin Calcium 40 mg 10/04/17 22:00 10/04/17 21:01 Crestor - PO 40 mg HS DIANELYS Administration Sertraline HCl 100 mg 10/03/17 10:00 10/05/17 10:16 Zoloft - PO 100 mg DAILY DIANELYS Administration ASSESSMENT/PLAN: Pt is a 77 y/o F with PMH HTN, Afib (on Xarelto), hypothyroidism, CAD, depression, arthritis, and multiple falls (last 2 prior admission in Jan 2017, May 2017) who was BIBA after being found incoherent on the floor by family at 5pm yest. Last known well was last (09/29/2017). Pt has home health aid Mon -Sat 4 hrs/day. Agency has been unreachable as of yet. #CVA -nasolabial flattening and dysarthria. NIHSS 7 on admission. 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 -blood and urine cultures negative, lactic acid resolved -Speech Pathology: dysphagia puree w/ nectar thick liquids. Will need MBS at another time. -PT evaluation: [facility] requesting rehab in [place] -Neurology recs noted and appreciated -? ischemic event. Echo showing new abnormal wall motion. Note, spoke with cardio. This along with troponin were felt to be 2/2 CVA. Pt will need out pt AC and follow up for possible repeat echo or TRACI in the future if warranted. #Afib, on Xarelto, now rate controlled -c/w Xarelto 20mg daily -c/w home Lopressor 100mg BID #CAD -c/w Atorvastatin 20mg #Tropinemia, r/o ACS -Cardiology input appreciated. -continuous telemetry monitoring -Troponins have peaked #hypothyroidism, TSH 7.35 -Check FT4 and T3 -c/w home synthroid 125mcg #Hepatitis: resolved -transaminitis, hyperammonemia (mild), hyperbilirubinemia on admission -hepatic U/S sig for fatty liver, cannot r/o HCC -Radiology recs MRI for clarification if indicated clinically -No RUQ tenderness on exam -transaminitis resolved -bili continues to improve #Depression - c/w home Mirtezapine, Sertraline #HTN/CHF -lasix -lisinopril -Lopressor #GERD - c/w home omeprazole 40mg qd #Noncompliance -per daughter, home health aid confirms pt's noncompliance with medications and inadequate follow up #FEN -NS -lytes wnl -dysphagia puree #PPX DVT - on Xarelto #DISPO: telemetry FULL code Bill Muñoz MD PGY-1 IM Visit type - Emergency Visit Emergency Visit: No - New Patient This patient is new to me today: No - Critical Care Critical Care patient: No - Discharge Referral Referred to [facility] Med P.C.: No
--- NOTE | 2017-10-05 14:22 | PN ---
Progress Note, [employer] - Note Progress Note: Selected Entries 10/04/17 10/04/17 10/04/17 00:56 01:30 06:00 Breakfast Lunch Supper Temperature 98 F 98.0 F 97.9 F 10/04/17 10/04/17 10/04/17 09:30 10:00 13:35 Breakfast 75% Lunch 75% Supper Temperature 98.2 F 99.0 F 10/04/17 10/04/17 10/04/17 18:00 21:00 23:52 Breakfast Lunch Supper 50% Temperature 98.3 F 99.0 F 10/05/17 10/05/17 10/05/17 01:49 06:00 10:00 Breakfast 75% Lunch Supper Temperature 97.6 F 97 F L 97.2 F L 10/05/17 10:04 Breakfast 75% Lunch Supper Temperature Laboratory Tests 10/04/17 10/05/17 05:40 06:20 WBC 11.2 H 8.4 Sleeping. Reported to be tolerating modified diet. Language formulation still quite limited with poor functiional communicatiion.' Concur with rehab placement for intensive therapy.
[2017-10-05] MEDS: FUROSEMIDE 40 MG/4 ML INJECTABLE VIAL IVPUSH SCH (15:14)
--- NOTE | 2017-10-05 16:21 | EKG ---
Test Reason : Blood Pressure : / mmHG Vent. Rate : 108 BPM Atrial Rate : 115 BPM P-R Int : 000 ms QRS Dur : 084 ms QT Int : 376 ms P-R-T Axes : 000 057 236 degrees QTc Int : 503 ms ATRIAL FIBRILLATION WITH RAPID VENTRICULAR RESPONSE WITH PREMATURE VENTRICULAR OR ABERRANTLY CONDUCTED COMPLEXES SEPTAL INFARCT (CITED ON OR BEFORE 02-OCT-2017) ABNORMAL ECG WHEN COMPARED WITH ECG OF 03-OCT-2017 14:18, NO SIGNIFICANT CHANGE WAS FOUND Confirmed by ELENA DICK MD ([id number]) on 10/05/2017 4:20:47 PM Referred By: RODRIGUEZ BAZZI Confirmed By:ELENA DICK MD
[2017-10-05] MEDS ORDERED: PT OWN MED DRAWER 7, Y5N ONE (22:58)
[2017-10-05] MEDS: MIRTAZAPINE 15 MG TABLET (FP) PO SCH (23:04)
[2017-10-05] MEDS: ROSUVASTATIN CA 20 MG TABLET (FP) PO SCH (23:04)
[2017-10-05] MEDS: RIVAROXABAN 20 MG TABLET PO SCH (23:05)
[2017-10-06] MEDS: LEVOTHYROXINE NA 125 MCG TABLET (FP) PO SCH (06:25)
[2017-10-06 06:36] LABS: BASO % 0.6 % (0-2.0); EOS % 5.1 % (0-4.5); HEMATOCRIT 35.9 % (32.4-45.2); HEMOGLOBIN 11.6 GM/dL (10.7-15.3); LYMPH % 22.3 % (8-40); MCH 27.1 pg (25.7-33.7); MCHC 32.4 g/dl (32.0-36.0); MEAN CELL VOLUME 83.9 fl (80-96); MEAN PLT VOLUME 8.9 fl (7.5-11.1); MONO % 8.7 % (3.8-10.2); NEUT % 63.3 % (42.8-82.8); PLATELET COUNT 228 K/MM3 (134-434); RBC 4.28 M/mm3 (3.60-5.2); RDW 17.4 % (11.6-15.6); WHITE BLOOD COUNT 9.8 K/mm3 (4.0-10.0)
[2017-10-06 06:45] LABS: ALBUMIN 2.7 g/dl (3.4-5.0); ANION GAP 4 (8-16); BLOOD UREA NITROGEN 12 mg/dL (7-18); CALCIUM 7.9 mg/dL (8.5-10.1); CHLORIDE 107 mmol/L (98-107); CO2 33 mmol/L (21-32); CREATININE 0.6 mg/dL (0.55-1.02); GLUCOSE,RANDOM 106 mg/dL (74-106); POTASSIUM 3.4 mmol/L (3.5-5.1); SGOT/AST 25 U/L (15-37); SGPT/ALT 30 U/L (12-78); SODIUM 144 mmol/L (136-145)
[2017-10-06 06:50] LABS: ALK PHOS 97 U/L (45-117); BILIRUBIN,TOTAL 0.7 mg/dL (0.2-1.0); TOT PROT 5.8 g/dl (6.4-8.2)
--- NOTE | 2017-10-06 07:31 | PN ---
Physical Exam: SUBJECTIVE: Patient seen and examined at bedside. No acute events. Pt is aphasic. OBJECTIVE: Vital Signs Period Temp Pulse Resp BP Sys/Curiel Pulse Ox Last 24 Hr 97.2 F-98.9 F 80-117 18-20 116-145/63-88 95-95 Exam unchanged from yesterday Gen: NAD. Pt exhibits perseveration HEENT: R facial droop, L ptosis, moist membranes Neck: supple, no jvd Cardiac: Irregular, s1s2, no m/r/g Pulm: CTA b/l Abd: soft, no guarding, + bs Ext: 2+ pulses, no edema Neuro: R facial droop, Right hemiparesis, LUE 4/5, LLE 4/5, no sensation on RUE , RLE Laboratory Results - last 24 hr 10/04/17 10/05/17 10/05/17 05:40 06:20 06:20 WBC 8.4 RBC 4.22 Hgb 11.5 Hct 35.6 MCV 84.4 MCH 27.3 MCHC 32.3 RDW 17.7 H Plt Count 215 MPV 9.0 Absolute Neuts (auto) 5.6 Neutrophils % 66.3 Lymphocytes % 21.7 D Monocytes % 8.0 Eosinophils % 3.5 D Basophils % 0.5 Nucleated RBC % 0 Sodium 145 Potassium 3.7 Chloride 111 H Carbon Dioxide 25 Anion Gap 9 BUN 17 Creatinine 0.6 Creat Clearance w eGFR > 60 Random Glucose 110 H Calcium 8.1 L Iron 21 L TIBC 326 Iron Saturation 6 L Transferrin 249 Total Bilirubin 1.2 H D AST 35 ALT 35 Alkaline Phosphatase 105 Creatine Kinase Creatine Kinase Index CK-MB (CK-2) Troponin I Total Protein 6.0 L Albumin 2.8 L Vitamin B12 10/05/17 10/05/17 10/05/17 06:20 06:20 16:00 WBC RBC Hgb Hct MCV MCH MCHC RDW Plt Count MPV Absolute Neuts (auto) Neutrophils % Lymphocytes % Monocytes % Eosinophils % Basophils % Nucleated RBC % Sodium Potassium Chloride Carbon Dioxide Anion Gap BUN Creatinine Creat Clearance w eGFR Random Glucose Calcium Iron TIBC Iron Saturation Transferrin Total Bilirubin AST ALT Alkaline Phosphatase Creatine Kinase 435 H Creatine Kinase Index 0.4 CK-MB (CK-2) 1.93 Troponin I 0.03 0.03 Total Protein Albumin Vitamin B12 431 10/06/17 06:00 WBC 9.8 RBC 4.28 Hgb 11.6 Hct 35.9 MCV 83.9 MCH 27.1 MCHC 32.4 RDW 17.4 H Plt Count 228 MPV 8.9 Absolute Neuts (auto) 6.2 Neutrophils % 63.3 Lymphocytes % 22.3 Monocytes % 8.7 Eosinophils % 5.1 H Basophils % 0.6 Nucleated RBC % 0 Sodium Potassium Chloride Carbon Dioxide Anion Gap BUN Creatinine Creat Clearance w eGFR Random Glucose Calcium Iron TIBC Iron Saturation Transferrin Total Bilirubin AST ALT Alkaline Phosphatase Creatine Kinase Creatine Kinase Index CK-MB (CK-2) Troponin I Total Protein Albumin Vitamin B12 Active Medications Generic Name Dose Route Start Last Admin Trade Name Freq PRN Reason Stop Dose Admin Furosemide 40 mg 10/05/17 15:15 10/05/17 15:14 Lasix Injection - IVPUSH 40 mg DAILY DIANELYS Administration Levothyroxine Sodium 125 mcg 10/03/17 07:00 10/06/17 06:25 Synthroid - PO 125 mcg DAILY@0700 DIANELYS Administration Lisinopril 10 mg 10/04/17 09:46 10/05/17 10:16 Prinivil PO 10 mg DAILY DIANELYS Administration Metoprolol Tartrate 100 mg 10/03/17 10:00 10/05/17 23:04 Lopressor - PO 100 mg BID DIANELYS Administration Metoprolol Tartrate 5 mg 10/03/17 18:36 Lopressor Injection - IVPUSH Q4H PRN TACHYCARDIA Mirtazapine 15 mg 10/03/17 22:00 10/05/17 23:04 Remeron - PO 15 mg HS DIANELYS Administration Pantoprazole Sodium 40 mg 10/03/17 10:00 10/05/17 10:16 Protonix - PO 40 mg DAILY DIANELYS Administration Rivaroxaban 20 mg 10/03/17 19:00 10/05/17 23:05 Xarelto - PO 20 mg DAILY@1900 DIANELYS Administration Rosuvastatin Calcium 40 mg 10/04/17 22:00 10/05/17 23:04 Crestor - PO 40 mg HS DIANELYS Administration Sertraline HCl 100 mg 10/03/17 10:00 10/05/17 10:16 Zoloft - PO 100 mg DAILY DIANELYS Administration ASSESSMENT/PLAN: Pt is a 77 y/o F with PMH HTN, Afib (on Xarelto), hypothyroidism, CAD, depression, arthritis, and multiple falls (last 2 prior admission in Jan 2017, May 2017) who was BIBA after being found incoherent on the floor by family at 5pm yest. Last known well was last (09/29/2017). Pt has home health aid Mon -Sat 4 hrs/day. Agency has been unreachable as of yet. #CVA -nasolabial flattening and dysarthria. NIHSS 7 on admission. 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 -blood and urine cultures negative, lactic acid resolved -Speech Pathology: dysphagia puree w/ nectar thick liquids. Will need MBS at another time. -PT evaluation: fam requesting rehab in [place] -Neurology recs noted and appreciated -? ischemic event. Echo showing new abnormal wall motion. Note, spoke with cardio. This along with troponin were felt to be 2/2 CVA. Pt will need out pt AC and follow up for possible repeat echo or TRACI in the future if warranted. -Will continue with diuresis #Afib, on Xarelto, now rate controlled -c/w Xarelto 20mg daily -c/w home Lopressor 100mg BID #CAD -c/w Atorvastatin 20mg #Tropinemia, r/o ACS -Cardiology input appreciated. -continuous telemetry monitoring -Troponins have peaked #hypothyroidism, TSH 7.35 -Check FT4 and T3 -c/w home synthroid 125mcg #Hepatitis: resolved -transaminitis, hyperammonemia (mild), hyperbilirubinemia on admission -hepatic U/S sig for fatty liver, cannot r/o HCC -Radiology recs MRI for clarification if indicated clinically -No RUQ tenderness on exam -transaminitis resolved -bili continues to improve #Depression - c/w home Mirtezapine, Sertraline #HTN/CHF -lasix -lisinopril -Lopressor #GERD - c/w home omeprazole 40mg qd #Noncompliance -per daughter, home health aid confirms pt's noncompliance with medications and inadequate follow up #FEN -NS -lytes wnl -dysphagia puree #PPX DVT - on Xarelto #DISPO: telemetry FULL code Bill Muñoz MD PGY-1 IM Visit type - Emergency Visit Emergency Visit: No - New Patient This patient is new to me today: No - Critical Care Critical Care patient: No - Discharge Referral Referred to [facility] Med P.C.: No
--- NOTE | 2017-10-06 08:13 | PN ---
Teaching Attending Note Name of Resident: Bill Muñoz ATTENDING PHYSICIAN STATEMENT I saw and evaluated the patient. I reviewed the resident's note and discussed the case with the resident. I agree with the resident's findings and plan as documented with exceptions below. SUBJECTIVE: Patient seen and examined. more awake and conversant, denies pain or complaints. OBJECTIVE: Vital Signs Period Temp Pulse Resp BP Sys/Curiel Pulse Ox Last 24 Hr 97.2 F-98.9 F 80-117 18-20 116-145/63-88 95-95 Intake & Output 10/03/17 10/04/17 10/05/17 10/06/17 23:59 23:59 23:59 23:59 Intake Total 550 Output Total 600 Balance -600 550 Weight 215 lb 214 lb 6 oz 212 lb 8 oz General: sitting in bed, no acute distress Chest: improved rales and air entry Neuro: more awake and responsive, right facial droop and right hemiparesis unchanged Extremities: no edema Home Medications Medication Instructions Recorded Mirtazapine 15 mg PO HS 02/25/17 Levothyroxine [Synthroid -] 125 mcg PO DAILY@0700 #30 tablet 02/28/17 Rivaroxaban [Xarelto -] 20 mg PO DAILY@1900 #30 tablet 02/28/17 Metoprolol Tartrate [Lopressor -] 100 mg PO BID #120 tablet 05/11/17 Sertraline HCl [Zoloft] 100 mg PO DAILY 05/11/17 Atorvastatin Ca [Lipitor] 20 mg PO HS 10/02/17 Furosemide [Lasix -] 20 mg PO DAILY 10/02/17 Lisinopril [Prinivil] 5 mg PO DAILY 10/02/17 Omeprazole 40 mg PO DAILY 10/02/17 Famotidine [Pepcid -] 40 mg PO DAILY 10/03/17 Gabapentin 300 mg PO DAILY 10/03/17 Tamsulosin HCl [Flomax] 0.4 mg PO DAILY 10/03/17 Active Medications Furosemide (Lasix Injection -) 40 mg IVPUSH DAILY [facility] Last Admin: 10/05/17 15:14 Dose: 40 mg Levothyroxine Sodium (Synthroid -) 125 mcg PO DAILY@0700 [facility] Last Admin: 10/06/17 06:25 Dose: 125 mcg Lisinopril (Prinivil) 10 mg PO DAILY [facility] Last Admin: 10/05/17 10:16 Dose: 10 mg Metoprolol Tartrate (Lopressor -) 100 mg PO BID [facility] Last Admin: 10/05/17 23:04 Dose: 100 mg Metoprolol Tartrate (Lopressor Injection -) 5 mg IVPUSH Q4H PRN PRN Reason: TACHYCARDIA Mirtazapine (Remeron -) 15 mg PO HS [facility] Last Admin: 10/05/17 23:04 Dose: 15 mg Pantoprazole Sodium (Protonix -) 40 mg PO DAILY [facility] Last Admin: 10/05/17 10:16 Dose: 40 mg Rivaroxaban (Xarelto -) 20 mg PO DAILY@1900 [facility] Last Admin: 10/05/17 23:05 Dose: 20 mg Rosuvastatin Calcium (Crestor -) 40 mg PO HS [facility] Last Admin: 10/05/17 23:04 Dose: 40 mg Sertraline HCl (Zoloft -) 100 mg PO DAILY [facility] Last Admin: 10/05/17 10:16 Dose: 100 mg ASSESSMENT AND PLAN: 77yo F wtih PMH afib on xarelto, hypothyroid, CAD, with multiple falls presents to the ER after being found on the floor for undetermined time. Was found to be aphasic with R facial droop. Code Baum activated in the ER -Acute systolic heart failure exacerbation -Acute hypoxic respiratory insufficency (85-88% on RA today), likely from above -Acute/subacute CVA with multi foci involving left frontal/frontoparietal/ insular cortex/posterior temporal region -Afib with RVR -Elevated Troponin, ?Demand ischemia from CVA vs TIA/Rapid Afib, unable to r/o NSTEMI (given WMA on 2D echo) -Acute systolic HF exacerbation vs flash pulmonary edema -Acute transaminitis -Elevated TSH -Acute transaminitis -Lactic acidosis -Hypokalemia Plan: COntinue lasix 40 mg IV daily for now, strict I/Os, repeat EKG noted. CXR improved. MRI/MRA results noted. Neurology input noted. Continue ASA/crestor. 2D echo noted, new WMA from 01/2017 and 05/2017, will need eventual ischemia w/ u. Discussed with Dr. Presley, ?stress induced myocardial dysfunction from CVA. Plan for repeat 2D echo and ischemic w/u outpatient unless new concerns inhouse. COntinue metoprolol. Trend LFTs, Liver US noted concerns of non compliance a discussed with home health cna, will continue current levothyroxine dose and repeat thyroid panel in 4-6 weeks. Speech/swallow input noted, dysphagia pureed diet, aspiration precautions. Check MBS. replete K prn. DVTPPx, xarelto PT eval. Dispo acute rehab vs SNF in 24 hours if volume status continues to improve and no new events.
[2017-10-06] MEDS: FUROSEMIDE 40 MG/4 ML INJECTABLE VIAL IVPUSH SCH (09:18)
[2017-10-06] MEDS: PANTOPRAZOLE 40 MG TABLET (FP) PO SCH (09:19)
[2017-10-06] MEDS: SERTRALINE HCL 50 MG TABLET (FP) PO SCH (09:19)
[2017-10-06] MEDS: METOPROLOL TARTRATE 50 MG TABLET (FP) PO SCH ×2 (09:19→21:33)
[2017-10-06] MEDS: LISINOPRIL 10 MG TABLET (FP) PO SCH (09:19)
--- NOTE | 2017-10-06 09:50 | PN ---
Progress Note, Physician History of Present Illness: Continued right facial droop, aphasia and right hemiparesis. Breathing improved with diuresis. - Current Medication List Current Medications: Active Medications Furosemide (Lasix Injection -) 40 mg IVPUSH DAILY [facility] Last Admin: 10/06/17 09:18 Dose: 40 mg Levothyroxine Sodium (Synthroid -) 125 mcg PO DAILY@0700 [facility] Last Admin: 10/06/17 06:25 Dose: 125 mcg Lisinopril (Prinivil) 10 mg PO DAILY [facility] Last Admin: 10/06/17 09:19 Dose: 10 mg Metoprolol Tartrate (Lopressor -) 100 mg PO BID [facility] Last Admin: 10/06/17 09:19 Dose: Not Given Metoprolol Tartrate (Lopressor Injection -) 5 mg IVPUSH Q4H PRN PRN Reason: TACHYCARDIA Mirtazapine (Remeron -) 15 mg PO [facility] Last Admin: 10/05/17 23:04 Dose: 15 mg Pantoprazole Sodium (Protonix -) 40 mg PO DAILY [facility] Last Admin: 10/06/17 09:19 Dose: 40 mg Rivaroxaban (Xarelto -) 20 mg PO DAILY@1900 [facility] Last Admin: 10/05/17 23:05 Dose: 20 mg Rosuvastatin Calcium (Crestor -) 40 mg PO [facility] Last Admin: 10/05/17 23:04 Dose: 40 mg Sertraline HCl (Zoloft -) 100 mg PO DAILY [facility] Last Admin: 10/06/17 09:19 Dose: 100 mg - Objective Vital Signs: Vital Signs Temperature 98.5 F 10/06/17 06:00 Pulse Rate 80 10/06/17 06:00 Respiratory Rate 18 10/06/17 06:00 Blood Pressure 126/75 10/06/17 06:00 O2 Sat by Pulse Oximetry (%) 95 10/05/17 21:00 Constitutional: Yes: No Distress, Calm Neck: Yes: Supple Cardiovascular: Yes: Pulse Irregular Respiratory: Yes: Regular, Diminished, On Nasal O2 Gastrointestinal: Yes: Normal Bowel Sounds, Soft Edema: No Neurological: Yes: Facial Droop (Right), Weakness (Right) Labs: CBC, BMP 10/06/17 06:00 10/06/17 06:00 INR, PTT INR 1.12 (0.82-1.09) 10/02/17 17:48 - ....Imaging Chest X-ray: Report Reviewed (CHF with bilateral effusions) EKG: Report Reviewed (Afib @ [address]-T changes) Problem List - Problems (1) Demand ischemia Code(s): I24.8 - OTHER FORMS OF ACUTE ISCHEMIC HEART DISEASE (2) Hyperlipidemia Code(s): E78.5 - HYPERLIPIDEMIA, UNSPECIFIED Qualifiers: Hyperlipidemia type: pure hypercholesterolemia Qualified Code(s): E78.00 - Pure hypercholesterolemia, unspecified; E78.0 - Pure hypercholesterolemia (3) Hypothyroidism Code(s): E03.9 - HYPOTHYROIDISM, UNSPECIFIED Qualifiers: Hypothyroidism type: unspecified Qualified Code(s): E03.9 - Hypothyroidism , unspecified (4) Altered mental status Code(s): R41.82 - ALTERED MENTAL STATUS, UNSPECIFIED Qualifiers: Altered mental status type: disorientation Qualified Code(s): R41.0 - Disorientation, unspecified (5) Atrial fibrillation with RVR Code(s): I48.91 - UNSPECIFIED ATRIAL FIBRILLATION (6) CAD (coronary artery disease) Code(s): I25.10 - ATHSCL HEART DISEASE OF [place] CORONARY ARTERY W/O ANG PCTRS Qualifiers: Coronary Disease-Associated Artery/Lesion type: [place] artery [place] vs. transplanted heart: [place] heart Associated angina: without angina Qualified Code(s): I25.10 - Atherosclerotic heart disease of [place] coronary artery without angina pectoris (7) HTN (hypertension) Code(s): I10 - ESSENTIAL (PRIMARY) HYPERTENSION Qualifiers: Hypertension type: essential hypertension Qualified Code(s): I10 - Essential (primary) hypertension (8) Acute systolic (congestive) heart failure Code(s): I50.21 - ACUTE SYSTOLIC (CONGESTIVE) HEART FAILURE Assessment/Plan Echocardiogram 02/25/2017 showed low-normal LV systolic function with LVEF 50%. Normal RV and moderate LA dilatation. Echocardiography 10/03/2017 with wall motion abnormality and mild to moderate reduction in LV EF (45-50%), bi-atrial dilatation, mild to moderate MR, moderate TR with RVSP of 31 mmHg 1. Acute left MCA CVA probably embolic suspect medication non-compliance 2. CAD with evidence of wall motion abnormality (noted on prior echocardiography ) angina pectoris with demand ischemia 3. Acute hypoxic respiratory failure referable to acute systolic heart failure improving 4. Persistent atrial fibrillation [id number] score of 5-6, unclear compliance with Xarelto therapy administration 5. Hypertension 6. Hyperlipidemia 7. Hypothyroidism 8. Hypokalemia PLAN: 1. IV diuresis with monitor diuretic response, renal fxn and electrolytes, replete K 2. Continue Lopressor 100 bid 3. Continue Lisinopril 10 qd with uptitration as tolerated/hemodynamics permitting 4. Continue Crestor 40 qhs 5. Continue Xarelto 20 qd 6. PT, speech and swallow, acute rehab referral 7. Ischemic work-up may be pursued once recovered from stroke
[2017-10-06] MEDS ORDERED: POTASSIUM CHLORIDE ORAL LIQUID 20 MEQ/15 ML PO ONE (10:15)
--- NOTE | 2017-10-06 12:16 | PN ---
Progress Note, GRADES 1 6 TUTOR - Note Progress Note: Selected Entries 10/05/17 10/05/17 10/05/17 01:49 06:00 10:00 Breakfast 75% Lunch Supper Temperature 97.6 F 97 F L 97.2 F L 10/05/17 10/05/17 10/05/17 10:04 14:00 15:26 Breakfast 75% Lunch 50% Supper Temperature 97.4 F L 10/05/17 10/05/17 10/05/17 18:39 22:00 23:13 Breakfast Lunch Supper 75% Temperature 98.8 F 98.9 F 10/06/17 10/06/17 10/06/17 01:59 06:00 10:30 Breakfast 75% Lunch Supper Temperature 98.7 F 98.5 F Laboratory Tests 10/02/17 10/03/17 10/04/17 17:48 05:54 05:40 WBC 13.6 H D 11.2 H 11.2 H 10/05/17 10/06/17 06:20 06:00 WBC 8.4 9.8 Excellent improvement. Pt now following 1 stage commands an some simple 2 stage. Y/N responses mostly accurate- 90% Able to complete open ended phrases and said prayer, in Khmer, in unison with 70% accuracy! Counted with me accurately! Verbalized "Medicina" without cue, although most verbalization are still perseverative and not functional. Tolerating diet. Overtly tolerated single careful sips of water. Improving language function and swallowing. REC: MBS with recent hypoxia/crckles/ to r/o silent aspiration/ Pt on lasix Excellent rehab candidate
[2017-10-06] MEDS ORDERED: FUROSEMIDE 40 MG/4 ML INJECTABLE VIAL IVPUSH ONE (14:00)
[2017-10-06] MEDS ORDERED: PT OWN MED DRAWER 7, Y5N ONE (18:00)
[2017-10-06] MEDS: RIVAROXABAN 20 MG TABLET PO SCH (18:06)
[2017-10-06] MEDS: ROSUVASTATIN CA 20 MG TABLET (FP) PO SCH (21:32)
[2017-10-06] MEDS: MIRTAZAPINE 15 MG TABLET (FP) PO SCH (21:33)
[2017-10-07] MEDS: LEVOTHYROXINE NA 125 MCG TABLET (FP) PO SCH (06:06)
--- NOTE | 2017-10-07 06:52 | PN ---
Physical Exam: SUBJECTIVE: Patient seen and examined at bedside. No acute events. Pt is aphasic. Language mildly improved. OBJECTIVE: Vital Signs Period Temp Pulse Resp BP Sys/Curiel Pulse Ox Last 24 Hr 97.5 F-99.4 F 82-122 18-20 104-156/46-90 91-96 Exam unchanged from yesterday Gen: NAD. Pt exhibits perseveration HEENT: R facial droop, L ptosis, moist membranes Neck: supple, no jvd Cardiac: Irregular, s1s2, no m/r/g Pulm: mild left crackles Abd: soft, no guarding, + bs Ext: 2+ pulses, no edema Neuro: R facial droop, Right hemiparesis, LUE 4/5, LLE 4/5, no sensation on RUE , RLE, sensation intact LUE, LLE Laboratory Results - last 24 hr 10/06/17 10/06/17 06:00 06:00 Sodium 144 Potassium 3.4 L Chloride 107 Carbon Dioxide 33 H Anion Gap 4 L BUN 12 Creatinine 0.6 Creat Clearance w eGFR > 60 Random Glucose 106 Calcium 7.9 L Total Bilirubin 0.7 D AST 25 ALT 30 Alkaline Phosphatase 97 Creatine Kinase 246 H Creatine Kinase Index 0.6 CK-MB (CK-2) 1.67 B-Natriuretic Peptide 6200.10 H Cancelled Total Protein 5.8 L Albumin 2.7 L Active Medications Generic Name Dose Route Start Last Admin Trade Name Freq PRN Reason Stop Dose Admin Furosemide 40 mg 10/05/17 15:15 10/06/17 09:18 Lasix Injection - IVPUSH 40 mg DAILY DIANELYS Administration Levothyroxine Sodium 125 mcg 10/03/17 07:00 10/07/17 06:06 Synthroid - PO 125 mcg DAILY@0700 DIANELYS Administration Lisinopril 10 mg 10/04/17 09:46 10/06/17 09:19 Prinivil PO 10 mg DAILY DIANELYS Administration Metoprolol Tartrate 100 mg 10/03/17 10:00 10/06/17 21:33 Lopressor - PO 100 mg BID DIANELYS Administration Metoprolol Tartrate 5 mg 10/03/17 18:36 Lopressor Injection - IVPUSH Q4H PRN TACHYCARDIA Mirtazapine 15 mg 10/03/17 22:00 10/06/17 21:33 Remeron - PO 15 mg HS DIANELYS Administration Pantoprazole Sodium 40 mg 10/03/17 10:00 10/06/17 09:19 Protonix - PO 40 mg DAILY DIANELYS Administration Rivaroxaban 20 mg 10/03/17 19:00 10/06/17 18:06 Xarelto - PO 20 mg DAILY@1900 DIANELYS Administration Rosuvastatin Calcium 40 mg 10/04/17 22:00 10/06/17 21:32 Crestor - PO 40 mg HS DIANELYS Administration Sertraline HCl 100 mg 10/03/17 10:00 10/06/17 09:19 Zoloft - PO 100 mg DAILY DIANELYS Administration ASSESSMENT/PLAN: Pt is a 77 y/o F with PMH HTN, Afib (on Xarelto), hypothyroidism, CAD, depression, arthritis, and multiple falls (last 2 prior admission in Jan 2017, May 2017) who was BIBA after being found incoherent on the floor by family at 5pm yest. Last known well was last (09/29/2017). Pt has home health aid Mon -Sat 4 hrs/day. Agency has been unreachable as of yet. #CVA -nasolabial flattening and dysarthria. NIHSS 7 on admission. 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 blood and urine cultures negative, lactic acid resolved -Speech Pathology: dysphagia puree w/ nectar thick liquids. Passed MBS -PT evaluation: [facility] requesting rehab in [place] -Neurology recs noted and appreciated #? ischemic event vs stress induced cardiomyopathy -Echo showing new abnormal wall motion. Note, spoke with cardio. This along with troponin were felt to be 2/2 CVA. Pt will need out pt AC and follow up for possible repeat echo or TRACI in the future if warranted. -Will continue with diuresis -O2 sat 86% off O2, 96% on 2L #Afib, on Xarelto, now rate controlled -c/w Xarelto 20mg daily -c/w home Lopressor 100mg BID #CAD -c/w Atorvastatin 20mg #Tropinemia, r/o ACS -Cardiology input appreciated. -continuous telemetry monitoring -Troponins have peaked #hypothyroidism, TSH 7.35 -Check FT4 and T3 -c/w home synthroid 125mcg #Hepatitis: resolved -transaminitis, hyperammonemia (mild), hyperbilirubinemia on admission -hepatic U/S sig for fatty liver, cannot r/o HCC -Radiology recs MRI for clarification if indicated clinically -No RUQ tenderness on exam -transaminitis resolved -bili continues to improve #Depression - c/w home Mirtezapine, Sertraline #HTN/CHF -lasix -lisinopril -Lopressor #GERD - c/w home omeprazole 40mg qd #Noncompliance -per daughter, home health aid confirms pt's noncompliance with medications and inadequate follow up -Will need supervised medications in the future #FEN -NS -lytes wnl -dysphagia puree #PPX DVT - on Xarelto #DISPO: telemetry FULL code Bill Muñoz MD PGY-1 IM Visit type - Emergency Visit Emergency Visit: No - New Patient This patient is new to me today: No - Critical Care Critical Care patient: No - Discharge Referral [facility] to [facility] Med P.C.: No
[2017-10-07 08:02] LABS: BASO % 0.5 % (0-2.0); EOS % 4.6 % (0-4.5); HEMATOCRIT 38.9 % (32.4-45.2); HEMOGLOBIN 12.6 GM/dL (10.7-15.3); LYMPH % 25.6 % (8-40); MCH 27.4 pg (25.7-33.7); MCHC 32.5 g/dl (32.0-36.0); MEAN CELL VOLUME 84.2 fl (80-96); MEAN PLT VOLUME 8.9 fl (7.5-11.1); MONO % 9.4 % (3.8-10.2); NEUT % 59.9 % (42.8-82.8); PLATELET COUNT 241 K/MM3 (134-434); RBC 4.62 M/mm3 (3.60-5.2); RDW 17.4 % (11.6-15.6); WHITE BLOOD COUNT 9.1 K/mm3 (4.0-10.0)
[2017-10-07 08:29] LABS: CHLORIDE 103 mmol/L (98-107); POTASSIUM 3.7 mmol/L (3.5-5.1); SODIUM 144 mmol/L (136-145)
[2017-10-07 08:56] LABS: ANION GAP 8 (8-16); BLOOD UREA NITROGEN 14 mg/dL (7-18); CALCIUM 8.4 mg/dL (8.5-10.1); CO2 33 mmol/L (21-32); CREATININE 0.7 mg/dL (0.55-1.02); GLUCOSE,RANDOM 101 mg/dL (74-106)
--- NOTE | 2017-10-07 10:06 | PN ---
Progress Note, Physician History of Present Illness: Continued right facial droop, aphasia and right hemiparesis. Breathing improved with diuresis. MBS confirms degree of dysphagia. - Current Medication List Current Medications: Active Medications Furosemide (Lasix Injection -) 40 mg IVPUSH DAILY [facility] Last Admin: 10/06/17 09:18 Dose: 40 mg Levothyroxine Sodium (Synthroid -) 125 mcg PO DAILY@0700 [facility] Last Admin: 10/07/17 06:06 Dose: 125 mcg Lisinopril (Prinivil) 10 mg PO DAILY [facility] Last Admin: 10/06/17 09:19 Dose: 10 mg Metoprolol Tartrate (Lopressor -) 100 mg PO BID [facility] Last Admin: 10/06/17 21:33 Dose: 100 mg Metoprolol Tartrate (Lopressor Injection -) 5 mg IVPUSH Q4H PRN PRN Reason: TACHYCARDIA Mirtazapine (Remeron -) 15 mg PO [facility] Last Admin: 10/06/17 21:33 Dose: 15 mg Pantoprazole Sodium (Protonix -) 40 mg PO DAILY [facility] Last Admin: 10/06/17 09:19 Dose: 40 mg Rivaroxaban (Xarelto -) 20 mg PO DAILY@1900 [facility] Last Admin: 10/06/17 18:06 Dose: 20 mg Rosuvastatin Calcium (Crestor -) 40 mg PO [facility] Last Admin: 10/06/17 21:32 Dose: 40 mg Sertraline HCl (Zoloft -) 100 mg PO DAILY [facility] Last Admin: 10/06/17 09:19 Dose: 100 mg - Objective Vital Signs: Vital Signs Temperature 97.6 F 10/07/17 06:00 Pulse Rate 88 10/07/17 06:00 Respiratory Rate 20 10/07/17 06:00 Blood Pressure 117/78 10/07/17 06:00 O2 Sat by Pulse Oximetry (%) 91 L 10/06/17 21:00 Constitutional: Yes: No Distress, Calm Neck: Yes: Supple Cardiovascular: Yes: Pulse Irregular Respiratory: Yes: Regular, Diminished, On Nasal O2 Gastrointestinal: Yes: Soft, Hypoactive Bowel Sounds Edema: No Labs: CBC, BMP 10/07/17 06:18 10/07/17 06:18 INR, PTT INR 1.12 (0.82-1.09) 10/02/17 17:48 - ....Imaging Chest X-ray: Report Reviewed (Improved CHF and effusions) EKG: Report Reviewed (Tele: Afib) Problem List - Problems (1) Demand ischemia Code(s): I24.8 - OTHER FORMS OF ACUTE ISCHEMIC HEART DISEASE (2) Hyperlipidemia Code(s): E78.5 - HYPERLIPIDEMIA, UNSPECIFIED Qualifiers: Hyperlipidemia type: pure hypercholesterolemia Qualified Code(s): E78.00 - Pure hypercholesterolemia, unspecified; E78.0 - Pure hypercholesterolemia (3) Hypothyroidism Code(s): E03.9 - HYPOTHYROIDISM, UNSPECIFIED Qualifiers: Hypothyroidism type: unspecified Qualified Code(s): E03.9 - Hypothyroidism , unspecified (4) Altered mental status Code(s): R41.82 - ALTERED MENTAL STATUS, UNSPECIFIED Qualifiers: Altered mental status type: disorientation Qualified Code(s): R41.0 - Disorientation, unspecified (5) Atrial fibrillation with RVR Code(s): I48.91 - UNSPECIFIED ATRIAL FIBRILLATION (6) CAD (coronary artery disease) Code(s): I25.10 - ATHSCL HEART DISEASE OF [place] CORONARY ARTERY W/O ANG PCTRS Qualifiers: Coronary Disease-Associated Artery/Lesion type: [place] artery [place] vs. transplanted heart: [place] heart Associated angina: without angina Qualified Code(s): I25.10 - Atherosclerotic heart disease of [place] coronary artery without angina pectoris (7) HTN (hypertension) Code(s): I10 - ESSENTIAL (PRIMARY) HYPERTENSION Qualifiers: Hypertension type: essential hypertension Qualified Code(s): I10 - Essential (primary) hypertension (8) Acute systolic (congestive) heart failure Code(s): I50.21 - ACUTE SYSTOLIC (CONGESTIVE) HEART FAILURE Assessment/Plan Echocardiogram 02/25/2017 showed low-normal LV systolic function with LVEF 50%. Normal RV and moderate LA dilatation. Echocardiography 10/03/2017 with wall motion abnormality and mild to moderate reduction in LV EF (45-50%), bi-atrial dilatation, mild to moderate MR, moderate TR with RVSP of 31 mmHg 1. Acute left MCA CVA probably embolic suspect medication non-compliance 2. CAD with evidence of wall motion abnormality (noted on prior echocardiography ) angina pectoris with demand ischemia 3. Acute hypoxic respiratory failure referable to acute systolic heart failure improving 4. Persistent atrial fibrillation [id number] score of 5-6, unclear compliance with Xarelto therapy administration 5. Hypertension 6. Hyperlipidemia 7. Hypothyroidism 8. Hypokalemia PLAN: 1. IV diuresis with monitor diuretic response, renal fxn and electrolytes, replete K 2. Continue Lopressor 100 bid 3. Continue Lisinopril 10 qd with uptitration as tolerated/hemodynamics permitting 4. Continue Crestor 40 qhs 5. Continue Xarelto 20 qd 6. PT, speech and swallow, acute rehab referral 7. Ischemic work-up may be pursued once recovered from stroke
[2017-10-07] MEDS ORDERED: PT OWN MED DRAWER 7, Y5N ONE (10:17)
[2017-10-07] MEDS: LISINOPRIL 10 MG TABLET (FP) PO SCH (10:22)
[2017-10-07] MEDS: METOPROLOL TARTRATE 50 MG TABLET (FP) PO SCH ×2 (10:22→21:41)
[2017-10-07] MEDS: PANTOPRAZOLE 40 MG TABLET (FP) PO SCH (10:22)
[2017-10-07] MEDS: SERTRALINE HCL 50 MG TABLET (FP) PO SCH (10:22)
[2017-10-07] MEDS: FUROSEMIDE 40 MG/4 ML INJECTABLE VIAL IVPUSH SCH (10:23)
[2017-10-07] MEDS ORDERED: FUROSEMIDE 40 MG/4 ML INJECTABLE VIAL IVPUSH ONE (13:08)
--- NOTE | 2017-10-07 13:27 | PN ---
Teaching Attending Note Name of Resident: Bill Muñoz ATTENDING PHYSICIAN STATEMENT I saw and evaluated the patient. I reviewed the resident's note and discussed the case with the resident. I agree with the resident's findings and plan as documented with exceptions below. SUBJECTIVE: Patient seen and examined. looks better, no complaints, but ROS limited given her CVA and cognitive dysfunction OBJECTIVE: Vital Signs Period Temp Pulse Resp BP Sys/Curiel Pulse Ox Last 24 Hr 97.5 F-99.4 F 76-122 18-20 104-156/46-90 91-92 Intake & Output 10/04/17 10/05/17 10/06/17 10/07/17 23:59 23:59 23:59 23:59 Intake Total 550 510 0 Output Total 600 Balance -600 550 510 0 Weight 215 lb 214 lb 6 oz 211 lb 5 oz 206 lb 6 oz General: sitting in bed, looks better Chest: improved bibasilar rales, improved air entry Abdomen:soft, obese, NT Extremities: no edema Neuro: Right facial droop and right hemiparesis unchanged Home Medications Medication Instructions Recorded Mirtazapine 15 mg PO HS 02/25/17 Levothyroxine [Synthroid -] 125 mcg PO DAILY@0700 #30 tablet 02/28/17 Rivaroxaban [Xarelto -] 20 mg PO DAILY@1900 #30 tablet 02/28/17 Metoprolol Tartrate [Lopressor -] 100 mg PO BID #120 tablet 05/11/17 Sertraline HCl [Zoloft] 100 mg PO DAILY 05/11/17 Atorvastatin Ca [Lipitor] 20 mg PO HS 10/02/17 Furosemide [Lasix -] 20 mg PO DAILY 10/02/17 Lisinopril [Prinivil] 5 mg PO DAILY 10/02/17 Omeprazole 40 mg PO DAILY 10/02/17 Famotidine [Pepcid -] 40 mg PO DAILY 10/03/17 Gabapentin 300 mg PO DAILY 10/03/17 Tamsulosin HCl [Flomax] 0.4 mg PO DAILY 10/03/17 Active Medications Furosemide (Lasix Injection -) 40 mg IVPUSH DAILY [facility] Last Admin: 10/07/17 10:23 Dose: 40 mg Levothyroxine Sodium (Synthroid -) 125 mcg PO DAILY@0700 [facility] Last Admin: 10/07/17 06:06 Dose: 125 mcg Lisinopril (Prinivil) 10 mg PO DAILY [facility] Last Admin: 10/07/17 10:22 Dose: 10 mg Metoprolol Tartrate (Lopressor -) 100 mg PO BID [facility] Last Admin: 10/07/17 10:22 Dose: 100 mg Metoprolol Tartrate (Lopressor Injection -) 5 mg IVPUSH Q4H PRN PRN Reason: TACHYCARDIA Mirtazapine (Remeron -) 15 mg PO HS [facility] Last Admin: 10/06/17 21:33 Dose: 15 mg Pantoprazole Sodium (Protonix -) 40 mg PO DAILY [facility] Last Admin: 10/07/17 10:22 Dose: 40 mg Rivaroxaban (Xarelto -) 20 mg PO DAILY@1900 [facility] Last Admin: 10/06/17 18:06 Dose: 20 mg Rosuvastatin Calcium (Crestor -) 40 mg PO HS [facility] Last Admin: 10/06/17 21:32 Dose: 40 mg Sertraline HCl (Zoloft -) 100 mg PO DAILY [facility] Last Admin: 10/07/17 10:22 Dose: 100 mg Abnormal Lab Results 10/07/17 10/07/17 06:18 06:18 RDW 17.4 H Eosinophils % 4.6 H Carbon Dioxide 33 H Calcium 8.4 L CXR- improved congestion and pleural effusions ASSESSMENT AND PLAN: 77yo F wtih PMH afib on xarelto, hypothyroid, CAD, with multiple falls presents to the ER after being found on the floor for undetermined time. Was found to be aphasic with R facial droop. Code Baum activated in the ER -Acute systolic heart failure exacerbation -Acute hypoxic respiratory insufficency (85-88% on RA today), likely from above -Acute/subacute CVA with multi foci involving left frontal/frontoparietal/ insular cortex/posterior temporal region -Afib with RVR -Elevated Troponin, ?Demand ischemia from CVA vs TIA/Rapid Afib, unable to r/o NSTEMI (given WMA on 2D echo) -Acute systolic HF exacerbation vs flash pulmonary edema -Acute transaminitis -Elevated TSH -Acute transaminitis -Lactic acidosis -Hypokalemia Plan: Volume status improving, additional lasix 20 mg IV today, taper oxygen as tolerated. MRI/MRA results noted. Neurology input noted. Continue ASA/crestor. 2D echo noted, new WMA from 01/2017 and 05/2017, will need eventual ischemia w/ u. Discussed with Dr. Presley, ?stress induced myocardial dysfunction from CVA. Plan for repeat 2D echo and ischemic w/u outpatient unless new concerns inhouse. COntinue metoprolol. Trend LFTs, Liver US noted concerns of non compliance a discussed with tourist home keeper, will continue current levothyroxine dose and repeat thyroid panel in 4-6 weeks. Speech/swallow input noted, dysphagia pureed diet, aspiration precautions. Check MBS. replete K prn. DVTPPx, xarelto PT eval. Dispo d/c to SNF in 24-48 hours if volume status continues to improve and no new events.
[2017-10-07] MEDS: RIVAROXABAN 20 MG TABLET PO SCH (18:06)
[2017-10-07] MEDS: MIRTAZAPINE 15 MG TABLET (FP) PO SCH (21:41)
[2017-10-07] MEDS: ROSUVASTATIN CA 20 MG TABLET (FP) PO SCH (21:41)
[2017-10-08] MEDS: LEVOTHYROXINE NA 125 MCG TABLET (FP) PO SCH (06:39)
[2017-10-08 07:12] LABS: BASO % 0.6 % (0-2.0); HEMATOCRIT 40.8 % (32.4-45.2); HEMOGLOBIN 13.2 GM/dL (10.7-15.3); LYMPH % 32.8 % (8-40); MCH 27.1 pg (25.7-33.7); MCHC 32.4 g/dl (32.0-36.0); MEAN CELL VOLUME 83.5 fl (80-96); MEAN PLT VOLUME 8.6 fl (7.5-11.1); MONO % 10.4 % (3.8-10.2); NEUT % 50.2 % (42.8-82.8); PLATELET COUNT 263 K/MM3 (134-434); RBC 4.89 M/mm3 (3.60-5.2); RDW 17.1 % (11.6-15.6); WHITE BLOOD COUNT 8.4 K/mm3 (4.0-10.0)
[2017-10-08 08:27] LABS: CHLORIDE 102 mmol/L (98-107); POTASSIUM 3.7 mmol/L (3.5-5.1); SODIUM 144 mmol/L (136-145)
--- NOTE | 2017-10-08 08:49 | PN ---
Teaching Attending Note Name of Resident: Bill Muñoz ATTENDING PHYSICIAN STATEMENT I saw and evaluated the patient. I reviewed the resident's note and discussed the case with the resident. I agree with the resident's findings and plan as documented with exceptions below. SUBJECTIVE: Patient seen and examined. improved, no complaints. OBJECTIVE: Vital Signs Period Temp Pulse Resp BP Sys/Curiel Pulse Ox Last 24 Hr 97.3 F-98.6 F 54-95 18-20 105-141/43-84 92-93 Intake & Output 10/05/17 10/06/17 10/07/17 10/08/17 23:59 23:59 23:59 23:59 Intake Total 550 510 50 50 Balance 550 510 50 50 Weight 214 lb 6 oz 211 lb 5 oz 206 lb 6 oz 206 lb General: sitting in bed in no acute distress Chest: improved air entry and rales, no wheezing Neuro: AA, right facial droop, right hemiparesis Home Medications Medication Instructions Recorded Mirtazapine 15 mg PO HS 02/25/17 Levothyroxine [Synthroid -] 125 mcg PO DAILY@0700 #30 tablet 02/28/17 Rivaroxaban [Xarelto -] 20 mg PO DAILY@1900 #30 tablet 02/28/17 Metoprolol Tartrate [Lopressor -] 100 mg PO BID #120 tablet 05/11/17 Sertraline HCl [Zoloft] 100 mg PO DAILY 05/11/17 Atorvastatin Ca [Lipitor] 20 mg PO HS 10/02/17 Lisinopril [Prinivil] 5 mg PO DAILY 10/02/17 Omeprazole 40 mg PO DAILY 10/02/17 Famotidine [Pepcid -] 40 mg PO DAILY 10/03/17 Gabapentin 300 mg PO DAILY 10/03/17 Tamsulosin HCl [Flomax] 0.4 mg PO DAILY 10/03/17 Furosemide [Lasix -] 40 mg PO DAILY #30 tablet 10/08/17 Rosuvastatin [Crestor -] 40 mg PO HS tablet 10/08/17 Home Medication List Medication Instructions Recorded Confirmed Type Mirtazapine 15 mg PO HS 02/25/17 10/03/17 History Sertraline HCl [Zoloft] 100 mg PO DAILY 05/11/17 10/03/17 History Atorvastatin Ca [Lipitor] 20 mg PO HS 10/02/17 10/03/17 History Lisinopril [Prinivil] 5 mg PO DAILY 10/02/17 10/03/17 History Omeprazole 40 mg PO DAILY 10/02/17 10/03/17 History Famotidine [Pepcid -] 40 mg PO DAILY 10/03/17 10/03/17 History Gabapentin 300 mg PO DAILY 10/03/17 10/03/17 History Tamsulosin HCl [Flomax] 0.4 mg PO DAILY 10/03/17 10/03/17 History Active Medications Furosemide (Lasix Injection -) 40 mg IVPUSH DAILY [facility] Last Admin: 10/07/17 10:23 Dose: 40 mg Levothyroxine Sodium (Synthroid -) 125 mcg PO DAILY@0700 [facility] Last Admin: 10/08/17 06:39 Dose: 125 mcg Lisinopril (Prinivil) 10 mg PO DAILY [facility] Last Admin: 10/07/17 10:22 Dose: 10 mg Metoprolol Tartrate (Lopressor -) 100 mg PO BID [facility] Last Admin: 10/07/17 21:41 Dose: 100 mg Metoprolol Tartrate (Lopressor Injection -) 5 mg IVPUSH Q4H PRN PRN Reason: TACHYCARDIA Mirtazapine (Remeron -) 15 mg PO [facility] Last Admin: 10/07/17 21:41 Dose: 15 mg Pantoprazole Sodium (Protonix -) 40 mg PO DAILY [facility] Last Admin: 10/07/17 10:22 Dose: 40 mg Rivaroxaban (Xarelto -) 20 mg PO DAILY@1900 [facility] Last Admin: 10/07/17 18:06 Dose: 20 mg Rosuvastatin Calcium (Crestor -) 40 mg PO [facility] Last Admin: 10/07/17 21:41 Dose: 40 mg Sertraline HCl (Zoloft -) 100 mg PO DAILY [facility] Last Admin: 10/07/17 10:22 Dose: 100 mg Laboratory Results - last 24 hr 10/07/17 10/08/17 10/08/17 06:18 06:10 06:10 WBC 8.4 RBC 4.89 Hgb 13.2 Hct 40.8 MCV 83.5 MCH 27.1 MCHC 32.4 RDW 17.1 H Plt Count 263 MPV 8.6 Absolute Neuts (auto) 4.2 Neutrophils % 50.2 Lymphocytes % 32.8 D Monocytes % 10.4 H Eosinophils % 6.0 H Basophils % 0.6 Nucleated RBC % 0 Sodium 144 Potassium 3.7 Chloride 102 Carbon Dioxide 33 H Anion Gap 8 BUN 14 Creatinine 0.7 Random Glucose 101 Calcium 8.4 L Microbiology 10/02/17 17:45 Blood - Peripheral Venous Blood Culture - Final NO GROWTH AFTER 5 DAYS INCUBATION 10/02/17 17:45 Blood - Peripheral Venous Blood Culture - Final NO GROWTH AFTER 5 DAYS INCUBATION 10/02/17 18:15 Urine - Urine - Catheterized Urine Culture - Final NO GROWTH OBTAINED ASSESSMENT AND PLAN: 77yo F wtih PMH afib on xarelto, hypothyroid, CAD, with multiple falls presents to the ER after being found on the floor for undetermined time. Was found to be aphasic with R facial droop. Code Baum activated in the ER -Acute systolic heart failure exacerbation -Acute hypoxic respiratory insufficency (85-88% on RA today), likely from above -Acute/subacute CVA with multi foci involving left frontal/frontoparietal/ insular cortex/posterior temporal region -Afib with RVR -Elevated Troponin, ?Demand ischemia from CVA vs TIA/Rapid Afib, unable to r/o NSTEMI (given WMA on 2D echo) -Acute systolic HF exacerbation vs flash pulmonary edema -Acute transaminitis -Elevated TSH -Acute transaminitis -Lactic acidosis -Hypokalemia Plan: Volume status improving, improved, 93% on RA, transition to PO lasix 40 mg daily on d.c MRI/MRA results noted. Neurology input noted. Continue ASA/crestor. 2D echo noted, new WMA from 01/2017 and 05/2017, will need eventual ischemia w/ u. Discussed with Dr. Presley, ?stress induced myocardial dysfunction from CVA. Plan for repeat 2D echo and ischemic w/u outpatient unless new concerns inhouse. Continue metoprolol. LFts improved, Liver US noted concerns of non compliance a discussed with home child care provider, will continue current levothyroxine dose and repeat thyroid panel in 4-6 weeks. Speech/swallow input noted, dysphagia pureed diet, aspiration precautions. Check MBS. replete K prn. DVTPPx, xarelto PT eval noted. Discussed with CM, d/c to SNF today if arrangements made. Plan discussed with nursing.
[2017-10-08 08:52] LABS: ANION GAP 9 (8-16); BLOOD UREA NITROGEN 16 mg/dL (7-18); CALCIUM 8.7 mg/dL (8.5-10.1); CO2 33 mmol/L (21-32); CREATININE 0.8 mg/dL (0.55-1.02); GLUCOSE,RANDOM 103 mg/dL (74-106)
[2017-10-08] MEDS: PANTOPRAZOLE 40 MG TABLET (FP) PO SCH (10:16)
[2017-10-08] MEDS: SERTRALINE HCL 50 MG TABLET (FP) PO SCH (10:18)
[2017-10-08] MEDS: FUROSEMIDE 40 MG/4 ML INJECTABLE VIAL IVPUSH SCH (10:18)
[2017-10-08] MEDS: LISINOPRIL 10 MG TABLET (FP) PO SCH (10:18)
[2017-10-08] MEDS: METOPROLOL TARTRATE 50 MG TABLET (FP) PO SCH (10:18)
--- NOTE | 2017-10-08 12:29 | DS ---
Physical Exam: SUBJECTIVE: Patient seen and examined at bedside. No acute events. Pt is aphasic. Language improving slowly. OBJECTIVE: Vital Signs Period Temp Pulse Resp BP Sys/Curiel Pulse Ox Last 24 Hr 97.3 F-98.6 F 54-95 18-20 105-141/43-84 93 PHYSICAL EXAM Exam unchanged Gen: NAD. Pt exhibits perseveration HEENT: R facial droop, L ptosis, moist membranes Neck: supple, no jvd Cardiac: Irregular, s1s2, no m/r/g Pulm: mild left crackles Abd: soft, no guarding, + bs Ext: 2+ pulses, no edema Neuro: R facial droop, Right hemiparesis, LUE 4/5, LLE 4/5, no sensation on RUE , RLE, sensation intact LUE, LLE LABS Laboratory Results - last 24 hr 10/08/17 10/08/17 06:10 06:10 WBC 8.4 RBC 4.89 Hgb 13.2 Hct 40.8 MCV 83.5 MCH 27.1 MCHC 32.4 RDW 17.1 H Plt Count 263 MPV 8.6 Absolute Neuts (auto) 4.2 Neutrophils % 50.2 Lymphocytes % 32.8 D Monocytes % 10.4 H Eosinophils % 6.0 H Basophils % 0.6 Nucleated RBC % 0 Sodium 144 Potassium 3.7 Chloride 102 Carbon Dioxide 33 H Anion Gap 9 BUN 16 Creatinine 0.8 Random Glucose 103 Calcium 8.7 HOSPITAL COURSE: Date of Admission:10/02/17 Date of Discharge: 10/08/17 Pt is a 77 y/o F with PMH HTN, Afib (on Xarelto), hypothyroidism, CAD, depression, arthritis, and multiple falls (last 2 prior admission in Jan 2017, May 2017) who was BIBA after being found incoherent on the floor by family at 5pm yest. Last known well was (09/29/2017). Pt has home health aid Mon-Sat 4 hrs/day. Pt was admitted and treated for CVA. On admission, she had nasolabial flattening and dysarthria and NIHSS 7 on admission. Pt was perseverating. She initially had a head CT (10/02/17), which was neg. However, brain MRI (10/03/2017) showed mult L hemispheric loci of acute/subacute infarct involving frontal, temporal, and parietal lobes. 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 Neurology saw the patient and recommended continuing AC, cautious feeding, correction of thyroid status, repeat lab work, and ultimately, rehab. Speech Pathology saw the patient and recommended dysphagia puree w/ nectar thick liquids following an MBS. She was put on Atorvastatin. Neck MRA (10/03/2017) showed b/l flow present in CCA and ICA, and carotid dopplers (10/02/2017) were unremarkable. Pt was seen by cardiology and was felt to have had a cardiac issue. It was unclear whether there was an ischemic event vs stress induced cardiomyopathy 2/ 2 CVA (more likely). ECHO (10/03/2017) was significant for mod-severe LV hypokinesis, basal/mid/ant anteroseptal hypokinesis, PAP 31, RAP 3, normal IVC. She had O2 sats in the 80s following her cerebral event. She was not known to require oxygen at baseline prior to this episode. The patient was diuresed with lasix and resting O2 sats improved, as did lung exam. She had troponinemia, which resolved. She was monitored on telemetry. For her Afib, the patient was restarted on Xarelto (had been noncompliant) and was rate controlled. Pt had a hx of hypothyroidism. Per daughter, home health aid stated that pt had been taking "whichever medications she felt like". Based on this history and her TSH of 7.35, it was suspected that the pt had been noncompliant with synthroid. It was restarted. Pt had a transient hepatitis with transaminitis, hyperammonemia (mild), hyperbilirubinemia on admission. Hepatic U/S was sig for fatty liver, but could not r/o HCC. Radiology recommended MRI for clarification, and this recommendation was passed on to the patient to be done as part of an out pt workup. Pt did not have RUQ tenderness on exam, and her liver enzymes improved. Pt had hx Depression and was placed on her home doses of Mirtezapine and Sertraline. Her HTN was treated with lisinopril and lopressor. Her GERD was treated with home omeprazole. Pt had a history of noncompliance (noted above). Per daughter, home health aid confirms pt's noncompliance with medications and inadequate follow up. Pt and daughter counselled. Pt is stable for discharge to SNF. Minutes to complete discharge: 30 Discharge Summary Reason For Visit: ALTERED MENTAL STATUS/CEREBROVASCULAR ACCIDENT Current Active Problems Acute systolic (congestive) heart failure (Acute) Altered mental status (Acute) Demand ischemia (Acute) Diastolic dysfunction (Acute) Hyperlipidemia (Acute) Hypothyroidism (Acute) Atrial fibrillation with RVR (Chronic) Condition: Stable - Instructions Diet, Activity, Other Instructions: You were in the hospital because of a stroke. You will need an MRI of your liver as an outpatient in 1-2 weeks, for possible abnormal areas on liver. Please discuss with your doctor in this regard. You should repeat your echo with the curatorial specialist as an out patient and follow up with them for possible stress test and further testing. Please call their office on discharge to schedule follow up in 1-2 weeks. You should repeat your thyroid panel 6 weeks with your primary care doctor. Make sure you follow up with your neurologist, Dr. Mark Apple. Daily weights and notify doctor if weight gain > 3 lbs in 2 days. You will need your kidney function monitored while on lasix and dose titrated by SNF MD per weights and kidney function. Follow up Blood work: BMP (Basic metabolic panel) in 1 week at SNF. Thryoid panel in 6 weeks with your doctor. Diet: Dysphagia ground diet with thin liquids. 1:1 meal assistance, sit upright 45-90 degrees during eating and for an hour after eating. Allow time to swallow. Encourage patient to feed herself ideally. Continue speech/swallow therapy at the SNF. It is very important that you take your medications as directed. If you notice new weakness, fevers, chills, cough, trouble breathing or new concerns, please come to emergency department. Referrals: Mark Apple MD [Staff Physician] - 1 Week Chandrakant Presley MD [Staff Physician] - 1 Week [facility] - Home Medications Comprehensive Discharge Medication List: Ambulatory Orders Mirtazapine 15 mg PO HS 02/25/17 Levothyroxine [Synthroid -] 125 mcg PO DAILY@0700 #30 tablet 02/28/17 Rivaroxaban [Xarelto -] 20 mg PO DAILY@1900 #30 tablet 02/28/17 Metoprolol Tartrate [Lopressor -] 100 mg PO BID #120 tablet 05/11/17 Sertraline HCl [Zoloft] 100 mg PO DAILY 05/11/17 Atorvastatin Ca [Lipitor] 20 mg PO HS 10/02/17 Lisinopril [Prinivil] 5 mg PO DAILY 10/02/17 Omeprazole 40 mg PO DAILY 10/02/17 Famotidine [Pepcid -] 40 mg PO DAILY 10/03/17 Gabapentin 300 mg PO DAILY 10/03/17 Tamsulosin HCl [Flomax] 0.4 mg PO DAILY 10/03/17 Furosemide [Lasix -] 40 mg PO DAILY #30 tablet 10/08/17 Rosuvastatin [Crestor -] 40 mg PO HS tablet 10/08/17 This patient is new to me today: No Emergency Visit: No Critical Care patient: No - Discharge Referral Referred to [facility] No
[2017-10-08] MEDS ORDERED: ACETAMINOPHEN 650 MG/20.3 ML ORAL SOLUTION (CUPS) PO ONE (14:00)
[2017-10-08 15:03] VITALS: BP 100/60; PULSE 103; TEMP 98.4
== END 2017-10-08 15:40 | DRG 64 ==
LOC: JER 17:22 → JERBED 22:04 → J4S 10-04 01:18
PROVIDERS: ADMIT Internal Medicine; ATTEND Hospitalist
DX: I63.412 Cerebral infarction due to embolism of left middle cerebral artery (principal); I50.21 Acute systolic (congestive) heart failure; J96.01 Acute respiratory failure with hypoxia; E87.2 Acidosis; I24.8 Other forms of acute ischemic heart disease; I48.1 Persistent atrial fibrillation; G81.91 Hemiplegia, unspecified affecting right dominant side; R47.01 Aphasia; Z79.01 Long term (current) use of anticoagulants; E03.9 Hypothyroidism, unspecified; I25.10 Atherosclerotic heart disease of native coronary artery without angina pectoris; F32.9 Major depressive disorder, single episode, unspecified; R29.707 NIHSS score 7; I11.0 Hypertensive heart disease with heart failure; K21.9 Gastro-esophageal reflux disease without esophagitis; E78.5 Hyperlipidemia, unspecified; K75.9 Inflammatory liver disease, unspecified; E87.6 Hypokalemia; E11.40 Type 2 diabetes mellitus with diabetic neuropathy, unspecified; Z91.14 Patient's other noncompliance with medication regimen
CPT/HCPCS: 36415; 70450-TC; 70544-TC; 70547-TC; 70551-TC; 71045-TC-FY; 74230-TC-FY; 76705-TC; 80048; 80053; 81003; 81015; 82136; 82140; 82248; 82465; 82550; 82553; 82607; 82728; 82803; 82962; 83540; 83550; 83605; 83718; 83721; 83735; 83880; 83918; 84100; 84439; 84443; 84466; 84478; 84481; 84484; 85025; 85610; 86850; 86900; 86901; 87040; 87086; 92611-GN; 93005; 93010; 93306-TC; 93880-TC; 97162-GP; 99285-25; J7030

== ENCOUNTER 2018-04-28 10:35 | Inpatient (IN) | payer OTHER ==
[2018-04-28 12:52] LABS: BASO % 0.7 % (0-2.0); HEMOGLOBIN 12.5 GM/dL (10.7-15.3); LYMPH % 10.4 % (8-40); MCH 27.5 pg (25.7-33.7); MCHC 33.9 g/dl (32.0-36.0); MEAN CELL VOLUME 81.1 fl (80-96); MEAN PLT VOLUME 8.4 fl (7.5-11.1); MONO % 4.7 % (3.8-10.2); NEUT % 84.2 % (42.8-82.8); PLATELET COUNT 244 K/MM3 (134-434); RBC 4.56 M/mm3 (3.60-5.2); RDW 18.6 % (11.6-15.6); WHITE BLOOD COUNT 19.1 K/mm3 (4.0-10.0)
--- NOTE | 2018-04-28 13:07 | PDOC ---
Attending Attestation - HPI HPI: The patient is a 77 year old female, with a significant past medical history of CVA (September 2017) HTN, Afib (on Xarelto), hypothyroidism, CAD, depression, arthritis, and multiple falls, who presents to the emergency department with bilateral lower extremity edema and vasculitis. As per patients friend, patient had a stroke in September, was admitted to the Snf and d/c yesterday. Today she is back here since her home health aide noticed bilateral lower extremity vascularities and edema. Her friend also notes that she vomited 2x last night. She denies recent fevers, chills, headache or dizziness. She denies recent diarrhea or constipation. She denies recent dysuria, frequency, urgency or hematuria. She denies recent chest pain or shortness of breath. Allergies: NKA Primary Care Physician: [facility] Cardiology: Dr. Presley Emergency Contact: Lucia Diamond (best friend) - Physicial Exam PE: Vitals: Triage Vital signs reviewed General Appearance: no acute distress, well nourished well developed, Head: Atraumatic, normocephalic Chest Wall: Nontender Cardiac: Regular rate and rhythm, no murmurs, no rubs, no gallops, Lungs: Clear to auscultation bilateral, good air movement bilaterally, Abdomen: Soft, nondistended, normal bowel sounds, nontender to palpation Skin: Warm and dry, b/l LE vasculitic rash up to her knees. Extremities: B/l LE 2+ pitting edema. No cyanosis or clubbing. Neuro: AOX3; Cranial Nerves 2-12 grossly intact, Strength intact to all extremities, Sensation intact to all extremities Psych: normal mood, normal affect <Rosita Nevarez - Last Filed: 04/30/18 18:54> - Resident Resident Name: Chio Alarcon - ED Attending Attestation I have performed the following: I have examined & evaluated the patient, The case was reviewed & discussed with the resident, I agree w/resident's findings & plan, Exceptions are as noted - Medical Decision Making 04/28/18 15:56 The patient is a 77 year old female, with a significant past medical history of CVA (September 2017) HTN, Afib (on Xarelto), hypothyroidism, CAD, depression, arthritis, and multiple falls, who presents to the emergency department with bilateral lower extremity edema and vasculitis. As per patients friend, patient had a stroke in September, was admitted to the Snf and d/c yesterday. Today she is back here since her home health aide noticed bilateral lower extremity vascularities and edema. Her friend also notes that she vomited 2x last night. 2 episodes of emesis now with elevated white blood cell count and leg swelling as well as evidence of vasculitis on physical examination Laboratory analysis notable for acute renal insufficiency baseline creatinine 0.7, today it is 1.7 as well as an elevated WBC. Her BNP is also elevated. Given history of CHF we'll gently hydrate broad-spectrum antibiotics ordered, urinalysis and chest x-ray pending Dr. Alejandra to follow up UA, CXR and dispo. <Brown Magaña - Last Filed: 04/30/18 23:35>
[2018-04-28 13:28] LABS: INR 1.39 (0.83-1.09); PROTHROMBIN TIME (PATIENT) 16.4 SEC (9.7-13.0)
[2018-04-28 13:55] LABS: ALBUMIN 3.8 g/dl (3.4-5.0); ALK PHOS 126 U/L (45-117); ANION GAP 13 MMOL/L (8-16); BILIRUBIN,TOTAL 1.7 mg/dL (0.2-1); BLOOD UREA NITROGEN 20 mg/dL (7-18); CALCIUM 8.9 mg/dL (8.5-10.1); CHLORIDE 103 mmol/L (98-107); CO2 26 mmol/L (21-32); CREATININE 0.8 mg/dL (0.55-1.3); GLUCOSE,RANDOM 105 mg/dL (74-106); N-TERMINAL BNP 1616.2 pg/ml (5-450); POTASSIUM 3.5 mmol/L (3.5-5.1); SGOT/AST 27 U/L (15-37); SGPT/ALT 13 U/L (13-61); SODIUM 142 mmol/L (136-145); TOT PROT 7.4 g/dl (6.4-8.2)
[2018-04-28] MEDS ORDERED: SODIUM CHLORIDE 500 ML IV STA (15:17)
--- NOTE | 2018-04-28 15:45 | PDOC ---
History of Present Illness - General Chief Complaint: Weakness Stated Complaint: SOCIAL ADMIT Time Seen by Provider: 04/28/18 11:45 - History of Present Illness Initial Comments: 77yo F with PMH of CVA in September 2017, HTN, HLD, CAD, CHF, Afib with RVR, hypothyroid, depression, and GERD presenting with bilateral lower leg swelling and rash. Patient states she noticed the rash and leg swelling yesterday. She has been in a fdc since September after she was discharged from this hospital for CVA. Patient returned home yesterday and noticed the abnormalities in her legs this morning. No new medicines recently. Denies recent falls or injury. Two episodes of NBNB vomiting yesterday, but does not endorse any abdominal pain. Most recent bowel movement was a normed brown stool without blood. Patient endorses dysuria and urinary frequency. No chest pain or shortness of breath. Past History - Past Medical History Allergies/Adverse Reactions: Allergies Allergy/AdvReac Type Severity Reaction Status Date / Time No Known Allergies Allergy Unverified 04/28/18 11:38 Home Medications: Ambulatory Orders Metoprolol Tartrate [Lopressor -] 100 mg PO BID #120 tablet 05/11/17 Sertraline HCl [Zoloft] 100 mg PO DAILY 05/11/17 Omeprazole 40 mg PO DAILY 10/02/17 Gabapentin 300 mg PO DAILY 10/03/17 Furosemide [Lasix -] 40 mg PO DAILY #30 tablet 10/08/17 Rosuvastatin [Crestor -] 40 mg PO HS tablet 10/08/17 Levothyroxine [Synthroid -] 100 mcg PO DAILY@0700 04/28/18 Rivaroxaban [Xarelto -] 20 mg PO DAILY 04/28/18 Anemia: No Asthma: No Cancer: No Cardiac Disorders: Yes (CAD, atrial fibrillation) CVA: Yes (unable to ambulate) COPD: No CHF: Yes Dementia: No Diabetes: No GI Disorders: Yes (gerd) Disorders: No HTN: Yes Hypercholesterolemia: Yes Liver Disease: No Psychiatric Problems: Yes (DEPRESSION) Seizures: Yes (hypothyroidism.) Thyroid Disease: Yes - Surgical History Abdominal Surgery: No Appendectomy: No Cardiac Surgery: No Cholecystectomy: No Lung Surgery: No Neurologic Surgery: No Orthopedic Surgery: Yes - Suicide/Smoking/Psychosocial Hx Smoking History: Never smoked Have you smoked in the past 12 months: No Hx Alcohol Use: No Drug/Substance Use Hx: No Substance Use Type: None Hx Substance Use Treatment: No Review of Systems - Review of Systems Comments:: Constitutional: no fever, no chills HEENT: no throat pain, no dysphagia Cardiovascular: no chest pain, no palpitations Respiratory: no cough, no shortness of breath Gastrointestinal: no abdominal pain, +vomiting, no constipation Genitourinary: +dysuria, +frequency Musculoskeletal: no myalgia, no arthralgia Skin: +rash, no itching Neurologic: no headache, no dizziness *Physical Exam - Vital Signs Last Vital Signs Temp Pulse Resp BP Pulse Ox 99.4 F 99 H 16 130/78 93 L 04/28/18 14:45 04/28/18 10:35 04/28/18 10:35 04/28/18 10:35 04/28/18 10:35 - Physical Exam Comments: General: Awake, alert, and fully oriented, in no acute distress Head: No signs of trauma Eyes: EOMI, sclera anicteric ENT: Dry mucus membranes Neck: Normal ROM, supple Lungs: Lungs clear, Normal breath sounds Cardio: Regular rhythm, S1 and S2 present Abdomen: Soft, nontender. No guarding, no rebound, no masses Extremities: Normal range of motion, Distal pulses present SKIN: Nonblanching vasculitic rash present on bilateral legs inferior to knees Neurologic: Cranial nerves II through XII grossly intact. Normal speech Moderate Sedation - Procedure Monitoring Vital Signs: Procedure Monitoring Vital Signs Temperature 99.4 F 04/28/18 14:45 Pulse Rate 99 H 04/28/18 10:35 Respiratory Rate 16 04/28/18 10:35 Blood Pressure 130/78 04/28/18 10:35 O2 Sat by Pulse Oximetry (%) 93 L 04/28/18 10:35 ED Treatment Course - LABORATORY CBC & Chemistry Diagram: 04/29/18 08:50 04/29/18 08:50 - ADDITIONAL ORDERS Additional order review: Laboratory Results 04/28/18 04/28/18 04/28/18 14:08 12:43 12:43 PT with INR 16.40 H INR 1.39 H PTT (Actin FS) 37.0 H Sodium 142 Potassium 3.5 Chloride 103 Carbon Dioxide 26 Anion Gap 13 BUN 20 H Creatinine 0.8 Creat Clearance w eGFR > 60 Random Glucose 105 Lactic Acid 2.5 H* Calcium 8.9 Total Bilirubin 1.7 H AST 27 ALT 13 Alkaline Phosphatase 126 H Troponin I < 0.02 B-Natriuretic Peptide 1616.2 H Total Protein 7.4 Albumin 3.8 TSH 1.00 Blood Type Antibody Screen 04/28/18 12:40 PT with INR INR PTT (Actin FS) Sodium Potassium Chloride Carbon Dioxide Anion Gap BUN Creatinine Creat Clearance w eGFR Random Glucose Lactic Acid Calcium Total Bilirubin AST ALT Alkaline Phosphatase Troponin I B-Natriuretic Peptide Total Protein Albumin TSH Blood Type O POSITIVE Antibody Screen Negative 04/28/18 12:43 RBC 4.56 MCV 81.1 MCHC 33.9 RDW 18.6 H MPV 8.4 Neutrophils % 84.2 H D Lymphocytes % 10.4 D Monocytes % 4.7 Eosinophils % 0.0 D Basophils % 0.7 Medical Decision Making - Medical Decision Making 77yo F with PMH of CVA in September 2017, HTN, HLD, CAD, CHF, Afib with RVR, hypothyroid, depression, and GERD presenting with bilateral lower leg swelling and rash. -DDX includes but not limited to ITP, TTP, Vasculitis, UTI -Decision made to work patient up for sepsis -WBC=19.1, lactate 2.5, BUN 20, BNP 1616 (however, has been much higher in the past) -UA positive for infection, Vanc and Zosyn ordered -500cc NS to hydrate -Repeat lactate ordered -EKG: rate 102, QTc 409, Afib with RVR -Portable CXR: Improvement. No acute chest pathology. Large heart. 04/28/18 16:[address] Simpson who accepted patient for admission 04/28/18 17:59 *DC/Admit/Observation/Transfer Diagnosis at time of Disposition: Sepsis, Vasculitis UTI (urinary tract infection) Qualifiers: Urinary tract infection type: acute cystitis Hematuria presence: without hematuria Qualified Code(s): N30.00 - Acute cystitis without hematuria - Discharge Dispostion Condition at time of disposition: Guarded Decision to Admit order: Yes - Referrals - Patient Instructions - Post Discharge Activity
[2018-04-28 15:52] LABS: URINE APPEARANCE SLCLOUDY; URINE BILIRUBIN NEGATIVE (<2.0 mg/dL); URINE GLUCOSE (UA) NEGATIVE (NEGATIVE); URINE KETONE NEGATIVE (NEGATIVE); URINE LEUK ESTERASE 3+ (NEGATIVE); URINE NITRITE NEGATIVE (NEGATIVE); URINE PROTEIN NEGATIVE (NEGATIVE)
[2018-04-28] MEDS ORDERED: VANCOMYCIN 1,000 MG in DEXTROSE 5%-WATER - 250 ML IVPB ONE (15:55)
[2018-04-28] MEDS ORDERED: PIPERACILLIN/TAZOB 4.5 GM 4.5 GM in DEXTROSE 5%-WATER 100 ML IVPB ONE (15:55)
[2018-04-28] MEDS ORDERED: PIPERACILLIN/TAZOB 4.5 GM 4.5 GM/100 ML BAG IVPB ONE (16:10)
[2018-04-28] MEDS ORDERED: VANCOMYCIN 1 GRAM (PRE-DOCKED) 1,000 MG/250 ML BAG IVPB ONE (16:46)
[2018-04-28 18:03] LABS: EPI CELLS RARE /HPF (FEW); URINE BACTERIA MANY /hpf (NONE SEEN)
[2018-04-28 18:07] LABS: URINE COLOR YELLOW
[2018-04-28] MEDS ORDERED: ONDANSETRON 4 MG/2 ML VIAL IVPUSH PRN (18:39)
[2018-04-28] MEDS ORDERED: ACETAMINOPHEN 325 MG TABLET (FP) PO PRN (18:39)
--- NOTE | 2018-04-28 18:49 | HP ---
Admitting History and Physical - Admission Chief Complaint: Unable to obtain History of Present Illness: Ms Weinstein is a 77 year old [place] Sor[place] only speaking female who comes in after her family found that she was left in the chair overnight. Her family is at the bedside and states that she was discharged from a SNF yesterday. When she was brought home her aid left her in the wheelchair overnight because she was unable to get her in the bed. Apparently the aid left the patient unattended. The family went to check on her this morning and found her in the wheelchair and noted she had swollen legs. Because of that she was brought in. When attempted to speak to the patient through a outreach assistant it is noted that the patient was not answering questions or making much sense. However she seems to be able to answer yes and no questions. She denies fevers, chills, chest pain, shortness of breath, nausea, vomiting, diarrhea, constipation, and pain on urination. She says yes to her legs being swollen but cannot say for how long. According to the family at the bedside patient is at her baseline mental status. History Source: Patient, Family Member Limitations to Obtaining History: Language Barrier, Poor Historian - Past Medical History Cardiovascular: Yes: AFIB, CAD, HTN Endocrine: Yes: Hypothyroidism - Past Surgical History Past Surgical History: Yes: Joint Replacement Additional Past Surgical History: thyroid surgery, unclear if total thyroidectomy - Smoking History Smoking history: Never smoked Have you smoked in the past 12 months: No - Alcohol/Substance Use Hx Alcohol Use: No History of Substance Use: reports: None - Social History Usual Living Arrangement: Yes: Alone ADL: Support Services History of Recent Travel: No Home Medications - Allergies Allergies/Adverse Reactions: Allergies Allergy/AdvReac Type Severity Reaction Status Date / Time No Known Allergies Allergy Unverified 04/28/18 11:38 - Home Medications Home Medications: Ambulatory Orders Metoprolol Tartrate [Lopressor -] 100 mg PO BID #120 tablet 05/11/17 Sertraline HCl [Zoloft] 100 mg PO DAILY 05/11/17 Omeprazole 40 mg PO DAILY 10/02/17 Gabapentin 300 mg PO DAILY 10/03/17 Furosemide [Lasix -] 40 mg PO DAILY #30 tablet 10/08/17 Rosuvastatin [Crestor -] 40 mg PO HS tablet 10/08/17 Levothyroxine [Synthroid -] 100 mcg PO DAILY@0700 12/28/18 Rivaroxaban [Xarelto -] 20 mg PO DAILY 04/28/18 Family Disease History - Family Disease History Other Family History: States "everyone" in the family has depression Review of Systems Findings/Remarks: Unsure of the accuracy, but full review of systems obtained and as per HPI and otherwise negative. Physical Examination Vital Signs: Vital Signs Temperature 37.1 C 04/28/18 17:12 Pulse Rate 88 04/28/18 17:12 Respiratory Rate 18 04/28/18 17:12 Blood Pressure 118/51 L 04/28/18 17:12 O2 Sat by Pulse Oximetry (%) 93 L 04/28/18 17:12 Constitutional: Yes: No Distress, Calm, Obese Eyes: Yes: Conjunctiva Clear, EOM Intact, PERRL HENT: Yes: Atraumatic, Normocephalic Cardiovascular: Yes: Regular Rate and Rhythm. No: JVD, Gallop, Murmur, Rub Respiratory: Yes: Regular, CTA Bilaterally. No: Rales, Rhonchi, Wheezes Gastrointestinal: Yes: Normal Bowel Sounds, Soft. No: Distention, Tenderness Extremities: Yes: Other (petechial rash) Edema: Yes Edema: LLE: 2+, RLE: 2+ Labs: CBC, BMP 04/28/18 12:43 04/28/18 12:43 Imaging - Results Chest X-ray: Image Reviewed Ultrasound: Report Reviewed Problem List - Problems (1) Sepsis Assessment/Plan: -patient presents with sepsis, most likely secondary to UTI -admit to med surg -hydrate with IVF -recheck fluid status in am secondary to history of CHF -hold lasix at this time -rocephin Code(s): A41.9 - SEPSIS, UNSPECIFIED ORGANISM (2) UTI (urinary tract infection) Assessment/Plan: -patient with positive u/a and signs of sepsis -given vancomycin and zosyn in the ED -however suspect patient does not need such broad coverage -will change to rocephin 1gm IV daily -lactobacillus Code(s): N39.0 - URINARY TRACT INFECTION, SITE NOT SPECIFIED Qualifiers: Urinary tract infection type: acute cystitis Hematuria presence: without hematuria Qualified Code(s): N30.00 - Acute cystitis without hematuria (3) Atrial fibrillation Assessment/Plan: -sounds in sinus rhythm -continue lopressor and xarelto Code(s): I48.91 - UNSPECIFIED ATRIAL FIBRILLATION Qualifiers: Atrial fibrillation type: paroxysmal Qualified Code(s): I48.0 - Paroxysmal atrial fibrillation (4) Diastolic dysfunction Assessment/Plan: -not in exacerbation -will recheck ECHO this admission Code(s): I51.9 - HEART DISEASE, UNSPECIFIED (5) Hypothyroidism Assessment/Plan: -continue synthroid Code(s): E03.9 - HYPOTHYROIDISM, UNSPECIFIED Qualifiers: Hypothyroidism type: unspecified Qualified Code(s): E03.9 - Hypothyroidism , unspecified (6) CAD (coronary artery disease) Assessment/Plan: -quiescent -follow up cardiac enzymes in am Code(s): I25.10 - ATHSCL HEART DISEASE OF [place] CORONARY ARTERY W/O ANG PCTRS Qualifiers: Coronary Disease-Associated Artery/Lesion type: [place] artery [place] vs. transplanted heart: [place] heart Associated angina: without angina Qualified Code(s): I25.10 - Atherosclerotic heart disease of [place] coronary artery without angina pectoris (7) HTN (hypertension) Assessment/Plan: -controlled -continue home regimen Code(s): I10 - ESSENTIAL (PRIMARY) HYPERTENSION Qualifiers: Hypertension type: essential hypertension Qualified Code(s): I10 - Essential (primary) hypertension (8) Osteoarthritis Assessment/Plan: -currently not complaining of pain Code(s): M19.90 - UNSPECIFIED OSTEOARTHRITIS, UNSPECIFIED SITE
[2018-04-28] MEDS: SODIUM CHLORIDE 1,000 ML IV SCH (19:05)
[2018-04-28] MEDS ORDERED: ROSUVASTATIN CA 10 MG TABLET (FP) ONE (22:37)
[2018-04-28] MEDS: INSULIN SLIDING SCALE (NOVOLOG) 1 VIAL SQ SCH (22:44)
[2018-04-28] MEDS: METOPROLOL TARTRATE 50 MG TABLET (FP) PO SCH (22:45)
[2018-04-28] MEDS: ROSUVASTATIN CA 20 MG TABLET (FP) PO SCH (22:45)
[2018-04-28 23:55] VITALS: BMI 39.5
[2018-04-29] MEDS: LEVOTHYROXINE NA 100 MCG TABLET (FP) PO SCH (06:21)
[2018-04-29] MEDS: SODIUM CHLORIDE 1,000 ML IV SCH (06:21)
[2018-04-29] MEDS: INSULIN SLIDING SCALE (NOVOLOG) 1 VIAL SQ SCH ×4 (06:21→21:51)
[2018-04-29 09:32] LABS: BASO % 0.4 % (0-2.0); EOS % 2.3 % (0-4.5); HEMATOCRIT 30.7 % (32.4-45.2); HEMOGLOBIN 9.6 GM/dL (10.7-15.3); LYMPH % 18.8 % (8-40); MCH 26.2 pg (25.7-33.7); MCHC 31.3 g/dl (32.0-36.0); MEAN CELL VOLUME 83.5 fl (80-96); MEAN PLT VOLUME 8.3 fl (7.5-11.1); MONO % 5.8 % (3.8-10.2); NEUT % 72.7 % (42.8-82.8); PLATELET COUNT 189 K/MM3 (134-434); RBC 3.67 M/mm3 (3.60-5.2); RDW 18.5 % (11.6-15.6); WHITE BLOOD COUNT 10.4 K/mm3 (4.0-10.0)
[2018-04-29] MEDS: SERTRALINE HCL 50 MG TABLET (FP) PO SCH (09:57)
[2018-04-29] MEDS: GABAPENTIN 300 MG CAPSULE (FP) PO SCH (09:57)
[2018-04-29] MEDS: LACTOBACILLUS ACIDOPHILUS 1 TABLET PO SCH (09:58)
[2018-04-29] MEDS: METOPROLOL TARTRATE 50 MG TABLET (FP) PO SCH ×2 (09:58→21:50)
[2018-04-29] MEDS ORDERED: CEFTRIAXONE 1 GM in DEXTROSE 5%-WATER - 50 ML IVPB ONE (10:00)
[2018-04-29] MEDS ORDERED: PT OWN MED DRAWER 7, Y5N ONE ×3 (10:02→18:02)
[2018-04-29 10:04] LABS: ALBUMIN 2.6 g/dl (3.4-5.0); ALK PHOS 86 U/L (45-117); ANION GAP 9 MMOL/L (8-16); BILIRUBIN,TOTAL 1.5 mg/dL (0.2-1); BLOOD UREA NITROGEN 14 mg/dL (7-18); CHLORIDE 114 mmol/L (98-107); CO2 24 mmol/L (21-32); CREATININE 0.6 mg/dL (0.55-1.3); GLUCOSE,RANDOM 83 mg/dL (74-106); MAGNESIUM 1.6 mg/dL (1.8-2.4); PHOSPHOROUS 3.5 mg/dL (2.5-4.9); SGOT/AST 23 U/L (15-37); SGPT/ALT 10 U/L (13-61); SODIUM 147 mmol/L (136-145); TOT PROT 5.2 g/dl (6.4-8.2)
[2018-04-29] MEDS ORDERED: DEXTROSE 5%-WATER - 50 ML IVPB ONE (10:09)
[2018-04-29] MEDS ORDERED: cefTRIAXone SODIUM 1 GM VIAL ONE (10:09)
[2018-04-29 11:06] LABS: CALCIUM 6.9 mg/dL (8.5-10.1)
[2018-04-29] MEDS ORDERED: POTASSIUM CHLORIDE ORAL LIQUID 20 MEQ/15 ML PO ONE ×2 (12:00→14:00)
[2018-04-29] MEDS ORDERED: MAGNESIUM SULF 50% (8.12 MEQ/2 ML-1 GM VIAL) IVPB ONE (12:00)
[2018-04-29] MEDS ORDERED: CALCIUM GLUCONATE 10% - 1,000 MG/10 ML VIAL IVPB ONE (12:00)
--- NOTE | 2018-04-29 12:56 | PN ---
Progress Note, Physician Chief Complaint: Ms Weinstein says she is feeling well and is happy to be here. Denies cp, sob, n/ v. - Current Medication List Current Medications: Active Medications Acetaminophen (Tylenol -) 650 mg PO Q4H PRN PRN Reason: FEVER Gabapentin (Neurontin -) 300 mg PO DAILY [facility] Last Admin: 04/29/18 09:57 Dose: 300 mg Sodium Chloride (Normal Saline -) 1,000 mls @ 100 mls/hr IV ASDIR [facility] Last Admin: 04/29/18 06:21 Dose: 100 mls/hr Insulin Aspart (Novolog Vial Sliding Scale -) 1 vial SQ ACHS [facility]; Protocol Last Admin: 04/29/18 11:40 Dose: Not Given Lactobacillus Acidophilus (Bacid -) 1 tab PO DAILY [facility] Last Admin: 04/29/18 09:58 Dose: 1 tab Levothyroxine Sodium (Synthroid -) 100 mcg PO DAILY@0700 [facility] Last Admin: 04/29/18 06:21 Dose: 100 mcg Metoprolol Tartrate (Lopressor -) 100 mg PO BID [facility] Last Admin: 04/29/18 09:58 Dose: 100 mg Ondansetron HCl (Zofran Injection) 4 mg IVPUSH Q6H PRN PRN Reason: NAUSEA Potassium Chloride (Potassium Chloride Oral Liquid) 20 meq PO ONCE ONE Stop: 04/29/18 14:01 Rivaroxaban (Xarelto -) 20 mg PO DAILY@1800 [facility] Rosuvastatin Calcium (Crestor -) 40 mg PO HS [facility] Last Admin: 04/28/18 22:45 Dose: 40 mg Sertraline HCl (Zoloft -) 100 mg PO DAILY [facility] Last Admin: 04/29/18 09:57 Dose: 100 mg - Objective Vital Signs: Vital Signs Temperature 36.9 C 04/29/18 04:03 Pulse Rate 88 04/29/18 04:03 Respiratory Rate 20 04/29/18 04:03 Blood Pressure 97/55 L 04/29/18 04:03 O2 Sat by Pulse Oximetry (%) 95 04/28/18 21:00 Constitutional: Yes: No Distress, Calm, Obese Cardiovascular: Yes: Regular Rate and Rhythm. No: Gallop, Murmur, Rub Respiratory: Yes: Regular, CTA Bilaterally. No: Rales, Rhonchi, Wheezes Gastrointestinal: Yes: Normal Bowel Sounds, Soft. No: Distention, Tenderness Extremities: Yes: WNL Edema: Yes Edema: LLE: 1+, RLE: 1+ Labs: CBC, BMP 04/29/18 08:50 04/29/18 08:50 INR, PTT INR 1.39 (0.83-1.09) H 04/28/18 12:43 Problem List - Problems (1) Sepsis Code(s): A41.9 - SEPSIS, UNSPECIFIED ORGANISM (2) UTI (urinary tract infection) Code(s): N39.0 - URINARY TRACT INFECTION, SITE NOT SPECIFIED Qualifiers: Urinary tract infection type: acute cystitis Hematuria presence: without hematuria Qualified Code(s): N30.00 - Acute cystitis without hematuria (3) Atrial fibrillation Code(s): I48.91 - UNSPECIFIED ATRIAL FIBRILLATION Qualifiers: Atrial fibrillation type: paroxysmal Qualified Code(s): I48.0 - Paroxysmal atrial fibrillation (4) Diastolic dysfunction Code(s): I51.9 - HEART DISEASE, UNSPECIFIED (5) Hypothyroidism Code(s): E03.9 - HYPOTHYROIDISM, UNSPECIFIED Qualifiers: Hypothyroidism type: unspecified Qualified Code(s): E03.9 - Hypothyroidism , unspecified (6) CAD (coronary artery disease) Code(s): I25.10 - ATHSCL HEART DISEASE OF [place] CORONARY ARTERY W/O ANG PCTRS Qualifiers: Coronary Disease-Associated Artery/Lesion type: [place] artery [place] vs. transplanted heart: [place] heart Associated angina: without angina Qualified Code(s): I25.10 - Atherosclerotic heart disease of [place] coronary artery without angina pectoris (7) HTN (hypertension) Code(s): I10 - ESSENTIAL (PRIMARY) HYPERTENSION Qualifiers: Hypertension type: essential hypertension Qualified Code(s): I10 - Essential (primary) hypertension (8) Osteoarthritis Code(s): M19.90 - UNSPECIFIED OSTEOARTHRITIS, UNSPECIFIED SITE (9) Hypocalcemia Code(s): E83.51 - HYPOCALCEMIA (10) Hypomagnesemia Code(s): E83.42 - HYPOMAGNESEMIA (11) Hypokalemia Code(s): E87.6 - HYPOKALEMIA Assessment/Plan (1) Sepsis Assessment/Plan: -much improved -stop IVF today since leukocytosis almost resolved and drinking fluids -continue rocephin -monitor Code(s): A41.9 - SEPSIS, UNSPECIFIED ORGANISM (2) UTI (urinary tract infection) Assessment/Plan: -urine cultures growing gram negative rods -rocephin 1gm IV daily, day 2 of antibiotics -lactobacillus Code(s): N39.0 - URINARY TRACT INFECTION, SITE NOT SPECIFIED Qualifiers: Urinary tract infection type: acute cystitis Hematuria presence: without hematuria Qualified Code(s): N30.00 - Acute cystitis without hematuria (3) Atrial fibrillation Assessment/Plan: -sounds in sinus rhythm -continue lopressor and xarelto Code(s): I48.91 - UNSPECIFIED ATRIAL FIBRILLATION Qualifiers: Atrial fibrillation type: paroxysmal Qualified Code(s): I48.0 - Paroxysmal atrial fibrillation (4) Diastolic dysfunction Assessment/Plan: -not in exacerbation -will recheck ECHO this admission -stopping IVF but will hold on restarting lasix at this time Code(s): I51.9 - HEART DISEASE, UNSPECIFIED (5) Hypothyroidism Assessment/Plan: -continue synthroid Code(s): E03.9 - HYPOTHYROIDISM, UNSPECIFIED Qualifiers: Hypothyroidism type: unspecified Qualified Code(s): E03.9 - Hypothyroidism , unspecified (6) CAD (coronary artery disease) Assessment/Plan: -quiescent Code(s): I25.10 - ATHSCL HEART DISEASE OF [place] CORONARY ARTERY W/O ANG PCTRS Qualifiers: Coronary Disease-Associated Artery/Lesion type: [place] artery [place] vs. transplanted heart: [place] heart Associated angina: without angina Qualified Code(s): I25.10 - Atherosclerotic heart disease of [place] coronary artery without angina pectoris (7) HTN (hypertension) Assessment/Plan: -controlled -continue home regimen Code(s): I10 - ESSENTIAL (PRIMARY) HYPERTENSION Qualifiers: Hypertension type: essential hypertension Qualified Code(s): I10 - Essential (primary) hypertension (8) Osteoarthritis Assessment/Plan: -currently not complaining of pain Code(s): M19.90 - UNSPECIFIED OSTEOARTHRITIS, UNSPECIFIED SITE (9) FEN -replace potassium, magnesium, and calcium
--- NOTE | 2018-04-29 13:28 | EKG ---
Test Reason : Blood Pressure : / mmHG Vent. Rate : 102 BPM Atrial Rate : 098 BPM P-R Int : 000 ms QRS Dur : 084 ms QT Int : 314 ms P-R-T Axes : 000 060 263 degrees QTc Int : 409 ms ATRIAL FIBRILLATION WITH RAPID VENTRICULAR RESPONSE WITH PREMATURE VENTRICULAR OR ABERRANTLY CONDUCTED COMPLEXES MINIMAL VOLTAGE CRITERIA FOR LVH, MAY BE NORMAL VARIANT ABNORMAL ECG WHEN COMPARED WITH ECG OF 05-OCT-2017 15:39, CRITERIA FOR SEPTAL INFARCT ARE NO LONGER PRESENT ST MORE DEPRESSED ANTERIOR LEADS QT HAS SHORTENED Confirmed by ROLANDO HOYOS MD ([id number]) on 04/29/2018 1:27:40 PM Referred By: Confirmed By:ROLANDO HOYOS MD
[2018-04-29] MEDS: RIVAROXABAN 20 MG TABLET PO SCH (18:04)
[2018-04-29] MEDS ORDERED: ROSUVASTATIN CA 10 MG TABLET (FP) ONE (21:39)
[2018-04-29] MEDS: ROSUVASTATIN CA 20 MG TABLET (FP) PO SCH (21:49)
[2018-04-30] MEDS: INSULIN SLIDING SCALE (NOVOLOG) 1 VIAL SQ SCH ×2 (06:20→11:31)
[2018-04-30] MEDS: LEVOTHYROXINE NA 100 MCG TABLET (FP) PO SCH (06:20)
[2018-04-30 07:49] LABS: BASO % 0.4 % (0-2.0); EOS % 4.9 % (0-4.5); HEMOGLOBIN 10.6 GM/dL (10.7-15.3); LYMPH % 30.9 % (8-40); MCH 28.2 pg (25.7-33.7); MCHC 34.1 g/dl (32.0-36.0); MEAN CELL VOLUME 82.7 fl (80-96); MEAN PLT VOLUME 8.1 fl (7.5-11.1); MONO % 7.2 % (3.8-10.2); NEUT % 56.6 % (42.8-82.8); PLATELET COUNT 218 K/MM3 (134-434); RBC 3.75 M/mm3 (3.60-5.2); RDW 18.5 % (11.6-15.6)
[2018-04-30 08:26] LABS: ANION GAP 7 MMOL/L (8-16); BLOOD UREA NITROGEN 11 mg/dL (7-18); CHLORIDE 110 mmol/L (98-107); CO2 26 mmol/L (21-32); CREATININE 0.5 mg/dL (0.55-1.3); GLUCOSE,RANDOM 92 mg/dL (74-106); MAGNESIUM 2.2 mg/dL (1.8-2.4); PHOSPHOROUS 3.7 mg/dL (2.5-4.9); SODIUM 143 mmol/L (136-145)
[2018-04-30] MEDS: LACTOBACILLUS ACIDOPHILUS 1 TABLET PO SCH (09:52)
[2018-04-30] MEDS: GABAPENTIN 300 MG CAPSULE (FP) PO SCH (09:52)
[2018-04-30] MEDS: METOPROLOL TARTRATE 50 MG TABLET (FP) PO SCH ×2 (09:52→21:07)
[2018-04-30] MEDS: SERTRALINE HCL 50 MG TABLET (FP) PO SCH (09:52)
--- NOTE | 2018-04-30 12:31 | PN ---
Progress Note, Physician Chief Complaint: Ms Weinstein says she is doing good today. Denies cp, sob, n/v. - Current Medication List Current Medications: Active Medications Acetaminophen (Tylenol -) 650 mg PO Q4H PRN PRN Reason: FEVER Gabapentin (Neurontin -) 300 mg PO DAILY [facility] Last Admin: 04/30/18 09:52 Dose: 300 mg Lactobacillus Acidophilus (Bacid -) 1 tab PO DAILY [facility] Last Admin: 04/30/18 09:52 Dose: 1 tab Levothyroxine Sodium (Synthroid -) 100 mcg PO DAILY@0700 [facility] Last Admin: 04/30/18 06:20 Dose: 100 mcg Metoprolol Tartrate (Lopressor -) 100 mg PO BID [facility] Last Admin: 04/30/18 09:52 Dose: 100 mg Ondansetron HCl (Zofran Injection) 4 mg IVPUSH Q6H PRN PRN Reason: NAUSEA Rivaroxaban (Xarelto -) 20 mg PO DAILY@1800 [facility] Last Admin: 04/29/18 18:04 Dose: 20 mg Rosuvastatin Calcium (Crestor -) 40 mg PO HS [facility] Last Admin: 04/29/18 21:49 Dose: 40 mg Sertraline HCl (Zoloft -) 100 mg PO DAILY [facility] Last Admin: 04/30/18 09:52 Dose: 100 mg - Objective Vital Signs: Vital Signs Temperature 36.5 C 04/30/18 05:00 Pulse Rate 91 H 04/30/18 10:00 Respiratory Rate 18 04/30/18 10:00 Blood Pressure 110/67 04/30/18 10:00 O2 Sat by Pulse Oximetry (%) 95 04/29/18 22:00 Constitutional: Yes: No Distress, Calm, Obese Cardiovascular: Yes: Regular Rate and Rhythm. No: Gallop, Murmur, Rub Respiratory: Yes: Regular, CTA Bilaterally. No: Rales, Rhonchi, Wheezes Gastrointestinal: Yes: Normal Bowel Sounds, Soft. No: Distention, Tenderness Extremities: Yes: WNL Edema: No Labs: CBC, BMP 04/30/18 06:45 04/30/18 06:45 INR, PTT INR 1.39 (0.83-1.09) H 04/28/18 12:43 Problem List - Problems (1) Sepsis Code(s): A41.9 - SEPSIS, UNSPECIFIED ORGANISM (2) UTI (urinary tract infection) Code(s): N39.0 - URINARY TRACT INFECTION, SITE NOT SPECIFIED Qualifiers: Urinary tract infection type: acute cystitis Hematuria presence: without hematuria Qualified Code(s): N30.00 - Acute cystitis without hematuria (3) Atrial fibrillation Code(s): I48.91 - UNSPECIFIED ATRIAL FIBRILLATION Qualifiers: Atrial fibrillation type: paroxysmal Qualified Code(s): I48.0 - Paroxysmal atrial fibrillation (4) Diastolic dysfunction Code(s): I51.9 - HEART DISEASE, UNSPECIFIED (5) Hypothyroidism Code(s): E03.9 - HYPOTHYROIDISM, UNSPECIFIED Qualifiers: Hypothyroidism type: unspecified Qualified Code(s): E03.9 - Hypothyroidism , unspecified (6) CAD (coronary artery disease) Code(s): I25.10 - ATHSCL HEART DISEASE OF [place] CORONARY ARTERY W/O ANG PCTRS Qualifiers: Coronary Disease-Associated Artery/Lesion type: [place] artery [place] vs. transplanted heart: [place] heart Associated angina: without angina Qualified Code(s): I25.10 - Atherosclerotic heart disease of [place] coronary artery without angina pectoris (7) HTN (hypertension) Code(s): I10 - ESSENTIAL (PRIMARY) HYPERTENSION Qualifiers: Hypertension type: essential hypertension Qualified Code(s): I10 - Essential (primary) hypertension (8) Osteoarthritis Code(s): M19.90 - UNSPECIFIED OSTEOARTHRITIS, UNSPECIFIED SITE (9) Hypocalcemia Code(s): E83.51 - HYPOCALCEMIA (10) Hypomagnesemia Code(s): E83.42 - HYPOMAGNESEMIA (11) Hypokalemia Code(s): E87.6 - HYPOKALEMIA Assessment/Plan (1) Sepsis Assessment/Plan: -urine cultures positive for klebsiella, resistant only to ampicillin -however 1/4 bottles growing gram positive cocci in chains -possible contaminant, but would expect gram positive cocci in clusters more c/ w staph epi -because possible streptococcus, will consult ID -continue rocephin currently but may need broader spectrum per ID recommendations Code(s): A41.9 - SEPSIS, UNSPECIFIED ORGANISM (2) UTI (urinary tract infection) Assessment/Plan: -urine cultures growing klebsiella -rocephin 1gm IV daily, day 3 of antibiotics -lactobacillus Code(s): N39.0 - URINARY TRACT INFECTION, SITE NOT SPECIFIED Qualifiers: Urinary tract infection type: acute cystitis Hematuria presence: without hematuria Qualified Code(s): N30.00 - Acute cystitis without hematuria (3) Atrial fibrillation Assessment/Plan: -sounds in sinus rhythm -continue lopressor and xarelto Code(s): I48.91 - UNSPECIFIED ATRIAL FIBRILLATION Qualifiers: Atrial fibrillation type: paroxysmal Qualified Code(s): I48.0 - Paroxysmal atrial fibrillation (4) Diastolic dysfunction Assessment/Plan: -not in exacerbation -will recheck ECHO this admission -will hold lasix currently Code(s): I51.9 - HEART DISEASE, UNSPECIFIED (5) Hypothyroidism Assessment/Plan: -continue synthroid Code(s): E03.9 - HYPOTHYROIDISM, UNSPECIFIED Qualifiers: Hypothyroidism type: unspecified Qualified Code(s): E03.9 - Hypothyroidism , unspecified (6) CAD (coronary artery disease) Assessment/Plan: -quiescent Code(s): I25.10 - ATHSCL HEART DISEASE OF [place] CORONARY ARTERY W/O ANG PCTRS Qualifiers: Coronary Disease-Associated Artery/Lesion type: [place] artery [place] vs. transplanted heart: [place] heart Associated angina: without angina Qualified Code(s): I25.10 - Atherosclerotic heart disease of [place] coronary artery without angina pectoris (7) HTN (hypertension) Assessment/Plan: -controlled -continue home regimen Code(s): I10 - ESSENTIAL (PRIMARY) HYPERTENSION Qualifiers: Hypertension type: essential hypertension Qualified Code(s): I10 - Essential (primary) hypertension (8) Osteoarthritis Assessment/Plan: -currently not complaining of pain Code(s): M19.90 - UNSPECIFIED OSTEOARTHRITIS, UNSPECIFIED SITE (9) FEN -replaced yesterday, monitor
[2018-04-30] MEDS ORDERED: cefTRIAXone SODIUM 1 GM VIAL ONE (14:25)
[2018-04-30] MEDS ORDERED: DEXTROSE 5%-WATER - 50 ML IVPB ONE (14:26)
[2018-04-30] MEDS: CEFTRIAXONE 1 GM in DEXTROSE 5%-WATER - 50 ML IVPB SCH (14:33)
--- NOTE | 2018-04-30 15:24 | CON.ID ---
Consult Consult Specialty:: infectious diseases Referred by:: Dr Granados Reason for Consultation:: bacteremia,uti,weakness - History of Present Illness Chief Complaint: weakness History of Present Illness: 77 year old Japanese only speaking female who comes in after her family found that she was left in the chair overnight. Her family is at the bedside and states that she was discharged from a SNf recently family members found her to be in the wheel chair and was found to have swollen legs patient recently had a stroke she denies any other symptoms ,but according to the family she is bed bound patient was admitted to the hospital and was found to ahve uti and cathie positive blood cx currently patient is stable denies any fever or any other issues patient is awake alert and oriented - History Source History Provided By: Family Member Limitations to Obtaining History: Language Barrier - Past Medical History Cardio/Vascular: Yes: AFIB, CAD, HTN Endocrine: Yes: Hypothyroidism - Past Surgical History Past Surgical History: Yes: Joint Replacement - Alcohol/Substance Use Hx Alcohol Use: No History of Substance Use: reports: None - Smoking History Smoking history: Never smoked Have you smoked in the past 12 months: No - Social History ADL: Support Services History of Recent Travel: No Home Medications - Allergies Allergies/Adverse Reactions: Allergies Allergy/AdvReac Type Severity Reaction Status Date / Time No Known Allergies Allergy Unverified 04/28/18 11:38 - Home Medications Home Medications: Ambulatory Orders Metoprolol Tartrate [Lopressor -] 100 mg PO BID #120 tablet 05/11/17 Sertraline HCl [Zoloft] 100 mg PO DAILY 05/11/17 Omeprazole 40 mg PO DAILY 10/02/17 Gabapentin 300 mg PO DAILY 10/03/17 Furosemide [Lasix -] 40 mg PO DAILY #30 tablet 10/08/17 Rosuvastatin [Crestor -] 40 mg PO HS tablet 10/08/17 Levothyroxine [Synthroid -] 100 mcg PO DAILY@0700 04/28/18 Rivaroxaban [Xarelto -] 20 mg PO DAILY 04/28/18 Family Disease History - Family Disease History Other Family History: States "everyone" in the family has depression Review of Systems - Review of Systems Constitutional: reports: No Symptoms Eyes: reports: No Symptoms HENT: reports: No Symptoms Neck: reports: No Symptoms Cardiovascular: reports: No Symptoms Respiratory: reports: No Symptoms Gastrointestinal: reports: No Symptoms Genitourinary: reports: No Symptoms Musculoskeletal: reports: Other Integumentary: reports: No Symptoms Neurological: reports: No Symptoms Endocrine: reports: No Symptoms Hematology/Lymphatic: reports: No Symptoms Psychiatric: reports: No Symptoms Physical Exam Vital Signs: Vital Signs Temperature 97.7 F 04/30/18 05:00 Pulse Rate 91 H 04/30/18 10:00 Respiratory Rate 18 04/30/18 10:00 Blood Pressure 110/67 04/30/18 10:00 O2 Sat by Pulse Oximetry (%) 95 04/29/18 22:00 Constitutional: Yes: No Distress, Calm, Obese Eyes: Yes: Conjunctiva Clear Neck: Yes: Supple, Trachea Midline Cardiovascular: Yes: Pulse Irregular Respiratory: Yes: Regular, CTA Bilaterally Gastrointestinal: Yes: Normal Bowel Sounds, Soft Musculoskeletal: Yes: Other Edema: LLE: 1+, RLE: 1+ Neurological: Yes: Alert, Oriented Psychiatric: Yes: Alert, Oriented Labs: CBC, BMP 04/30/18 06:45 04/30/18 06:45 Imaging - Results Chest X-ray: Report Reviewed, Image Reviewed Assessment/Plan Problem List - Problems (1) Sepsis Code(s): A41.9 - SEPSIS, UNSPECIFIED ORGANISM (2) UTI (urinary tract infection) Code(s): N39.0 - URINARY TRACT INFECTION, SITE NOT SPECIFIED Qualifiers: Urinary tract infection type: acute cystitis Hematuria presence: without hematuria Qualified Code(s): N30.00 - Acute cystitis without hematuria (3) Atrial fibrillation Code(s): I48.91 - UNSPECIFIED ATRIAL FIBRILLATION Qualifiers: Atrial fibrillation type: paroxysmal Qualified Code(s): I48.0 - Paroxysmal atrial fibrillation (4) Diastolic dysfunction Code(s): I51.9 - HEART DISEASE, UNSPECIFIED (5) Hypothyroidism Code(s): E03.9 - HYPOTHYROIDISM, UNSPECIFIED Qualifiers: Hypothyroidism type: unspecified Qualified Code(s): E03.9 - Hypothyroidism , unspecified (6) CAD (coronary artery disease) Code(s): I25.10 - ATHSCL HEART DISEASE OF [place] CORONARY ARTERY W/O ANG PCTRS Qualifiers: Coronary Disease-Associated Artery/Lesion type: [place] artery [place] vs. transplanted heart: [place] heart Associated angina: without angina Qualified Code(s): I25.10 - Atherosclerotic heart disease of [place] coronary artery without angina pectoris (7) HTN (hypertension) Code(s): I10 - ESSENTIAL (PRIMARY) HYPERTENSION Qualifiers: Hypertension type: essential hypertension Qualified Code(s): I10 - Essential (primary) hypertension (8) Osteoarthritis Code(s): M19.90 - UNSPECIFIED OSTEOARTHRITIS, UNSPECIFIED SITE (9) Hypocalcemia Code(s): E83.51 - HYPOCALCEMIA (10) Hypomagnesemia Code(s): E83.42 - HYPOMAGNESEMIA (11) Hypokalemia Code(s): E87.6 - HYPOKALEMIA plan continue ceftriaxone await for identification of the bacteria monitor swelling of the legs rest as per the team
[2018-04-30] MEDS: RIVAROXABAN 20 MG TABLET PO SCH (17:55)
[2018-04-30] MEDS ORDERED: ROSUVASTATIN CA 10 MG TABLET (FP) ONE (21:00)
[2018-04-30] MEDS: ROSUVASTATIN CA 20 MG TABLET (FP) PO SCH (21:07)
[2018-05-01] MEDS: LEVOTHYROXINE NA 100 MCG TABLET (FP) PO SCH (06:14)
[2018-05-01 07:39] LABS: BASO % 0.5 % (0-2.0); EOS % 5.8 % (0-4.5); HEMOGLOBIN 10.4 GM/dL (10.7-15.3); LYMPH % 30.8 % (8-40); MCH 26.4 pg (25.7-33.7); MCHC 31.6 g/dl (32.0-36.0); MEAN CELL VOLUME 83.6 fl (80-96); MEAN PLT VOLUME 8.4 fl (7.5-11.1); MONO % 7.4 % (3.8-10.2); NEUT % 55.5 % (42.8-82.8); PLATELET COUNT 221 K/MM3 (134-434); RBC 3.95 M/mm3 (3.60-5.2); RDW 18.8 % (11.6-15.6); WHITE BLOOD COUNT 9.9 K/mm3 (4.0-10.0)
[2018-05-01 08:07] LABS: ANION GAP 5 MMOL/L (8-16); BLOOD UREA NITROGEN 9 mg/dL (7-18); CALCIUM 8.1 mg/dL (8.5-10.1); CHLORIDE 110 mmol/L (98-107); CO2 28 mmol/L (21-32); CREATININE 0.6 mg/dL (0.55-1.3); GLUCOSE,RANDOM 94 mg/dL (74-106); MAGNESIUM 2.2 mg/dL (1.8-2.4); PHOSPHOROUS 3.4 mg/dL (2.5-4.9); POTASSIUM 4.2 mmol/L (3.5-5.1); SODIUM 144 mmol/L (136-145)
[2018-05-01] MEDS ORDERED: cefTRIAXone SODIUM 1 GM VIAL ONE (09:33)
[2018-05-01] MEDS ORDERED: DEXTROSE 5%-WATER - 50 ML IVPB ONE (09:33)
[2018-05-01] MEDS: LACTOBACILLUS ACIDOPHILUS 1 TABLET PO SCH (09:35)
[2018-05-01] MEDS: SERTRALINE HCL 50 MG TABLET (FP) PO SCH (09:35)
[2018-05-01] MEDS: METOPROLOL TARTRATE 50 MG TABLET (FP) PO SCH ×2 (09:35→21:44)
[2018-05-01] MEDS: CEFTRIAXONE 1 GM in DEXTROSE 5%-WATER - 50 ML IVPB SCH (09:35)
[2018-05-01] MEDS: GABAPENTIN 300 MG CAPSULE (FP) PO SCH (09:35)
--- NOTE | 2018-05-01 13:10 | PN ---
Physical Exam: SUBJECTIVE: Patient seen and examined at bed side this morning. States she feels better. Denies chest pain, sob, cough, palpitation, abdominal pain, nausea or vomiting. Urinary incontinence +. No acute overnight events. OBJECTIVE: Vital Signs Period Temp Pulse Resp BP Sys/Curiel Pulse Ox Last 24 Hr 97.9 F-98.5 F 72-93 18-20 120-128/50-60 95-96 GENERAL: Morbidly obese [place] speaking patient, lying in bed, is awake, alert , and fully oriented, in no acute distress. HEAD: Normal with no signs of trauma. EYES: EOM intact, no pallor or icterus. ENT: Ears normal, moist mucous membranes. NECK:Supple. LUNGS: B/L Breath sounds equal, clear to auscultation bilaterally, no wheezes, no crackles, no accessory muscle use. HEART: Regular rate and rhythm, S1, S2 with systolic murmur. ABDOMEN: Soft, nontender, no organomegaly, BS +. EXTREMITIES: 2+ pulses, warm, well-perfused, Lower edema. NEUROLOGICAL: No facial droop. Right Upper and lower ext: 3/5. Left 5/5 in upper and lower ext. Cranial nerves II through XII grossly intact. Normal speech , gait not observed. PSYCH: Normal mood, normal affect. SKIN: Warm, dry, normal turgor, no rashes or lesions noted Laboratory Results - last 24 hr 05/01/18 05/01/18 06:50 06:50 WBC 9.9 RBC 3.95 Hgb 10.4 L Hct 33.0 MCV 83.6 MCH 26.4 MCHC 31.6 L RDW 18.8 H Plt Count 221 MPV 8.4 Absolute Neuts (auto) 5.5 Neutrophils % 55.5 Lymphocytes % 30.8 Monocytes % 7.4 Eosinophils % 5.8 H Basophils % 0.5 Nucleated RBC % 0 Sodium 144 Potassium 4.2 Chloride 110 H Carbon Dioxide 28 Anion Gap 5 L BUN 9 Creatinine 0.6 Creat Clearance w eGFR > 60 Random Glucose 94 Calcium 8.1 L Phosphorus 3.4 Magnesium 2.2 Active Medications Generic Name Dose Route Start Last Admin Trade Name Freq PRN Reason Stop Dose Admin Acetaminophen 650 mg 04/28/18 18:39 Tylenol - PO Q4H PRN FEVER Gabapentin 300 mg 04/29/18 10:00 05/01/18 09:35 Neurontin - PO 300 mg DAILY DIANELYS Administration Ceftriaxone Sodium 1 gm/ 50 mls @ 100 mls/hr 04/30/18 13:45 05/01/18 09:35 Dextrose IVPB 100 mls/hr DAILY DIANELYS Administration Protocol Lactobacillus Acidophilus 1 tab 04/29/18 10:00 05/01/18 09:35 Bacid - PO 1 tab DAILY DIANELYS Administration Levothyroxine Sodium 100 mcg 04/29/18 07:00 05/01/18 06:14 Synthroid - PO 100 mcg DAILY@0700 DIANELYS Administration Metoprolol Tartrate 100 mg 04/28/18 22:00 05/01/18 09:35 Lopressor - PO 100 mg BID DIANELYS Administration Ondansetron HCl 4 mg 04/28/18 18:39 Zofran Injection IVPUSH Q6H PRN NAUSEA Rivaroxaban 20 mg 04/29/18 18:00 04/30/18 17:55 Xarelto - PO 20 mg DAILY@1800 DIANELYS Administration Rosuvastatin Calcium 40 mg 04/28/18 22:00 04/30/18 21:07 Crestor - PO 40 mg HS DIAN[facility]YS Administration Sertraline HCl 100 mg 04/29/18 10:00 05/01/18 09:35 Zoloft - PO 100 mg DAILY DIAN[facility] Administration ASSESSMENT/PLAN:
--- NOTE | 2018-05-01 15:14 | PN ---
Teaching Attending Note Name of Resident: Radha Azevedo ATTENDING PHYSICIAN STATEMENT I saw and evaluated the patient. I reviewed the resident's note and discussed the case with the resident. I agree with the resident's findings and plan as documented. SUBJECTIVE: Ms Weinstein is without complaint. She denies cp, sob, n/v. OBJECTIVE: Gen: nad, obese Pulm: ctab w/o w/r/r CV: rrr w/o m/r/g Abd: +bs, s/nt/nd Ext: chronic edema ASSESSMENT AND PLAN: (1) Sepsis Assessment/Plan: -resolved -blood cultures contaminant Code(s): A41.9 - SEPSIS, UNSPECIFIED ORGANISM (2) UTI (urinary tract infection) Assessment/Plan: -urine cultures growing klebsiella -rocephin 1gm IV daily, day 4 of antibiotics -lactobacillus -can transition to oral cephalosporin on discharge Code(s): N39.0 - URINARY TRACT INFECTION, SITE NOT SPECIFIED Qualifiers: Urinary tract infection type: acute cystitis Hematuria presence: without hematuria Qualified Code(s): N30.00 - Acute cystitis without hematuria (3) Atrial fibrillation Assessment/Plan: -sounds in sinus rhythm -continue lopressor and xarelto Code(s): I48.91 - UNSPECIFIED ATRIAL FIBRILLATION Qualifiers: Atrial fibrillation type: paroxysmal Qualified Code(s): I48.0 - Paroxysmal atrial fibrillation (4) Diastolic dysfunction Assessment/Plan: -not in exacerbation -ECHO reviewed Code(s): I51.9 - HEART DISEASE, UNSPECIFIED (5) Hypothyroidism Assessment/Plan: -continue synthroid Code(s): E03.9 - HYPOTHYROIDISM, UNSPECIFIED Qualifiers: Hypothyroidism type: unspecified Qualified Code(s): E03.9 - Hypothyroidism , unspecified (6) CAD (coronary artery disease) Assessment/Plan: -quiescent Code(s): I25.10 - ATHSCL HEART DISEASE OF [place] CORONARY ARTERY W/O ANG PCTRS Qualifiers: Coronary Disease-Associated Artery/Lesion type: [place] artery [place] vs. transplanted heart: [place] heart Associated angina: without angina Qualified Code(s): I25.10 - Atherosclerotic heart disease of [place] coronary artery without angina pectoris (7) HTN (hypertension) Assessment/Plan: -controlled -continue home regimen Code(s): I10 - ESSENTIAL (PRIMARY) HYPERTENSION Qualifiers: Hypertension type: essential hypertension Qualified Code(s): I10 - Essential (primary) hypertension (8) Osteoarthritis Assessment/Plan: -currently not complaining of pain Code(s): M19.90 - UNSPECIFIED OSTEOARTHRITIS, UNSPECIFIED SITE (9) FEN -replaced Problem List - Problems (1) Sepsis Code(s): A41.9 - SEPSIS, UNSPECIFIED ORGANISM (2) UTI (urinary tract infection) Code(s): N39.0 - URINARY TRACT INFECTION, SITE NOT SPECIFIED Qualifiers: Urinary tract infection type: acute cystitis Hematuria presence: without hematuria Qualified Code(s): N30.00 - Acute cystitis without hematuria (3) Atrial fibrillation Code(s): I48.91 - UNSPECIFIED ATRIAL FIBRILLATION Qualifiers: Atrial fibrillation type: paroxysmal Qualified Code(s): I48.0 - Paroxysmal atrial fibrillation (4) Diastolic dysfunction Code(s): I51.9 - HEART DISEASE, UNSPECIFIED (5) Hypothyroidism Code(s): E03.9 - HYPOTHYROIDISM, UNSPECIFIED Qualifiers: Hypothyroidism type: unspecified Qualified Code(s): E03.9 - Hypothyroidism , unspecified (6) CAD (coronary artery disease) Code(s): I25.10 - ATHSCL HEART DISEASE OF [place] CORONARY ARTERY W/O ANG PCTRS Qualifiers: Coronary Disease-Associated Artery/Lesion type: [place] artery [place] vs. transplanted heart: [place] heart Associated angina: without angina Qualified Code(s): I25.10 - Atherosclerotic heart disease of [place] coronary artery without angina pectoris (7) HTN (hypertension) Code(s): I10 - ESSENTIAL (PRIMARY) HYPERTENSION Qualifiers: Hypertension type: essential hypertension Qualified Code(s): I10 - Essential (primary) hypertension (8) Osteoarthritis Code(s): M19.90 - UNSPECIFIED OSTEOARTHRITIS, UNSPECIFIED SITE (9) Hypocalcemia Code(s): E83.51 - HYPOCALCEMIA (10) Hypomagnesemia Code(s): E83.42 - HYPOMAGNESEMIA (11) Hypokalemia Code(s): E87.6 - HYPOKALEMIA
--- NOTE | 2018-05-01 15:15 | ECHO ---
Name: OLAMIDE CRAVEN Exam:Adult Echocardiogram Study Date: 05/01/2018 11:32 AM Age: 77 yrs Reason For Study: FLUID OVERLOAD Height: 60 in Weight: 170 lb BSA: 1.7 m2 MMode/2D Measurements & Calculations IVSd: 0.70 cm Ao root diam: 2.8 cm LVIDd: 5.1 cm LA dimension: 4.0 cm LVIDs: 3.4 cm LVPWd: 0.66 cm EDV(Teich): 121.4 ml TAPSE: 1.6 cm ESV(Teich): 47.0 ml Doppler Measurements & Calculations MV E max rafiq: 109.1 cm/sec MR max rafiq: 401.6 cm/sec MV A max rafiq: 31.1 cm/sec MR max P.6 mmHg MV E/A: 3.5 MV dec time: 0.14 sec TR max rafiq: 254.2 cm/sec Med Peak E' Rafiq: 6.3 cm/sec TR max P.9 mmHg Med E/e': 17.5 Lat Peak E' Rafiq: 10.1 cm/sec Lat E/e': 10.8 Procedure A complete two-dimensional transthoracic echocardiogram was performed (2D, M-mode, Doppler and color flow Doppler). Left Ventricle The left ventricle is normal in size. Left ventricular systolic function is normal. Ejection Fraction = 60- 65%. Diastolic dysfunction, Grade III (restrictive pattern), consistent with markedly increased left atrial pressure. Ratio E/E'= 17. No regional wall motion abnormalities noted. Right Ventricle The right ventricle is normal size. The right ventricular systolic function is normal. RV systolic TD I is 10 cm/s. Atria The left atrial size is normal. Right atrial size is normal. Mitral Valve The mitral valve is normal in structure and function. There is mild to moderate mitral regurgitation. Tricuspid Valve The tricuspid valve is normal in structure and function. There is mild to moderate tricuspid regurgit ation. Pulmonary artery systolic pressure is at least 34 mmHg assuming RA pressure of 3 mmHg (normal IVC and >50% collapse). Aortic Valve The aortic valve is normal in structure and function. No aortic regurgitation is present. Pulmonic Valve The pulmonic valve is not well visualized. Great Vessels The aortic root is normal size. Pericardium/Pleura There is no pericardial effusion. Interpretation Summary The left ventricle is normal in size. Left ventricular systolic function is normal. No regional wall motion abnormalities noted. Ejection Fraction = 60-65%. Diastolic dysfunction, Grade III (restrictive pattern), consistent with markedly increased left atria l pressure. Ratio E/E'= 17 The right ventricular systolic function is normal. The left atrial size is normal. Right atrial size is normal. There is mild to moderate mitral regurgitation. There is mild to moderate tricuspid regurgitation. Pulmonary artery systolic pressure is at least 34 mmHg assuming RA pressure of 3 mmHg (normal IVC and >50% collapse) There is no pericardial effusion. Previous study is not available for comparison Lance García MD 05/01/2018 03:14 PM
--- NOTE | 2018-05-01 17:29 | PN ---
Physical Exam: SUBJECTIVE: Patient seen and examined at bed side this morning. States feels good. Denies chest pain, sob, cough, palpitation, abdominal pain, nausea or vomiting. OBJECTIVE: Vital Signs Period Temp Pulse Resp BP Sys/Curiel Pulse Ox Last 24 Hr 97.9 F-98.5 F 72-93 18-20 120-128/50-60 95-96 GENERAL: Morbidly obese Kazakh speaking patient, lying in bed, is awake, alert , and fully oriented, in no acute distress. HEAD: Normal with no signs of trauma. EYES: EOM intact, no pallor or icterus. ENT: Ears normal, moist mucous membranes. NECK:Supple. LUNGS: B/L Breath sounds equal, clear to auscultation bilaterally, no wheezes, no crackles, no accessory muscle use. HEART: Regular rate and rhythm, S1, S2 with systolic murmur. ABDOMEN: Soft, nontender, no organomegaly, BS +. EXTREMITIES: 2+ pulses, warm, well-perfused, Lower edema. NEUROLOGICAL: No facial droop. Right Upper and lower ext: 3/5. Left 5/5 in upper and lower ext. Cranial nerves II through XII grossly intact. Normal speech , gait not observed. PSYCH: Normal mood, normal affect. SKIN: Warm, dry, normal turgor, no rashes or lesions noted Laboratory Results - last 24 hr 05/01/18 05/01/18 06:50 06:50 WBC 9.9 RBC 3.95 Hgb 10.4 L Hct 33.0 MCV 83.6 MCH 26.4 MCHC 31.6 L RDW 18.8 H Plt Count 221 MPV 8.4 Absolute Neuts (auto) 5.5 Neutrophils % 55.5 Lymphocytes % 30.8 Monocytes % 7.4 Eosinophils % 5.8 H Basophils % 0.5 Nucleated RBC % 0 Sodium 144 Potassium 4.2 Chloride 110 H Carbon Dioxide 28 Anion Gap 5 L BUN 9 Creatinine 0.6 Creat Clearance w eGFR > 60 Random Glucose 94 Calcium 8.1 L Phosphorus 3.4 Magnesium 2.2 Active Medications Generic Name Dose Route Start Last Admin Trade Name Freq PRN Reason Stop Dose Admin Acetaminophen 650 mg 04/28/18 18:39 Tylenol - PO Q4H PRN FEVER Gabapentin 300 mg 04/29/18 10:00 05/01/18 09:35 Neurontin - PO 300 mg DAILY DIANEL[facility] Administration Ceftriaxone Sodium 1 gm/ 50 mls @ 100 mls/hr 04/30/18 13:45 05/01/18 09:35 Dextrose IVPB 100 mls/hr DAILY DIANEL[facility] Administration Protocol Lactobacillus Acidophilus 1 tab 04/29/18 10:00 05/01/18 09:35 Bacid - PO 1 tab DAILY DIAN[facility] Administration Levothyroxine Sodium 100 mcg 04/29/18 07:00 05/01/18 06:14 Synthroid - PO 100 mcg DAILY@0700 DIAN[facility] Administration Metoprolol Tartrate 100 mg 04/28/18 22:00 05/01/18 09:35 Lopressor - PO 100 mg BID DIANEL[facility] Administration Ondansetron HCl 4 mg 04/28/18 18:39 Zofran Injection IVPUSH Q6H PRN NAUSEA Rivaroxaban 20 mg 04/29/18 18:00 04/30/18 17:55 Xarelto - PO 20 mg DAILY@1800 DIAN[facility] Administration Rosuvastatin Calcium 40 mg 04/28/18 22:00 04/30/18 21:07 Crestor - PO 40 mg HS DIANELYS Administration Sertraline HCl 100 mg 04/29/18 10:00 05/01/18 09:35 Zoloft - PO 100 mg DAILY DIAN[facility] Administration ASSESSMENT/PLAN: Patient is a 77 year old [place] female with PMHx of HTN, HLD, Hypothyroidism, afib on xarelto who comes in after her family found that she was left in the chair overnight. # Sepsis secondary to UTI-resolving Afebrile overnight, no leukocytosis. Blood cultures staph coag. Urine culture Klebsiella resistant to Ampicilin only Continue IV Ceftriaxone 1 gm daily Day 2 # Atrial fibrillation-rate controlled Continue Lopressor Continue Xarelto # HLD Continue Crestor 40mg # HTN-controlled Continue Metoprolol 100 mg PO BID # Hypothyroidism Continue Levothyroxine 100 mcg # Diastolic dysfunction-not in exacerbation # FEN Not on IV fluids Electrolytes WNL Regular diet # Prophylaxis For DVT: Already on Xarelto For GI: Not indciated # Code status: Full Code # Illness, Investigation and Plan of care explained to the patient. She verbalized understanding. Case discussed with Dr. Simpson. Problem List - Problems (1) Atrial fibrillation Code(s): I48.91 - UNSPECIFIED ATRIAL FIBRILLATION Qualifiers: Atrial fibrillation type: paroxysmal Qualified Code(s): I48.0 - Paroxysmal atrial fibrillation (2) Hypocalcemia Code(s): E83.51 - HYPOCALCEMIA (3) Hypokalemia Code(s): E87.6 - HYPOKALEMIA (4) Hypomagnesemia Code(s): E83.42 - HYPOMAGNESEMIA (5) Sepsis Code(s): A41.9 - SEPSIS, UNSPECIFIED ORGANISM (6) UTI (urinary tract infection) Code(s): N39.0 - URINARY TRACT INFECTION, SITE NOT SPECIFIED Qualifiers: Urinary tract infection type: acute cystitis Hematuria presence: without hematuria Qualified Code(s): N30.00 - Acute cystitis without hematuria (7) Vasculitis Code(s): I77.6 - ARTERITIS, UNSPECIFIED Visit type - Emergency Visit Emergency Visit: Yes ED Registration Date: 04/28/18 Care time: The patient presented to the Emergency Department on the above date and was hospitalized for further evaluation of their emergent condition. - New Patient This patient is new to me today: Yes Date on this admission: 05/01/18 - Critical Care Critical Care patient: No - Discharge Referral Referred to [facility] Med P.C.: No
[2018-05-01] MEDS: RIVAROXABAN 20 MG TABLET PO SCH (17:30)
--- NOTE | 2018-05-01 17:53 | PN ---
Progress Note, Physician History of Present Illness: patient no new issues - Current Medication List Current Medications: Active Medications Acetaminophen (Tylenol -) 650 mg PO Q4H PRN PRN Reason: FEVER Gabapentin (Neurontin -) 300 mg PO DAILY [facility] Last Admin: 05/01/18 09:35 Dose: 300 mg Ceftriaxone Sodium 1 gm/ (Dextrose) 50 mls @ 100 mls/hr IVPB DAILY [facility]; Protocol Last Admin: 05/01/18 09:35 Dose: 100 mls/hr Lactobacillus Acidophilus (Bacid -) 1 tab PO DAILY [facility] Last Admin: 05/01/18 09:35 Dose: 1 tab Levothyroxine Sodium (Synthroid -) 100 mcg PO DAILY@0700 [facility] Last Admin: 05/01/18 06:14 Dose: 100 mcg Metoprolol Tartrate (Lopressor -) 100 mg PO BID [facility] Last Admin: 05/01/18 09:35 Dose: 100 mg Ondansetron HCl (Zofran Injection) 4 mg IVPUSH Q6H PRN PRN Reason: NAUSEA Rivaroxaban (Xarelto -) 20 mg PO DAILY@1800 [facility] Last Admin: 05/01/18 17:30 Dose: 20 mg Rosuvastatin Calcium (Crestor -) 40 mg PO HS [facility] Last Admin: 04/30/18 21:07 Dose: 40 mg Sertraline HCl (Zoloft -) 100 mg PO DAILY [facility] Last Admin: 05/01/18 09:35 Dose: 100 mg - Objective Vital Signs: Vital Signs Temperature 97.9 F 05/01/18 08:57 Pulse Rate 93 H 05/01/18 08:57 Respiratory Rate 18 05/01/18 08:57 Blood Pressure 128/57 L 05/01/18 08:57 O2 Sat by Pulse Oximetry (%) 95 05/01/18 09:00 Constitutional: Yes: No Distress, Calm, Obese Cardiovascular: Yes: Regular Rate and Rhythm Respiratory: Yes: Regular, CTA Bilaterally Gastrointestinal: Yes: Normal Bowel Sounds, Soft Musculoskeletal: Yes: WNL Extremities: Yes: Other Neurological: Yes: Alert, Oriented Psychiatric: Yes: Alert Labs: CBC, BMP 05/01/18 06:50 05/01/18 06:50 INR, PTT INR 1.39 (0.83-1.09) H 04/28/18 12:43 Assessment/Plan Problem List - Problems (1) Sepsis Code(s): A41.9 - SEPSIS, UNSPECIFIED ORGANISM (2) UTI (urinary tract infection) Code(s): N39.0 - URINARY TRACT INFECTION, SITE NOT SPECIFIED Qualifiers: Urinary tract infection type: acute cystitis Hematuria presence: without hematuria Qualified Code(s): N30.00 - Acute cystitis without hematuria (3) Atrial fibrillation Code(s): I48.91 - UNSPECIFIED ATRIAL FIBRILLATION Qualifiers: Atrial fibrillation type: paroxysmal Qualified Code(s): I48.0 - Paroxysmal atrial fibrillation (4) Diastolic dysfunction Code(s): I51.9 - HEART DISEASE, UNSPECIFIED (5) Hypothyroidism Code(s): E03.9 - HYPOTHYROIDISM, UNSPECIFIED Qualifiers: Hypothyroidism type: unspecified Qualified Code(s): E03.9 - Hypothyroidism , unspecified (6) CAD (coronary artery disease) Code(s): I25.10 - ATHSCL HEART DISEASE OF [place] CORONARY ARTERY W/O ANG PCTRS Qualifiers: Coronary Disease-Associated Artery/Lesion type: [place] artery [place] vs. transplanted heart: [place] heart Associated angina: without angina Qualified Code(s): I25.10 - Atherosclerotic heart disease of [place] coronary artery without angina pectoris (7) HTN (hypertension) Code(s): I10 - ESSENTIAL (PRIMARY) HYPERTENSION Qualifiers: Hypertension type: essential hypertension Qualified Code(s): I10 - Essential (primary) hypertension (8) Osteoarthritis Code(s): M19.90 - UNSPECIFIED OSTEOARTHRITIS, UNSPECIFIED SITE (9) Hypocalcemia Code(s): E83.51 - HYPOCALCEMIA (10) Hypomagnesemia Code(s): E83.42 - HYPOMAGNESEMIA (11) Hypokalemia Code(s): E87.6 - HYPOKALEMIA plan continue ceftriaxone will repeat blood cx probably a contaminant rest as per the team
[2018-05-01] MEDS ORDERED: ROSUVASTATIN CA 10 MG TABLET (FP) ONE (21:12)
[2018-05-01] MEDS: ROSUVASTATIN CA 20 MG TABLET (FP) PO SCH (21:43)
[2018-05-02] MEDS: LEVOTHYROXINE NA 100 MCG TABLET (FP) PO SCH (06:33)
[2018-05-02] MEDS: METOPROLOL TARTRATE 50 MG TABLET (FP) PO SCH ×2 (09:19→21:19)
[2018-05-02] MEDS: CEFTRIAXONE 1 GM in DEXTROSE 5%-WATER - 50 ML IVPB SCH (09:19)
[2018-05-02] MEDS: SERTRALINE HCL 50 MG TABLET (FP) PO SCH (09:19)
[2018-05-02] MEDS ORDERED: cefTRIAXone SODIUM 1 GM VIAL ONE (09:19)
[2018-05-02] MEDS ORDERED: DEXTROSE 5%-WATER - 50 ML IVPB ONE (09:19)
[2018-05-02] MEDS: GABAPENTIN 300 MG CAPSULE (FP) PO SCH (09:20)
[2018-05-02] MEDS: LACTOBACILLUS ACIDOPHILUS 1 TABLET PO SCH (09:20)
--- NOTE | 2018-05-02 13:14 | PN ---
Progress Note, Physician History of Present Illness: stable doing well no issues - Current Medication List Current Medications: Active Medications Acetaminophen (Tylenol -) 650 mg PO Q4H PRN PRN Reason: FEVER Last Admin: 05/01/18 21:45 Dose: 650 mg Gabapentin (Neurontin -) 300 mg PO DAILY [facility] Last Admin: 05/02/18 09:20 Dose: 300 mg Ceftriaxone Sodium 1 gm/ (Dextrose) 50 mls @ 100 mls/hr IVPB DAILY [facility]; Protocol Last Admin: 05/02/18 09:19 Dose: 100 mls/hr Lactobacillus Acidophilus (Bacid -) 1 tab PO DAILY [facility] Last Admin: 05/02/18 09:20 Dose: 1 tab Levothyroxine Sodium (Synthroid -) 100 mcg PO DAILY@0700 [facility] Last Admin: 05/02/18 06:33 Dose: 100 mcg Metoprolol Tartrate (Lopressor -) 100 mg PO BID [facility] Last Admin: 05/02/18 09:19 Dose: 100 mg Ondansetron HCl (Zofran Injection) 4 mg IVPUSH Q6H PRN PRN Reason: NAUSEA Rivaroxaban (Xarelto -) 20 mg PO DAILY@1800 [facility] Last Admin: 05/01/18 17:30 Dose: 20 mg Rosuvastatin Calcium (Crestor -) 40 mg PO HS [facility] Last Admin: 05/01/18 21:43 Dose: 40 mg Sertraline HCl (Zoloft -) 100 mg PO DAILY [facility] Last Admin: 05/02/18 09:19 Dose: 100 mg - Objective Vital Signs: Vital Signs Temperature 97.7 F 05/02/18 06:00 Pulse Rate 71 05/02/18 06:00 Respiratory Rate 19 05/01/18 22:00 Blood Pressure 142/44 L 05/02/18 06:00 O2 Sat by Pulse Oximetry (%) 96 05/02/18 09:00 Constitutional: Yes: No Distress, Calm, Obese Cardiovascular: Yes: Regular Rate and Rhythm Respiratory: Yes: Regular, CTA Bilaterally Gastrointestinal: Yes: Normal Bowel Sounds, Soft Musculoskeletal: Yes: WNL Extremities: Yes: WNL Edema: LLE: Trace, RLE: Trace Neurological: Yes: Alert, Oriented Psychiatric: Yes: Alert, Oriented Labs: CBC, BMP 05/01/18 06:50 05/01/18 06:50 INR, PTT INR 1.39 (0.83-1.09) H 04/28/18 12:43 Assessment/Plan Problem List - Problems (1) Sepsis Code(s): A41.9 - SEPSIS, UNSPECIFIED ORGANISM (2) UTI (urinary tract infection) Code(s): N39.0 - URINARY TRACT INFECTION, SITE NOT SPECIFIED Qualifiers: Urinary tract infection type: acute cystitis Hematuria presence: without hematuria Qualified Code(s): N30.00 - Acute cystitis without hematuria (3) Atrial fibrillation Code(s): I48.91 - UNSPECIFIED ATRIAL FIBRILLATION Qualifiers: Atrial fibrillation type: paroxysmal Qualified Code(s): I48.0 - Paroxysmal atrial fibrillation (4) Diastolic dysfunction Code(s): I51.9 - HEART DISEASE, UNSPECIFIED (5) Hypothyroidism Code(s): E03.9 - HYPOTHYROIDISM, UNSPECIFIED Qualifiers: Hypothyroidism type: unspecified Qualified Code(s): E03.9 - Hypothyroidism , unspecified (6) CAD (coronary artery disease) Code(s): I25.10 - ATHSCL HEART DISEASE OF [place] CORONARY ARTERY W/O ANG PCTRS Qualifiers: Coronary Disease-Associated Artery/Lesion type: [place] artery [place] vs. transplanted heart: [place] heart Associated angina: without angina Qualified Code(s): I25.10 - Atherosclerotic heart disease of [place] coronary artery without angina pectoris (7) HTN (hypertension) Code(s): I10 - ESSENTIAL (PRIMARY) HYPERTENSION Qualifiers: Hypertension type: essential hypertension Qualified Code(s): I10 - Essential (primary) hypertension (8) Osteoarthritis Code(s): M19.90 - UNSPECIFIED OSTEOARTHRITIS, UNSPECIFIED SITE (9) Hypocalcemia Code(s): E83.51 - HYPOCALCEMIA (10) Hypomagnesemia Code(s): E83.42 - HYPOMAGNESEMIA (11) Hypokalemia Code(s): E87.6 - HYPOKALEMIA plan continue ceftriaxone await repeat blood cx rest as per the team patient doing well if all cx negative will switch to oral tomorrow
--- NOTE | 2018-05-02 13:30 | PN ---
Progress Note, Physician Chief Complaint: Ms Weinstein says she is doing good today. Denies cp, sob, n/v. Says she has not had a bowel movement in 5 days, however roommate says she had 3 bowel movements yesterday. - Current Medication List Current Medications: Active Medications Acetaminophen (Tylenol -) 650 mg PO Q4H PRN PRN Reason: FEVER Last Admin: 05/01/18 21:45 Dose: 650 mg Cephalexin HCl (Keflex -) 500 mg PO BID [facility] Gabapentin (Neurontin -) 300 mg PO DAILY [facility] Last Admin: 05/02/18 09:20 Dose: 300 mg Ceftriaxone Sodium 1 gm/ (Dextrose) 50 mls @ 100 mls/hr IVPB DAILY [facility]; Protocol Stop: 05/02/18 23:59 Last Admin: 05/02/18 09:19 Dose: 100 mls/hr Lactobacillus Acidophilus (Bacid -) 1 tab PO DAILY [facility] Last Admin: 05/02/18 09:20 Dose: 1 tab Levothyroxine Sodium (Synthroid -) 100 mcg PO DAILY@0700 [facility] Last Admin: 05/02/18 06:33 Dose: 100 mcg Metoprolol Tartrate (Lopressor -) 100 mg PO BID [facility] Last Admin: 05/02/18 09:19 Dose: 100 mg Ondansetron HCl (Zofran Injection) 4 mg IVPUSH Q6H PRN PRN Reason: NAUSEA Rivaroxaban (Xarelto -) 20 mg PO DAILY@1800 [facility] Last Admin: 05/01/18 17:30 Dose: 20 mg Rosuvastatin Calcium (Crestor -) 40 mg PO HS [facility] Last Admin: 05/01/18 21:43 Dose: 40 mg Sertraline HCl (Zoloft -) 100 mg PO DAILY [facility] Last Admin: 05/02/18 09:19 Dose: 100 mg - Objective Vital Signs: Vital Signs Temperature 36.5 C 05/02/18 06:00 Pulse Rate 71 05/02/18 06:00 Respiratory Rate 19 05/01/18 22:00 Blood Pressure 142/44 L 05/02/18 06:00 O2 Sat by Pulse Oximetry (%) 96 05/02/18 09:00 Constitutional: Yes: No Distress, Calm, Obese Cardiovascular: Yes: Regular Rate and Rhythm. No: Gallop, Murmur, Rub Respiratory: Yes: Regular, CTA Bilaterally. No: Rales, Rhonchi, Wheezes Gastrointestinal: Yes: Normal Bowel Sounds, Soft. No: Distention, Tenderness Extremities: Yes: WNL Edema: No Labs: CBC, BMP 05/01/18 06:50 05/01/18 06:50 INR, PTT INR 1.39 (0.83-1.09) H 04/28/18 12:43 Problem List - Problems (1) Sepsis Code(s): A41.9 - SEPSIS, UNSPECIFIED ORGANISM (2) UTI (urinary tract infection) Code(s): N39.0 - URINARY TRACT INFECTION, SITE NOT SPECIFIED Qualifiers: Urinary tract infection type: acute cystitis Hematuria presence: without hematuria Qualified Code(s): N30.00 - Acute cystitis without hematuria (3) Atrial fibrillation Code(s): I48.91 - UNSPECIFIED ATRIAL FIBRILLATION Qualifiers: Atrial fibrillation type: paroxysmal Qualified Code(s): I48.0 - Paroxysmal atrial fibrillation (4) Diastolic dysfunction Code(s): I51.9 - HEART DISEASE, UNSPECIFIED (5) Hypothyroidism Code(s): E03.9 - HYPOTHYROIDISM, UNSPECIFIED Qualifiers: Hypothyroidism type: unspecified Qualified Code(s): E03.9 - Hypothyroidism , unspecified (6) CAD (coronary artery disease) Code(s): I25.10 - ATHSCL HEART DISEASE OF [place] CORONARY ARTERY W/O ANG PCTRS Qualifiers: Coronary Disease-Associated Artery/Lesion type: [place] artery [place] vs. transplanted heart: [place] heart Associated angina: without angina Qualified Code(s): I25.10 - Atherosclerotic heart disease of [place] coronary artery without angina pectoris (7) HTN (hypertension) Code(s): I10 - ESSENTIAL (PRIMARY) HYPERTENSION Qualifiers: Hypertension type: essential hypertension Qualified Code(s): I10 - Essential (primary) hypertension (8) Osteoarthritis Code(s): M19.90 - UNSPECIFIED OSTEOARTHRITIS, UNSPECIFIED SITE (9) Hypocalcemia Code(s): E83.51 - HYPOCALCEMIA (10) Hypomagnesemia Code(s): E83.42 - HYPOMAGNESEMIA (11) Hypokalemia Code(s): E87.6 - HYPOKALEMIA Assessment/Plan (1) Sepsis Assessment/Plan: -resolved -appreciate ID assistance -blood cultures contaminant Code(s): A41.9 - SEPSIS, UNSPECIFIED ORGANISM (2) UTI (urinary tract infection) Assessment/Plan: -urine cultures growing klebsiella -change to keflex tomorrow -needs two more days of antibiotics Code(s): N39.0 - URINARY TRACT INFECTION, SITE NOT SPECIFIED Qualifiers: Urinary tract infection type: acute cystitis Hematuria presence: without hematuria Qualified Code(s): N30.00 - Acute cystitis without hematuria (3) Atrial fibrillation Assessment/Plan: -sounds in sinus rhythm -continue lopressor and xarelto Code(s): I48.91 - UNSPECIFIED ATRIAL FIBRILLATION Qualifiers: Atrial fibrillation type: paroxysmal Qualified Code(s): I48.0 - Paroxysmal atrial fibrillation (4) Diastolic dysfunction Assessment/Plan: -not in exacerbation -restart lasix in am Code(s): I51.9 - HEART DISEASE, UNSPECIFIED (5) Hypothyroidism Assessment/Plan: -continue synthroid Code(s): E03.9 - HYPOTHYROIDISM, UNSPECIFIED Qualifiers: Hypothyroidism type: unspecified Qualified Code(s): E03.9 - Hypothyroidism , unspecified (6) CAD (coronary artery disease) Assessment/Plan: -quiescent Code(s): I25.10 - ATHSCL HEART DISEASE OF [place] CORONARY ARTERY W/O ANG PCTRS Qualifiers: Coronary Disease-Associated Artery/Lesion type: [place] artery [place] vs. transplanted heart: [place] heart Associated angina: without angina Qualified Code(s): I25.10 - Atherosclerotic heart disease of [place] coronary artery without angina pectoris (7) HTN (hypertension) Assessment/Plan: -controlled -continue home regimen Code(s): I10 - ESSENTIAL (PRIMARY) HYPERTENSION Qualifiers: Hypertension type: essential hypertension Qualified Code(s): I10 - Essential (primary) hypertension (8) Osteoarthritis Assessment/Plan: -currently not complaining of pain Code(s): M19.90 - UNSPECIFIED OSTEOARTHRITIS, UNSPECIFIED SITE (9) FEN -replaced Dispo -plan for discharge tomorrow, d/w SW about SNF placement
[2018-05-02] MEDS: RIVAROXABAN 20 MG TABLET PO SCH (17:46)
[2018-05-02] MEDS ORDERED: ROSUVASTATIN CA 10 MG TABLET (FP) ONE (21:07)
[2018-05-02] MEDS: ROSUVASTATIN CA 20 MG TABLET (FP) PO SCH (21:19)
[2018-05-03] MEDS: LEVOTHYROXINE NA 100 MCG TABLET (FP) PO SCH (06:19)
[2018-05-03 07:19] LABS: BASO % 0.7 % (0-2.0); EOS % 3.8 % (0-4.5); HEMATOCRIT 34.2 % (32.4-45.2); HEMOGLOBIN 10.6 GM/dL (10.7-15.3); MCHC 30.9 g/dl (32.0-36.0); MEAN CELL VOLUME 84.1 fl (80-96); MONO % 6.7 % (3.8-10.2); NEUT % 62.8 % (42.8-82.8); PLATELET COUNT 245 K/MM3 (134-434); RBC 4.07 M/mm3 (3.60-5.2); RDW 18.8 % (11.6-15.6); WHITE BLOOD COUNT 9.7 K/mm3 (4.0-10.0)
[2018-05-03 07:48] LABS: ANION GAP 6 MMOL/L (8-16); BLOOD UREA NITROGEN 9 mg/dL (7-18); CALCIUM 7.9 mg/dL (8.5-10.1); CHLORIDE 109 mmol/L (98-107); CO2 26 mmol/L (21-32); CREATININE 0.5 mg/dL (0.55-1.3); GLUCOSE,RANDOM 93 mg/dL (74-106); MAGNESIUM 2.1 mg/dL (1.8-2.4); PHOSPHOROUS 4.1 mg/dL (2.5-4.9); POTASSIUM 4.2 mmol/L (3.5-5.1); SODIUM 141 mmol/L (136-145)
[2018-05-03] MEDS: METOPROLOL TARTRATE 50 MG TABLET (FP) PO SCH ×2 (09:50→21:36)
[2018-05-03] MEDS: GABAPENTIN 300 MG CAPSULE (FP) PO SCH (09:50)
[2018-05-03] MEDS: LACTOBACILLUS ACIDOPHILUS 1 TABLET PO SCH (09:51)
[2018-05-03] MEDS: CEPHALEXIN MONOHYDRATE 500 MG CAPSULE (UD) PO SCH ×2 (09:51→21:36)
[2018-05-03] MEDS: SERTRALINE HCL 50 MG TABLET (FP) PO SCH (09:51)
[2018-05-03] MEDS ORDERED: FUROSEMIDE 40 MG TABLET (FP) PO SCH (10:00)
--- NOTE | 2018-05-03 12:54 | PN ---
Progress Note, Physician History of Present Illness: no new issues doing well - Current Medication List Current Medications: Active Medications Acetaminophen (Tylenol -) 650 mg PO Q4H PRN PRN Reason: FEVER Last Admin: 05/01/18 21:45 Dose: 650 mg Cephalexin HCl (Keflex -) 500 mg PO BID [facility] Last Admin: 05/03/18 09:51 Dose: 500 mg Furosemide (Lasix -) 20 mg PO DAILY [facility] Gabapentin (Neurontin -) 300 mg PO DAILY [facility] Last Admin: 05/03/18 09:50 Dose: 300 mg Lactobacillus Acidophilus (Bacid -) 1 tab PO DAILY [facility] Last Admin: 05/03/18 09:51 Dose: 1 tab Levothyroxine Sodium (Synthroid -) 100 mcg PO DAILY@0700 [facility] Last Admin: 05/03/18 06:19 Dose: 100 mcg Metoprolol Tartrate (Lopressor -) 100 mg PO BID [facility] Last Admin: 05/03/18 09:50 Dose: 100 mg Ondansetron HCl (Zofran Injection) 4 mg IVPUSH Q6H PRN PRN Reason: NAUSEA Rivaroxaban (Xarelto -) 20 mg PO DAILY@1800 [facility] Last Admin: 05/02/18 17:46 Dose: 20 mg Rosuvastatin Calcium (Crestor -) 40 mg PO HS [facility] Last Admin: 05/02/18 21:19 Dose: 40 mg Sertraline HCl (Zoloft -) 100 mg PO DAILY [facility] Last Admin: 05/03/18 09:51 Dose: 100 mg - Objective Vital Signs: Vital Signs Temperature 98.2 F 05/03/18 06:00 Pulse Rate 84 05/03/18 10:00 Respiratory Rate 20 05/03/18 10:00 Blood Pressure 132/76 05/03/18 10:00 O2 Sat by Pulse Oximetry (%) 96 05/02/18 21:00 Constitutional: Yes: No Distress, Calm, Obese Cardiovascular: Yes: S1, S2 Gastrointestinal: Yes: Normal Bowel Sounds, Soft Musculoskeletal: Yes: WNL Extremities: Yes: Other Neurological: Yes: Alert, Oriented Psychiatric: Yes: Alert, Oriented Labs: CBC, BMP 05/03/18 06:30 05/03/18 06:30 INR, PTT INR 1.39 (0.83-1.09) H 04/28/18 12:43 Assessment/Plan Problem List - Problems (1) Sepsis Code(s): A41.9 - SEPSIS, UNSPECIFIED ORGANISM (2) UTI (urinary tract infection) Code(s): N39.0 - URINARY TRACT INFECTION, SITE NOT SPECIFIED Qualifiers: Urinary tract infection type: acute cystitis Hematuria presence: without hematuria Qualified Code(s): N30.00 - Acute cystitis without hematuria (3) Atrial fibrillation Code(s): I48.91 - UNSPECIFIED ATRIAL FIBRILLATION Qualifiers: Atrial fibrillation type: paroxysmal Qualified Code(s): I48.0 - Paroxysmal atrial fibrillation (4) Diastolic dysfunction Code(s): I51.9 - HEART DISEASE, UNSPECIFIED (5) Hypothyroidism Code(s): E03.9 - HYPOTHYROIDISM, UNSPECIFIED Qualifiers: Hypothyroidism type: unspecified Qualified Code(s): E03.9 - Hypothyroidism , unspecified (6) CAD (coronary artery disease) Code(s): I25.10 - ATHSCL HEART DISEASE OF [place] CORONARY ARTERY W/O ANG PCTRS Qualifiers: Coronary Disease-Associated Artery/Lesion type: [place] artery [place] vs. transplanted heart: [place] heart Associated angina: without angina Qualified Code(s): I25.10 - Atherosclerotic heart disease of [place] coronary artery without angina pectoris (7) HTN (hypertension) Code(s): I10 - ESSENTIAL (PRIMARY) HYPERTENSION Qualifiers: Hypertension type: essential hypertension Qualified Code(s): I10 - Essential (primary) hypertension (8) Osteoarthritis Code(s): M19.90 - UNSPECIFIED OSTEOARTHRITIS, UNSPECIFIED SITE (9) Hypocalcemia Code(s): E83.51 - HYPOCALCEMIA (10) Hypomagnesemia Code(s): E83.42 - HYPOMAGNESEMIA (11) Hypokalemia Code(s): E87.6 - HYPOKALEMIA plan on oral abx finish course doing well rest as per the team
[2018-05-03] MEDS: RIVAROXABAN 20 MG TABLET PO SCH (17:06)
--- NOTE | 2018-05-03 17:28 | PN ---
Teaching Attending Note Name of Resident: Radha Azevedo ATTENDING PHYSICIAN STATEMENT I saw and evaluated the patient. I reviewed the resident's note and discussed the case with the resident. I agree with the resident's findings and plan as documented with exceptions below. SUBJECTIVE: Patient seen and examined. doing well, no abdominal pain or urinary symptoms. OBJECTIVE: Vital Signs Period Temp Pulse Resp BP Sys/Curiel Pulse Ox Last 24 Hr 97.9 F-98.9 F 78-87 20-20 132-152/60-93 96 Intake & Output 04/30/18 05/01/18 05/02/18 05/03/18 23:59 23:59 23:59 23:59 Intake Total 100 675 550 410 Balance 100 675 550 410 Weight 200 lb 12.8 oz 200 lb 8 oz 198 lb 4.8 oz 198 lb 4.8 oz General: sitting in bed in no acute distress Abdomen:Soft, obese, NT, no suprapubic or CVA tenderness Extremities: no edema Home Medications Medication Instructions Recorded Metoprolol Tartrate [Lopressor -] 100 mg PO BID #120 tablet 05/11/17 Sertraline HCl [Zoloft] 100 mg PO DAILY 05/11/17 Omeprazole 40 mg PO DAILY 10/02/17 Gabapentin 300 mg PO DAILY 10/03/17 Furosemide [Lasix -] 40 mg PO DAILY #30 tablet 10/08/17 Rosuvastatin [Crestor -] 40 mg PO HS tablet 10/08/17 Levothyroxine [Synthroid -] 100 mcg PO DAILY@0700 04/28/18 Rivaroxaban [Xarelto -] 20 mg PO DAILY 04/28/18 Active Medications Acetaminophen (Tylenol -) 650 mg PO Q4H PRN PRN Reason: FEVER Last Admin: 05/01/18 21:45 Dose: 650 mg Cephalexin HCl (Keflex -) 500 mg PO BID [facility] Last Admin: 05/03/18 09:51 Dose: 500 mg Furosemide (Lasix -) 20 mg PO DAILY [facility] Gabapentin (Neurontin -) 300 mg PO DAILY [facility] Last Admin: 05/03/18 09:50 Dose: 300 mg Lactobacillus Acidophilus (Bacid -) 1 tab PO DAILY [facility] Last Admin: 05/03/18 09:51 Dose: 1 tab Levothyroxine Sodium (Synthroid -) 100 mcg PO DAILY@0700 [facility] Last Admin: 05/03/18 06:19 Dose: 100 mcg Metoprolol Tartrate (Lopressor -) 100 mg PO BID [facility] Last Admin: 05/03/18 09:50 Dose: 100 mg Ondansetron HCl (Zofran Injection) 4 mg IVPUSH Q6H PRN PRN Reason: NAUSEA Rivaroxaban (Xarelto -) 20 mg PO DAILY@1800 [facility] Last Admin: 05/03/18 17:06 Dose: 20 mg Rosuvastatin Calcium (Crestor -) 40 mg PO HS [facility] Last Admin: 05/02/18 21:19 Dose: 40 mg Sertraline HCl (Zoloft -) 100 mg PO DAILY [facility] Last Admin: 05/03/18 09:51 Dose: 100 mg Laboratory Results - last 24 hr 05/03/18 05/03/18 06:30 06:30 WBC 9.7 RBC 4.07 Hgb 10.6 L Hct 34.2 MCV 84.1 MCH 26.0 MCHC 30.9 L RDW 18.8 H Plt Count 245 MPV 8.0 Absolute Neuts (auto) 6.1 Neutrophils % 62.8 Lymphocytes % 26.0 Monocytes % 6.7 Eosinophils % 3.8 Basophils % 0.7 Nucleated RBC % 0 Sodium 141 Potassium 4.2 Chloride 109 H Carbon Dioxide 26 Anion Gap 6 L BUN 9 Creatinine 0.5 L Creat Clearance w eGFR > 60 Random Glucose 93 Calcium 7.9 L Phosphorus 4.1 Magnesium 2.1 Microbiology 04/28/18 13:40 Blood - Peripheral Venous Blood Culture - Final NO GROWTH AFTER 5 DAYS INCUBATION 05/02/18 07:00 Blood - Peripheral Venous Blood Culture - Preliminary NO GROWTH OBTAINED AFTER 24 HOURS, INCUBATION TO CONTINUE FOR 4 DAYS. 05/02/18 06:30 Blood - Peripheral Venous Blood Culture - Preliminary NO GROWTH OBTAINED AFTER 24 HOURS, INCUBATION TO CONTINUE FOR 4 DAYS. 04/28/18 14:11 Blood - Peripheral Venous Blood Culture - Final Staphylococcus Epidermidis 04/28/18 14:38 Urine - Urine Clean Catch Urine Culture - Final Klebsiella Pneumoniae ASSESSMENT AND PLAN: 77 yof with PMHx of CAD, Afib on xarelto, HTN, HLD admitted with sepsis/UTI -Sepsis -Lower uncomplicated klebsiella UTI -Atrial fibrillation on xarelto -CAD -HTN -HLD -Grade III diastolic dysfunction Plan; keflex 1 more day. Lasix resumed at lower dose Continue home metoprolol/xarelto/sertraline/statin PT eval noted, for SNF. Dispo for SNF when bed available. Plan discussed with patient and daughters at bedside in detail, all questions answered.
--- NOTE | 2018-05-03 17:54 | PN ---
Physical Exam: SUBJECTIVE: Patient seen and examined at bed side this morning. No complaints. OBJECTIVE: Vital Signs Period Temp Pulse Resp BP Sys/Curiel Pulse Ox Last 24 Hr 97.9 F-98.9 F 78-87 20-20 132-152/60-93 96 GENERAL: Morbidly obese Portuguese speaking patient, lying in bed, is awake, alert , and fully oriented, in no acute distress. HEAD: Normal with no signs of trauma. EYES: EOM intact, no pallor or icterus. ENT: Ears normal, moist mucous membranes. NECK:Supple. LUNGS: B/L Breath sounds equal, clear to auscultation bilaterally, no wheezes, no crackles, no accessory muscle use. HEART: Regular rate and rhythm, S1, S2 with systolic murmur. ABDOMEN: Soft, nontender, no organomegaly, BS +. EXTREMITIES: 2+ pulses, warm, well-perfused, Lower edema. NEUROLOGICAL: No facial droop. Right Upper and lower ext: 3/5. Left 5/5 in upper and lower ext. Cranial nerves II through XII grossly intact. Normal speech , gait not observed. PSYCH: Normal mood, normal affect. SKIN: Warm, dry, normal turgor, no rashes or lesions noted Laboratory Results - last 24 hr 05/03/18 05/03/18 06:30 06:30 WBC 9.7 RBC 4.07 Hgb 10.6 L Hct 34.2 MCV 84.1 MCH 26.0 MCHC 30.9 L RDW 18.8 H Plt Count 245 MPV 8.0 Absolute Neuts (auto) 6.1 Neutrophils % 62.8 Lymphocytes % 26.0 Monocytes % 6.7 Eosinophils % 3.8 Basophils % 0.7 Nucleated RBC % 0 Sodium 141 Potassium 4.2 Chloride 109 H Carbon Dioxide 26 Anion Gap 6 L BUN 9 Creatinine 0.5 L Creat Clearance w eGFR > 60 Random Glucose 93 Calcium 7.9 L Phosphorus 4.1 Magnesium 2.1 Active Medications Generic Name Dose Route Start Last Admin Trade Name Freq PRN Reason Stop Dose Admin Acetaminophen 650 mg 04/28/18 18:39 05/01/18 21:45 Tylenol - PO 650 mg Q4H PRN Administration FEVER Cephalexin HCl 500 mg 05/03/18 10:00 05/03/18 09:51 Keflex - PO 500 mg BID DIANELYS Administration Furosemide 20 mg 05/04/18 10:00 Lasix - PO DAILY DIANELYS Gabapentin 300 mg 04/29/18 10:00 05/03/18 09:50 Neurontin - PO 300 mg DAILY DIANELYS Administration Lactobacillus Acidophilus 1 tab 04/29/18 10:00 05/03/18 09:51 Bacid - PO 1 tab DAILY DIANELYS Administration Levothyroxine Sodium 100 mcg 04/29/18 07:00 05/03/18 06:19 Synthroid - PO 100 mcg DAILY@0700 DIANELYS Administration Metoprolol Tartrate 100 mg 04/28/18 22:00 05/03/18 09:50 Lopressor - PO 100 mg BID DIANELYS Administration Ondansetron HCl 4 mg 04/28/18 18:39 Zofran Injection IVPUSH Q6H PRN NAUSEA Rivaroxaban 20 mg 04/29/18 18:00 05/03/18 17:06 Xarelto - PO 20 mg DAILY@1800 [facility] Administration Rosuvastatin Calcium 40 mg 04/28/18 22:00 05/02/18 21:19 Crestor - PO 40 mg HS DIANELYS Administration Sertraline HCl 100 mg 04/29/18 10:00 05/03/18 09:51 Zoloft - PO 100 mg DAILY DIANELYS Administration Microbiology 04/28/18 13:40 Blood - Peripheral Venous Blood Culture - Final NO GROWTH AFTER 5 DAYS INCUBATION 05/02/18 07:00 Blood - Peripheral Venous Blood Culture - Preliminary NO GROWTH OBTAINED AFTER 24 HOURS, INCUBATION TO CONTINUE FOR 4 DAYS. 05/02/18 06:30 Blood - Peripheral Venous Blood Culture - Preliminary NO GROWTH OBTAINED AFTER 24 HOURS, INCUBATION TO CONTINUE FOR 4 DAYS. 04/28/18 14:11 Blood - Peripheral Venous Blood Culture - Final Staphylococcus Epidermidis 04/28/18 14:38 Urine - Urine Clean Catch Urine Culture - Final Klebsiella Pneumoniae ASSESSMENT/PLAN: Patient is a 77 year old Portuguese female with PMHx of HTN, HLD, Hypothyroidism, afib on xarelto who comes in after her family found that she was left in the chair overnight. # Sepsis secondary to UTI-resolving Changed IV Ceftriaxone to PO Keflex 500 mg BID x 1 more day # Atrial fibrillation-rate controlled Continue Lopressor Continue Xarelto # HLD Continue Crestor 40mg # HTN-controlled Continue Metoprolol 100 mg PO BID # Hypothyroidism Continue Levothyroxine 100 mcg # Diastolic dysfunction-not in exacerbation # FEN Not on IV fluids Electrolytes WNL Regular diet # Prophylaxis For DVT: Already on Xarelto For GI: Not indciated # Code status: Full Code. # Dispo: Admitted in Med-Surg. walked 1 feet with PT 05/01/18. Pending SNF placement. # Illness, Investigation and Plan of care explained to the patient. She verbalized understanding. Case discussed with Dr. Pinon. Problem List - Problems (1) Atrial fibrillation Code(s): I48.91 - UNSPECIFIED ATRIAL FIBRILLATION Qualifiers: Atrial fibrillation type: paroxysmal Qualified Code(s): I48.0 - Paroxysmal atrial fibrillation (2) Hypocalcemia Code(s): E83.51 - HYPOCALCEMIA (3) Hypokalemia Code(s): E87.6 - HYPOKALEMIA (4) Hypomagnesemia Code(s): E83.42 - HYPOMAGNESEMIA (5) Sepsis Code(s): A41.9 - SEPSIS, UNSPECIFIED ORGANISM (6) UTI (urinary tract infection) Code(s): N39.0 - URINARY TRACT INFECTION, SITE NOT SPECIFIED Qualifiers: Urinary tract infection type: acute cystitis Hematuria presence: without hematuria Qualified Code(s): N30.00 - Acute cystitis without hematuria (7) Vasculitis Code(s): I77.6 - ARTERITIS, UNSPECIFIED Visit type - Emergency Visit Emergency Visit: Yes ED Registration Date: 04/28/18 Care time: The patient presented to the Emergency Department on the above date and was hospitalized for further evaluation of their emergent condition. - New Patient This patient is new to me today: No - Critical Care Critical Care patient: No - Discharge Referral Referred to [facility] Med P.C.: No
[2018-05-03] MEDS ORDERED: ROSUVASTATIN CA 10 MG TABLET (FP) ONE (21:16)
[2018-05-03] MEDS: ROSUVASTATIN CA 20 MG TABLET (FP) PO SCH (21:36)
[2018-05-04] MEDS: LEVOTHYROXINE NA 100 MCG TABLET (FP) PO SCH (06:26)
[2018-05-04 07:42] LABS: HEMATOCRIT 36.7 % (32.4-45.2); HEMOGLOBIN 11.4 GM/dL (10.7-15.3); MCH 25.9 pg (25.7-33.7); MEAN CELL VOLUME 83.4 fl (80-96); MEAN PLT VOLUME 8.2 fl (7.5-11.1); PLATELET COUNT 264 K/MM3 (134-434); RDW 18.7 % (11.6-15.6); WHITE BLOOD COUNT 10.9 K/mm3 (4.0-10.0)
[2018-05-04 08:12] LABS: ANION GAP 7 MMOL/L (8-16); BLOOD UREA NITROGEN 13 mg/dL (7-18); CALCIUM 8.2 mg/dL (8.5-10.1); CHLORIDE 108 mmol/L (98-107); CO2 27 mmol/L (21-32); CREATININE 0.6 mg/dL (0.55-1.3); GLUCOSE,RANDOM 94 mg/dL (74-106); POTASSIUM 4.4 mmol/L (3.5-5.1); SODIUM 141 mmol/L (136-145)
--- NOTE | 2018-05-04 09:38 | DS ---
Physical Exam: SUBJECTIVE: Patient seen and examined at bed side this morning. No complaints. OBJECTIVE: Vital Signs Period Temp Pulse Resp BP Sys/Curiel Pulse Ox Last 24 Hr 98.2 F-98.9 F 75-87 20-20 130-152/76-93 PHYSICAL EXAM GENERAL: Morbidly obese Armenian speaking patient, lying in bed, is awake, alert , and fully oriented, in no acute distress. HEAD: Normal with no signs of trauma. EYES: EOM intact, no pallor or icterus. ENT: Ears normal, moist mucous membranes. NECK:Supple. LUNGS: B/L Breath sounds equal, clear to auscultation bilaterally, no wheezes, no crackles, no accessory muscle use. HEART: Regular rate and rhythm, S1, S2 with systolic murmur. ABDOMEN: Soft, nontender, no organomegaly, BS +. EXTREMITIES: 2+ pulses, warm, well-perfused, Lower edema. NEUROLOGICAL: No facial droop. Right Upper and lower ext: 3/5. Left 5/5 in upper and lower ext. Cranial nerves II through XII grossly intact. Normal speech , gait not observed. PSYCH: Normal mood, normal affect. SKIN: Warm, dry, normal turgor, no rashes or lesions noted LABS Laboratory Results - last 24 hr 05/04/18 05/04/18 06:00 06:00 WBC 10.9 H RBC 4.40 Hgb 11.4 Hct 36.7 MCV 83.4 MCH 25.9 MCHC 31.0 L RDW 18.7 H Plt Count 264 MPV 8.2 Sodium 141 Potassium 4.4 Chloride 108 H Carbon Dioxide 27 Anion Gap 7 L BUN 13 Creatinine 0.6 Creat Clearance w eGFR > 60 Random Glucose 94 Calcium 8.2 L Microbiology 05/02/18 07:00 Blood - Peripheral Venous Blood Culture - Preliminary NO GROWTH OBTAINED AFTER 48 HOURS, INCUBATION TO CONTINUE FOR 3 DAYS. 05/02/18 06:30 Blood - Peripheral Venous Blood Culture - Preliminary NO GROWTH OBTAINED AFTER 48 HOURS, INCUBATION TO CONTINUE FOR 3 DAYS. 04/28/18 13:40 Blood - Peripheral Venous Blood Culture - Final NO GROWTH AFTER 5 DAYS INCUBATION 04/28/18 14:11 Blood - Peripheral Venous Blood Culture - Final Staphylococcus Epidermidis 04/28/18 14:38 Urine - Urine Clean Catch Urine Culture - Final Klebsiella Pneumoniae HOSPITAL COURSE: Date of Admission:04/28/18 Date of Discharge: 05/04/18 Patient is a 77 year old Armenian female with PMHx of HTN, HLD, Hypothyroidism, afib on xarelto who comes in after her family found that she was left in the chair overnight. Admitted with the diagnosis of Sepsis secondary to Urinary Tract infection. UA positive. Urine culture grew Klebsiella Pneumonia. Treated with IV Ceftriaxone and changed to PO Keflex. Needs to take one more day. Atrial fibrillation-rate controlled Continued Lopressor and Xarelto HLD: Continued Crestor 40mg HTN Controlled. Continued Metoprolol 100 mg PO BID Hypothyroidism Continued Levothyroxine 100 mcg Diastolic dysfunction-not in exacerbation Hospital course was uncomplicated. Patient is stable, walked one feet with physical therapy and discharging to SNF for short term rehab. Plan of care explained to the patient. She verbalized understanding. Minutes to complete discharge: 45 Discharge Summary Reason For Visit: UTI/VASCULITIS/SEPSIS Current Active Problems Hypocalcemia (Acute) Hypokalemia (Acute) Hypomagnesemia (Acute) Sepsis (Acute) UTI (urinary tract infection) (Acute) Atrial fibrillation (Chronic) Vasculitis (Chronic) Condition: Improved - Instructions Diet, Activity, Other Instructions: You were admitted for the treatment of urinary tract infection and was given IV Antibiotics. [facility] Please follow the instructions below: 1. Take one last dose of antibiotic today (Keflex) 2. Ensure to maintain adequate hydration 3. Follow up with your primary care physician within a week. 4. continue taking your home medications 5. Fall precautions. If your symptoms worsen or you develop any new symptoms, please call 911 and come to the ED immediately. Disposition: LONGTERM FACILITY - Home Medications Comprehensive Discharge Medication List: Ambulatory Orders Metoprolol Tartrate [Lopressor -] 100 mg PO BID #120 tablet 05/11/17 Sertraline HCl [Zoloft] 100 mg PO DAILY 05/11/17 Omeprazole 40 mg PO DAILY 10/02/17 Gabapentin 300 mg PO DAILY 10/03/17 Furosemide [Lasix -] 40 mg PO DAILY #30 tablet 10/08/17 Rosuvastatin [Crestor -] 40 mg PO HS tablet 10/08/17 Levothyroxine [Synthroid -] 100 mcg PO DAILY@0700 04/28/18 Rivaroxaban [Xarelto -] 20 mg PO DAILY 04/28/18 Cephalexin Monohydrate [Keflex -] 500 mg PO BID 1 Days #1 capsule 05/04/18 Problem List - Problems (1) Atrial fibrillation Code(s): I48.91 - UNSPECIFIED ATRIAL FIBRILLATION Qualifiers: Atrial fibrillation type: paroxysmal Qualified Code(s): I48.0 - Paroxysmal atrial fibrillation (2) Hypocalcemia Code(s): E83.51 - HYPOCALCEMIA (3) Hypokalemia Code(s): E87.6 - HYPOKALEMIA (4) Hypomagnesemia Code(s): E83.42 - HYPOMAGNESEMIA (5) Sepsis Code(s): A41.9 - SEPSIS, UNSPECIFIED ORGANISM (6) UTI (urinary tract infection) Code(s): N39.0 - URINARY TRACT INFECTION, SITE NOT SPECIFIED Qualifiers: Urinary tract infection type: acute cystitis Hematuria presence: without hematuria Qualified Code(s): N30.00 - Acute cystitis without hematuria (7) Vasculitis Code(s): I77.6 - ARTERITIS, UNSPECIFIED This patient is new to me today: Yes Date on this admission: 05/04/18 Emergency Visit: No Critical Care patient: No - Discharge Referral [facility] Med P.C.: No
[2018-05-04] MEDS: GABAPENTIN 300 MG CAPSULE (FP) PO SCH (09:48)
[2018-05-04] MEDS: LACTOBACILLUS ACIDOPHILUS 1 TABLET PO SCH (09:48)
[2018-05-04] MEDS: SERTRALINE HCL 50 MG TABLET (FP) PO SCH (09:48)
[2018-05-04] MEDS: CEPHALEXIN MONOHYDRATE 500 MG CAPSULE (UD) PO SCH (09:48)
[2018-05-04] MEDS: METOPROLOL TARTRATE 50 MG TABLET (FP) PO SCH (09:48)
[2018-05-04] MEDS ORDERED: FUROSEMIDE 20 MG TABLET (FP) PO SCH (10:00)
[2018-05-04 12:53] VITALS: BP 118/68; PULSE 80; TEMP 98.9
--- NOTE | 2018-05-04 13:32 | PN ---
Teaching Attending Note Name of Resident: Radha Azevedo ATTENDING PHYSICIAN STATEMENT I saw and evaluated the patient. I reviewed the resident's note and discussed the case with the resident. I agree with the resident's findings and plan as documented with exceptions below. SUBJECTIVE: Patient seen and examined. no complaints. OBJECTIVE: Vital Signs Period Temp Pulse Resp BP Sys/Curiel Pulse Ox Last 24 Hr 98.2 F-98.9 F 75-87 20-20 118-152/68-93 Intake & Output 05/01/18 05/02/18 05/03/18 05/04/18 23:59 23:59 23:59 23:59 Intake Total 675 550 610 575 Balance 675 550 610 575 Weight 200 lb 8 oz 198 lb 4.8 oz 198 lb 4.8 oz 198 lb 1 oz General: lying in bed in no acute distress Abdomen:soft, NT, no suprapubic or CVA tenderness Extremities: bilateral strong DP pulses noted Home Medications Medication Instructions Recorded Metoprolol Tartrate [Lopressor -] 100 mg PO BID #120 tablet 05/11/17 Sertraline HCl [Zoloft] 100 mg PO DAILY 05/11/17 Omeprazole 40 mg PO DAILY 10/02/17 Gabapentin 300 mg PO DAILY 10/03/17 Furosemide [Lasix -] 40 mg PO DAILY #30 tablet 10/08/17 Rosuvastatin [Crestor -] 40 mg PO HS tablet 10/08/17 Levothyroxine [Synthroid -] 100 mcg PO DAILY@0700 04/28/18 Rivaroxaban [Xarelto -] 20 mg PO DAILY 04/28/18 Cephalexin Monohydrate [Keflex -] 500 mg PO BID 1 Days #1 capsule 05/04/18 Laboratory Results - last 24 hr 05/04/18 05/04/18 06:00 06:00 WBC 10.9 H RBC 4.40 Hgb 11.4 Hct 36.7 MCV 83.4 MCH 25.9 MCHC 31.0 L RDW 18.7 H Plt Count 264 MPV 8.2 Sodium 141 Potassium 4.4 Chloride 108 H Carbon Dioxide 27 Anion Gap 7 L BUN 13 Creatinine 0.6 Creat Clearance w eGFR > 60 Random Glucose 94 Calcium 8.2 L Microbiology 05/02/18 07:00 Blood - Peripheral Venous Blood Culture - Preliminary NO GROWTH OBTAINED AFTER 48 HOURS, INCUBATION TO CONTINUE FOR 3 DAYS. 05/02/18 06:30 Blood - Peripheral Venous Blood Culture - Preliminary NO GROWTH OBTAINED AFTER 48 HOURS, INCUBATION TO CONTINUE FOR 3 DAYS. 04/28/18 13:40 Blood - Peripheral Venous Blood Culture - Final NO GROWTH AFTER 5 DAYS INCUBATION 04/28/18 14:11 Blood - Peripheral Venous Blood Culture - Final Staphylococcus Epidermidis 04/28/18 14:38 Urine - Urine Clean Catch Urine Culture - Final Klebsiella Pneumoniae ASSESSMENT AND PLAN: 77 yof with PMHx of CAD, Afib on xarelto, HTN, HLD admitted with sepsis/UTI -Sepsis -Lower uncomplicated klebsiella UTI -Atrial fibrillation on xarelto -CAD -HTN -HLD -Grade III diastolic dysfunction Plan; keflex 1 more day. Resume lasix at home dose. Continue home metoprolol/xarelto/sertraline/statin PT eval noted, for SNF. Dispo d/c to SNF today.
--- NOTE | 2018-05-04 14:57 | PN ---
Progress Note, Physician History of Present Illness: no new issues doing well - Current Medication List Current Medications: Active Medications Acetaminophen (Tylenol -) 650 mg PO Q4H PRN PRN Reason: FEVER Last Admin: 05/01/18 21:45 Dose: 650 mg Cephalexin HCl (Keflex -) 500 mg PO BID [facility] Last Admin: 05/04/18 09:48 Dose: 500 mg Furosemide (Lasix -) 20 mg PO DAILY [facility] Last Admin: 05/04/18 09:48 Dose: 20 mg Gabapentin (Neurontin -) 300 mg PO DAILY [facility] Last Admin: 05/04/18 09:48 Dose: 300 mg Lactobacillus Acidophilus (Bacid -) 1 tab PO DAILY [facility] Last Admin: 05/04/18 09:48 Dose: 1 tab Levothyroxine Sodium (Synthroid -) 100 mcg PO DAILY@0700 [facility] Last Admin: 05/04/18 06:26 Dose: 100 mcg Metoprolol Tartrate (Lopressor -) 100 mg PO BID [facility] Last Admin: 05/04/18 09:48 Dose: 100 mg Ondansetron HCl (Zofran Injection) 4 mg IVPUSH Q6H PRN PRN Reason: NAUSEA Rivaroxaban (Xarelto -) 20 mg PO DAILY@1800 [facility] Last Admin: 05/03/18 17:06 Dose: 20 mg Rosuvastatin Calcium (Crestor -) 40 mg PO HS [facility] Last Admin: 05/03/18 21:36 Dose: 40 mg Sertraline HCl (Zoloft -) 100 mg PO DAILY [facility] Last Admin: 05/04/18 09:48 Dose: 100 mg - Objective Vital Signs: Vital Signs Temperature 98.9 F 05/04/18 14:19 Pulse Rate 80 05/04/18 14:19 Respiratory Rate 20 05/04/18 05:45 Blood Pressure 118/68 05/04/18 14:19 O2 Sat by Pulse Oximetry (%) 93 L 05/04/18 09:00 Constitutional: Yes: No Distress, Calm Cardiovascular: Yes: S1, S2 Respiratory: Yes: Regular, CTA Bilaterally Gastrointestinal: Yes: Normal Bowel Sounds, Soft Musculoskeletal: Yes: WNL Extremities: Yes: WNL Neurological: Yes: Alert, Oriented Psychiatric: Yes: Alert Labs: CBC, BMP 05/04/18 06:00 05/04/18 06:00 INR, PTT INR 1.39 (0.83-1.09) H 04/28/18 12:43 Assessment/Plan Problem List - Problems (1) Sepsis Code(s): A41.9 - SEPSIS, UNSPECIFIED ORGANISM (2) UTI (urinary tract infection) Code(s): N39.0 - URINARY TRACT INFECTION, SITE NOT SPECIFIED Qualifiers: Urinary tract infection type: acute cystitis Hematuria presence: without hematuria Qualified Code(s): N30.00 - Acute cystitis without hematuria (3) Atrial fibrillation Code(s): I48.91 - UNSPECIFIED ATRIAL FIBRILLATION Qualifiers: Atrial fibrillation type: paroxysmal Qualified Code(s): I48.0 - Paroxysmal atrial fibrillation (4) Diastolic dysfunction Code(s): I51.9 - HEART DISEASE, UNSPECIFIED (5) Hypothyroidism Code(s): E03.9 - HYPOTHYROIDISM, UNSPECIFIED Qualifiers: Hypothyroidism type: unspecified Qualified Code(s): E03.9 - Hypothyroidism , unspecified (6) CAD (coronary artery disease) Code(s): I25.10 - ATHSCL HEART DISEASE OF [place] CORONARY ARTERY W/O ANG PCTRS Qualifiers: Coronary Disease-Associated Artery/Lesion type: [place] artery [place] vs. transplanted heart: [place] heart Associated angina: without angina Qualified Code(s): I25.10 - Atherosclerotic heart disease of [place] coronary artery without angina pectoris (7) HTN (hypertension) Code(s): I10 - ESSENTIAL (PRIMARY) HYPERTENSION Qualifiers: Hypertension type: essential hypertension Qualified Code(s): I10 - Essential (primary) hypertension (8) Osteoarthritis Code(s): M19.90 - UNSPECIFIED OSTEOARTHRITIS, UNSPECIFIED SITE (9) Hypocalcemia Code(s): E83.51 - HYPOCALCEMIA (10) Hypomagnesemia Code(s): E83.42 - HYPOMAGNESEMIA (11) Hypokalemia Code(s): E87.6 - HYPOKALEMIA plan on oral abx finish course doing well rest as per the team
== END 2018-05-04 17:27 | DRG 872 ==
LOC: JER 10:35 → JERBED 17:47 → J6S 21:08
PROVIDERS: ADMIT Internal Medicine; ATTEND Hospitalist
DX: A41.1 Sepsis due to other specified staphylococcus (principal); N39.0 Urinary tract infection, site not specified; I50.30 Unspecified diastolic (congestive) heart failure; B96.1 Klebsiella pneumoniae [K. pneumoniae] as the cause of diseases classified elsewhere; I48.0 Paroxysmal atrial fibrillation; E03.9 Hypothyroidism, unspecified; I25.10 Atherosclerotic heart disease of native coronary artery without angina pectoris; I11.0 Hypertensive heart disease with heart failure; M19.90 Unspecified osteoarthritis, unspecified site; E87.6 Hypokalemia; E83.42 Hypomagnesemia; E83.51 Hypocalcemia; E66.9 Obesity, unspecified; Z68.38 Body mass index [BMI] 38.0-38.9, adult
CPT/HCPCS: 36415; 71045-TC-FY; 80048; 80053; 81003; 81015; 82550; 82553; 82962; 83605; 83735; 83880; 84100; 84443; 84484; 85025; 85027; 85610; 85730; 86850; 86900; 86901; 87040; 87086; 87186; 93005; 93010; 93306-TC; 93970-TC; 97116-GP; 97161-GP; 99284-25; J7030

== ENCOUNTER 2018-08-24 14:14 | Inpatient (IN) | payer OTHER ==
--- NOTE | 2018-08-24 15:18 | PDOC ---
History of Present Illness - General Chief Complaint: SIRS, Suspected/Possible Stated Complaint: FEVER History Source: Patient, Roller [employer]er Used ([id number]) Exam Limitations: No Limitations - History of Present Illness Initial Comments: 78 yo F with a hx of HTN, CAD (s/p [place] no stents), CHF (diastolic dysfunction Grade III), afib (on xarelto), hypothyroidism, and arthritis presents to the emergency department with lightheadedness, fever, worsening dysuria and left flank pain. Per the patient, she has chronic UTIs and is frequently treated for them. She states for the past 1 week she has had worse dysuria. In addition, she states she has been having fevers and nausea without vomiting and diarrhea. Currently, she has pain in the left flank 10/10 non radiating constant pain. Denies the following: dizziness, visual changes, headache, hematuria, hematochezia, and leg pain/swelling. At baseline she does not walk. Allergies: NKDA Shx: Multiple extremity surgeries. Denies abdominal surgeries. Social: Denies tobacco, alcohol, and substance abuse. Past History - Past Medical History Allergies/Adverse Reactions: Allergies Allergy/AdvReac Type Severity Reaction Status Date / Time No Known Allergies Allergy Unverified 08/24/18 15:10 Home Medications: Ambulatory Orders Metoprolol Tartrate [Lopressor -] 100 mg PO BID #120 tablet 05/11/17 Sertraline HCl [Zoloft] 100 mg PO DAILY 05/11/17 Furosemide [Lasix -] 40 mg PO DAILY #30 tablet 10/08/17 Rosuvastatin [Crestor -] 40 mg PO HS tablet 10/08/17 Rivaroxaban [Xarelto -] 20 mg PO DAILY 04/28/18 Gabapentin [Neurontin -] 300 mg PO DAILY 08/24/18 Ranitidine [Zantac -] 150 mg PO BID 08/24/18 Anemia: No Asthma: No Cancer: No Cardiac Disorders: Yes (CAD, atrial fibrillation) CVA: Yes (unable to ambulate) COPD: No CHF: Yes Dementia: No Diabetes: No GI Disorders: Yes (gerd) Disorders: No HTN: Yes Hypercholesterolemia: Yes Liver Disease: No Psychiatric Problems: Yes (DEPRESSION) Seizures: Yes (hypothyroidism.) Thyroid Disease: Yes - Surgical History Abdominal Surgery: No Appendectomy: No Cardiac Surgery: No Cholecystectomy: No Lung Surgery: No Neurologic Surgery: No Orthopedic Surgery: Yes - Suicide/Smoking/Psychosocial Hx Smoking History: Never smoked Have you smoked in the past 12 months: No Information on smoking cessation initiated: No Hx Alcohol Use: No Drug/Substance Use Hx: No Substance Use Type: None Hx Substance Use Treatment: No Review of Systems - Review of Systems Able to Perform ROS?: Yes (refer to HPI) Is the patient limited Lao proficient: No *Physical Exam - Vital Signs Last Vital Signs Temp Pulse Resp BP Pulse Ox 99.5 F 69 16 146/74 100 08/24/18 14:14 08/24/18 14:14 08/24/18 14:14 08/24/18 14:14 08/24/18 14:14 - Physical Exam Comments: 08/24/18 15:50 ttp through abdomen worse in the LLQ and midline lower abdomen. positive cva tenderness on the left. General Appearance: Yes: Nourished, Appropriately Dressed. No: Apparent Distress, Intoxicated HEENT: positive: EOMI, RANDALL, Normal Voice, Symmetrical, Pharynx Normal, Hearing Grossly Normal. negative: Pale Conjunctivae, Scleral Icterus (R), Scleral Icterus (L), Muffled/Hoarse voice, Pharyngeal Erythema, Tonsillar Exudate, Tonsillar Erythema, Excessive drooling Neck: positive: Trachea midline, Supple. negative: Tender, Lymphadenopathy (R) , Lymphadenopathy (L), Tender lateral, Tender midline Respiratory/Chest: positive: Lungs Clear, Normal Breath Sounds. negative: Chest Tender, Respiratory Distress, Accessory Muscle Use, Crackles, Rales, Rhonchi, Stridor, Wheezing Cardiovascular: positive: Regular Rhythm, Regular Rate, S1, S2. negative: Systolic Murmur Gastrointestinal/Abdominal: positive: Normal Bowel Sounds, Tender (diffusely but point of maximal tenderness in the LLQ and LUQ. ), Flat, Soft. negative: Guarding, Rebound Lymphatic: negative: Adenopathy Musculoskeletal: positive: Normal Inspection, CVA Tenderness (L). negative: CVA Tenderness (R), Vertebral Tenderness Extremity: positive: Normal Capillary Refill, Normal Inspection, Normal Range of Motion. negative: Tender, Swelling, Calf Tenderness Integumentary: positive: Normal Color, Dry, Warm. negative: Swelling, Ecchymosis Neurologic: positive: supervisor tumblers II-XII NML intact, Fully Oriented, Alert, Normal Mood/ Affect, Normal Response, Motor Strength 5/5. negative: Facial Droop, Sensory Deficit ED Treatment Course - LABORATORY CBC & Chemistry Diagram: 08/25/18 06:30 08/25/18 06:30 Medical Decision Making - Medical Decision Making 78 yo F with a hx of HTN, CAD (s/p PR no stents), CHF (diastolic dysfunction Grade III), afib (on xarelto), hypothyroidism, and arthritis presents to the emergency department with lightheadedness, fever, worsening dysuria and left flank pain. Initial vitals: Initial Vital Signs Temp Pulse Resp BP Pulse Ox 99.5 F 69 16 146/74 100 08/24/18 14:14 08/24/18 14:14 08/24/18 14:14 08/24/18 14:14 08/24/18 14:14 Work up ddx: nephrolithiasis vs UTI vs diverticulitits vs proctitis vs pyelonephritis patient states she has chronic UTIs for the past few years with most recent bout in june 2018. Per the patient, her dysuria has been more severe with worsening flank pain over 1 week. concerning for a complicated UTI secondary to stone impaction due to positive cva tenderness. will order a CT abdomen and pelvis to rule out stone. Laboratory Tests 08/24/18 08/24/18 08/24/18 15:47 15:47 16:05 WBC 9.1 RBC 4.52 Hgb 11.7 Hct 36.6 MCV 81.0 MCH 25.8 MCHC 31.8 L RDW 17.2 H Plt Count 259 MPV 7.9 Absolute Neuts (auto) 5.7 Neutrophils % 62.6 Lymphocytes % 27.0 Monocytes % 6.1 Eosinophils % 3.7 Basophils % 0.6 Nucleated RBC % 0 Sodium 143 Potassium 4.1 Chloride 109 H Carbon Dioxide 28 Anion Gap 6 L BUN 12 Creatinine 0.6 Creat Clearance w eGFR 96.94 Random Glucose 113 H Calcium 8.5 Total Bilirubin 0.4 AST 12 L ALT 10 L Alkaline Phosphatase 115 Creatine Kinase 33 Troponin I < 0.02 Total Protein 6.8 Albumin 3.2 L Urine Color Yellow Urine Appearance Clear Urine pH 7.0 D Ur Specific [place] 1.009 L Urine Protein Negative Urine Glucose (UA) Negative Urine Ketones Negative Urine Blood 2+ H Urine Nitrite Negative Urine Bilirubin Negative Urine Urobilinogen 0.2 Ur Leukocyte Esterase 2+ H Urine WBC (Auto) 7 Urine RBC (Auto) 17 Urine Casts (Auto) 0 U Epithel Cells (Auto) 0.6 Urine Bacteria (Auto) 3096.4 UA shows that 2+ blood, 2+ leukocyte esterase with 7 WBC and [address] abdomen and pelvis pending at time of sign out. Patient received ceftriaxone and tylenol. CXR does not show an acute process and EKG shows afib without ST elevations or depression. Patient signed out to Dr. Schroeder *DC/Admit/Observation/Transfer Diagnosis at time of Disposition: UTI (urinary tract infection) Qualifiers: Urinary tract infection type: acute cystitis Hematuria presence: without hematuria Qualified Code(s): N30.00 - Acute cystitis without hematuria - Discharge Dispostion Condition at time of disposition: Stable - Referrals - Patient Instructions - Post Discharge Activity
[2018-08-24 15:32] VITALS: BMI 27.3
[2018-08-24] MEDS ORDERED: ACETAMINOPHEN 1000 MG/100 ML VIAL (NON FORMULARY) IVPB ONE (15:39)
[2018-08-24 15:56] LABS: BASO % 0.6 % (0-2.0); EOS % 3.7 % (0-4.5); HEMATOCRIT 36.6 % (32.4-45.2); HEMOGLOBIN 11.7 GM/dL (10.7-15.3); MCH 25.8 pg (25.7-33.7); MCHC 31.8 g/dl (32.0-36.0); MEAN PLT VOLUME 7.9 fl (7.5-11.1); MONO % 6.1 % (3.8-10.2); NEUT % 62.6 % (42.8-82.8); PLATELET COUNT 259 K/MM3 (134-434); RBC 4.52 M/mm3 (3.60-5.2); RDW 17.2 % (11.6-15.6); WHITE BLOOD COUNT 9.1 K/mm3 (4.0-10.0)
[2018-08-24] MEDS ORDERED: ACETAMINOPHEN INJECTION 100 ML IVPB ONE (15:56)
[2018-08-24 16:50] LABS: EPI CELLS 0.6 /HPF (0-5/HPF); HYALINE CASTS 0 /lpf (0-8); URINE APPEARANCE CLEAR; URINE BACTERIA 3096.4 /hpf (NEGATIVE); URINE BILIRUBIN NEGATIVE (NEGATIVE); URINE COLOR YELLOW; URINE GLUCOSE (UA) NEGATIVE (NEGATIVE); URINE KETONE NEGATIVE (NEGATIVE); URINE LEUK ESTERASE 2+ (NEGATIVE); URINE NITRITE NEGATIVE (NEGATIVE); URINE PROTEIN NEGATIVE (NEGATIVE); URINE RBC 17 /hpf (0-4); URINE UROBILINOGEN 0.2 mg/dL (0.2-1.0); URINE WBC 7 /hpf (0-5)
[2018-08-24] MEDS ORDERED: CEFTRIAXONE 1,000 MG in DEXTROSE 5%-WATER - 50 ML IVPB ONE (17:04)
[2018-08-24 17:13] LABS: ALBUMIN 3.2 g/dl (3.4-5.0); ALK PHOS 115 U/L (45-117); ANION GAP 6 MMOL/L (8-16); BILIRUBIN,TOTAL 0.4 mg/dL (0.2-1); BLOOD UREA NITROGEN 12 mg/dL (7-18); CALCIUM 8.5 mg/dL (8.5-10.1); CHLORIDE 109 mmol/L (98-107); CO2 28 mmol/L (21-32); CREATININE 0.6 mg/dL (0.55-1.3); GLUCOSE,RANDOM 113 mg/dL (74-106); POTASSIUM 4.1 mmol/L (3.5-5.1); SGOT/AST 12 U/L (15-37); SGPT/ALT 10 U/L (13-61); SODIUM 143 mmol/L (136-145); TOT PROT 6.8 g/dl (6.4-8.2)
[2018-08-24] MEDS ORDERED: CEFTRIAXONE 1 GM/50 ML BAG ONE (18:09)
--- NOTE | 2018-08-24 20:37 | PDOC ---
Documentation entered by Fariba Rivera SCRIBE, acting as scribe for Abdullahi Varela MD. Abdullahi Varela MD: This documentation has been prepared by the Nicole dejesus Adrianna, SCRIBE, under my direction and personally reviewed by me in its entirety. I confirm that the documentation accurately reflects all work, treatment, procedures, and medical decision making performed by me. *Physical Exam - Vital Signs Last Vital Signs Temp Pulse Resp BP Pulse Ox 99.6 F 69 16 146/74 100 08/24/18 15:27 08/24/18 14:14 08/24/18 14:14 08/24/18 14:14 08/24/18 14:14 ED Treatment Course - LABORATORY CBC & Chemistry Diagram: 08/24/18 15:47 08/24/18 15:47 - ADDITIONAL ORDERS Additional order review: Laboratory Results 08/24/18 08/24/18 16:05 15:47 Sodium 143 Potassium 4.1 Chloride 109 H Carbon Dioxide 28 Anion Gap 6 L BUN 12 Creatinine 0.6 Creat Clearance w eGFR 96.94 Random Glucose 113 H Calcium 8.5 Total Bilirubin 0.4 AST 12 L ALT 10 L Alkaline Phosphatase 115 Creatine Kinase 33 Troponin I < 0.02 Total Protein 6.8 Albumin 3.2 L Urine Color Yellow Urine Appearance Clear Urine pH 7.0 D Ur Specific [place] 1.009 L Urine Protein Negative Urine Glucose (UA) Negative Urine Ketones Negative Urine Blood 2+ H Urine Nitrite Negative Urine Bilirubin Negative Urine Urobilinogen 0.2 Ur Leukocyte Esterase 2+ H Urine WBC (Auto) 7 Urine RBC (Auto) 17 Urine Casts (Auto) 0 U Epithel Cells (Auto) 0.6 Urine Bacteria (Auto) 3096.4 08/24/18 15:47 RBC 4.52 MCV 81.0 MCHC 31.8 L RDW 17.2 H MPV 7.9 Neutrophils % 62.6 Lymphocytes % 27.0 Monocytes % 6.1 Eosinophils % 3.7 Basophils % 0.6 - RADIOLOGY Radiograph Interpretation: EXAM#: TYPE/EXAM: RESULT: [id number] CT/ABDOMEN PELVIS CT W/O CONTR Abdomen and pelvis CT without contrast Clinical information given: rule out stone Impression: No definite CT findings of acute pathology are identified. Nonobstructing left renal calculi are noted. Colonic diverticulosis. Probable mild cardiomegaly. Correlate with echocardiography. Reported By: Walter Ramirez MD 08/24/18 19:39 08/24/18 20:13 - Medications Given in the ED: ED Medications Discontinued Medications Generic Name Dose Route Start Last Admin Trade Name Freq PRN Reason Stop Dose Admin Acetaminophen 1,000 mg 08/24/18 15:39 08/24/18 15:59 Ofirmev Injection - IVPB 08/24/18 15:40 1,000 mg ONCE ONE Administration Ceftriaxone Sodium 1,000 mg/ 50 mls @ 100 mls/hr 08/24/18 17:04 08/24/18 18: 34 Dextrose IVPB 08/24/18 17:33 100 mls/hr ONCE ONE Administration Medical Decision Making - Medical Decision Making 08/24/18 22:54 nephrolith in context of gu infection *DC/Admit/Observation/Transfer Diagnosis at time of Disposition: Nephrolith - Discharge Dispostion Condition at time of disposition: Stable - Referrals - Patient Instructions - Post Discharge Activity
--- NOTE | 2018-08-24 21:46 | PN ---
Teaching Attending Note Name of Resident: Daniel Finch ATTENDING PHYSICIAN STATEMENT I saw and evaluated the patient. I reviewed the resident's note and discussed the case with the resident. I agree with the resident's findings and plan as documented. SUBJECTIVE: Patient is a 78 year old woman a significant PMH of CVA, HTN, Afib (on Xarelto) , hypothyroidism, CAD (s/p [place] w/o stents), CHF (diastolic dysfunction), depression, arthritis, GERD, multiple falls, and recurrent UTIs, who presents to the ER complaining of dysuria for 1 week, and flank pain for one day. Patient notes she experiences mild dysuria at baseline secondary to her recurrent UTIs, but it has progressively worsened over the past week with increased urinary frequency. Patient also complains of left flank pain, which she describes as localized, constant, and sharp. She has associated lightheadedness, generalized weakness, fever, nausea, and mild dyspnea. Patient notes she does not walk at baseline secondary to her NH. The patient denies chest pain, headache, dizziness, and visual changes. Denies chills, vomit, diarrhea and constipation. Denies urgency and hematuria. OBJECTIVE: Alert Vital Signs Period Temp Pulse Resp BP Sys/Curiel Pulse Ox Last 24 Hr 98.3 F-99.6 F 63-69 16-17 116-146/72-74 97-100 HEENT: No Jaundice, eye redness or discharge, PERRLA, EOMI. Normocephalic, atraumatic. External ears are normal and hearing is grossly intact. No nasal discharge. Neck: Supple, nontender. No palpable adenopathy or thyromegaly. No JVD Chest: Good effort. Clear to auscultation and percussion. Heart: Irregularly irregular. No S3, rub or murmur Abdomen: Not distended, soft, nontender and no HSM. No rebound or guarding. Normal bowel sounds. Ext: Peripheral pulses intact. No leg edema. Skin: Warm and dry. No petechiae, rash or ecchymosis. Neuro: Alert. Oriented x3. CN 2-12 grossly intact. Sensation grossly intact in all four extremities and DTR are symmetric. Psych: Appropriate mood and affect. Good insight. Current Medications Generic Name Dose Route Start Last Admin Trade Name Freq PRN Reason Stop Dose Admin Acetaminophen 650 mg 08/24/18 21:50 Tylenol - PO Q4H PRN PAIN Furosemide 40 mg 08/25/18 10:00 Lasix - PO DAILY [facility] Gabapentin 300 mg 08/25/18 10:00 Neurontin - PO DAILY [facility] Ceftriaxone Sodium 1 gm/ 50 mls @ 100 mls/hr 08/25/18 10:00 Dextrose IVPB DAILY [facility] Protocol Metoprolol Tartrate 100 mg 08/24/18 22:00 Lopressor - PO BID [facility] Ranitidine HCl 150 mg 08/24/18 22:00 Zantac - PO BID [facility] Rivaroxaban 20 mg 08/25/18 10:00 Xarelto - PO DAILY [facility] Rosuvastatin Calcium 40 mg 08/24/18 22:00 Crestor - PO HS [facility] Sertraline HCl 100 mg 08/25/18 10:00 Zoloft - PO DAILY [facility] Home Medications Medication Instructions Recorded Metoprolol Tartrate [Lopressor -] 100 mg PO BID #120 tablet 05/11/17 Sertraline HCl [Zoloft] 100 mg PO DAILY 05/11/17 Furosemide [Lasix -] 40 mg PO DAILY #30 tablet 10/08/17 Rosuvastatin [Crestor -] 40 mg PO HS tablet 10/08/17 Rivaroxaban [Xarelto -] 20 mg PO DAILY 04/28/18 Gabapentin [Neurontin -] 300 mg PO DAILY 08/24/18 Ranitidine [Zantac -] 150 mg PO BID 08/24/18 Abnormal Lab Results 08/24/18 08/24/18 08/24/18 15:47 15:47 16:05 MCHC 31.8 L RDW 17.2 H Chloride 109 H Anion Gap 6 L Random Glucose 113 H AST 12 L ALT 10 L Albumin 3.2 L Ur Specific [place] 1.009 L Urine Blood 2+ H Ur Leukocyte Esterase 2+ H ASSESSMENT AND PLAN: 1. Pyelonephritis with right side kidney stone - CT shows a nonobstructing right kidney stone. No acute pathology on CXR. Being treated with IV Rocephin pending cultures. Needs outpatient workup for stone disease risk factor. Give flomax. Continue lopressor and xarelto for afib. 2. Hypoalbuminemia - Possibly due to combined effects of malnutrition and inflammation associated with comorbid chronic conditions. Will ensure adequate dietary protein intake and also consult electrical development engineer. 3. Hypertension - Restart outpatient antihypertensive drugs and revise regimen to ensure smooth [id number] good BP control. Nonpharmacologic measures to control hypertension like weight loss, salt restriction and exercise discussed. 4. DVT prophylaxis - On Xarelto for Afib 5. Advance directives - Full code
[2018-08-24] MEDS ORDERED: ACETAMINOPHEN 325 MG TABLET (FP) PO PRN (21:50)
[2018-08-24] MEDS ORDERED: ROSUVASTATIN CA 20 MG TABLET (FP) PO SCH (22:00)
--- NOTE | 2018-08-24 22:08 | PDOC ---
*Physical Exam - Vital Signs Last Vital Signs Temp Pulse Resp BP Pulse Ox 98.3 F 63 17 116/72 97 08/24/18 19:58 08/24/18 19:58 08/24/18 19:58 08/24/18 19:58 08/24/18 19:58 ED Treatment Course - LABORATORY CBC & Chemistry Diagram: 08/24/18 15:47 08/24/18 15:47 - ADDITIONAL ORDERS Additional order review: Laboratory Results 08/24/18 08/24/18 16:05 15:47 Sodium 143 Potassium 4.1 Chloride 109 H Carbon Dioxide 28 Anion Gap 6 L BUN 12 Creatinine 0.6 Creat Clearance w eGFR 96.94 Random Glucose 113 H Calcium 8.5 Total Bilirubin 0.4 AST 12 L ALT 10 L Alkaline Phosphatase 115 Creatine Kinase 33 Troponin I < 0.02 Total Protein 6.8 Albumin 3.2 L Urine Color Yellow Urine Appearance Clear Urine pH 7.0 D Ur Specific [place] 1.009 L Urine Protein Negative Urine Glucose (UA) Negative Urine Ketones Negative Urine Blood 2+ H Urine Nitrite Negative Urine Bilirubin Negative Urine Urobilinogen 0.2 Ur Leukocyte Esterase 2+ H Urine WBC (Auto) 7 Urine RBC (Auto) 17 Urine Casts (Auto) 0 U Epithel Cells (Auto) 0.6 Urine Bacteria (Auto) 3096.4 08/24/18 15:47 RBC 4.52 MCV 81.0 MCHC 31.8 L RDW 17.2 H MPV 7.9 Neutrophils % 62.6 Lymphocytes % 27.0 Monocytes % 6.1 Eosinophils % 3.7 Basophils % 0.6 - Medications Given in the ED: ED Medications Discontinued Medications Generic Name Dose Route Start Last Admin Trade Name Sayra PRN Reason Stop Dose Admin Acetaminophen 1,000 mg 08/24/18 15:39 08/24/18 15:59 Ofirmev Injection - IVPB 08/24/18 15:40 1,000 mg ONCE ONE Administration Ceftriaxone Sodium 1,000 mg/ 50 mls @ 100 mls/hr 08/24/18 17:04 08/24/18 18: 34 Dextrose IVPB 08/24/18 17:33 100 mls/hr ONCE ONE Administration Medical Decision Making - Medical Decision Making Patient signed out to me with UTI pending CT results for nephrolith rule out. Non obstructing nephrolith found so patient will be admitted. Given ceftriaxone. 08/24/18 22:01 *DC/Admit/Observation/Transfer Diagnosis at time of Disposition: Nephrolith - Discharge Dispostion Condition at time of disposition: Stable Decision to Admit order: Yes - Referrals - Patient Instructions - Post Discharge Activity
[2018-08-24] MEDS ORDERED: RANITIDINE HCL 150 MG TABLET (FP) ONE (22:11)
[2018-08-24] MEDS ORDERED: METOPROLOL TARTRATE 50 MG TABLET (FP) ONE (22:12)
[2018-08-24] MEDS: METOPROLOL TARTRATE 50 MG TABLET (FP) PO SCH (23:07)
[2018-08-24] MEDS: RANITIDINE HCL 150 MG TABLET (FP) PO SCH (23:07)
--- NOTE | 2018-08-24 23:46 | HP ---
CHIEF COMPLAINT: left flank pain pain, dysuria PCP: HISTORY OF PRESENT ILLNESS: Patient is a 78 y/o F w/ PMHx HTN, CAD s/p [place] no stents, grade III diastolic CHF , Afib on Xarelto, hypothyroidism, arthritis, recurrent UTIs, p/w left flank pain and dysuria over 1 week worsening to 10/10 severity and since today lightheadedness, subjective fever, nausea. ROS otherwise negative. Afebrile w/ stable vitals on presentation. CBC, CMP wnl, UA with 7 WBC, 17 RBC, 2+ LE, 3096 bacteria. Per ED signout, patient had exquisite LLQ, L flank, L CVA tenderness initially. Given Ceftriaxone and Ofirmev in ED, symptomatically improved and only c/o residual L flank pain at time of encounter. CTA showed non-obstructing L renal stone, otherwise unremarkable. Recent Travel: PAST MEDICAL HISTORY: As per HPI PAST SURGICAL HISTORY: unspecified thyroid Sx, multiple procedures related to arthritis Social History: Smoking: Alcohol: Drugs: Family History: Allergies No Known Allergies Allergy (Unverified 08/24/18 15:10) HOME MEDICATIONS: Home Medications Medication Instructions Recorded Metoprolol Tartrate [Lopressor -] 100 mg PO BID #120 tablet 05/11/17 Sertraline HCl [Zoloft] 100 mg PO DAILY 05/11/17 Furosemide [Lasix -] 40 mg PO DAILY #30 tablet 10/08/17 Rosuvastatin [Crestor -] 40 mg PO HS tablet 10/08/17 Rivaroxaban [Xarelto -] 20 mg PO DAILY 04/28/18 Gabapentin [Neurontin -] 300 mg PO DAILY 08/24/18 Ranitidine [Zantac -] 150 mg PO BID 08/24/18 REVIEW OF SYSTEMS As per HPI PHYSICAL EXAMINATION Vital Signs - 24 hr 08/24/18 08/24/18 08/24/18 14:14 15:27 19:58 Temperature 99.5 F 99.6 F 98.3 F Pulse Rate 69 Pulse Rate [ 63 Right Radial] Respiratory 16 17 Rate Blood Pressure 146/74 Blood Pressure 116/72 [Left Arm] O2 Sat by Pulse 100 97 Oximetry (%) GENERAL: A&Ox3, NAD HEENT: NC/AT, PERRLA, EOMI, MMM NECK: Trachea midline, full range of motion, supple. LUNGS: CTA b/l HEART: RRR no m/r/g ABDOMEN: +bs, soft, mild LLQ and L flank pain MSK: +mild L CVA tenderness EXTREMITIES: 2+ pulses, warm, well-perfused, no edema. NEUROLOGICAL: sales service professional, motor, sensory systems w/o focal deficit PSYCH: Normal mood, normal affect. SKIN: Warm, dry, normal turgor, no rashes or lesions noted Laboratory Results - last 24 hr 08/24/18 08/24/18 08/24/18 15:47 15:47 16:05 WBC 9.1 RBC 4.52 Hgb 11.7 Hct 36.6 MCV 81.0 MCH 25.8 MCHC 31.8 L RDW 17.2 H Plt Count 259 MPV 7.9 Absolute Neuts (auto) 5.7 Neutrophils % 62.6 Lymphocytes % 27.0 Monocytes % 6.1 Eosinophils % 3.7 Basophils % 0.6 Nucleated RBC % 0 Sodium 143 Potassium 4.1 Chloride 109 H Carbon Dioxide 28 Anion Gap 6 L BUN 12 Creatinine 0.6 Creat Clearance w eGFR 96.94 Random Glucose 113 H Calcium 8.5 Total Bilirubin 0.4 AST 12 L ALT 10 L Alkaline Phosphatase 115 Creatine Kinase 33 Troponin I < 0.02 Total Protein 6.8 Albumin 3.2 L Urine Color Yellow Urine Appearance Clear Urine pH 7.0 D Ur Specific [place] 1.009 L Urine Protein Negative Urine Glucose (UA) Negative Urine Ketones Negative Urine Blood 2+ H Urine Nitrite Negative Urine Bilirubin Negative Urine Urobilinogen 0.2 Ur Leukocyte Esterase 2+ H Urine WBC (Auto) 7 Urine RBC (Auto) 17 Urine Casts (Auto) 0 U Epithel Cells (Auto) 0.6 Urine Bacteria (Auto) 3096.4 ASSESSMENT/PLAN: 78 y/o F w/ PMHx HTN, CAD s/p [place] no stents, grade III diastolic CHF, Afib on Xarelto, hypothyroidism, arthritis, recurrent UTIs, p/w left flank pain and dysuria #A: -meets criteria for pyelonephritis -CAD -CHF -Afib #P -cont ceftriaxone -tylenol for pain -restarted home Zantac, Gabapentin, Sertraline, Crestor, Xarelto, Lopressor, Lasix -no IVF -f/u BMP, Mg, Phos -Na-controlled diet -Xarelto for DVT PPx -full code -admit to med/surg Visit type - Emergency Visit Emergency Visit: Yes ED Registration Date: 08/24/18 Care time: The patient presented to the Emergency Department on the above date and was hospitalized for further evaluation of their emergent condition. - New Patient This patient is new to me today: Yes Date on this admission: 08/24/18 - Critical Care Critical Care patient: No
[2018-08-25 07:36] LABS: BASO % 0.5 % (0-2.0); EOS % 4.5 % (0-4.5); HEMATOCRIT 34.5 % (32.4-45.2); HEMOGLOBIN 10.9 GM/dL (10.7-15.3); LYMPH % 28.2 % (8-40); MCH 25.4 pg (25.7-33.7); MCHC 31.7 g/dl (32.0-36.0); MEAN PLT VOLUME 8.2 fl (7.5-11.1); MONO % 6.3 % (3.8-10.2); NEUT % 60.5 % (42.8-82.8); PLATELET COUNT 256 K/MM3 (134-434); RBC 4.31 M/mm3 (3.60-5.2); RDW 17.5 % (11.6-15.6); WHITE BLOOD COUNT 9.1 K/mm3 (4.0-10.0)
[2018-08-25] MEDS ORDERED: TAMSULOSIN HCL 0.4 MG CAP PO SCH (08:30)
[2018-08-25] MEDS ORDERED: cefTRIAXone SODIUM 1 GM VIAL ONE (09:40)
[2018-08-25] MEDS ORDERED: DEXTROSE 5%-WATER - 50 ML IVPB ONE (09:40)
[2018-08-25] MEDS: METOPROLOL TARTRATE 50 MG TABLET (FP) PO SCH (09:47)
[2018-08-25] MEDS: RANITIDINE HCL 150 MG TABLET (FP) PO SCH (09:48)
[2018-08-25] MEDS ORDERED: SERTRALINE HCL 50 MG TABLET (FP) PO SCH (10:00)
[2018-08-25] MEDS ORDERED: RIVAROXABAN 20 MG TABLET PO SCH (10:00)
[2018-08-25] MEDS ORDERED: FUROSEMIDE 40 MG TABLET (FP) PO SCH (10:00)
[2018-08-25] MEDS ORDERED: CEFTRIAXONE 1 GM in DEXTROSE 5%-WATER - 50 ML IVPB SCH (10:00)
[2018-08-25] MEDS ORDERED: GABAPENTIN 300 MG CAPSULE (FP) PO SCH (10:00)
[2018-08-25 10:18] LABS: BLOOD UREA NITROGEN 15 mg/dL (7-18); CREATININE 0.5 mg/dL (0.55-1.3); GLUCOSE,RANDOM 92 mg/dL (74-106)
[2018-08-25 10:19] LABS: ANION GAP 9 MMOL/L (8-16); CALCIUM 8.5 mg/dL (8.5-10.1); CHLORIDE 107 mmol/L (98-107); CO2 26 mmol/L (21-32); MAGNESIUM 2.1 mg/dL (1.8-2.4); PHOSPHOROUS 4.5 mg/dL (2.5-4.9); SODIUM 142 mmol/L (136-145)
--- NOTE | 2018-08-25 11:26 | EKG ---
Test Reason : Blood Pressure : / mmHG Vent. Rate : 065 BPM Atrial Rate : 067 BPM P-R Int : 000 ms QRS Dur : 084 ms QT Int : 434 ms P-R-T Axes : 000 042 212 degrees QTc Int : 451 ms ATRIAL FIBRILLATION WITH PREMATURE VENTRICULAR OR ABERRANTLY CONDUCTED COMPLEXES SEPTAL INFARCT , AGE UNDETERMINED ABNORMAL ECG Confirmed by RICO BUSBY MD ([id number]) on 08/25/2018 11:26:23 AM Referred By: Confirmed By:RICO BUSBY MD
--- NOTE | 2018-08-25 14:35 | DS ---
Physical Exam: SUBJECTIVE: Patient seen and examined at bedside this morning. She endorses significant improvement with her pain. Currently denies subjective fevers, chills, shortness of breath, chest pain, palpitations, abdominal pain, nausea, vomiting, diarrhea, hematochezia, hematuria, dysuria. OBJECTIVE: Vital Signs Period Temp Pulse Resp BP Sys/Curiel Pulse Ox Last 24 Hr 97.9 F-99.6 F 60-84 17-18 116-146/67-91 94-97 PHYSICAL EXAM GENERAL: The patient is awake, alert, and fully oriented, in no acute distress. HEAD: Normocephalic, atraumatic. EYES: PERRL, extraocular movements intact, sclera anicteric, conjunctiva clear. ENT: Oropharynx clear, without erythema or exudates. Moist mucous membranes. NECK: Trachea midline, full range of motion. Supple without lymphadenopathy. LUNGS: Breath sounds equal, clear to auscultation bilaterally, no wheezes, no crackles. No accessory muscle use. HEART: Regular rate and rhythm, S1, S2 without murmur, rub or gallop. ABDOMEN: Obese. Soft, nondistended, nontender to light and deep palpation x4 quadrants, no rebound tenderness, no guarding. Normoactive bowel sounds x4 quadrants. no hepatosplenomegaly, no masses. EXTREMITIES: 2+ radial, dorsalis pedis pulses bilaterally. Warm, well-perfused. No lower extremity edema bilaterally. NEUROLOGICAL: Cranial nerves II through XII grossly intact. Normal speech. No gross focal deficits. PSYCH: Normal mood, normal affect upon my encounter. SKIN: Warm, dry. LABS Laboratory Results - last 24 hr 08/24/18 08/24/18 08/24/18 15:47 15:47 16:05 WBC 9.1 RBC 4.52 Hgb 11.7 Hct 36.6 MCV 81.0 MCH 25.8 MCHC 31.8 L RDW 17.2 H Plt Count 259 MPV 7.9 Absolute Neuts (auto) 5.7 Neutrophils % 62.6 Lymphocytes % 27.0 Monocytes % 6.1 Eosinophils % 3.7 Basophils % 0.6 Nucleated RBC % 0 Sodium 143 Potassium 4.1 Chloride 109 H Carbon Dioxide 28 Anion Gap 6 L BUN 12 Creatinine 0.6 Creat Clearance w eGFR 96.94 POC Glucometer Random Glucose 113 H Calcium 8.5 Phosphorus Magnesium Total Bilirubin 0.4 AST 12 L ALT 10 L Alkaline Phosphatase 115 Creatine Kinase 33 Troponin I < 0.02 Total Protein 6.8 Albumin 3.2 L Urine Color Yellow Urine Appearance Clear Urine pH 7.0 D Ur Specific [place] 1.009 L Urine Protein Negative Urine Glucose (UA) Negative Urine Ketones Negative Urine Blood 2+ H Urine Nitrite Negative Urine Bilirubin Negative Urine Urobilinogen 0.2 Ur Leukocyte Esterase 2+ H Urine WBC (Auto) 7 Urine RBC (Auto) 17 Urine Casts (Auto) 0 U Epithel Cells (Auto) 0.6 Urine Bacteria (Auto) 3096.4 08/25/18 08/25/18 08/25/18 05:43 06:30 06:30 WBC 9.1 RBC 4.31 Hgb 10.9 Hct 34.5 MCV 80.0 MCH 25.4 L MCHC 31.7 L RDW 17.5 H Plt Count 256 MPV 8.2 Absolute Neuts (auto) 5.5 Neutrophils % 60.5 Lymphocytes % 28.2 Monocytes % 6.3 Eosinophils % 4.5 Basophils % 0.5 Nucleated RBC % 0 Sodium 142 Potassium 4.0 Chloride 107 Carbon Dioxide 26 Anion Gap 9 BUN 15 Creatinine 0.5 L Creat Clearance w eGFR 119.64 POC Glucometer 102 Random Glucose 92 Calcium 8.5 Phosphorus 4.5 Magnesium 2.1 Total Bilirubin AST ALT Alkaline Phosphatase Creatine Kinase Troponin I Total Protein Albumin Urine Color Urine Appearance Urine pH Ur Specific [place] Urine Protein Urine Glucose (UA) Urine Ketones Urine Blood Urine Nitrite Urine Bilirubin Urine Urobilinogen Ur Leukocyte Esterase Urine WBC (Auto) Urine RBC (Auto) Urine Casts (Auto) U Epithel Cells (Auto) Urine Bacteria (Auto) HOSPITAL COURSE: Date of Admission:08/24/18 Date of Discharge: 08/25/18 Patient is 78 year old female with history of multiple UTI, CVA, hypertension, Afib (on Xarelto), hypothyridism, CAD (s/p [place] without stents) HFpEF, depression , arthritis, presented with complaint of dysuria with associated left flank pain. Cardiac ECHO showed LV normal size, thickness, function, EF 55- 60%. CT abdomen pelvis showed non obstructing left sided renal calculi; without acute abdominal pathology. Patient was stared on IV Ceftriaxone, with significant improvement of her flank pain. Patient was discharged home with 7 day course of Ceftin. Patient discharged home to [facility]), and urology follow up of renal calculi. Minutes to complete discharge: 32 Discharge Summary Reason For Visit: UTI/CALCULUS OF KIDNEY Current Active Problems UTI (urinary tract infection) (Acute) Condition: Stable - Instructions Diet, Activity, Other Instructions: You were admitted to the hospital with urinary tract infection. Your CT scan showed small, stones within your kidneys. You were started on antibiotic regimen, which you will complete as an outpatient. You are being discharged home. Continue taking your home medications as directed. You will continue antibiotic Ceftin 500mg every 12 hours for the next 7 days. Follow up with your primary care physician within two- three days after discharge. A referral to [facility] Romie Enamor[facility] has been provided. Follow up with urologist Dr. Pardeep Corona to further follow up your kidney stones. Return to the nearest emergency department if you experience subjective fevers, chills, shortness of breath, chest pain, palpitations, abdominal pain, nausea, vomiting. [place]: [facility] [place] [Provider Group] Al Singh MD [Staff Physician] - Disposition: HOME - Home Medications Comprehensive Discharge Medication List: Ambulatory Orders Metoprolol Tartrate [Lopressor -] 100 mg PO BID #120 tablet 05/11/17 Sertraline HCl [Zoloft] 100 mg PO DAILY 05/11/17 Furosemide [Lasix -] 40 mg PO DAILY #30 tablet 10/08/17 Rosuvastatin [Crestor -] 40 mg PO HS tablet 10/08/17 Rivaroxaban [Xarelto -] 20 mg PO DAILY 04/28/18 Gabapentin [Neurontin -] 300 mg PO DAILY 08/24/18 Ranitidine [Zantac -] 150 mg PO BID 08/24/18 Cefuroxime Axetil [Ceftin -] 500 mg PO Q12H 7 Days #14 tablet 08/25/18 This patient is new to me today: Yes Date on this admission: 08/25/18 Emergency Visit: Yes ED Registration Date: 08/24/18 Care time: The patient presented to the Emergency Department on the above date and was hospitalized for further evaluation of their emergent condition. Critical Care patient: No - Discharge Referral Referred to [facility] No
--- NOTE | 2018-08-25 15:12 | ECHO ---
Name: OLAMIDE CRAVEN Exam:Adult Echocardiogram Study Date: 08/25/2018 02:15 PM Age: 78 yrs Reason For Study: CARDIOMEGALY Height: 60 in Weight: 207 lb BSA: 1.9 m2 MMode/2D Measurements & Calculations IVSd: 0.84 cm Ao root diam: 3.0 cm LVIDd: 4.5 cm LA dimension: 4.1 cm LVIDs: 3.6 cm LVPWd: 0.81 cm EDV(Teich): 92.4 ml LVOT diam: 2.2 cm ESV(Teich): 52.7 ml Doppler Measurements & Calculations MV E max rafiq: 65.6 cm/sec Ao V2 max: 114.8 cm/sec MV A max rafiq: 19.7 cm/sec Ao max P.3 mmHg MV E/A: 3.3 Ao V2 mean: 86.4 cm/sec MV dec time: 0.18 sec Ao mean P.3 mmHg Ao V2 VTI: 24.3 cm JAI(I,D): 2.2 cm2 JAI(V,D): 2.6 cm2 LV V1 max P.5 mmHg SV(LVOT): 53.8 ml LV V1 mean P.1 mmHg LV V1 max: 78.3 cm/sec LV V1 mean: 49.2 cm/sec LV V1 VTI: 14.0 cm TR max rafiq: 236.4 cm/sec Med Peak E' Rafiq: 7.5 cm/sec TR max P.4 mmHg Med E/e': 8.8 Lat Peak E' Rafiq: 8.3 cm/sec Lat E/e': 7.9 Left Ventricle Left ventricular systolic function is normal. Ejection Fraction = 55-60%. Right Ventricle The right ventricle is normal in size and function. Atria The left atrium is mildly dilated. Right atrial size is normal. Mitral Valve The mitral valve is normal. There is no mitral valve stenosis. There is mild mitral regurgitation. Tricuspid Valve The tricuspid valve is normal in structure and function. There is mild to moderate tricuspid regurgit ation. Right ventricular systolic pressure is normal. Aortic Valve There is mild aortic sclerosis.;. No hemodynamically significant valvular aortic stenosis. No aortic regurgitation is present. Pulmonic Valve The pulmonic valve is not well seen, but is grossly normal. There is no pulmonic valvular stenosis. Great Vessels The aortic root is normal size. Pericardium/Pleura There is no pericardial effusion. Interpretation Summary Left ventricular systolic function is normal. Ejection Fraction = 55-60%. The right ventricle is normal in size and function. The left atrium is mildly dilated. There is mild mitral regurgitation. There is mild to moderate tricuspid regurgitation. Right ventricular systolic pressure is normal. There is no pericardial effusion. MD Ayon *Carole 08/25/2018 03:11 PM
--- NOTE | 2018-08-25 15:44 | PN ---
Teaching Attending Note Name of Resident: Silver Grant ATTENDING PHYSICIAN STATEMENT I saw and evaluated the patient. I reviewed the resident's note and discussed the case with the resident. I agree with the resident's findings and plan as documented. SUBJECTIVE: Complains of dysuria. No fever/chills/hematuria/nausea/vomiting. OBJECTIVE: Afebrile, Hemodynamically Stable. Last Vital Signs Temp Pulse Resp BP Pulse Ox 98.0 F 78 18 142/67 97 08/25/18 13:33 08/25/18 13:33 08/25/18 13:33 08/25/18 13:33 08/25/18 09:00 HEENT - Atraumatic, Normocephalic. Heart - S1, S2, RRR Lungs - clear to auscultation Abdomen - High BMI, Soft, non-tender. Bowel Sounds normal. Extremities - no calf tenderness. Laboratory Results - last 24 hr 08/24/18 08/24/18 08/24/18 15:47 15:47 16:05 WBC 9.1 RBC 4.52 Hgb 11.7 Hct 36.6 MCV 81.0 MCH 25.8 MCHC 31.8 L RDW 17.2 H Plt Count 259 MPV 7.9 Absolute Neuts (auto) 5.7 Neutrophils % 62.6 Lymphocytes % 27.0 Monocytes % 6.1 Eosinophils % 3.7 Basophils % 0.6 Nucleated RBC % 0 Sodium 143 Potassium 4.1 Chloride 109 H Carbon Dioxide 28 Anion Gap 6 L BUN 12 Creatinine 0.6 Creat Clearance w eGFR 96.94 POC Glucometer Random Glucose 113 H Calcium 8.5 Phosphorus Magnesium Total Bilirubin 0.4 AST 12 L ALT 10 L Alkaline Phosphatase 115 Creatine Kinase 33 Troponin I < 0.02 Total Protein 6.8 Albumin 3.2 L Urine Color Yellow Urine Appearance Clear Urine pH 7.0 D Ur Specific [place] 1.009 L Urine Protein Negative Urine Glucose (UA) Negative Urine Ketones Negative Urine Blood 2+ H Urine Nitrite Negative Urine Bilirubin Negative Urine Urobilinogen 0.2 Ur Leukocyte Esterase 2+ H Urine WBC (Auto) 7 Urine RBC (Auto) 17 Urine Casts (Auto) 0 U Epithel Cells (Auto) 0.6 Urine Bacteria (Auto) 3096.4 08/25/18 08/25/18 08/25/18 05:43 06:30 06:30 WBC 9.1 RBC 4.31 Hgb 10.9 Hct 34.5 MCV 80.0 MCH 25.4 L MCHC 31.7 L RDW 17.5 H Plt Count 256 MPV 8.2 Absolute Neuts (auto) 5.5 Neutrophils % 60.5 Lymphocytes % 28.2 Monocytes % 6.3 Eosinophils % 4.5 Basophils % 0.5 Nucleated RBC % 0 Sodium 142 Potassium 4.0 Chloride 107 Carbon Dioxide 26 Anion Gap 9 BUN 15 Creatinine 0.5 L Creat Clearance w eGFR 119.64 POC Glucometer 102 Random Glucose 92 Calcium 8.5 Phosphorus 4.5 Magnesium 2.1 Total Bilirubin AST ALT Alkaline Phosphatase Creatine Kinase Troponin I Total Protein Albumin Urine Color Urine Appearance Urine pH Ur Specific [place] Urine Protein Urine Glucose (UA) Urine Ketones Urine Blood Urine Nitrite Urine Bilirubin Urine Urobilinogen Ur Leukocyte Esterase Urine WBC (Auto) Urine RBC (Auto) Urine Casts (Auto) U Epithel Cells (Auto) Urine Bacteria (Auto) Current Medications Generic Name Dose Route Start Last Admin Trade Name Freq PRN Reason Stop Dose Admin Acetaminophen 650 mg 08/24/18 21:50 Tylenol - PO Q4H PRN PAIN Furosemide 40 mg 08/25/18 10:00 08/25/18 09:48 Lasix - PO 40 mg DAILY DIANELYS Administration Gabapentin 300 mg 08/25/18 10:00 08/25/18 09:48 Neurontin - PO 300 mg DAILY DIANELYS Administration Ceftriaxone Sodium 1 gm/ 50 mls @ 100 mls/hr 08/25/18 10:00 08/25/18 10:24 Dextrose IVPB 100 mls/hr DAILY DIANELYS Administration Protocol Metoprolol Tartrate 100 mg 08/24/18 22:00 08/25/18 09:47 Lopressor - PO 100 mg BID DIANELYS Administration Ranitidine HCl 150 mg 08/24/18 22:00 08/25/18 09:48 Zantac - PO 150 mg BID DIANELYS Administration Rivaroxaban 20 mg 08/25/18 10:00 08/25/18 09:48 Xarelto - PO 20 mg DAILY DIANELYS Administration Rosuvastatin Calcium 40 mg 08/24/18 22:00 08/24/18 23:07 Crestor - PO Not Given HS DIANELYS Sertraline HCl 100 mg 08/25/18 10:00 08/25/18 09:47 Zoloft - PO 100 mg DAILY DIANELYS Administration Discharge Medications Medication Instructions Recorded Metoprolol Tartrate [Lopressor -] 100 mg PO BID #120 tablet 05/11/17 Sertraline HCl [Zoloft] 100 mg PO DAILY 05/11/17 Furosemide [Lasix -] 40 mg PO DAILY #30 tablet 10/08/17 Rosuvastatin [Crestor -] 40 mg PO HS tablet 10/08/17 Rivaroxaban [Xarelto -] 20 mg PO DAILY 04/28/18 Gabapentin [Neurontin -] 300 mg PO DAILY 08/24/18 Ranitidine [Zantac -] 150 mg PO BID 08/24/18 Cefuroxime Axetil [Ceftin -] 500 mg PO Q12H 7 Days #14 tablet 08/25/18 ASSESSMENT AND PLAN: 78 year old female with HTN, Chronic Diastolic CHF, Atrial Fibrillation (on Xarelto), Hypothyroidism, OA, CAD s/p [place], Recurrent UTIs, presented with flank pain and dysuria for greater than 1 week. No further flank pain. CT A/P - showed non-obstructing L renal calculi, Cardiomeagly. Echo - normal. 1. UTI - received Ceftriaxone. Afebrile, Hemodynamically Stable. Medically stable for discharge - Ceftin 500mg bid for 7 days. Urine Cx pending - will call patient if not sensitive to Cephalosporin 2. Atrial Fibrillation - continue BB and Xarelto 3. HTN - Continue Metoprolol 4. Hypothyroidism - not on meds - for PCP follow up. 5. HLD - Continue Crestor 6. Chronic Diastolic CHF - continue Lasix. 7. Depression - continue Sertraline. Medically Stable for discharge on course of Abx therapy for UTI with PCP follow up.
[2018-08-25 19:37] VITALS: BP 120/59; PULSE 74; TEMP 98.9
== END 2018-08-25 19:58 | disposition home or self-care (01) | DRG 690 ==
LOC: JER 14:14 → JERBED 21:24 → J7W 08-25 04:12
PROVIDERS: ADMIT Internal Medicine
DX: N39.0 Urinary tract infection, site not specified (principal); E46 Unspecified protein-calorie malnutrition; I50.32 Chronic diastolic (congestive) heart failure; N20.0 Calculus of kidney; I25.10 Atherosclerotic heart disease of native coronary artery without angina pectoris; I48.91 Unspecified atrial fibrillation; E03.9 Hypothyroidism, unspecified; I25.2 Old myocardial infarction; K21.9 Gastro-esophageal reflux disease without esophagitis; F32.9 Major depressive disorder, single episode, unspecified; E78.00 Pure hypercholesterolemia, unspecified; E88.09 Other disorders of plasma-protein metabolism, not elsewhere classified; I11.0 Hypertensive heart disease with heart failure; Z96.653 Presence of artificial knee joint, bilateral; Z96.642 Presence of left artificial hip joint; Z86.73 Personal history of transient ischemic attack (TIA), and cerebral infarction without residual deficits; B96.20 Unspecified Escherichia coli [E. coli] as the cause of diseases classified elsewhere
CPT/HCPCS: 36415; 71045-TC-FY; 74176-TC; 80048; 80053; 81003; 82550; 82962; 83735; 84100; 84484; 85025; 87086; 87186; 93005; 93010; 93306-TC; 99284-25; J0131

== ENCOUNTER 2019-01-26 10:59 | Emergency (ER) | payer MEDICARE, OTHER ==
[2019-01-26 11:37] VITALS: TEMP 98.3; BMI 35.2
--- NOTE | 2019-01-26 11:41 | PDOC ---
History of Present Illness - General Chief Complaint: Shortness of Breath Stated Complaint: DIFFICULTY BREATHING Time Seen by Provider: 01/26/19 11:40 History Source: Patient Exam Limitations: No Limitations - History of Present Illness Initial Comments: 01/26/19 11:41 The patient is a 78 year old female, with a significant PMH of CVA, HTN, Afib ( on Xarelto), hypothyroidism, CAD (s/p [place] w/o stents), CHF (diastolic dysfunction ), depression, arthritis, GERD, multiple falls, and recurrent UTIs persens with complaint of SOB/cough. Pt has been having an intermitent cough for the past 2 weeks without assoicated fever/sob, diaphoresis, cp, back pain, abd pain. pt does endorse some urinary frequency an foul smellin gurine. No recent travel o rknown sick ocntacts. No incresaed leg swelin gor calf pain. Past History - Past Medical History Allergies/Adverse Reactions: Allergies Allergy/AdvReac Type Severity Reaction Status Date / Time No Known Allergies Allergy Unverified 08/24/18 15:10 Home Medications: Ambulatory Orders Metoprolol Tartrate [Lopressor -] 100 mg PO BID #120 tablet 05/11/17 Sertraline HCl [Zoloft] 100 mg PO DAILY 05/11/17 Furosemide [Lasix -] 40 mg PO DAILY #30 tablet 10/08/17 Rosuvastatin [Crestor -] 40 mg PO HS tablet 10/08/17 Rivaroxaban [Xarelto -] 20 mg PO DAILY 04/28/18 Gabapentin [Neurontin -] 300 mg PO DAILY 08/24/18 Ranitidine [Zantac -] 150 mg PO BID 08/24/18 Cefuroxime Axetil [Ceftin -] 500 mg PO Q12H 7 Days #14 tablet 08/25/18 Cephalexin Monohydrate [Keflex -] 500 mg PO Q6H #20 capsule 01/26/19 Guaifenesin [Robitussin] 10 ml PO TID PRN #1 bot 01/26/19 Anemia: No Asthma: No Cancer: No Cardiac Disorders: Yes (CAD, atrial fibrillation) CVA: Yes (unable to ambulate) COPD: No CHF: Yes Dementia: No Diabetes: No GI Disorders: Yes (gerd) Disorders: No HTN: Yes Hypercholesterolemia: Yes Liver Disease: No Psychiatric Problems: Yes (DEPRESSION) Seizures: Yes (hypothyroidism.) Thyroid Disease: Yes - Surgical History Abdominal Surgery: No Appendectomy: No Cardiac Surgery: No Cholecystectomy: No Lung Surgery: No Neurologic Surgery: No Orthopedic Surgery: Yes - Immunization History Immunization Up to Date: Yes - Psycho Social/Smoking Cessation Hx Smoking History: Never smoked Have you smoked in the past 12 months: No Information on smoking cessation initiated: No Hx Alcohol Use: No Drug/Substance Use Hx: No Substance Use Type: None Hx Substance Use Treatment: No Review of Systems - Review of Systems Able to Perform ROS?: Yes Comments:: 01/26/19 12:08 Constitutional - no reported Fever, Chills, obese HEENT: no reported vision changes, sore throat Respiratory: +cough, no reported sob, hemoptysis Cardiac: no reported chest pain, palpitations, light headedness, leg swelling Abd/GI: no reported abd pain, nausea, vomiting, blood per rectum, melena, diarrhea : + dysuria, no reported frequency, discharge Musculskelatal - no reported back pain, joint swelling skin - no reported bruising, erythema, rash neurological: no reported headache, numbness, focal weakness, tingling, ataxia, hematologic: no reported easy bruising, easy bleeding *Physical Exam - Vital Signs Last Vital Signs Temp Pulse Resp BP Pulse Ox 98.3 F 91 H 20 107/47 L 93 L 01/26/19 11:18 01/26/19 11:18 01/26/19 11:18 01/26/19 11:18 01/26/19 11:18 - Physical Exam Comments: 01/26/19 12:28 GENERAL: The patient is awake, alert, and fully oriented, Nontoxic - in no acute distress. Obese HEAD: Normocephalic, atraumatic. EYES: extraocular movements intact, sclera anicteric, conjunctiva clear. ENT: Normal voice, Moist mucous membranes. NECK: Normal range of motion, supple LUNGS: scattered wheezing, no respiatory distress, HEART: irregulraly irregular ABDOMEN: Soft, nontender, No guarding, no rebound. No CVA tenderness EXTREMITIES: Normal range of motion, trace edema. NEUROLOGICAL: No facial assymetry, Normal speech, moving all 4 extremities spontneously and symmetrically PSYCH: Normal mood, normal affect. SKIN: Warm, Dry, normal turgor, Heart Score/ECG Review - ECG Impressions Comment:: 01/26/19 15:51 Twelve-lead EKG was performed and reviewed by me. Rate of 83 twi abnormality on inferior and anteriolateral leads iregular irregular ED Treatment Course - LABORATORY CBC & Chemistry Diagram: 01/26/19 12:01 01/26/19 12:01 - RADIOLOGY Radiology Studies Ordered: Category Date Time Status CHEST X-RAY PORTABLE* [RAD] Stat Radiology 01/26/19 11:40 Ordered Medical Decision Making - Medical Decision Making 01/26/19 12:31 ddx - pna, uti sepsis ordeset obtained - original saturation was low, but durin my exam, pts O2 sat was 99% on RA 01/26/19 13:59 labs reviewed ua cw uti will give abx, cxr clear will give pt dose of ctx and will dc with ceftrixone Discharge - Discharge Information Problems reviewed: Yes Clinical Impression/Diagnosis: Cough UTI (urinary tract infection) Qualifiers: Urinary tract infection type: acute cystitis Hematuria presence: with hematuria Qualified Code(s): N30.01 - Acute cystitis with hematuria Condition: Improved Disposition: HOME - Admission No - Additional Discharge Information Prescriptions: Cephalexin Monohydrate [Keflex -] 500 mg PO Q6H #20 capsule Guaifenesin [Robitussin] 10 ml PO TID PRN #1 bot PRN Reason: Cough - Follow up/Referral Referrals: [facility] [place] [facility] [place] [Provider Group] - Patient Discharge Instructions Patient Printed Discharge Instructions: DI for Cough -- Adult, DI for Urinary Tract Infection (UTI) Additional Instructions: Regrese al departamento de emergencias de inmediato con CUALQUIER sntoma nuevo , persistente o que empeore, incluyendo fiebre / escalofros, dificultad para respirar, dolor de espalda o cualquier otra inquietud. Eagan los antibiticos segn lo prescrito. DEBE llamar y hacer un seguimiento con motley mdico en 3-4 angel para padmini evaluacin adicional de julia sntomas. Los resultados fueron discutidos con usted. Asegrese de que motley mdico revise los resultados de motley evaluacin de emergencia. Motley visita al Departamento de Emergencia no est completa sin un seguimiento con motley mdico. Return to the emergency department immediately with ANY new, persistent or worsening symptoms including any fever/chills, shortness of breath, back pain or any other concerns. Take the antibiotics as prescribed. You MUST call and follow up with your doctor in 3- 4 days for further evaluation of your symptoms. Results were discussed with you. Please make sure your doctor reviews the results of your emergency evaluation. Your Emergency Department visit is not complete without a follow up with your doctor. Print Language: BENGALI - Post Discharge Activity
[2019-01-26 12:16] LABS: BASO % 0.5 % (0-2.0); EOS % 2.4 % (0-4.5); HEMATOCRIT 37.1 % (32.4-45.2); HEMOGLOBIN 11.8 GM/dL (10.7-15.3); LYMPH % 24.3 % (8-40); MCH 25.8 pg (25.7-33.7); MCHC 31.8 g/dl (32.0-36.0); MEAN CELL VOLUME 81.1 fl (80-96); MONO % 5.8 % (3.8-10.2); PLATELET COUNT 271 K/MM3 (134-434); RBC 4.58 M/mm3 (3.60-5.2); RDW 18.1 % (11.6-15.6); WHITE BLOOD COUNT 9.2 K/mm3 (4.0-10.0)
[2019-01-26 12:24] LABS: VENOUS PC02 44.5 mmHg (38-52); VENOUS PH 7.38 (7.31-7.41)
[2019-01-26 12:26] LABS: VENOUS PO2 < 49 mmHg (28-48)
[2019-01-26 12:27] LABS: INR 1.05 (0.83-1.09); PROTHROMBIN TIME (PATIENT) 12.4 SEC (9.7-13.0)
[2019-01-26] MEDS ORDERED: ALBUTEROL SO4 2.5/IPRATROPIUM 0.5 INH SOL 3 ML VIAL.NEB. NEB ONE ×2 (12:34→12:46)
[2019-01-26 12:48] LABS: ALBUMIN 3.3 g/dl (3.4-5.0); BILIRUBIN,TOTAL 0.6 mg/dL (0.2-1); BLOOD UREA NITROGEN 10.6 mg/dL (7-18); CALCIUM 8.1 mg/dL (8.5-10.1); CREATININE 0.6 mg/dL (0.55-1.3); POTASSIUM 4.1 mmol/L (3.5-5.1); TOT PROT 6.9 g/dl (6.4-8.2)
[2019-01-26 12:48] LABS: EPI CELLS 0.7 /HPF (0-5/HPF); HYALINE CASTS 12 /lpf (0-8); URINE APPEARANCE CLOUDY; URINE BACTERIA 4175.9 /hpf (NEGATIVE); URINE BILIRUBIN NEGATIVE (NEGATIVE); URINE COLOR YELLOW; URINE GLUCOSE (UA) NEGATIVE (NEGATIVE); URINE KETONE NEGATIVE (NEGATIVE); URINE LEUK ESTERASE 3+ (NEGATIVE); URINE NITRITE NEGATIVE (NEGATIVE); URINE PROTEIN NEGATIVE (NEGATIVE); URINE RBC 2 /hpf (0-4); URINE UROBILINOGEN 0.2 mg/dL (0.2-1.0); URINE WBC 138 /hpf (0-5)
[2019-01-26] MEDS ORDERED: CEFTRIAXONE 1 GM in DEXTROSE 5%-WATER - 50 ML IVPB ONE (13:59)
--- NOTE | 2019-01-26 14:00 | EKG ---
Test Reason : Blood Pressure : / mmHG Vent. Rate : 083 BPM Atrial Rate : 163 BPM P-R Int : 000 ms QRS Dur : 084 ms QT Int : 380 ms P-R-T Axes : 000 044 236 degrees QTc Int : 446 ms ATRIAL FIBRILLATION ABNORMAL ECG WHEN COMPARED WITH ECG OF 24-AUG-2018 15:42, NO SIGNIFICANT CHANGE WAS FOUND Confirmed by RICO BUSBY MD ([id number]) on 01/26/2019 1:59:46 PM Referred By: Confirmed By:RICO BUSBY MD
[2019-01-26] MEDS ORDERED: CEFTRIAXONE 1 GM/50 ML BAG ONE (14:27)
[2019-01-26 18:18] VITALS: BP 149/81; PULSE 97
== END 2019-01-26 18:42 | disposition home or self-care (01) ==
LOC: JER 10:59
PROC: 3E0F7GC Introduction of Other Therapeutic Substance into Respiratory Tract, Via Natural or Artificial Opening (ICD-10-PCS; principal; 2019-01-26)
PROC: 3E03329 Introduction of Other Anti-infective into Peripheral Vein, Percutaneous Approach (ICD-10-PCS; 2019-01-26)
DX: N30.01 Acute cystitis with hematuria (principal); R05 Cough; I25.10 Atherosclerotic heart disease of native coronary artery without angina pectoris; I11.0 Hypertensive heart disease with heart failure; I50.30 Unspecified diastolic (congestive) heart failure; I25.2 Old myocardial infarction; I48.91 Unspecified atrial fibrillation; Z79.01 Long term (current) use of anticoagulants; E03.9 Hypothyroidism, unspecified; M12.9 Arthropathy, unspecified; K21.9 Gastro-esophageal reflux disease without esophagitis; F32.9 Major depressive disorder, single episode, unspecified; R29.6 Repeated falls; Z87.440 Personal history of urinary (tract) infections; B96.20 Unspecified Escherichia coli [E. coli] as the cause of diseases classified elsewhere
CPT/HCPCS: 36415; 71045-TC-FY; 80053; 81003; 82803; 83605; 84484; 85025; 85610; 87040; 87086; 87186; 93005; 93010; 94640; 96365; 99283-25

== ENCOUNTER 2022-01-07 09:32 | Observation (INO) | payer MEDICARE, OTHER ==
[2022-01-07 09:38] VITALS: BMI 35.4
[2022-01-07 12:07] LABS: BASO % 0.6 % (0-2.0); EOS % 4.8 % (0-4.5); HEMATOCRIT 36.6 % (32.4-45.2); HEMOGLOBIN 11.7 GM/dL (10.7-15.3); LYMPH % 32.8 % (8-40); MCH 25.1 pg (25.7-33.7); MCHC 31.8 g/dl (32.0-36.0); MEAN CELL VOLUME 78.7 fl (80-96); MEAN PLT VOLUME 7.7 fl (7.5-11.1); MONO % 7.3 % (3.8-10.2); NEUT % 54.5 % (42.8-82.8); PLATELET COUNT 280 10^3/uL (134-434); RBC 4.65 M/mm3 (3.60-5.2); RDW 19.1 % (11.6-15.6); WHITE BLOOD COUNT 8.8 K/mm3 (4.0-10.0)
[2022-01-07 12:14] LABS: INR 1.25 (0.83-1.09); PROTHROMBIN TIME (PATIENT) 14.4 SEC (9.7-13.0)
[2022-01-07 12:17] LABS: ACTIVATED PTT 39.4 SECONDS (25.2-36.5)
[2022-01-07 12:19] LABS: ALBUMIN 3.2 g/dl (3.4-5.0); CALCIUM 8.4 mg/dL (8.5-10.1)
[2022-01-07 12:20] LABS: BLOOD UREA NITROGEN 14.5 mg/dL (7-18)
[2022-01-07 12:22] LABS: CREATININE 0.6 mg/dL (0.55-1.3)
[2022-01-07 12:23] LABS: EPI CELLS 3 /uL (0-25.1); HYALINE CASTS 2 /uL (0-3.1); PH,URINE 5.5 (5.0-8.0); URINE APPEARANCE CLOUDY; URINE BACTERIA >9,000 /uL (0-1359); URINE BILIRUBIN NEGATIVE (NEGATIVE); URINE COLOR YELLOW; URINE GLUCOSE (UA) NEGATIVE (NEGATIVE); URINE KETONE NEGATIVE (NEGATIVE); URINE LEUK ESTERASE 3+ (NEGATIVE); URINE NITRITE POSITIVE (NEGATIVE); URINE PROTEIN NEGATIVE (NEGATIVE); URINE RBC 41 /uL (0-23.9); URINE UROBILINOGEN 0.2 mg/dL (0.2-1.0); URINE WBC 471 /uL (0-25.8)
[2022-01-07 12:24] LABS: BILIRUBIN,TOTAL 0.5 mg/dL (0.2-1); TOT PROT 6.8 g/dl (6.4-8.2)
[2022-01-07 12:28] LABS: N-TERMINAL BNP 891.3 pg/ml (5-450)
[2022-01-07] MEDS ORDERED: CEFTRIAXONE 1 GM in DEXTROSE 5%-WATER - 100 ML IVPB ONE (12:31)
[2022-01-07] MEDS ORDERED: CEFTRIAXONE 1 GM/50 ML BAG ONE (12:46)
[2022-01-07] MEDS ORDERED: METOPROLOL TARTRATE 50 MG TABLET (FP) ONE (22:15)
[2022-01-07] MEDS ORDERED: ROSUVASTATIN CA 20 MG TABLET ONE (22:15)
[2022-01-07] MEDS: METOPROLOL TARTRATE 50 MG TABLET (FP) PO SCH (22:24)
[2022-01-07] MEDS: ROSUVASTATIN CA 20 MG TABLET PO SCH (22:24)
[2022-01-07] MEDS ORDERED: ACETAMINOPHEN 325 MG TABLET (FP) PO PRN (22:28)
[2022-01-07] MEDS ORDERED: ACETAMINOPHEN 325 MG TABLET (FP) ONE (23:20)
[2022-01-08 09:13] LABS: INR 1.08 (0.83-1.09); PROTHROMBIN TIME (PATIENT) 12.4 SEC (9.7-13.0)
[2022-01-08 09:14] LABS: ACTIVATED PTT 35.6 SECONDS (25.2-36.5)
[2022-01-08 09:17] LABS: BASO % 0.4 % (0-2.0); EOS % 2.9 % (0-4.5); HEMATOCRIT 37.3 % (32.4-45.2); HEMOGLOBIN 11.7 GM/dL (10.7-15.3); LYMPH % 24.4 % (8-40); MCH 24.1 pg (25.7-33.7); MCHC 31.4 g/dl (32.0-36.0); MEAN CELL VOLUME 76.6 fl (80-96); MEAN PLT VOLUME 7.9 fl (7.5-11.1); MONO % 5.5 % (3.8-10.2); NEUT % 66.8 % (42.8-82.8); PLATELET COUNT 294 10^3/uL (134-434); RBC 4.86 M/mm3 (3.60-5.2); RDW 19.3 % (11.6-15.6); WHITE BLOOD COUNT 10.3 K/mm3 (4.0-10.0)
[2022-01-08 09:33] LABS: ALBUMIN 3.3 g/dl (3.4-5.0); BLOOD UREA NITROGEN 12.8 mg/dL (7-18)
[2022-01-08 09:34] LABS: CALCIUM 8.8 mg/dL (8.5-10.1)
[2022-01-08 09:39] LABS: CREATININE 0.6 mg/dL (0.55-1.3); PHOSPHOROUS 3.6 mg/dL (2.5-4.9)
[2022-01-08 09:40] LABS: BILIRUBIN,TOTAL 0.8 mg/dL (0.2-1)
[2022-01-08 09:41] LABS: TOT PROT 6.7 g/dl (6.4-8.2)
[2022-01-08] MEDS ORDERED: CEFTRIAXONE 1 GM in DEXTROSE 5%-WATER - 50 ML IVPB SCH (10:00)
[2022-01-08] MEDS: ERTAPENEM SODIUM 1 GM in SODIUM CHLORIDE 50 ML IVPB SCH (10:51)
[2022-01-08] MEDS: FUROSEMIDE 40 MG/4 ML INJECTABLE VIAL IVPUSH SCH (10:51)
[2022-01-08] MEDS: METOPROLOL TARTRATE 50 MG TABLET (FP) PO SCH ×2 (10:51→22:30)
[2022-01-08] MEDS: GABAPENTIN 300 MG CAPSULE PO SCH (10:51)
[2022-01-08] MEDS: SERTRALINE HCL 50 MG TABLET (FP) PO SCH (10:54)
[2022-01-08] MEDS: POLYETHYLENE GLYCOL (HEALTHYLAX) 3350 17 GM PACKET PO SCH (16:10)
[2022-01-08] MEDS: RIVAROXABAN 20 MG TABLET PO SCH (18:40)
[2022-01-08] MEDS: ROSUVASTATIN CA 20 MG TABLET PO SCH (22:29)
[2022-01-09 09:12] LABS: BASO % 0.4 % (0-2.0); EOS % 1.9 % (0-4.5); HEMATOCRIT 37.1 % (32.4-45.2); HEMOGLOBIN 11.6 GM/dL (10.7-15.3); LYMPH % 21.4 % (8-40); MCH 24.2 pg (25.7-33.7); MCHC 31.3 g/dl (32.0-36.0); MEAN CELL VOLUME 77.3 fl (80-96); MEAN PLT VOLUME 7.8 fl (7.5-11.1); MONO % 5.8 % (3.8-10.2); NEUT % 70.5 % (42.8-82.8); PLATELET COUNT 292 10^3/uL (134-434); RDW 18.7 % (11.6-15.6); WHITE BLOOD COUNT 12.6 K/mm3 (4.0-10.0)
[2022-01-09 09:39] LABS: BLOOD UREA NITROGEN 15.5 mg/dL (7-18)
[2022-01-09 09:43] LABS: CREATININE 0.7 mg/dL (0.55-1.3)
[2022-01-09] MEDS: ERTAPENEM SODIUM 1 GM in SODIUM CHLORIDE 50 ML IVPB SCH (12:37)
[2022-01-09] MEDS: FUROSEMIDE 40 MG/4 ML INJECTABLE VIAL IVPUSH SCH (12:37)
[2022-01-09] MEDS: GABAPENTIN 300 MG CAPSULE PO SCH (12:38)
[2022-01-09] MEDS: METOPROLOL TARTRATE 50 MG TABLET (FP) PO SCH ×2 (12:38→21:08)
[2022-01-09] MEDS: SERTRALINE HCL 50 MG TABLET (FP) PO SCH (12:38)
[2022-01-09] MEDS: POLYETHYLENE GLYCOL (HEALTHYLAX) 3350 17 GM PACKET PO SCH (15:56)
[2022-01-09] MEDS: RIVAROXABAN 20 MG TABLET PO SCH (17:32)
[2022-01-09] MEDS: ROSUVASTATIN CA 20 MG TABLET PO SCH (21:09)
[2022-01-10] MEDS: ERTAPENEM SODIUM 1 GM in SODIUM CHLORIDE 50 ML IVPB SCH (09:57)
[2022-01-10] MEDS: GABAPENTIN 300 MG CAPSULE PO SCH (09:57)
[2022-01-10] MEDS: FUROSEMIDE 40 MG/4 ML INJECTABLE VIAL IVPUSH SCH (09:57)
[2022-01-10] MEDS: METOPROLOL TARTRATE 50 MG TABLET (FP) PO SCH ×2 (09:57→21:48)
[2022-01-10] MEDS: SERTRALINE HCL 50 MG TABLET (FP) PO SCH (09:57)
[2022-01-10 10:01] LABS: BASO % 0.5 % (0-2.0); EOS % 2.7 % (0-4.5); HEMATOCRIT 38.4 % (32.4-45.2); HEMOGLOBIN 11.9 GM/dL (10.7-15.3); LYMPH % 26.4 % (8-40); MCH 24.1 pg (25.7-33.7); MEAN CELL VOLUME 77.6 fl (80-96); MEAN PLT VOLUME 8.1 fl (7.5-11.1); MONO % 6.7 % (3.8-10.2); NEUT % 63.7 % (42.8-82.8); PLATELET COUNT 292 10^3/uL (134-434); RBC 4.95 M/mm3 (3.60-5.2); RDW 19.5 % (11.6-15.6); WHITE BLOOD COUNT 10.4 K/mm3 (4.0-10.0)
[2022-01-10 10:24] LABS: CALCIUM 8.6 mg/dL (8.5-10.1)
[2022-01-10 10:25] LABS: BLOOD UREA NITROGEN 12.6 mg/dL (7-18)
[2022-01-10 10:28] LABS: CREATININE 0.5 mg/dL (0.55-1.3)
[2022-01-10] MEDS ORDERED: POLYETHYLENE GLYCOL (HEALTHYLAX) 3350 17 GM PACKET PO ONE (15:00)
[2022-01-10] MEDS: RIVAROXABAN 20 MG TABLET PO SCH (17:53)
[2022-01-10] MEDS: POLYETHYLENE GLYCOL (HEALTHYLAX) 3350 17 GM PACKET PO SCH (18:53)
[2022-01-10] MEDS: ROSUVASTATIN CA 20 MG TABLET PO SCH (21:47)
[2022-01-11 09:45] LABS: BASO % 0.4 % (0-2.0); EOS % 3.3 % (0-4.5); HEMATOCRIT 38.4 % (32.4-45.2); HEMOGLOBIN 11.9 GM/dL (10.7-15.3); LYMPH % 22.5 % (8-40); MCH 24.1 pg (25.7-33.7); MCHC 30.9 g/dl (32.0-36.0); MEAN PLT VOLUME 8.1 fl (7.5-11.1); MONO % 5.9 % (3.8-10.2); NEUT % 67.9 % (42.8-82.8); PLATELET COUNT 273 10^3/uL (134-434); RBC 4.92 M/mm3 (3.60-5.2); RDW 19.2 % (11.6-15.6)
[2022-01-11 09:58] LABS: CALCIUM 8.8 mg/dL (8.5-10.1)
[2022-01-11 09:59] LABS: BLOOD UREA NITROGEN 17.3 mg/dL (7-18)
[2022-01-11] MEDS ORDERED: CEFTRIAXONE 1 GM in DEXTROSE 5%-WATER - 50 ML IVPB SCH (10:00)
[2022-01-11 10:02] LABS: CREATININE 0.7 mg/dL (0.55-1.3)
[2022-01-11] MEDS: GABAPENTIN 300 MG CAPSULE PO SCH (10:34)
[2022-01-11] MEDS: METOPROLOL TARTRATE 50 MG TABLET (FP) PO SCH ×2 (10:34→21:33)
[2022-01-11] MEDS: FUROSEMIDE 40 MG/4 ML INJECTABLE VIAL IVPUSH SCH (10:34)
[2022-01-11] MEDS: SERTRALINE HCL 50 MG TABLET (FP) PO SCH (10:34)
[2022-01-11] MEDS: RIVAROXABAN 20 MG TABLET PO SCH (17:50)
[2022-01-11] MEDS: ROSUVASTATIN CA 20 MG TABLET PO SCH (21:33)
[2022-01-12 08:25] LABS: BASO % 0.5 % (0-2.0); EOS % 3.5 % (0-4.5); HEMOGLOBIN 11.7 GM/dL (10.7-15.3); LYMPH % 23.4 % (8-40); MCHC 30.8 g/dl (32.0-36.0); MEAN PLT VOLUME 8.4 fl (7.5-11.1); MONO % 6.9 % (3.8-10.2); NEUT % 65.7 % (42.8-82.8); PLATELET COUNT 269 10^3/uL (134-434); RBC 4.87 M/mm3 (3.60-5.2); RDW 19.3 % (11.6-15.6)
[2022-01-12 08:48] LABS: BLOOD UREA NITROGEN 23.2 mg/dL (7-18); CALCIUM 8.4 mg/dL (8.5-10.1)
[2022-01-12 08:52] LABS: CREATININE 0.7 mg/dL (0.55-1.3)
[2022-01-12] MEDS ORDERED: POTASSIUM CHLORIDE TABS 20 MEQ TABLET.ER (FP) PO ONE (09:30)
[2022-01-12 09:47] LABS: MAGNESIUM 2.3 mg/dL (1.8-2.4)
[2022-01-12 09:49] LABS: PHOSPHOROUS 3.5 mg/dL (2.5-4.9)
[2022-01-12] MEDS: METOPROLOL TARTRATE 50 MG TABLET (FP) PO SCH ×2 (10:41→21:37)
[2022-01-12] MEDS: SERTRALINE HCL 50 MG TABLET (FP) PO SCH (10:41)
[2022-01-12] MEDS: GABAPENTIN 300 MG CAPSULE PO SCH (10:42)
[2022-01-12] MEDS: FUROSEMIDE 40 MG/4 ML INJECTABLE VIAL IVPUSH SCH (10:42)
[2022-01-12] MEDS: RIVAROXABAN 20 MG TABLET PO SCH (17:04)
[2022-01-12] MEDS: ROSUVASTATIN CA 20 MG TABLET PO SCH (21:37)
[2022-01-13 07:09] VITALS: RESP 18
[2022-01-13] MEDS ORDERED: CEFTRIAXONE 1 GM in DEXTROSE 5%-WATER - 50 ML IVPB ONE (09:00)
[2022-01-13] MEDS: METOPROLOL TARTRATE 50 MG TABLET (FP) PO SCH (09:57)
[2022-01-13] MEDS: SERTRALINE HCL 50 MG TABLET (FP) PO SCH (09:57)
[2022-01-13] MEDS: GABAPENTIN 300 MG CAPSULE PO SCH (09:57)
[2022-01-13] MEDS ORDERED: FUROSEMIDE 40 MG TABLET (FP) PO SCH (10:00)
[2022-01-13 12:46] VITALS: BP 123/55; PULSE 76; TEMP 98.9
== END 2022-01-13 13:27 | disposition home health service (06) ==
LOC: JER 09:32 → JERBED 15:57 → J7W 01-08 00:23
PROVIDERS: ADMIT Internal Medicine; ATTEND Internal Medicine
PROC: 3E03329 Introduction of Other Anti-infective into Peripheral Vein, Percutaneous Approach (ICD-10-PCS; principal; 2022-01-07)
PROC: 3E033GC Introduction of Other Therapeutic Substance into Peripheral Vein, Percutaneous Approach (ICD-10-PCS; 2022-01-07)
DX: J96.01 Acute respiratory failure with hypoxia (principal); N39.0 Urinary tract infection, site not specified; B96.20 Unspecified Escherichia coli [E. coli] as the cause of diseases classified elsewhere; I11.0 Hypertensive heart disease with heart failure; I50.31 Acute diastolic (congestive) heart failure; K21.9 Gastro-esophageal reflux disease without esophagitis; F32.A Depression, unspecified; E03.9 Hypothyroidism, unspecified; Z79.01 Long term (current) use of anticoagulants; E66.8 Other obesity; Z68.34 Body mass index [BMI] 34.0-34.9, adult
CPT/HCPCS: 36415; 71045-TC-FY; 71275-TC; 80048; 80053; 81003; 82962; 83735; 83880; 84100; 84443; 84484; 85025; 85610; 85730; 87086; 87186; 93005; 93010; 93306-TC; 94761; 96365; 96366; 96367; 96375; 97162-GP; 99285-25; C9803-CS; G0378; Q9967; U0003; U0005

== ENCOUNTER 2022-02-25 11:19 | Emergency (ER) | payer MEDICARE, OTHER ==
[2022-02-25 12:24] VITALS: TEMP 98.3; BMI 30.9
[2022-02-25] MEDS ORDERED: ACETAMINOPHEN 1000 MG/100 ML BAG IVPB ONE (13:03)
[2022-02-25] MEDS ORDERED: ACETAMINOPHEN INJECTION 100 ML IVPB ONE (13:11)
[2022-02-25] MEDS ORDERED: FAMOTIDINE 20 MG/50 ML IVPB 20 MG/50 ML MG IVPB ONE ×2 (13:29→14:01)
[2022-02-25 14:01] LABS: HEMATOCRIT 38.1 % (32.4-45.2); HEMOGLOBIN 11.8 GM/dL (10.7-15.3); MEAN CELL VOLUME 77.6 fl (80-96); MEAN PLT VOLUME 8.3 fl (7.5-11.1); PLATELET COUNT 283 10^3/uL (134-434); RBC 4.91 M/mm3 (3.60-5.2); RDW 19.5 % (11.6-15.6); WHITE BLOOD COUNT 9.1 K/mm3 (4.0-10.0)
[2022-02-25 14:07] LABS: INR 1.2 (0.83-1.09); PROTHROMBIN TIME (PATIENT) 13.8 SEC (9.7-13.0)
[2022-02-25 14:09] LABS: ACTIVATED PTT 37.7 SECONDS (25.2-36.5)
[2022-02-25 14:24] LABS: ALBUMIN 3.1 g/dl (3.4-5.0); BLOOD UREA NITROGEN 8.2 mg/dL (7-18); CALCIUM 8.8 mg/dL (8.5-10.1)
[2022-02-25 14:27] LABS: CREATININE 0.6 mg/dL (0.55-1.3)
[2022-02-25 14:29] LABS: BILIRUBIN,TOTAL 0.7 mg/dL (0.2-1); TOT PROT 6.8 g/dl (6.4-8.2)
[2022-02-25 14:58] LABS: PH,URINE 7.5 (5.0-8.0); URINE APPEARANCE CLEAR; URINE BILIRUBIN NEGATIVE (NEGATIVE); URINE COLOR YELLOW; URINE GLUCOSE (UA) NEGATIVE (NEGATIVE); URINE KETONE NEGATIVE (NEGATIVE); URINE LEUK ESTERASE NEGATIVE (NEGATIVE); URINE NITRITE NEGATIVE (NEGATIVE); URINE PROTEIN NEGATIVE (NEGATIVE); URINE UROBILINOGEN 0.2 mg/dL (0.2-1.0)
[2022-02-25 14:59] LABS: EPI CELLS 6 /uL (0-25.1); HYALINE CASTS 1 /uL (0-3.1); URINE BACTERIA 6 /uL (0-1359); URINE RBC 43 /uL (0-23.9); URINE WBC 9 /uL (0-25.8)
[2022-02-25 16:04] LABS: BLOOD UREA NITROGEN 8.4 mg/dL (7-18); CALCIUM 8.7 mg/dL (8.5-10.1)
[2022-02-25 16:07] LABS: CREATININE 0.5 mg/dL (0.55-1.3)
[2022-02-25 19:09] VITALS: BP 142/75; PULSE 80; RESP 20
== END 2022-02-25 19:00 | disposition home or self-care (01) ==
LOC: JER 11:19
PROC: 3E033GC Introduction of Other Therapeutic Substance into Peripheral Vein, Percutaneous Approach (ICD-10-PCS; principal; 2022-02-25)
DX: R10.32 Left lower quadrant pain (principal)
CPT/HCPCS: 36415; 74177-TC; 80048; 80053; 81003; 82272; 82962; 83605; 83690; 84484; 85027; 85610; 85730; 86850; 86900; 86901; 87086; 93005; 93010; 96365; 96375; 99285-25; Q9967

== ENCOUNTER 2022-07-23 03:03 | Inpatient (IN) | payer MEDICARE, OTHER ==
[2022-07-23] MEDS ORDERED: ACETAMINOPHEN 1000 MG/100 ML BAG IVPB ONE (03:13)
[2022-07-23] MEDS ORDERED: ACETAMINOPHEN INJECTION 100 ML IVPB ONE (03:19)
[2022-07-23] MEDS ORDERED: PIPERACILLIN/TAZOB 4.5 GM 4.5 GM/100 ML BAG IVPB ONE (03:19)
[2022-07-23] MEDS ORDERED: PIPERACILLIN/TAZOB 4.5 GM 4.5 GM in DEXTROSE 5%-WATER 100 ML IVPB ONE (03:19)
[2022-07-23] MEDS ORDERED: VANCOMYCIN/WATER 1,250 MG/250 ML BAG (RESTRICTED TO ID ONLY) IVPB ONE (03:20)
[2022-07-23] MEDS ORDERED: VANCOMYCIN HCL 1,500 MG in DEXTROSE 5%-WATER - 500 ML IVPB ONE (03:21)
[2022-07-23] MEDS ORDERED: VANCOMYCIN 500 MG VIAL (RESTRICTED TO ID ONLY) ONE (03:49)
[2022-07-23] MEDS ORDERED: VANCOMYCIN PREMIX 1.5 GM 1,500 MG/300 ML BAG IVPB ONE (03:54)
[2022-07-23 04:00] LABS: PROTHROMBIN TIME (PATIENT) 11.6 SEC (9.7-13.0)
[2022-07-23 04:01] LABS: VENOUS O2 SATURATION 33.9 % (70-80); VENOUS PCO2 44.1 mmHg (38-52); VENOUS PH 7.378 (7.310-7.410)
[2022-07-23 04:03] LABS: ACTIVATED PTT 32.8 SECONDS (25.2-36.5)
[2022-07-23 04:04] LABS: BASO % 0.3 % (0-2.0); EOS % 1.3 % (0-4.5); HEMATOCRIT 37.2 % (32.4-45.2); HEMOGLOBIN 11.7 GM/dL (10.7-15.3); LYMPH % 6.3 % (8-40); MCH 23.7 pg (25.7-33.7); MCHC 31.5 g/dl (32.0-36.0); MEAN CELL VOLUME 75.1 fl (80-96); MEAN PLT VOLUME 8.2 fl (7.5-11.1); MONO % 3.7 % (3.8-10.2); NEUT % 88.4 % (42.8-82.8); PLATELET COUNT 256 10^3/uL (134-434); RBC 4.95 M/mm3 (3.60-5.2); RDW 19.2 % (11.6-15.6); WHITE BLOOD COUNT 13.4 K/mm3 (4.0-10.0)
[2022-07-23] MEDS ORDERED: DEXAMETHASONE SOD PHOSPHATE 10 MG/1 ML VIAL IVPUSH ONE (04:04)
[2022-07-23] MEDS ORDERED: DEXAMETHASONE SOD PHOSPHATE 10 MG/1 ML VIAL ONE (04:08)
[2022-07-23 04:16] LABS: PH,URINE 5.5 (5.0-8.0); URINE APPEARANCE CLEAR; URINE BILIRUBIN NEGATIVE (NEGATIVE); URINE COLOR YELLOW; URINE GLUCOSE (UA) NEGATIVE (NEGATIVE); URINE KETONE NEGATIVE (NEGATIVE); URINE LEUK ESTERASE NEGATIVE (NEGATIVE); URINE NITRITE NEGATIVE (NEGATIVE); URINE PROTEIN TRACE (NEGATIVE); URINE UROBILINOGEN 0.2 mg/dL (0.2-1.0)
[2022-07-23 04:24] LABS: CALCIUM 8.6 mg/dL (8.5-10.1)
[2022-07-23 04:25] LABS: ALBUMIN 3.4 g/dl (3.4-5.0); BLOOD UREA NITROGEN 13.2 mg/dL (7-18)
[2022-07-23 04:28] LABS: CREATININE 0.7 mg/dL (0.55-1.3); PHOSPHOROUS 4.1 mg/dL (2.5-4.9)
[2022-07-23 04:29] LABS: TOT PROT 7.1 g/dl (6.4-8.2)
[2022-07-23 04:30] LABS: BILIRUBIN,TOTAL 0.7 mg/dL (0.2-1)
[2022-07-23 04:31] LABS: LACTIC ACID 3.1 mmol/L (0.4-2.0)
[2022-07-23] MEDS ORDERED: SODIUM CHLORIDE 0.9% 500 ML INFUS.BAG IV ONE (04:43)
[2022-07-23 07:21] LABS: LACTIC ACID 3.6 mmol/L (0.4-2.0)
[2022-07-23] MEDS ORDERED: SODIUM CHLORIDE 1,000 ML IV SCH (09:00)
[2022-07-23] MEDS ORDERED: REMDESIVIR 200 MG in SODIUM CHLORIDE 250 ML IVPB ONE (11:00)
[2022-07-23] MEDS: SERTRALINE HCL 50 MG TABLET (FP) PO SCH (12:36)
[2022-07-23] MEDS: ZINC SULFATE 220 MG CAPSULE (FP) PO SCH (13:16)
[2022-07-23] MEDS: GABAPENTIN 300 MG CAPSULE PO SCH ×2 (13:16→21:08)
[2022-07-23] MEDS: MULTIVITAMINS (DAILY MVI) TABLET (FP) PO SCH (13:17)
[2022-07-23] MEDS: PANTOPRAZOLE 40 MG TABLET PO SCH (13:17)
[2022-07-23] MEDS: LEVOTHYROXINE NA 125 MCG TABLET (FP) PO SCH (13:17)
[2022-07-23] MEDS: ASCORBIC ACID 250 MG TABLET (FP) PO SCH (13:17)
[2022-07-23] MEDS: DEXAMETHASONE SOD PHOSPHATE 10 MG/1 ML VIAL IVPUSH SCH (13:32)
[2022-07-23] MEDS: RIVAROXABAN 20 MG TABLET PO SCH (18:24)
[2022-07-23 18:30] VITALS: BMI 36.2
[2022-07-23] MEDS: ROSUVASTATIN CA 20 MG TABLET PO SCH (21:07)
[2022-07-23] MEDS: QUEtiapine FUMARATE 25 MG TABLET PO SCH (21:08)
[2022-07-24] MEDS: LEVOTHYROXINE NA 125 MCG TABLET (FP) PO SCH (06:14)
[2022-07-24] MEDS: PANTOPRAZOLE 40 MG TABLET PO SCH (09:35)
[2022-07-24] MEDS: SERTRALINE HCL 50 MG TABLET (FP) PO SCH (09:35)
[2022-07-24] MEDS: MULTIVITAMINS (DAILY MVI) TABLET (FP) PO SCH (09:35)
[2022-07-24] MEDS: GABAPENTIN 300 MG CAPSULE PO SCH ×2 (09:35→23:33)
[2022-07-24] MEDS: DEXAMETHASONE SOD PHOSPHATE 10 MG/1 ML VIAL IVPUSH SCH ×2 (09:35→10:57)
[2022-07-24] MEDS: ASCORBIC ACID 250 MG TABLET (FP) PO SCH (09:35)
[2022-07-24] MEDS: ZINC SULFATE 220 MG CAPSULE (FP) PO SCH (09:35)
[2022-07-24] MEDS: PIPERACILLIN/TAZOB 3.375 GM 3.375 GM in DEXTROSE 5%-WATER - 50 ML IVPB SCH ×4 (10:00→19:35)
[2022-07-24 10:16] LABS: BASO % 0.1 % (0-2.0); HEMATOCRIT 33.5 % (32.4-45.2); LYMPH % 18.7 % (8-40); MCH 24.6 pg (25.7-33.7); MCHC 32.8 g/dl (32.0-36.0); MEAN CELL VOLUME 75.2 fl (80-96); MEAN PLT VOLUME 8.6 fl (7.5-11.1); MONO % 15.4 % (3.8-10.2); NEUT % 65.8 % (42.8-82.8); PLATELET COUNT 227 10^3/uL (134-434); RBC 4.45 M/mm3 (3.60-5.2); RDW 19.6 % (11.6-15.6); WHITE BLOOD COUNT 7.1 K/mm3 (4.0-10.0)
[2022-07-24 10:46] LABS: CALCIUM 8.5 mg/dL (8.5-10.1)
[2022-07-24 10:47] LABS: BLOOD UREA NITROGEN 19.5 mg/dL (7-18); MAGNESIUM 2.1 mg/dL (1.8-2.4)
[2022-07-24 10:49] LABS: CREATININE 0.8 mg/dL (0.55-1.3)
[2022-07-24 10:51] LABS: BILIRUBIN,TOTAL 0.4 mg/dL (0.2-1); TOT PROT 6.4 g/dl (6.4-8.2)
[2022-07-24] MEDS: REMDESIVIR 100 MG in SODIUM CHLORIDE 250 ML IVPB SCH (12:23)
[2022-07-24] MEDS: RIVAROXABAN 20 MG TABLET PO SCH (17:20)
[2022-07-24] MEDS: CEFTRIAXONE 2 GM in DEXTROSE 5%-WATER 100 ML IVPB SCH (21:04)
[2022-07-24] MEDS: ROSUVASTATIN CA 20 MG TABLET PO SCH (23:33)
[2022-07-24] MEDS: QUEtiapine FUMARATE 25 MG TABLET PO SCH (23:33)
[2022-07-25] MEDS: LEVOTHYROXINE NA 125 MCG TABLET (FP) PO SCH (07:02)
[2022-07-25 09:22] LABS: BASO % 0.2 % (0-2.0); HEMATOCRIT 32.5 % (32.4-45.2); HEMOGLOBIN 10.6 GM/dL (10.7-15.3); LYMPH % 22.3 % (8-40); MCH 24.3 pg (25.7-33.7); MCHC 32.6 g/dl (32.0-36.0); MEAN CELL VOLUME 74.5 fl (80-96); MEAN PLT VOLUME 8.6 fl (7.5-11.1); MONO % 8.8 % (3.8-10.2); NEUT % 68.7 % (42.8-82.8); PLATELET COUNT 237 10^3/uL (134-434); RBC 4.36 M/mm3 (3.60-5.2); RDW 19.6 % (11.6-15.6); WHITE BLOOD COUNT 10.2 K/mm3 (4.0-10.0)
[2022-07-25] MEDS: GABAPENTIN 300 MG CAPSULE PO SCH ×2 (09:46→21:30)
[2022-07-25] MEDS: PANTOPRAZOLE 40 MG TABLET PO SCH (09:46)
[2022-07-25] MEDS: SERTRALINE HCL 50 MG TABLET (FP) PO SCH (09:46)
[2022-07-25] MEDS: ASCORBIC ACID 250 MG TABLET (FP) PO SCH (09:46)
[2022-07-25] MEDS: MULTIVITAMINS (DAILY MVI) TABLET (FP) PO SCH (09:46)
[2022-07-25] MEDS: ZINC SULFATE 220 MG CAPSULE (FP) PO SCH (09:46)
[2022-07-25] MEDS: DEXAMETHASONE SOD PHOSPHATE 10 MG/1 ML VIAL IVPUSH SCH (09:47)
[2022-07-25] MEDS: CEFTRIAXONE 2 GM in DEXTROSE 5%-WATER 100 ML IVPB SCH (09:48)
[2022-07-25 10:06] LABS: ALBUMIN 2.8 g/dl (3.4-5.0); BLOOD UREA NITROGEN 21.5 mg/dL (7-18); MAGNESIUM 2.2 mg/dL (1.8-2.4)
[2022-07-25 10:08] LABS: CREATININE 0.6 mg/dL (0.55-1.3)
[2022-07-25 10:11] LABS: BILIRUBIN,TOTAL 0.3 mg/dL (0.2-1); TOT PROT 6.1 g/dl (6.4-8.2)
[2022-07-25] MEDS: REMDESIVIR 100 MG in SODIUM CHLORIDE 250 ML IVPB SCH (11:19)
[2022-07-25] MEDS ORDERED: INSULIN (NOVOLOG) ASPART 100 UNITS/ML 10ML VIAL ONE (16:11)
[2022-07-25] MEDS: RIVAROXABAN 20 MG TABLET PO SCH (17:06)
[2022-07-25] MEDS: ROSUVASTATIN CA 20 MG TABLET PO SCH (21:30)
[2022-07-25] MEDS: QUEtiapine FUMARATE 25 MG TABLET PO SCH (21:30)
[2022-07-26] MEDS: LEVOTHYROXINE NA 125 MCG TABLET (FP) PO SCH (07:44)
[2022-07-26 09:32] LABS: BASO % 0.2 % (0-2.0); EOS % 0.2 % (0-4.5); HEMATOCRIT 33.3 % (32.4-45.2); HEMOGLOBIN 10.5 GM/dL (10.7-15.3); LYMPH % 19.2 % (8-40); MCH 23.9 pg (25.7-33.7); MCHC 31.6 g/dl (32.0-36.0); MEAN CELL VOLUME 75.4 fl (80-96); MEAN PLT VOLUME 7.9 fl (7.5-11.1); MONO % 6.3 % (3.8-10.2); NEUT % 74.1 % (42.8-82.8); PLATELET COUNT 229 10^3/uL (134-434); RBC 4.41 M/mm3 (3.60-5.2); RDW 20.2 % (11.6-15.6); WHITE BLOOD COUNT 13.1 K/mm3 (4.0-10.0)
[2022-07-26 09:54] LABS: ALBUMIN 2.8 g/dl (3.4-5.0); BLOOD UREA NITROGEN 16.6 mg/dL (7-18); CALCIUM 7.5 mg/dL (8.5-10.1)
[2022-07-26 09:57] LABS: CREATININE 0.5 mg/dL (0.55-1.3)
[2022-07-26 09:58] LABS: BILIRUBIN,TOTAL 0.4 mg/dL (0.2-1)
[2022-07-26] MEDS: POTASSIUM CHLORIDE TABS 20 MEQ TABLET.ER (FP) PO SCH ×2 (13:40→18:12)
[2022-07-26] MEDS: MULTIVITAMINS (DAILY MVI) TABLET (FP) PO SCH (13:41)
[2022-07-26] MEDS: SERTRALINE HCL 50 MG TABLET (FP) PO SCH (13:41)
[2022-07-26] MEDS: CEFTRIAXONE 2 GM in DEXTROSE 5%-WATER 100 ML IVPB SCH (13:41)
[2022-07-26] MEDS: GABAPENTIN 300 MG CAPSULE PO SCH ×2 (13:41→23:07)
[2022-07-26] MEDS: ASCORBIC ACID 250 MG TABLET (FP) PO SCH (13:41)
[2022-07-26] MEDS: PANTOPRAZOLE 40 MG TABLET PO SCH (13:41)
[2022-07-26] MEDS: ZINC SULFATE 220 MG CAPSULE (FP) PO SCH (13:41)
[2022-07-26] MEDS: DEXAMETHASONE SOD PHOSPHATE 10 MG/1 ML VIAL IVPUSH SCH (13:41)
[2022-07-26] MEDS: REMDESIVIR 100 MG in SODIUM CHLORIDE 250 ML IVPB SCH (13:42)
[2022-07-26] MEDS ORDERED: ACETAMINOPHEN 325 MG TABLET (FP) PO PRN (14:35)
[2022-07-26] MEDS: RIVAROXABAN 20 MG TABLET PO SCH (18:13)
[2022-07-26] MEDS: ROSUVASTATIN CA 20 MG TABLET PO SCH (23:07)
[2022-07-26] MEDS: QUEtiapine FUMARATE 25 MG TABLET PO SCH (23:07)
[2022-07-27] MEDS: LEVOTHYROXINE NA 125 MCG TABLET (FP) PO SCH (06:58)
[2022-07-27 09:03] LABS: BASO % 0.1 % (0-2.0); EOS % 0.1 % (0-4.5); HEMATOCRIT 31.6 % (32.4-45.2); HEMOGLOBIN 10.2 GM/dL (10.7-15.3); LYMPH % 16.4 % (8-40); MCHC 32.3 g/dl (32.0-36.0); MEAN CELL VOLUME 74.4 fl (80-96); MONO % 5.3 % (3.8-10.2); NEUT % 78.1 % (42.8-82.8); PLATELET COUNT 220 10^3/uL (134-434); RBC 4.25 M/mm3 (3.60-5.2); RDW 19.7 % (11.6-15.6)
[2022-07-27 09:24] LABS: CALCIUM 7.5 mg/dL (8.5-10.1)
[2022-07-27 09:25] LABS: ALBUMIN 2.7 g/dl (3.4-5.0); BLOOD UREA NITROGEN 17.9 mg/dL (7-18); MAGNESIUM 2.2 mg/dL (1.8-2.4)
[2022-07-27 09:26] LABS: CREATININE 0.5 mg/dL (0.55-1.3)
[2022-07-27 09:28] LABS: BILIRUBIN,TOTAL 0.7 mg/dL (0.2-1); TOT PROT 5.8 g/dl (6.4-8.2)
[2022-07-27] MEDS ORDERED: DEXAMETHASONE 4 MG TABLET (FP) PO SCH (10:00)
[2022-07-27] MEDS: GABAPENTIN 300 MG CAPSULE PO SCH (10:08)
[2022-07-27] MEDS: SERTRALINE HCL 50 MG TABLET (FP) PO SCH (10:08)
[2022-07-27] MEDS: MULTIVITAMINS (DAILY MVI) TABLET (FP) PO SCH (10:08)
[2022-07-27] MEDS: ASCORBIC ACID 250 MG TABLET (FP) PO SCH (10:09)
[2022-07-27] MEDS: ZINC SULFATE 220 MG CAPSULE (FP) PO SCH (10:09)
[2022-07-27] MEDS: PANTOPRAZOLE 40 MG TABLET PO SCH (10:10)
[2022-07-27] MEDS: CEFTRIAXONE 2 GM in DEXTROSE 5%-WATER 100 ML IVPB SCH (10:52)
[2022-07-27] MEDS: REMDESIVIR 100 MG in SODIUM CHLORIDE 250 ML IVPB SCH (11:20)
[2022-07-27 15:32] VITALS: BP 125/79; PULSE 96; RESP 20; TEMP 97.9
== END 2022-07-27 17:43 | disposition home or self-care (01) | DRG 177 ==
LOC: JER 03:03 → JERBED 05:30 → J8W 10:06
PROVIDERS: ADMIT Internal Medicine; ATTEND Nurse Practitioner Family
PROC: XW033E5 Introduction of Remdesivir Anti-infective into Peripheral Vein, Percutaneous Approach, New Technology Group 5 (ICD-10-PCS; principal; 2022-07-23)
DX: U07.1 COVID-19 (principal); J12.82 Pneumonia due to coronavirus disease 2019; J96.01 Acute respiratory failure with hypoxia; E87.20 Acidosis, unspecified; I69.351 Hemiplegia and hemiparesis following cerebral infarction affecting right dominant side; I48.19 Other persistent atrial fibrillation; I50.20 Unspecified systolic (congestive) heart failure; R65.10 Systemic inflammatory response syndrome (SIRS) of non-infectious origin without acute organ dysfunction; I25.10 Atherosclerotic heart disease of native coronary artery without angina pectoris; I11.0 Hypertensive heart disease with heart failure; K21.9 Gastro-esophageal reflux disease without esophagitis; E66.9 Obesity, unspecified; Z68.37 Body mass index [BMI] 37.0-37.9, adult; E03.9 Hypothyroidism, unspecified
CPT/HCPCS: 0241U-QW; 36415; 71045-TC-FY; 74177-TC; 76705-TC; 80053; 81003; 82803; 82962; 83605; 83735; 83880; 84100; 84484; 85025; 85379; 85610; 85730; 86140; 86850; 86900; 86901; 87040; 87086; 87899; 93005; 93010; 94761; 97116-GP; 97162-GP; 99285-25; C9399; J1100; Q9967

== ENCOUNTER 2023-01-26 10:39 | Observation (INO) | payer MEDICARE, OTHER ==
[2023-01-26] MEDS ORDERED: ALBUTEROL SO4 2.5/IPRATROPIUM 0.5 INH SOL 3 ML VIAL.NEB. NEB ONE ×2 (12:15→12:45)
[2023-01-26 13:27] LABS: BASO % 0.5 % (0-2.0); EOS % 4.4 % (0-4.5); HEMATOCRIT 35.4 % (32.4-45.2); LYMPH % 27.3 % (8-40); MCH 24.3 pg (25.7-33.7); MCHC 31.1 g/dl (32.0-36.0); MEAN CELL VOLUME 78.1 fl (80-96); MEAN PLT VOLUME 7.9 fl (7.5-11.1); MONO % 5.5 % (3.8-10.2); NEUT % 62.3 % (42.8-82.8); PLATELET COUNT 265 10^3/uL (134-434); RBC 4.53 M/mm3 (3.60-5.2); RDW 20.5 % (11.6-15.6); WHITE BLOOD COUNT 8.9 K/mm3 (4.0-10.0)
[2023-01-26 13:54] LABS: POTASSIUM 4.1 mmol/L (3.5-5.1)
[2023-01-26 13:56] LABS: BLOOD UREA NITROGEN 12.9 mg/dL (7-18); CALCIUM 8.3 mg/dL (8.5-10.1)
[2023-01-26 13:57] LABS: ALBUMIN 3.2 g/dl (3.4-5.0); MAGNESIUM 2.2 mg/dL (1.8-2.4)
[2023-01-26 14:01] LABS: BILIRUBIN,TOTAL 0.4 mg/dL (0.2-1); TOT PROT 6.6 g/dl (6.4-8.2)
[2023-01-26 14:05] LABS: N-TERMINAL BNP 1246.4 pg/ml (5-450)
[2023-01-26 14:07] LABS: CREATININE 0.6 mg/dL (0.55-1.3)
[2023-01-26] MEDS ORDERED: FUROSEMIDE 40 MG/4 ML INJECTABLE VIAL IVPUSH ONE (14:20)
[2023-01-26 14:23] LABS: ANISOCYTOSIS 2+; MACROCYTOSIS 0; TEAR DROP CELLS 1+
[2023-01-26] MEDS ORDERED: FUROSEMIDE 40 MG/4 ML INJECTABLE VIAL ONE (14:36)
[2023-01-26] MEDS ORDERED: methylPREDNISolone NA SUCC 40 MG/1 ML VIAL IVPUSH ONE (15:54)
[2023-01-26] MEDS ORDERED: methylPREDNISolone NA SUCC 40 MG/1 ML VIAL ONE ×2 (16:15→16:16)
[2023-01-26] MEDS: QUEtiapine FUMARATE 100 MG TABLET (FP) PO SCH (22:56)
[2023-01-26] MEDS: METOPROLOL TARTRATE 50 MG TABLET (FP) PO SCH (22:56)
[2023-01-26] MEDS: ROSUVASTATIN CA 20 MG TABLET PO SCH (22:56)
[2023-01-26] MEDS: ALBUTEROL SO4 2.5/IPRATROPIUM 0.5 INH SOL 3 ML VIAL.NEB. NEB SCH (23:46)
[2023-01-27] MEDS: ALBUTEROL SO4 2.5/IPRATROPIUM 0.5 INH SOL 3 ML VIAL.NEB. NEB SCH ×3 (07:54→20:12)
[2023-01-27 09:05] LABS: BASO % 0.1 % (0-2.0); HEMATOCRIT 35.8 % (32.4-45.2); HEMOGLOBIN 11.2 GM/dL (10.7-15.3); LYMPH % 15.9 % (8-40); MCH 24.5 pg (25.7-33.7); MCHC 31.4 g/dl (32.0-36.0); MEAN CELL VOLUME 78.1 fl (80-96); MEAN PLT VOLUME 8.1 fl (7.5-11.1); MONO % 4.7 % (3.8-10.2); NEUT % 79.3 % (42.8-82.8); PLATELET COUNT 265 10^3/uL (134-434); RBC 4.58 M/mm3 (3.60-5.2); RDW 20.4 % (11.6-15.6); WHITE BLOOD COUNT 8.2 K/mm3 (4.0-10.0)
[2023-01-27 09:44] LABS: CALCIUM 8.6 mg/dL (8.5-10.1)
[2023-01-27 09:45] LABS: BLOOD UREA NITROGEN 17.4 mg/dL (7-18)
[2023-01-27 09:48] LABS: CREATININE 0.6 mg/dL (0.55-1.3)
[2023-01-27] MEDS ORDERED: FUROSEMIDE 40 MG/4 ML INJECTABLE VIAL IVPUSH SCH (10:00)
[2023-01-27] MEDS: LEVOTHYROXINE NA 125 MCG TABLET (FP) PO SCH (11:10)
[2023-01-27] MEDS: METOPROLOL TARTRATE 50 MG TABLET (FP) PO SCH ×2 (11:10→22:49)
[2023-01-27] MEDS: PANTOPRAZOLE 40 MG TABLET PO SCH (11:10)
[2023-01-27] MEDS: SERTRALINE HCL 50 MG TABLET (FP) PO SCH (11:11)
[2023-01-27] MEDS: RIVAROXABAN 20 MG TABLET PO SCH (11:11)
[2023-01-27] MEDS ORDERED: ACETAMINOPHEN 1000 MG/100 ML BAG IVPB ONE (11:45)
[2023-01-27] MEDS: LIDOCAINE 5% TOPICAL PATCH TP SCH (13:07)
[2023-01-27] MEDS: QUEtiapine FUMARATE 100 MG TABLET (FP) PO SCH (22:49)
[2023-01-27] MEDS: ROSUVASTATIN CA 20 MG TABLET PO SCH (22:49)
[2023-01-27] MEDS: LIDOCAINE PATCH REMOVAL MC SCH (22:49)
[2023-01-28] MEDS: ALBUTEROL SO4 2.5/IPRATROPIUM 0.5 INH SOL 3 ML VIAL.NEB. NEB SCH ×3 (07:20→20:31)
[2023-01-28 07:57] LABS: BASO % 0.6 % (0-2.0); EOS % 2.8 % (0-4.5); HEMATOCRIT 32.3 % (32.4-45.2); HEMOGLOBIN 10.4 GM/dL (10.7-15.3); LYMPH % 26.6 % (8-40); MCH 24.4 pg (25.7-33.7); MCHC 32.2 g/dl (32.0-36.0); MEAN CELL VOLUME 75.7 fl (80-96); MEAN PLT VOLUME 7.5 fl (7.5-11.1); MONO % 6.4 % (3.8-10.2); NEUT % 63.6 % (42.8-82.8); PLATELET COUNT 238 10^3/uL (134-434); RBC 4.27 M/mm3 (3.60-5.2); RDW 20.5 % (11.6-15.6); WHITE BLOOD COUNT 12.2 K/mm3 (4.0-10.0)
[2023-01-28 08:16] LABS: POTASSIUM 3.6 mmol/L (3.5-5.1)
[2023-01-28 08:18] LABS: BLOOD UREA NITROGEN 23.9 mg/dL (7-18); CALCIUM 7.9 mg/dL (8.5-10.1)
[2023-01-28 08:21] LABS: CREATININE 0.6 mg/dL (0.55-1.3)
[2023-01-28 08:23] LABS: BILIRUBIN,TOTAL 0.4 mg/dL (0.2-1); TOT PROT 6.1 g/dl (6.4-8.2)
[2023-01-28] MEDS: LEVOTHYROXINE NA 125 MCG TABLET (FP) PO SCH (10:03)
[2023-01-28] MEDS: FUROSEMIDE 40 MG TABLET (FP) PO SCH (10:03)
[2023-01-28] MEDS: SERTRALINE HCL 50 MG TABLET (FP) PO SCH (10:03)
[2023-01-28] MEDS: LIDOCAINE 5% TOPICAL PATCH TP SCH (10:03)
[2023-01-28] MEDS: METOPROLOL TARTRATE 50 MG TABLET (FP) PO SCH ×2 (10:03→21:49)
[2023-01-28] MEDS: PANTOPRAZOLE 40 MG TABLET PO SCH (10:03)
[2023-01-28] MEDS: RIVAROXABAN 20 MG TABLET PO SCH (10:03)
[2023-01-28] MEDS ORDERED: LEVOTHYROXINE NA 125 MCG TABLET (FP) PO SCH (10:19)
[2023-01-28] MEDS ORDERED: RIVAROXABAN 20 MG TABLET PO SCH (10:21)
[2023-01-28] MEDS: ROSUVASTATIN CA 20 MG TABLET PO SCH (21:49)
[2023-01-28] MEDS: QUEtiapine FUMARATE 100 MG TABLET (FP) PO SCH (21:49)
[2023-01-28] MEDS: LIDOCAINE PATCH REMOVAL MC SCH (23:49)
[2023-01-29] MEDS: ALBUTEROL SO4 2.5/IPRATROPIUM 0.5 INH SOL 3 ML VIAL.NEB. NEB SCH ×3 (07:15→20:21)
[2023-01-29] MEDS: PANTOPRAZOLE 40 MG TABLET PO SCH (09:07)
[2023-01-29] MEDS: METOPROLOL TARTRATE 50 MG TABLET (FP) PO SCH ×2 (09:07→21:14)
[2023-01-29] MEDS: SERTRALINE HCL 50 MG TABLET (FP) PO SCH (09:07)
[2023-01-29] MEDS: FUROSEMIDE 40 MG TABLET (FP) PO SCH (09:07)
[2023-01-29] MEDS: LIDOCAINE 5% TOPICAL PATCH TP SCH (09:09)
[2023-01-29 14:47] VITALS: RESP 18
[2023-01-29 17:30] VITALS: BMI 29.7
[2023-01-29] MEDS ORDERED: RIVAROXABAN 20 MG TABLET PO SCH (18:00)
[2023-01-29] MEDS: QUEtiapine FUMARATE 100 MG TABLET (FP) PO SCH (21:14)
[2023-01-29] MEDS: LIDOCAINE PATCH REMOVAL MC SCH (21:15)
[2023-01-29] MEDS: ROSUVASTATIN CA 20 MG TABLET PO SCH (21:15)
[2023-01-30 04:07] VITALS: BP 114/61; PULSE 96; TEMP 98
== END 2023-01-30 04:05 | disposition home health service (06) ==
LOC: JER 10:39 → JERBED 15:40 → J4W 22:47
PROVIDERS: ADMIT Internal Medicine; ATTEND Internal Medicine
PROC: 3E0F7GC Introduction of Other Therapeutic Substance into Respiratory Tract, Via Natural or Artificial Opening (ICD-10-PCS; principal; 2023-01-26)
PROC: 3E033NZ Introduction of Analgesics, Hypnotics, Sedatives into Peripheral Vein, Percutaneous Approach (ICD-10-PCS; 2023-01-26)
PROC: 3E033GC Introduction of Other Therapeutic Substance into Peripheral Vein, Percutaneous Approach (ICD-10-PCS; 2023-01-26)
DX: I50.21 Acute systolic (congestive) heart failure (principal); B34.9 Viral infection, unspecified; I48.91 Unspecified atrial fibrillation; I10 Essential (primary) hypertension; I11.0 Hypertensive heart disease with heart failure; I50.9 Heart failure, unspecified; I11.9 Hypertensive heart disease without heart failure; I69.951 Hemiplegia and hemiparesis following unspecified cerebrovascular disease affecting right dominant side; I25.10 Atherosclerotic heart disease of native coronary artery without angina pectoris; K21.9 Gastro-esophageal reflux disease without esophagitis; E03.9 Hypothyroidism, unspecified; F32.A Depression, unspecified; E78.00 Pure hypercholesterolemia, unspecified; R07.9 Chest pain, unspecified
CPT/HCPCS: 0241U-QW; 36415; 71045-TC-FY; 80048; 80053; 83735; 83880; 84484; 85025; 93005; 93010; 93306-TC; 94640; 96374; 96375; 96376; 97116-GP; 97162-GP; 99285-25; G0378

== ENCOUNTER 2024-05-03 12:57 | Emergency (ER) | payer MEDICARE, OTHER ==
[2024-05-03 14:01] VITALS: BP 166/83; PULSE 103; RESP 18; TEMP 98.3; BMI 37.0
[2024-05-03] MEDS ORDERED: FAMOTIDINE 20 MG/50 ML IVPB 20 MG/50 ML MG IVPB ONE (15:15)
[2024-05-03] MEDS ORDERED: ACETAMINOPHEN INJECTION 100 ML ONE (15:15)
[2024-05-03] MEDS: ACETAMINOPHEN 1000 MG/100 ML BAG IVPB ONE (15:21)
[2024-05-03] MEDS: FAMOTIDINE 20 MG/50 ML IVPB 20 MG/50 ML MG IVPB ONE (15:21)
[2024-05-03 15:36] LABS: BASO % 0.4 % (0-2.0); EOS % 1.5 % (0-4.5); HEMATOCRIT 41.9 % (32.4-45.2); HEMOGLOBIN 13.3 GM/dL (10.7-15.3); LYMPH % 18.7 % (8-40); MCH 25.3 pg (25.7-33.7); MCHC 31.6 g/dl (32.0-36.0); MEAN PLT VOLUME 8.1 fl (7.5-11.1); NEUT % 73.4 % (42.8-82.8); PLATELET COUNT 263 10^3/uL (134-434); RBC 5.25 M/mm3 (3.60-5.2); RDW 19.8 % (11.6-15.6); WHITE BLOOD COUNT 11.4 K/mm3 (4.0-10.0)
[2024-05-03 15:43] LABS: INR 0.99 (0.83-1.09); PROTHROMBIN TIME (PATIENT) 11.2 SEC (9.7-13.0)
[2024-05-03 15:45] LABS: ACTIVATED PTT 34.4 SECONDS (25.2-36.5)
[2024-05-03 15:55] LABS: POTASSIUM 4.7 mmol/L (3.5-5.1)
[2024-05-03 15:57] LABS: CALCIUM 9.3 mg/dL (8.5-10.1)
[2024-05-03 15:59] LABS: ALBUMIN 3.5 g/dl (3.4-5.0); BLOOD UREA NITROGEN 10.4 mg/dL (7-18)
[2024-05-03 16:01] LABS: CREATININE 0.6 mg/dL (0.55-1.3)
[2024-05-03 16:02] LABS: BILIRUBIN,TOTAL 0.9 mg/dL (0.2-1); TOT PROT 7.3 g/dl (6.4-8.2)
[2024-05-03 16:03] LABS: LACTIC ACID 2.1 mmol/L (0.4-2.0)
[2024-05-03] MEDS: SODIUM CHLORIDE 500 ML IV STA (16:33)
[2024-05-03 17:25] LABS: PH,URINE 8.5 (5.0-8.0); URINE APPEARANCE CLOUDY; URINE BILIRUBIN NEGATIVE (NEGATIVE); URINE COLOR YELLOW; URINE GLUCOSE (UA) NEGATIVE (NEGATIVE); URINE KETONE NEGATIVE (NEGATIVE); URINE LEUK ESTERASE NEGATIVE (NEGATIVE); URINE NITRITE NEGATIVE (NEGATIVE); URINE PROTEIN NEGATIVE (NEGATIVE)
== END 2024-05-04 01:18 | disposition home or self-care (01) ==
LOC: JER 12:57
PROC: 3E033GC Introduction of Other Therapeutic Substance into Peripheral Vein, Percutaneous Approach (ICD-10-PCS; principal; 2024-05-03)
PROC: 3E033NZ Introduction of Analgesics, Hypnotics, Sedatives into Peripheral Vein, Percutaneous Approach (ICD-10-PCS; 2024-05-03)
DX: R10.84 Generalized abdominal pain (principal); K59.00 Constipation, unspecified; R30.0 Dysuria; R00.0 Tachycardia, unspecified
CPT/HCPCS: 36415; 74177-TC; 80053; 81003; 83605; 83690; 85025; 85610; 85730; 86850; 86900; 86901; 87086; 96365; 96375; 99285-25; J0131; Q9967